=== PATIENT | female | born 1970 | race Caucasian/White ===

== ENCOUNTER → 2019-07-04 13:45 | Outpatient (CLI) | payer OTHER, SELFPAY ==
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
== END ==
PROVIDERS: Family Provider Preventive Medicine Occupational Medicine; PCP Preventive Medicine Occupational Medicine; Referring Provider Podiatrist Foot & Ankle Surgery; Visit Provider Podiatrist Foot & Ankle Surgery
DX: M19.172 Post-traumatic osteoarthritis, left ankle and foot (principal)
CPT/HCPCS: 73700; 76377

== ENCOUNTER → 2022-05-04 | Outpatient (CLI) | payer OTHER, SELFPAY ==
--- NOTE | 2022-05-04 13:45 | CT_ITS ---
EXAM: CT ABDOMEN AND PELVIS WITH INTRAVENOUS CONTRAST CLINICAL INDICATION: abd pain, rectal bleed, diarrhea -- oral and iv TECHNIQUE: Helically acquired images were obtained of the abdomen and pelvis with intravenous contrast. This CT exam was performed using one or more of the following dose reduction techniques: automated exposure control, adjustment of the mA and/or kV according to patient size, and/or use of iterative reconstruction technique. This report was created using [employer] report generation technology. CONTRAST: Oral and amp; IV Gastrografin and amp; 100mL Isovue-300 COMPARISON: None. FINDINGS: LOWER THORAX: Unremarkable. Lung bases are clear. No cardiomegaly. No significant pericardial effusion. ABDOMEN: LIVER: Unremarkable. Homogeneous. No focal mass. GALLBLADDER AND BILE DUCTS: Unremarkable. No calcified gallstones. No gallbladder distention or wall edema. No intra- or extrahepatic biliary ductal dilation. PANCREAS: Unremarkable. No focal cystic or solid mass. SPLEEN: Unremarkable. Normal size without focal cystic or solid mass. ADRENALS: Unremarkable. No nodules. KIDNEYS AND URETERS: Unremarkable. Normal renal size and position. No hydronephrosis. STOMACH AND BOWEL: There is mild thickening of the wall of the sigmoid colon which may be due to incomplete distention or perhaps colitis. There is no obvious inflammation. There is moderate stool in the colon which may represent constipation. PELVIS: APPENDIX: No evidence of acute appendicitis. BLADDER: Unremarkable. REPRODUCTIVE: Unremarkable as visualized. No mass. ABDOMEN and PELVIS: INTRAPERITONEAL SPACE: Unremarkable. No ascites or other fluid collection. No free air. BONES/JOINTS: Unremarkable. No suspicious lytic or blastic abnormality. SOFT TISSUES: Unremarkable. No discrete abdominal or pelvic wall hernia. VASCULATURE: Unremarkable. Abdominal aorta is non-dilated. LYMPH NODES: Unremarkable. No enlarged lymph nodes. CT/Abdomen/Pelvis WITH Contrast IMPRESSION: Mild thickening of the wall the sigmoid colon which may be due to incomplete distention or possibly colitis. There is no obvious inflammation or fluid. There is moderate stool in the more proximal colon which may represent early constipation. Electronically Signed: Haroldo Nichols MD at 16:22 EDT ,
[2022-05-04 16:20] LABS: CREATININE FINGERSTICK < 0.9 mg/dL (0.55-1.02); EGFR FINGERSTICK > 60.0000 mL/min (>60)
== END | disposition home or self-care (01) ==
LOC: CT 13:43
PROVIDERS: PCP Preventive Medicine Occupational Medicine; Referring Provider Nurse Practitioner Adult Health; Visit Provider Nurse Practitioner Adult Health
DX: R10.9 Unspecified abdominal pain (principal); R19.7 Diarrhea, unspecified; K62.5 Hemorrhage of anus and rectum
CPT/HCPCS: 74177; Q9967

== ENCOUNTER → 2022-05-31 | Outpatient (CLI) | payer OTHER, SELFPAY ==
[2022-06-04 10:30] LABS: Calprotectin, Stool 984 ug/g (0-120)
== END | disposition home or self-care (01) ==
PROVIDERS: PCP Preventive Medicine Occupational Medicine; Visit Provider Nurse Practitioner Adult Health
DX: R10.9 Unspecified abdominal pain (principal); R19.7 Diarrhea, unspecified; K62.5 Hemorrhage of anus and rectum; K58.9 Irritable bowel syndrome, unspecified
CPT/HCPCS: 83630; 83993; 87177; 87209; 87493; 87506

== ENCOUNTER 2022-06-11 11:12 | Inpatient (IN) | payer OTHER, SELFPAY ==
[2022-06-11] VITALS (10 sets, daily range): BP systolic 98–125; BP diastolic 58–95; PULSE 67–108; RESP 16–18; TEMP 36.3–36.9; O2SAT 95–100; BMI 39.1; BMI 41.5
--- NOTE | 2022-06-11 11:30 | CT_ITS ---
STUDY: CT ABDOMEN AND PELVIS WITH CONTRAST REASON FOR EXAM: Female, 51 years old. Left lower quadrant pain and bleeding RADIATION DOSAGE (If Supplied By Facility): CTDIvol = ( 15.35 ) mGy, DLP = ( 1226.00 ) mGycm TECHNIQUE: Transaxial images were obtained from the dome of the diaphragm to the symphysis pubis without oral contrast. IV 100mL Isovue-370 was administered. Sagittal and coronal images were reconstructed. Individualized dose optimization techniques were used for this CT. COMPARISON: 05/04/2022 FINDINGS: The visualized lung bases are unremarkable. The visualized portions of the heart are within normal limits. Normal liver. Normal gallbladder and extrahepatic biliary system. Normal spleen. Normal pancreas. Normal bilateral adrenal glands. Normal right kidney. Normal left kidney. Normal visualized stomach. Normal small intestine. Retained stool noted in the majority of the colon, scattered colonic diverticula noted. There is submucosal thickening in the distal descending, throughout the sigmoid colon and rectum consistent with a colitis. There is also pericolonic inflammatory stranding around the distal descending and proximal sigmoid colon consistent with acute diverticulitis. No perforation or abscess is noted. There is non-visualization of the appendix. There is diffuse atherosclerotic calcification of the abdominal aorta, without a demonstrated aneurysm. Normal inferior vena cava. Normal retroperitoneum. Normal urinary bladder. Normal abdominal wall. Mild degenerative bony changes noted. CT/Abdomen/Pelvis W IV Cont ONLY IMPRESSION: Scattered colonic diverticula with some mucosal thickening in the distal descending and sigmoid colon with pericolonic inflammatory stranding consistent with acute diverticulitis. No perforation or abscess. There is also some mucosal thickening throughout the remainder of the sigmoid colon as well as the rectum consistent with a diffuse colitis as well. Again there is no perforation or abscess noted. No suspicious solid organ abnormality No free intraperitoneal fluid, air, or suspicious adenopathy Electronically Signed: Scott Bray MD at 12:20 EST ,
--- NOTE | 2022-06-11 11:32 | EX.ED.DYSGE1 ---
HPI <CLARK Wong - Last Filed: 06/11/22 12:57> History of Present Illness Chief Complaint: GI Bleed Narrative Narrative: 51-year-old female with PMH of HTN, HLD, DM2 presents with bloody BMs since February 2022. She has 10-20 BMs per day that are loose and she often has blood clots. Sometimes she states just bubbles come out. She burps frequently but has no nausea or vomiting. She always has crampy abdominal pain associated with the BMs. She was evaluated at Dr. Walls's office a month ago and had a CT scan showing underdistention vs sigmoid colitis and stool cultures and ova/parasite testing which were all negative. She was never on antibiotics. She is scheduled for endoscopy/colonoscopy on July 13 but states her abdominal pain worsened over the last 4 days and she is not eating or drinking anything because it worsens the pain and she feels dehydrated. She feels hot while lying in bed but has no documented fever and denies chills. PFSH <CLARK Wong - Last Filed: 06/11/22 12:57> [facility] Medical History (Updated 06/11/22 @ 14:59 by Asiya Esqueda) Abdominal pain ADHD Anxiety Arthritis Asthma Blood in stool Chronic pain in left foot Colon polyp Depression Exercise-induced asthma Former smoker Hypertension Irregular heart beat Kidney stones Lower leg edema Neuropathy of left foot Radiculitis, brachial Right shoulder pain Type 2 diabetes mellitus Vitamin D deficiency Home Medications albuterol sulfate 90 mcg/actuation aerosol inhaler (ProAir HFA) 2 puff inhalation Q6H PRN Wheezing 04/07/22 [History Last Taken Unknown] cetirizine 10 mg tablet 10 mg PO DAILY PRN allergies 04/07/22 [History Last Taken Unknown] cholecalciferol (vitamin D3) 100 mcg (4,000 unit) tablet 100 mcg PO DAILY vitamin 04/07/22 [History Last Taken Unknown] fluticasone propionate 50 mcg/actuation nasal spray,suspension 2 spray intranasal DAILY allergies 04/07/22 [History Last Taken Unknown] glipizide 2.5 mg tablet, extended release 24 hr 5 mg PO DAILY diabetes 04/07/22 [History Last Taken Unknown] losartan 25 mg tablet 50 mg PO DAILY blood pressure 04/07/22 [History Last Taken Unknown] meloxicam 15 mg tablet 15 mg PO DAILY arthritis 04/07/22 [History Last Taken Unknown] metformin 500 mg tablet 1,000 mg PO BID diabetes 04/07/22 [History Last Taken Unknown] Allergy/AdvReac Type Severity Reaction Status Date / Time morphine Allergy Intermediate Nausea/Vom/ Verified 06/11/22 14:49 Diarrhea tramadol Allergy Intermediate Nausea Verified 06/11/22 14:49 Family History (Updated 05/04/22 @ 13:00 by Tami Daley) Father Arthritis Diabetes Epilepsy Hypertension Heart disease Liver cancer Mother Hypertension Brother Diabetes Colon cancer Grandmother Colon cancer Stomach cancer Surgical History H/O: hysterectomy History of bunionectomy Previous section Social History Smoking Status: Current every day smoker tobacco type: e-cigarettes alcohol intake: current ROS <CLARK Wong - Last Filed: 06/11/22 12:57> ROS ED ROS Narrative Constitutional: Positive for malaise. Negative for fever, chills. Eyes: Negative for visual change. ENT: Negative for sore throat, ear pain, rhinorrhea. CVS: Negative for palpitations, chest pain, syncope. Respiratory: Negative for shortness of breath, cough, orthopnea. GI: Positive for abdominal pain, diarrhea. Negative for nausea, vomiting, constipation, melena. : Negative for dysuria, hematuria or frequency. Neuro: Negative for headache, motor/sensory dysfunction. Skin: Negative for rash, abscess, or wound. Musc: Negative for joint pain, swelling, trauma. Heme: Negative for easy bruising, bleeding, lymphadenopathy. EXAM <CLARK Wong - Last Filed: 06/11/22 12:57> Physical Exam Narrative Exam Narrative: CONST: Patient lying in bed in no acute distress. EYES: Normal inspection. ENT: Normal inspection, slightly dry mucous membranes. NECK: Normal inspection. RESP: No respiratory distress, CTAB. CVS: Regular rate and rhythm, no murmur, no gallop. ABD: Soft with diffuse tenderness maximal in LLQ, no guarding or rebound, nondistended. Normal bowel sounds x4. SKIN: Color normal, no rash, warm, dry, intact. EXTREMITIES: Normal appearance, no pedal edema. NEURO: Oriented x4. PSYCH: Normal affect. Const Vital Signs: 06/11/22 11:13 Temperature 97.3 F L Temperature Source Temporal Pulse Rate 108 H Respiratory Rate 18 Blood Pressure 113/95 H Blood Pressure Mean 101 Pulse Ox 100 Oxygen Delivery Method Room Air <Dr. Ayad Brice DO - Last Filed: 06/11/22 22:25> Physical Exam Const Vital Signs: 06/11/22 11:13 Temperature 97.3 F L Temperature Source Temporal Pulse Rate 108 H Respiratory Rate 18 Blood Pressure 113/95 H Blood Pressure Mean 101 Pulse Ox 100 Oxygen Delivery Method Room Air MDM <CLARK Wong - Last Filed: 06/11/22 12:57> MDM MDM Narrative Medical decision making narrative: Patient has had 4 months of abdominal pain and lower 10-20 bloody BMs per day. Pain worsened over the last 4 days and she will not eat or drink anything because it increases the pain. She appears ill but nontoxic. She is tachycardic in the low 100s with otherwise normal vital signs. She is significantly tender in LLQ with no peritoneal signs. Labs show normal white count, hemoglobin, electrolytes and renal function. Glucose is 201 with no DKA?likely because she is not taking her oral medications. CT scan shows acute sigmoid diverticulitis with no perforation or abscess. After IV fluids, Dilaudid, Zofran, patient still has significant pain and does not feel she can go home. Discussed case with Dr. Walls as she has seen DIRECTOR [employer] in his practice and he agreed admission would be appropriate. Patient was treated with Rocephin and Flagyl and case discussed with the hospitalist for admission. Lab Data Attestation: I reviewed the patient's lab results. Labs: Laboratory Results - last 24 hr 06/11/22 06/11/22 06/11/22 11:41 11:41 11:41 WBC 10.0 RBC 4.75 Hgb 12.9 Hct 41.0 MCV 86.3 MCH 27.2 MCHC 31.5 L RDW Std Deviation 41.0 RDW Coeff of Terra 13.2 Plt Count 401 MPV 10.2 Immature Gran % (Auto) 0.600 Neut % (Auto) 60.4 Lymph % (Auto) 23.8 Pitkin % (Auto) 7.6 Eos % (Auto) 7.1 H Baso % (Auto) 0.5 Absolute Neuts (auto) 6.1 Absolute Lymphs (auto) 2.39 Nucleated RBC % 0 ESR 87 H Sodium 139 Potassium 4.3 Chloride 103 Carbon Dioxide 31.0 Anion Gap 5 BUN 12 Creatinine 0.84 Estim Creat Clear Calc 61.96 Est GFR (MDRD) Af Amer 92 Est GFR (MDRD) Non-Af 76 BUN/Creatinine Ratio 14.4 Glucose 201 H Calcium 9.4 Total Bilirubin 0.30 AST 7 L ALT 16 Alkaline Phosphatase 92 C-React Prot Ext Range Total Protein 7.5 Albumin 2.5 L Globulin 5.0 H Albumin/Globulin Ratio 0.5 L 06/11/22 11:41 WBC RBC Hgb Hct MCV MCH MCHC RDW Std Deviation RDW Coeff of Terra Plt Count MPV Immature Gran % (Auto) Neut % (Auto) Lymph % (Auto) Pitkin % (Auto) Eos % (Auto) Baso % (Auto) Absolute Neuts (auto) Absolute Lymphs (auto) Nucleated RBC % ESR Sodium Potassium Chloride Carbon Dioxide Anion Gap BUN Creatinine Estim Creat Clear Calc Est GFR (MDRD) Af Amer Est GFR (MDRD) Non-Af BUN/Creatinine Ratio Glucose Calcium Total Bilirubin AST ALT Alkaline Phosphatase C-React Prot Ext Range 94.30 H Total Protein Albumin Globulin Albumin/Globulin Ratio Radiography Diagnostic Testing: Clinical Impression(s) from Imaging Studies Abdomen/Pelvis CT 06/11/22 11:30 IMPRESSION: Scattered colonic diverticula with some mucosal thickening in the distal descending and sigmoid colon with pericolonic inflammatory stranding consistent with acute diverticulitis. No perforation or abscess. There is also some mucosal thickening throughout the remainder of the sigmoid colon as well as the rectum consistent with a diffuse colitis as well. Again there is no perforation or abscess noted. No suspicious solid organ abnormality No free intraperitoneal fluid, air, or suspicious adenopathy Electronically Signed: Scott Bray MD at 12:20 EST , <Dr. Ayad Brice, DO - Last Filed: 06/11/22 22:25> MDM MDM Narrative Medical decision making narrative: Patient has had 4 months of abdominal pain and lower 10-20 bloody BMs per day. Pain worsened over the last 4 days and she will not eat or drink anything because it increases the pain. She appears ill but nontoxic. She is tachycardic in the low 100s with otherwise normal vital signs. She is significantly tender in LLQ with no peritoneal signs. Labs show normal white count, hemoglobin, electrolytes and renal function. Glucose is 201 with no DKA?likely because she is not taking her oral medications. CT scan shows acute sigmoid diverticulitis with no perforation or abscess. After IV fluids, Dilaudid, Zofran, patient still has significant pain and does not feel she can go home. Discussed case with Dr. Walls as she has seen [employer] in his practice and he agreed admission would be appropriate. Patient was treated with Rocephin and Flagyl and case discussed with the hospitalist for admission. Attending note: Patient seen and evaluated with animal husbandry worker. I perform my own [id number] evaluation. I agree with the plan of work-up. Increasing left lower quadrant pain over the past week. Since March 01 to loose stools as bloody. She seen Dr. Walls a month ago had stool studies all negative. She had a CT scan decompressed colon with thickening with questionable diverticulitis. She states she was not on any antibiotics. She denies fevers. Denies any blood thinners. She had a planned endoscopy and colonoscopy next month. Exam tender palpation left lower quadrant. Vital stable. Uncomfortable. Labs obtained hemoglobin stable 12.9. White count of 10. CT scan positive for diverticulitis with no abscess or perforations. She treated for pain symptoms. She started antibiotics. Discussed with Dr. Walls, with her pain and bloody stools will admit to medicine service. Lab Data Labs: Laboratory Results - last 24 hr 06/11/22 06/11/22 06/11/22 11:41 11:41 11:41 WBC 10.0 RBC 4.75 Hgb 12.9 Hct 41.0 MCV 86.3 MCH 27.2 MCHC 31.5 L RDW Std Deviation 41.0 RDW Coeff of Terra 13.2 Plt Count 401 MPV 10.2 Immature Gran % (Auto) 0.600 Neut % (Auto) 60.4 Lymph % (Auto) 23.8 Pitkin % (Auto) 7.6 Eos % (Auto) 7.1 H Baso % (Auto) 0.5 Absolute Neuts (auto) 6.1 Absolute Lymphs (auto) 2.39 Nucleated RBC % 0 ESR 87 H Sodium 139 Potassium 4.3 Chloride 103 Carbon Dioxide 31.0 Anion Gap 5 BUN 12 Creatinine 0.84 Estim Creat Clear Calc 61.96 Est GFR (MDRD) Af Amer 92 Est GFR (MDRD) Non-Af 76 BUN/Creatinine Ratio 14.4 Glucose 201 H Calcium 9.4 Total Bilirubin 0.30 AST 7 L ALT 16 Alkaline Phosphatase 92 C-React Prot Ext Range Total Protein 7.5 Albumin 2.5 L Globulin 5.0 H Albumin/Globulin Ratio 0.5 L 06/11/22 11:41 WBC RBC Hgb Hct MCV MCH MCHC RDW Std Deviation RDW Coeff of Terra Plt Count MPV Immature Gran % (Auto) Neut % (Auto) Lymph % (Auto) Pitkin % (Auto) Eos % (Auto) Baso % (Auto) Absolute Neuts (auto) Absolute Lymphs (auto) Nucleated RBC % ESR Sodium Potassium Chloride Carbon Dioxide Anion Gap BUN Creatinine Estim Creat Clear Calc Est GFR (MDRD) Af Amer Est GFR (MDRD) Non-Af BUN/Creatinine Ratio Glucose Calcium Total Bilirubin AST ALT Alkaline Phosphatase C-React Prot Ext Range 94.30 H Total Protein Albumin Globulin Albumin/Globulin Ratio Radiography Diagnostic Testing: Clinical Impression(s) from Imaging Studies Abdomen/Pelvis CT 06/11/22 11:30 IMPRESSION: Scattered colonic diverticula with some mucosal thickening in the distal descending and sigmoid colon with pericolonic inflammatory stranding consistent with acute diverticulitis. No perforation or abscess. There is also some mucosal thickening throughout the remainder of the sigmoid colon as well as the rectum consistent with a diffuse colitis as well. Again there is no perforation or abscess noted. No suspicious solid organ abnormality No free intraperitoneal fluid, air, or suspicious adenopathy Electronically Signed: Scott Bray MD at 12:20 EST , Discharge Plan Dx/Rx/DC Orders Clinical Impression: Abdominal pain, Diverticulitis of sigmoid colon, Bloody diarrhea, Dehydration Disposition Disposition: Acute Care Hospital [facility] Discharge Date/Time: 06/11/22 14:01
[2022-06-11 11:48] LABS: Absolute Lymphocyte Count 2.39 X10^3/uL (0.83-4.51); Absolute Neutrophil Count 6.1 X10^3/uL (2.0-7.7); Basophil# 0.05 X10^3/uL; Basophil% 0.5 % (0-1); Eosinophil# 0.71 X10^3/uL; Eosinophils% 7.1 % (0-5); Hemoglobin 12.9 g/dL (12.0-15.0); Lymphocyte # 2.39 X10^3/ul (0.83-4.51); Lymphocyte % 23.8 % (19-41); Mean Corp Hgb Conc 31.5 g/dL (32-36); Mean Corpuscular Hgb 27.2 pg (27.0-32.0); Mean Corpuscular Volume 86.3 fL (81-99); Mean Platelet Vol. 10.2 fl (6.2-12.0); Monocyte# 0.76 X10^3/uL; Monocyte% 7.6 % (0-10); NRBC Flagged by Analyzer 0 % (0-5); Neutrophil # 6.07 X10^3/uL (2.7-7.7); Neutrophil % 60.4 % (47-70); Platelet Count 401 K/mm3 (150-450); RBC Distribution Width CV 13.2 % (11.6-14.6); Red Blood Count 4.75 M/mm3 (4.2-5.4)
[2022-06-11 12:04] LABS: ALB/GLOB Ratio 0.5 RATIO (0.9-2.4); AST(SGOT) 7 U/L (15-37); Alanine Aminotransfer ALT/SGPT 16 U/L (13-56); Albumin, Serum 2.5 g/dL (3.2-5.0); Alkaline Phosphatase 92 U/L (45-117); Anion Gap 5 (5-15); BUN 12 mg/dL (7-18); BUN/Creat Ratio 14.4 RATIO (10-20); Calcium,Total 9.4 mg/dL (8.5-10.1); Chloride 103 mmol/L (98-107); Creatinine, Serum 0.84 mg/dL (0.55-1.02); EST Glomerular Filtration Rate 76 mL/min (>60); Est Glom Filt Rate - Afr Amer 92 mL/min (>60); Estimated Creatinine Clearance 61.96 ml/min; Glucose 201 mg/dL (74-106); Potassium 4.3 mmol/L (3.5-5.1); Protein, Total 7.5 g/dL (6.4-8.2); Sodium Level 139 mmol/L (136-145)
[2022-06-11] MEDS: HYDROmorphone 1 MG/ML Syringe 0.5 MG IV (12:11)
[2022-06-11] MEDS: Ondansetron 4 MG/2 ML Vial IV (12:11)
[2022-06-11] MEDS: 0.9% Normal Saline 1,000 ML 1000 ML IV (12:15)
[2022-06-11] MEDS: Ceftriaxone 1 GM/50 ML BAG IV (13:16)
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
[2022-06-11] MEDS: metroNIDAZOLE 500 MG/100 ML BAG 100 MG IV ×2 (13:59→22:32)
[2022-06-11] MEDS: HYDROmorphone 0.5 MG/0.5 ML SYRINGE IV ×2 (15:46→21:10)
[2022-06-11] MEDS: 0.9% Normal Saline 1,000 ML 100 ML IV (15:46)
[2022-06-11] MEDS: 0.9% Saline Lock 10 ML Syringe IV ×2 (15:49→22:31)
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
[2022-06-11 18:25] LABS: Bedside Glucose 141 mg/dL (74-106)
[2022-06-11 18:29] LABS: Erythrocyte Sedimentation Rate 87 mm/hr (0-30)
[2022-06-11 18:49] LABS: Lactic Acid 1.6 mmol/L (0.4-1.9)
[2022-06-11] MEDS: MESALAMINE 400 MG CAPSULE.DR PO (20:01)
[2022-06-11] MEDS: Ciprofloxacin 400 MG/200 ML BAG 200 MG IV (21:10)
[2022-06-11] MEDS: DiphenhydrAMINE 50 MG/ML Syringe 25 MG IV (22:28)
[2022-06-12] VITALS (10 sets, daily range): BP systolic 128–151; BP diastolic 67–93; PULSE 67–93; RESP 16–18; TEMP 36.4–37; O2SAT 91–94
[2022-06-12 00:20] LABS: Bedside Glucose 158 mg/dL (74-106)
[2022-06-12] MEDS: 0.9% Normal Saline 1,000 ML 100 ML IV ×2 (02:59→15:57)
[2022-06-12] MEDS: HYDROmorphone 0.5 MG/0.5 ML SYRINGE IV ×4 (03:04→18:35)
[2022-06-12] MEDS: MESALAMINE 400 MG CAPSULE.DR PO ×3 (05:55→22:38)
[2022-06-12] MEDS: metroNIDAZOLE 500 MG/100 ML BAG 100 MG IV ×3 (05:55→22:32)
[2022-06-12] MEDS: Insulin Lispro 100 UNIT/ML INSULN.PEN SC ×4 (06:02→22:35)
[2022-06-12 06:31] LABS: Bedside Glucose 253 mg/dL (74-106)
[2022-06-12 07:13] LABS: Absolute Lymphocyte Count 0.95 X10^3/uL (0.83-4.51); Absolute Neutrophil Count 7.5 X10^3/uL (2.0-7.7); Basophil# 0.03 X10^3/uL; Basophil% 0.3 % (0-1); Eosinophil# 0.02 X10^3/uL; Eosinophils% 0.2 % (0-5); Hematocrit 39.9 % (37-47); Hemoglobin 12.5 g/dL (12.0-15.0); Lymphocyte # 0.95 X10^3/ul (0.83-4.51); Mean Corp Hgb Conc 31.3 g/dL (32-36); Mean Corpuscular Hgb 27.1 pg (27.0-32.0); Mean Corpuscular Volume 86.6 fL (81-99); Mean Platelet Vol. 10.7 fl (6.2-12.0); Monocyte# 0.06 X10^3/uL; Monocyte% 0.7 % (0-10); NRBC Flagged by Analyzer 0 % (0-5); Neutrophil % 86.9 % (47-70); Platelet Count 402 K/mm3 (150-450); RBC Distribution Width CV 13.2 % (11.6-14.6); RBC Distribution Width SD 41.1 fl (35.1-43.9); Red Blood Count 4.61 M/mm3 (4.2-5.4); White Blood Count 8.6 K/mm3 (4.4-11.0)
[2022-06-12] MEDS: Acetaminophen 325 MG Tablet 650 MG PO ×2 (07:30→20:45)
[2022-06-12 07:57] LABS: ALB/GLOB Ratio 0.5 RATIO (0.9-2.4); AST(SGOT) 8 U/L (15-37); Alanine Aminotransfer ALT/SGPT 17 U/L (13-56); Albumin, Serum 2.3 g/dL (3.2-5.0); Alkaline Phosphatase 85 U/L (45-117); Anion Gap 8 (5-15); BUN 11 mg/dL (7-18); BUN/Creat Ratio 13.9 RATIO (10-20); Calcium,Total 8.9 mg/dL (8.5-10.1); Chloride 100 mmol/L (98-107); Creatinine, Serum 0.79 mg/dL (0.55-1.02); EST Glomerular Filtration Rate 81 mL/min (>60); Est Glom Filt Rate - Afr Amer 98 mL/min (>60); Estimated Creatinine Clearance 59.83 ml/min; Globulin 4.7 g/dL (2.2-4.2); Glucose 251 mg/dL (74-106); Magnesium 2.1 mg/dL (1.6-2.6); Phosphorus 4.1 mg/dL (2.5-4.9); Potassium 4.4 mmol/L (3.5-5.1); Sodium Level 136 mmol/L (136-145); Thyroid Stim Hormone (TSH) 0.57 uIU/mL (0.358-3.74)
[2022-06-12] MEDS: Ceftriaxone 1 GM/50 ML BAG IV (09:38)
[2022-06-12] MEDS: 0.9% Saline Lock 10 ML Syringe IV ×4 (09:46→22:29)
[2022-06-12 10:34] LABS: Erythrocyte Sedimentation Rate 66 mm/hr (0-30)
--- NOTE | 2022-06-12 10:42 | PCM.PN.HOSP ---
Subjective Subjective Follow-up on abdominal pain/acute diverticulitis/acute GI bleed: Patient was seen and examined. She complains of severe crampy abdominal pain as well as GI bleed with blood clots with bowel movements. Denies any fever or chills. Objective Data Objective Data Vital Signs: Vital Signs Temp Pulse Resp BP Pulse Ox O2 Del Method 97.6 F L 71 16 134/93 H 94 Room Air 06/12/22 07:34 06/12/22 07:34 06/12/22 07:34 06/12/22 07:34 06/12/22 07:34 06/12/22 07:34 Oxygen Delivery Method Room Air Weight: 97.159 kg Body Mass Index (BMI) 41.5 Intake & Output: Intake and Output for Last 24 Hours 06/10/22 06/11/22 06/12/22 23:59 23:59 23:59 Intake Total 1573.34 / 1573.34 410 / 410 Balance 1573.34 / 1573.34 410 / 410 Lab / Micro Data Result Diagrams: 06/12/22 06:30 06/12/22 06:10 Labs: Laboratory Results - last 24 hr 06/11/22 11:41: WBC 10.0, RBC 4.75, Hgb 12.9, Hct 41.0, MCV 86.3, MCH 27.2, MCHC 31.5 L, RDW Std Deviation 41.0, RDW Coeff of Terra 13.2, Plt Count 401, MPV 10.2, Immature Gran % (Auto) 0.600, Neut % (Auto) 60.4, Lymph % (Auto) 23.8, [place] % (Auto) 7.6, Eos % (Auto) 7.1 H, Baso % (Auto) 0.5, Absolute Neuts (auto) 6.1, Absolute Lymphs (auto) 2.39, Nucleated RBC % 0 06/11/22 11:41: Sodium 139, Potassium 4.3, Chloride 103, Carbon Dioxide 31.0, Anion Gap 5, BUN 12, Creatinine 0.84, Estim Creat Clear Calc 61.96, Est GFR (MDRD) Af Amer 92, Est GFR (MDRD) Non-Af 76, BUN/Creatinine Ratio 14.4, Glucose 201 H, Calcium 9.4, Total Bilirubin 0.30, AST 7 L, ALT 16, Alkaline Phosphatase 92, Total Protein 7.5, Albumin 2.5 L, Globulin 5.0 H, Albumin/Globulin Ratio 0.5 L 06/11/22 11:41: ESR 87 H 06/11/22 11:41: C-React Prot Ext Range 94.30 H 06/11/22 18:03: POC Glucose 141 H 06/11/22 18:19: Lactic Acid 1.6 06/12/22 00:02: POC Glucose 158 H 06/12/22 05:57: POC Glucose 253 H 06/12/22 06:10: Sodium 136, Potassium 4.4, Chloride 100, Carbon Dioxide 28.0, Anion Gap 8, BUN 11, Creatinine 0.79, Estim Creat Clear Calc 59.83, Est GFR (MDRD) Af Amer 98, Est GFR (MDRD) Non-Af 81, BUN/Creatinine Ratio 13.9, Glucose 251 H, Calcium 8.9, Phosphorus 4.1, Magnesium 2.1, Total Bilirubin 0.10 L, AST 8 L, ALT 17, Alkaline Phosphatase 85, Total Protein 7.0, Albumin 2.3 L, Globulin 4.7 H, Albumin/Globulin Ratio 0.5 L, TSH 0.57 06/12/22 06:10: ESR 66 H 06/12/22 06:10: C-React Prot Ext Range 78.90 H 06/12/22 06:30: WBC 8.6, RBC 4.61, Hgb 12.5, Hct 39.9, MCV 86.6, MCH 27.1, MCHC 31.3 L, RDW Std Deviation 41.1, RDW Coeff of Terra 13.2, Plt Count 402, MPV 10.7, Immature Gran % (Auto) 0.900, Neut % (Auto) 86.9 H, Lymph % (Auto) 11.0 L, [place] % (Auto) 0.7, Eos % (Auto) 0.2, Baso % (Auto) 0.3, Absolute Neuts (auto) 7.5, Absolute Lymphs (auto) 0.95, Nucleated RBC % 0 Micro: Microbiology 06/11/22 17:00 Stool Enteric Bacteriology - Final 06/11/22 17:00 Stool Stool Occult Blood (LEYDI) - Final Occult Blood Positive Radiography Diagnostic Testing: Radiology Impression Abdomen/Pelvis CT 06/11/22 11:30 IMPRESSION: Scattered colonic diverticula with some mucosal thickening in the distal descending and sigmoid colon with pericolonic inflammatory stranding consistent with acute diverticulitis. No perforation or abscess. There is also some mucosal thickening throughout the remainder of the sigmoid colon as well as the rectum consistent with a diffuse colitis as well. Again there is no perforation or abscess noted. No suspicious solid organ abnormality No free intraperitoneal fluid, air, or suspicious adenopathy Electronically Signed: Scott Bray MD at 12:20 EST , Physical Exam Narrative Physical exam: General: Alert, Oriented x3, Cooperative, No apparent distress HEENT: Atraumatic Oral: Moist Mucosa Neck: Supple Lungs: Clear to auscultation Cardiovascular: HS I+II, regular, no murmurs Abdomen: Bowel Sounds Present, Soft, slight tenderness in the left side of the abdomen Extremities: No edema Skin: No rashes, No breakdown Neurological: Grossly intact Psych/Mental Status: Appropriate Assessment & Plan Assessment/Plan (1) Diverticulitis of sigmoid colon: PLAN: Plan 1. Acute lower GI bleed, likely related to ulcerative colitis versus diverticulosis Continue IV PPI, continue to monitor GI following 2. Acute diverticulitis/diffuse colitis versus ulcerative colitis of the descending colon, Patient with persistent abdominal cramps with GI bleed Continue mesalamine, IV Solu-Medrol, IV ceftriaxone, Flagyl and 3. Type II DM, blood sugars fairly uncontrolled Continue on medium dose insulin sliding scale with blood glucose checks 4. DVT PPx- SCDs Charges/Coding Visit Charges Inpatient E&M: 91091 Subs Hosp L3
--- NOTE | 2022-06-12 11:20 | CASEMGMT ---
RN CM Face to Face with patient for initial transition planning/care coordination assessment. RN CM introduced self and role at [facility]. Patient lying in bed, alert and oriented. Patient willing to participate in assessment and is able to answer all questions appropriately. Care providers, pharmacy, and demographics verified. Patient wishes to discharge home, denies need for home health at this time. Patient states she has no further needs or concerns at this time. CM to follow for discharge planning needs that may arise. PCP: Radha Specialists: Friend, GI Preferred Pharmacy: [facility]; [facility] retail at discharge. Insurance: [employer] Prescription Benefit: yes Living Will/HPOA: none LNOK: Living Arrangements: Patient lives with in a 2 story home with bed and bath on first floor. 3 steps and railing to enter the home. Patient states she is independent at home. Transportation: self, DME/HHC: Patient states she has built in shower chair, cane, walker, and grab bars. Patient denies previous HHC or SNF. Disposition Plan: Patient to discharge home with family support and follow-up plans in place. Stephanie BAH, RN, CM
[2022-06-12 12:05] LABS: Bedside Glucose 294 mg/dL (74-106)
[2022-06-12] MEDS: oxyCODONE 5 MG Tablet PO (12:49)
--- NOTE | 2022-06-12 16:51 | PCM.PROGNOTE ---
Subjective Subjective She still complains of left lower quadrant pain radiating around to her back and to the midportion of her abdomen. She does want something to eat. She says that she still having lower GI bleeding and some urgency. She was started on medical therapy yesterday for ulcerative colitis and acute diverticulitis. Objective Data Objective Data Vital Signs: Vital Signs Temp Pulse Resp BP Pulse Ox O2 Del Method 98.2 F 93 16 144/67 H 94 Room Air 06/12/22 13:21 06/12/22 14:00 06/12/22 13:21 06/12/22 13:21 06/12/22 13:21 06/12/22 13:21 Oxygen Delivery Method Room Air Weight: 214 lb 3.2 oz Body Mass Index (BMI) 41.5 Intake & Output: Intake and Output for Last 24 Hours 06/10/22 06/11/22 06/12/22 23:59 23:59 23:59 Intake Total 1573.34 / 1573.34 1360 / 1360 Balance 1573.34 / 1573.34 1360 / 1360 Medical Nutrition Assessment Dietitian: Malnutrition Criteria Met Start: 06/12/22 11:32 Freq: Status: Active Protocol: Document 06/12/22 11:32 LAURA (Rec: 06/12/22 11:32 LAURA [id number]) Nutrition Malnutrition Evidence of Malnutrition Exists Yes Malnutrition (severe): Chronic Evidenced By Suboptimal Energy Intake ( Severe),Weight Loss (Severe) Clinical Problem Altered Nutrient-Related Laboratory Values Etiology related to diabetes and steroid administration Signs/Symptoms as evidenced by gluc 251 Status Active Problem Chronic Disease or Condition Related Malnutrition Etiology severe malnutrition related to altered GI function ( diverticulitis and n/v/bloody stool) x 3 months Signs/Symptoms as evidenced by 5.7% wt loss x 1 mo and 10.8% wt loss x 3 months; 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 Lab / Micro Data Result Diagrams: 06/12/22 06:30 06/12/22 06:10 Labs: Laboratory Results - last 24 hr 06/11/22 11:41: ESR 87 H 06/11/22 11:41: C-React Prot Ext Range 94.30 H 06/11/22 18:03: POC Glucose 141 H 06/11/22 18:19: Lactic Acid 1.6 06/12/22 00:02: POC Glucose 158 H 06/12/22 05:57: POC Glucose 253 H 06/12/22 06:10: Sodium 136, Potassium 4.4, Chloride 100, Carbon Dioxide 28.0, Anion Gap 8, BUN 11, Creatinine 0.79, Estim Creat Clear Calc 59.83, Est GFR (MDRD) Af Amer 98, Est GFR (MDRD) Non-Af 81, BUN/Creatinine Ratio 13.9, Glucose 251 H, Calcium 8.9, Phosphorus 4.1, Magnesium 2.1, Total Bilirubin 0.10 L, AST 8 L, ALT 17, Alkaline Phosphatase 85, Total Protein 7.0, Albumin 2.3 L, Globulin 4.7 H, Albumin/Globulin Ratio 0.5 L, TSH 0.57 06/12/22 06:10: ESR 66 H 06/12/22 06:10: C-React Prot Ext Range 78.90 H 06/12/22 06:30: WBC 8.6, RBC 4.61, Hgb 12.5, Hct 39.9, MCV 86.6, MCH 27.1, MCHC 31.3 L, RDW Std Deviation 41.1, RDW Coeff of Terra 13.2, Plt Count 402, MPV 10.7, Immature Gran % (Auto) 0.900, Neut % (Auto) 86.9 H, Lymph % (Auto) 11.0 L, [place] % (Auto) 0.7, Eos % (Auto) 0.2, Baso % (Auto) 0.3, Absolute Neuts (auto) 7.5, Absolute Lymphs (auto) 0.95, Nucleated RBC % 0 06/12/22 11:30: POC Glucose 294 H Micro: Microbiology 06/11/22 17:00 Stool Enteric Bacteriology - Final 06/11/22 17:00 Stool Stool Occult Blood (LEYDI) - Final Occult Blood Positive Physical Exam Narrative Physical exam: General: Alert, Oriented x3, Cooperative, No apparent distress HEENT: Atraumatic Oral: Moist Mucosa Neck: Supple Lungs: Clear to auscultation Cardiovascular: HS I+II, regular, no murmurs Abdomen: Bowel Sounds Present, Soft, slight tenderness in the left side of the abdomen Extremities: No edema Skin: No rashes, No breakdown Neurological: Grossly intact Psych/Mental Status: Appropriate Assessment & Plan Assessment/Plan (1) Diarrhea: PLAN: . Diarrhea possibly secondary to stricture and colitis in the colon. Continue 5-ASA medications and steroids for now. (2) Rectal bleed: PLAN: I am suspecting that she is bleeding secondary to also colitis or sigmoid colitis associated with diverticulosis. She said it is slowing down slightly. Continue to monitor hemoglobin (3) Diverticulitis of sigmoid colon: PLAN: Her white blood cell count is normal and her ESR and CRP are improving with antibiotic therapy and steroid therapy. She is also on IV fluids. I am okay with advancing her diet to a soft diet with caution. I would really watch for constipation as she is getting narcotics and constipation can cause worsening diverticulitis. Charges/Coding Visit Charges Inpatient E&M: 46379 Subs Hosp L3
[2022-06-12] MEDS: Glucerna Shake 120 ML LIQUID PO ×2 (17:06→22:37)
[2022-06-12 17:30] LABS: Bedside Glucose 320 mg/dL (74-106)
[2022-06-12] MEDS: DiphenhydrAMINE 25 MG Capsule PO (20:45)
[2022-06-12] MEDS: MELATONIN 3 MG TABLET PO (22:38)
[2022-06-12 23:01] LABS: Bedside Glucose 288 mg/dL (74-106)
[2022-06-13] VITALS (8 sets, daily range): BP systolic 125–162; BP diastolic 72–97; PULSE 79–91; RESP 16–18; TEMP 36.3–37.2; O2SAT 82–98
[2022-06-13] MEDS: 0.9% Normal Saline 1,000 ML 100 ML IV ×2 (02:21→14:40)
[2022-06-13] MEDS: HYDROmorphone 0.5 MG/0.5 ML SYRINGE IV ×3 (05:25→14:51)
[2022-06-13 06:36] LABS: Absolute Lymphocyte Count 1.36 X10^3/uL (0.83-4.51); Absolute Neutrophil Count 12.3 X10^3/uL (2.0-7.7); Basophil# 0.05 X10^3/uL; Basophil% 0.3 % (0-1); Hematocrit 35.1 % (37-47); Hemoglobin 11.3 g/dL (12.0-15.0); Lymphocyte # 1.36 X10^3/ul (0.83-4.51); Lymphocyte % 9.4 % (19-41); Mean Corp Hgb Conc 32.2 g/dL (32-36); Mean Corpuscular Hgb 27.4 pg (27.0-32.0); Mean Platelet Vol. 10.5 fl (6.2-12.0); Monocyte# 0.37 X10^3/uL; Monocyte% 2.6 % (0-10); NRBC Flagged by Analyzer 0 % (0-5); Neutrophil % 85.5 % (47-70); Platelet Count 381 K/mm3 (150-450); RBC Distribution Width SD 40.1 fl (35.1-43.9); Red Blood Count 4.13 M/mm3 (4.2-5.4); White Blood Count 14.4 K/mm3 (4.4-11.0)
[2022-06-13] MEDS: metroNIDAZOLE 500 MG/100 ML BAG 100 MG IV ×3 (06:37→23:16)
[2022-06-13] MEDS: 0.9% Saline Lock 10 ML Syringe IV ×4 (06:39→23:19)
[2022-06-13] MEDS: Insulin Lispro 100 UNIT/ML INSULN.PEN SC ×4 (06:43→23:27)
[2022-06-13] MEDS: MESALAMINE 400 MG CAPSULE.DR PO ×3 (06:45→23:15)
[2022-06-13 06:48] LABS: Erythrocyte Sedimentation Rate 68 mm/hr (0-30)
[2022-06-13 07:06] LABS: ALB/GLOB Ratio 0.5 RATIO (0.9-2.4); AST(SGOT) 7 U/L (15-37); Alanine Aminotransfer ALT/SGPT 16 U/L (13-56); Albumin, Serum 2.3 g/dL (3.2-5.0); Alkaline Phosphatase 84 U/L (45-117); Anion Gap 5 (5-15); BUN 18 mg/dL (7-18); Chloride 106 mmol/L (98-107); Creatinine, Serum 0.69 mg/dL (0.55-1.02); EST Glomerular Filtration Rate 94 mL/min (>60); Est Glom Filt Rate - Afr Amer 114 mL/min (>60); Estimated Creatinine Clearance 68.51 ml/min; Globulin 4.3 g/dL (2.2-4.2); Glucose 271 mg/dL (74-106); Potassium 4.1 mmol/L (3.5-5.1); Protein, Total 6.6 g/dL (6.4-8.2); Sodium Level 137 mmol/L (136-145)
[2022-06-13 07:10] LABS: Bedside Glucose 252 mg/dL (74-106)
[2022-06-13] MEDS: Glucerna Shake 120 ML LIQUID PO ×4 (10:06→23:16)
[2022-06-13] MEDS: Ceftriaxone 1 GM/50 ML BAG IV (10:07)
[2022-06-13 11:30] LABS: Bedside Glucose 432 mg/dL (74-106)
[2022-06-13] MEDS: Insulin Glargine-YFGN 100 UNIT/ML Pen SC ×2 (13:20→23:26)
--- NOTE | 2022-06-13 15:00 | PN.HOSP_ITS ---
Subjective Subjective Follow-up on abdominal pain/acute diverticulitis/acute GI bleed: Patient was seen and examined. She still has some crampy abdominal pain. Denies any fever or chills Objective Data Objective Data Vital Signs: Vital Signs Temp Pulse Resp BP Pulse Ox O2 Del Method O2 Flow Rate 99.0 F 82 16 150/81 H 94 Room Air 2 06/13/22 14:31 06/13/22 14:31 06/13/22 14:31 06/13/22 14:31 06/13/22 14:31 06/13/22 14:31 06/13/22 02:17 Oxygen Flow Rate (L/min) 2 Oxygen Delivery Method Room Air Weight: 97.159 kg Body Mass Index (BMI) 41.5 Intake & Output: Intake and Output for Last 24 Hours 06/11/22 06/12/22 06/13/22 23:59 23:59 23:59 Intake Total 1573.34 / 1573.34 2598.33 / 2598.33 1270.00 / 1270.00 Balance 1573.34 / 1573.34 2598.33 / 2598.33 1270.00 / 1270.00 Medical Nutrition Assessment Dietitian: Malnutrition Criteria Met Start: 06/12/22 11:32 Freq: Status: Active Protocol: Document 06/12/22 11:32 LAURA (Rec: 06/12/22 11:32 LAURA [id number]) Nutrition Malnutrition Evidence of Malnutrition Exists Yes Malnutrition (severe): Chronic Evidenced By Suboptimal Energy Intake ( Severe),Weight Loss (Severe) Clinical Problem Altered Nutrient-Related Laboratory Values Etiology related to diabetes and steroid administration Signs/Symptoms as evidenced by gluc 251 Status Active Problem Chronic Disease or Condition Related Malnutrition Etiology severe malnutrition related to altered GI function ( diverticulitis and n/v/bloody stool) x 3 months Signs/Symptoms as evidenced by 5.7% wt loss x 1 mo and 10.8% wt loss x 3 months; 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 Lab / Micro Data Result Diagrams: 06/13/22 06:15 06/13/22 06:15 Labs: Laboratory Results - last 24 hr 06/12/22 17:01: POC Glucose 320 H 06/12/22 22:23: POC Glucose 288 H 06/13/22 06:15: WBC 14.4 H, RBC 4.13 L, Hgb 11.3 L, Hct 35.1 L, MCV 85.0, MCH 27.4, MCHC 32.2, RDW Std Deviation 40.1, RDW Coeff of Terra 13.0, Plt Count 381, MPV 10.5, Immature Gran % (Auto) 2.200 H, Neut % (Auto) 85.5 H, Lymph % (Auto) 9.4 L, [place] % (Auto) 2.6, Eos % (Auto) 0.0, Baso % (Auto) 0.3, Absolute Neuts (auto) 12.3 H, Absolute Lymphs (auto) 1.36, Nucleated RBC % 0, ESR 68 H 06/13/22 06:15: Sodium 137, Potassium 4.1, Chloride 106, Carbon Dioxide 26.0, Anion Gap 5, BUN 18, Creatinine 0.69, Estim Creat Clear Calc 68.51, Est GFR (MDRD) Af Amer 114, Est GFR (MDRD) Non-Af 94, BUN/Creatinine Ratio 26.0 H, Glucose 271 H, Calcium 9.0, Total Bilirubin 0.20, AST 7 L, ALT 16, Alkaline Phosphatase 84, C-React Prot Ext Range 37.80 H, Total Protein 6.6, Albumin 2.3 L , Globulin 4.3 H, Albumin/Globulin Ratio 0.5 L 06/13/22 06:43: POC Glucose 252 H 06/13/22 11:09: POC Glucose 432 H Micro: Microbiology 06/11/22 17:00 Stool Enteric Bacteriology - Final 06/11/22 17:00 Stool Stool Occult Blood (LEYDI) - Final Occult Blood Positive Physical Exam Narrative Physical exam: General: Alert, Oriented x3, Cooperative, No apparent distress HEENT: Atraumatic Oral: Moist Mucosa Neck: Supple Lungs: Clear to auscultation Cardiovascular: HS I+II, regular, no murmurs Abdomen: Bowel Sounds Present, Soft, slight tenderness in the left side of the a bdomen Extremities: No edema Skin: No rashes, No breakdown Neurological: Grossly intact Psych/Mental Status: Appropriate Assessment & Plan Assessment/Plan (1) Diverticulitis of sigmoid colon: PLAN: Plan 1. Acute lower GI bleed, likely related to ulcerative colitis versus diverticulosis, fairly persistent No significant drop in hemoglobin Continue IV PPI, GI following, continue to monitor 2. Acute diverticulitis/diffuse colitis versus ulcerative colitis of the descending colon, Patient with persistent abdominal cramps with GI bleed Continue mesalamine, IV Solu-Medrol, IV ceftriaxone, and Flagyl 3. Type II DM, blood sugars remain uncontrolled Started on Lantus 5 units twice daily, continue on high-dose insulin sliding scale blood glucose checks 4. Severe protein calorie malnutrition, energy attorney consulted, follow-up recommendations 5. DVT PPx- SCDs Charges/Coding Visit Charges Inpatient E&M: 16650 Subs Hosp L3
--- NOTE | 2022-06-13 16:45 | PN_ITS ---
Subjective Subjective She still complains of left lower quadrant pain radiating around to her back and to the midportion of her abdomen. She rates it a 5 out of 10. She is eating. She says that she still having lower GI bleeding and some urgency.? She was started on medical therapy yesterday for ulcerative colitis and acute diverticu litis. Objective Data Objective Data Vital Signs: Vital Signs Temp Pulse Resp BP Pulse Ox O2 Del Method O2 Flow Rate 99.0 F 82 16 150/81 H 94 Room Air 2 06/13/22 14:31 06/13/22 14:31 06/13/22 14:31 06/13/22 14:31 06/13/22 14:31 06/13/22 14:31 06/13/22 02:17 Oxygen Flow Rate (L/min) 2 Oxygen Delivery Method Room Air Weight: 214 lb 3.2 oz Body Mass Index (BMI) 41.5 Intake & Output: Intake and Output for Last 24 Hours 06/11/22 06/12/22 06/13/22 23:59 23:59 23:59 Intake Total 1573.34 / 1573.34 2598.33 / 2598.33 1370.00 / 1370.00 Balance 1573.34 / 1573.34 2598.33 / 2598.33 1370.00 / 1370.00 Medical Nutrition Assessment Dietitian: Malnutrition Criteria Met Start: 06/12/22 11:32 Freq: Status: Active Protocol: Document 06/12/22 11:32 LAURA (Rec: 06/12/22 11:32 LAURA [id number]) Nutrition Malnutrition Evidence of Malnutrition Exists Yes Malnutrition (severe): Chronic Evidenced By Suboptimal Energy Intake ( Severe),Weight Loss (Severe) Clinical Problem Altered Nutrient-Related Laboratory Values Etiology related to diabetes and steroid administration Signs/Symptoms as evidenced by gluc 251 Status Active Problem Chronic Disease or Condition Related Malnutrition Etiology severe malnutrition related to altered GI function ( diverticulitis and n/v/bloody stool) x 3 months Signs/Symptoms as evidenced by 5.7% wt loss x 1 mo and 10.8% wt loss x 3 months; 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 Lab / Micro Data Result Diagrams: 06/13/22 06:15 06/13/22 06:15 Labs: Laboratory Results - last 24 hr 06/12/22 17:01: POC Glucose 320 H 06/12/22 22:23: POC Glucose 288 H 06/13/22 06:15: WBC 14.4 H, RBC 4.13 L, Hgb 11.3 L, Hct 35.1 L, MCV 85.0, MCH 27.4, MCHC 32.2, RDW Std Deviation 40.1, RDW Coeff of Terra 13.0, Plt Count 381, MPV 10.5, Immature Gran % (Auto) 2.200 H, Neut % (Auto) 85.5 H, Lymph % (Auto) 9.4 L, [place] % (Auto) 2.6, Eos % (Auto) 0.0, Baso % (Auto) 0.3, Absolute Neuts (auto) 12.3 H, Absolute Lymphs (auto) 1.36, Nucleated RBC % 0, ESR 68 H 06/13/22 06:15: Sodium 137, Potassium 4.1, Chloride 106, Carbon Dioxide 26.0, Anion Gap 5, BUN 18, Creatinine 0.69, Estim Creat Clear Calc 68.51, Est GFR (MDRD) Af Amer 114, Est GFR (MDRD) Non-Af 94, BUN/Creatinine Ratio 26.0 H, Glucose 271 H, Calcium 9.0, Total Bilirubin 0.20, AST 7 L, ALT 16, Alkaline Phosphatase 84, C-React Prot Ext Range 37.80 H, Total Protein 6.6, Albumin 2.3 L , Globulin 4.3 H, Albumin/Globulin Ratio 0.5 L 06/13/22 06:43: POC Glucose 252 H 06/13/22 11:09: POC Glucose 432 H Micro: Microbiology 06/11/22 17:00 Stool Enteric Bacteriology - Final 06/11/22 17:00 Stool Stool Occult Blood (LEYDI) - Final Occult Blood Positive Assessment & Plan Assessment/Plan (1) Diarrhea: PLAN: Diarrhea possibly secondary to stricture and colitis in the colon.? Continue 5-ASA medications and steroids for now. (2) Rectal bleed: PLAN: Continue 5-ASA medications and steroids for now. I am suspecting that she is bleeding secondary to also colitis or sigmoid colitis associated with diverticulosis.?.? Continue to monitor hemoglobin (3) Diverticulitis of sigmoid colon: PLAN: Her white blood cell count is up. This is possibly secondary to her steroids. ESR and CRP are improving with antibiotic therapy and steroid therapy.? Gagan rrow will be day 3 with steroids. If she still continues to improve we can transition her to oral steroids. Continue dicyclomine scheduled to prevent cramping with a bowel regimen of Colace 100 mg once a day. Charges/Coding Visit Charges Inpatient E&M: 26652 Subs Hosp L3
[2022-06-13] MEDS: Losartan Potassium 50 MG Tablet PO (16:54)
[2022-06-13 17:05] LABS: Bedside Glucose 267 mg/dL (74-106)
[2022-06-13] MEDS: Acetaminophen 325 MG Tablet 650 MG PO (20:01)
[2022-06-13] MEDS: oxyCODONE 5 MG Tablet PO (20:01)
[2022-06-13] MEDS: MELATONIN 3 MG TABLET PO (23:20)
[2022-06-14] VITALS (7 sets, daily range): BP systolic 133–154; BP diastolic 84–95; PULSE 68–78; RESP 16–18; TEMP 36.3–37; O2SAT 94–99
[2022-06-14 00:40] LABS: Bedside Glucose 326 mg/dL (74-106)
[2022-06-14] MEDS: Acetaminophen 325 MG Tablet 650 MG PO ×3 (02:55→18:51)
[2022-06-14] MEDS: oxyCODONE 5 MG Tablet PO ×2 (02:56→09:10)
[2022-06-14] MEDS: metroNIDAZOLE 500 MG/100 ML BAG 100 MG IV (06:48)
[2022-06-14] MEDS: MESALAMINE 400 MG CAPSULE.DR PO ×3 (06:48→22:04)
[2022-06-14 06:49] LABS: Hematocrit 35.8 % (37-47); Hemoglobin 11.4 g/dL (12.0-15.0); Mean Corp Hgb Conc 31.8 g/dL (32-36); Mean Corpuscular Hgb 27.4 pg (27.0-32.0); Mean Corpuscular Volume 86.1 fL (81-99); Mean Platelet Vol. 10.6 fl (6.2-12.0); POSITIVE COUNT YES; POSITIVE DIFFERENTIAL YES; POSITIVE MORPHOLOGY YES; Platelet Count 322 K/mm3 (150-450); RBC Distribution Width CV 13.1 % (11.6-14.6); RBC Distribution Width SD 40.9 fl (35.1-43.9); Red Blood Count 4.16 M/mm3 (4.2-5.4); White Blood Count 26.5 K/mm3 (4.4-11.0)
[2022-06-14 06:52] LABS: Differential Indicated MANUAL DIFF
[2022-06-14] MEDS: Insulin Lispro 100 UNIT/ML INSULN.PEN SC ×4 (06:53→22:06)
[2022-06-14 07:16] LABS: Blast 1 % (0-0); Lymphocyte 10 % (19-41); Metamyelocyte 2 % (0-1); Monocyte 6 % (0-10); Myelocyte 2 % (0-0); Neutrophil-Band 1 % (0-5); Neutrophil-Segmented 77 % (47-70); Promyelocyte 1 % (0-0); Total Cells Counted 100 (MANUAL DIFF)
[2022-06-14 07:17] LABS: ALB/GLOB Ratio 0.5 RATIO (0.9-2.4); AST(SGOT) 10 U/L (15-37); Absolute Neutrophil Count 20.7 X10^3/uL (2.0-7.7); Alanine Aminotransfer ALT/SGPT 21 U/L (13-56); Albumin, Serum 2.3 g/dL (3.2-5.0); Alkaline Phosphatase 91 U/L (45-117); Anion Gap 7 (5-15); BUN 19 mg/dL (7-18); Calcium,Total 8.6 mg/dL (8.5-10.1); Chloride 101 mmol/L (98-107); Creatinine, Serum 0.73 mg/dL (0.55-1.02); EST Glomerular Filtration Rate 89 mL/min (>60); Erythrocyte Sedimentation Rate 69 mm/hr (0-30); Est Glom Filt Rate - Afr Amer 107 mL/min (>60); Estimated Creatinine Clearance 64.75 ml/min; Globulin 4.3 g/dL (2.2-4.2); Glucose 276 mg/dL (74-106); Neutrophil # 20.68 X10^3/uL (2.7-7.7); Platelet Estimate ADEQUATE (ADEQ); Protein, Total 6.6 g/dL (6.4-8.2); Red Cell Morphology NORM C+C NORMAL (NORM C&C); Sodium Level 136 mmol/L (136-145)
[2022-06-14 07:18] LABS: Absolute Lymphocyte Count 2.65 X10^3/uL (0.83-4.51); Lymphocyte # 2.65 X10^3/ul (0.83-4.51)
[2022-06-14 07:25] LABS: Bedside Glucose 257 mg/dL (74-106)
--- NOTE | 2022-06-14 07:35 | PN.HOSP_ITS ---
Subjective Subjective Follow-up on abdominal pain/acute diverticulitis/acute GI bleed: Patient was seen and examined. She complains of severe crampy abdominal pain in her bilateral lower quadrants as well as the left flank. She still has hematochezia but the amount of blood is decreasing. Denies any fever or chills Objective Data Objective Data Vital Signs: Vital Signs Temp Pulse Resp BP Pulse Ox O2 Del Method O2 Flow Rate 97.3 F L 76 16 151/95 H 95 Room Air 2 06/14/22 04:00 06/14/22 04:00 06/14/22 04:00 06/14/22 04:00 06/14/22 04:00 06/14/22 04:00 06/13/22 22:00 Oxygen Flow Rate (L/min) 2 Oxygen Delivery Method Room Air Weight: 103.7 kg Body Mass Index (BMI) 41.5 Intake & Output: Intake and Output for Last 24 Hours 06/12/22 06/13/22 06/14/22 23:59 23:59 23:59 Intake Total 2598.33 / 2598.33 1601.67 / 1601.67 210 / 210 Balance 2598.33 / 2598.33 1601.67 / 1601.67 210 / 210 Medical Nutrition Assessment Dietitian: Malnutrition Criteria Met Start: 06/12/22 11:32 Freq: Status: Active Protocol: Document 06/12/22 11:32 LAURA (Rec: 06/12/22 11:32 LAURA [id number]) Nutrition Malnutrition Evidence of Malnutrition Exists Yes Malnutrition (severe): Chronic Evidenced By Suboptimal Energy Intake ( Severe),Weight Loss (Severe) Clinical Problem Altered Nutrient-Related Laboratory Values Etiology related to diabetes and steroid administration Signs/Symptoms as evidenced by gluc 251 Status Active Problem Chronic Disease or Condition Related Malnutrition Etiology severe malnutrition related to altered GI function ( diverticulitis and n/v/bloody stool) x 3 months Signs/Symptoms as evidenced by 5.7% wt loss x 1 mo and 10.8% wt loss x 3 months; 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 Lab / Micro Data Result Diagrams: 06/14/22 06:30 06/14/22 06:30 Labs: Laboratory Results - last 24 hr 06/13/22 11:09: POC Glucose 432 H 06/13/22 16:40: POC Glucose 267 H 06/13/22 23:23: POC Glucose 326 H 06/14/22 06:30: WBC 26.5 H, RBC 4.16 L, Hgb 11.4 L, Hct 35.8 L, MCV 86.1, MCH 27.4, MCHC 31.8 L, RDW Std Deviation 40.9, RDW Coeff of Terra 13.1, Plt Count 322, MPV 10.6, Neut % (Auto) Not Reportable, Absolute Neuts (auto) 20.7 H, Absolute Lymphs (auto) 2.65, Total Counted 100, Neutrophils % (Manual) 77 H, Band Neutrophils % 1, Lymphocytes % (Manual) 10 L, Monocytes % (Manual) 6, Metamyelocytes % 2 H, Myelocytes % 2 H, Promyelocytes % 1 H, Blast Cells % 1 H*, Diff Path Review May , Platelet Estimate ADEQUATE, RBC Morphology NORM C+C, ESR 69 H 06/14/22 06:30: Sodium 136, Potassium 4.0, Chloride 101, Carbon Dioxide 28.0, Anion Gap 7, BUN 19 H, Creatinine 0.73, Estim Creat Clear Calc 64.75, Est GFR (MDRD) Af Amer 107, Est GFR (MDRD) Non-Af 89, BUN/Creatinine Ratio 26.0 H, Glucose 276 H, Calcium 8.6, Total Bilirubin 0.20, AST 10 L, ALT 21, Alkaline Phosphatase 91, C-React Prot Ext Range 21.80 H, Total Protein 6.6, Albumin 2.3 L , Globulin 4.3 H, Albumin/Globulin Ratio 0.5 L 06/14/22 06:51: POC Glucose 257 H Micro: Microbiology 06/11/22 17:00 Stool Enteric Bacteriology - Final 06/11/22 17:00 Stool Stool Occult Blood (LEYDI) - Final Occult Blood Positive Physical Exam Narrative Physical exam: General: Alert, Oriented x3, Cooperative, No apparent distress HEENT: Atraumatic Oral: Moist Mucosa Neck: Supple Lungs: Clear to auscultation Cardiovascular: HS I+II, regular, no murmurs Abdomen: Bowel Sounds Present, Soft, slight tenderness in the left side of the abdomen Extremities: No edema Skin: No rashes, No breakdown Neurological: Grossly intact Psych/Mental Status: Appropriate Assessment & Plan Assessment/Plan (1) Diverticulitis of sigmoid colon: PLAN: Plan 1. Acute lower GI bleed, likely related to ulcerative colitis versus diverticulosis, fairly persistent No significant drop in hemoglobin Continue IV PPI, GI following, continue to monitor 2. Acute diverticulitis/diffuse colitis versus ulcerative colitis of the descending colon, Patient with persistent abdominal cramps with GI bleed Continue mesalamine, IV Solu-Medrol, po flagyl and cefdinir 3. Type II DM, blood sugars remain uncontrolled Increase Lantus to 10 units twice daily, continue on high-dose insulin sliding scale blood glucose checks 4. 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 DVT PPx- SCDs Charges/Coding Visit Charges Inpatient E&M: 06373 [facility] Hosp L3
[2022-06-14] MEDS: Insulin Glargine-YFGN 100 UNIT/ML Pen SC (09:09)
[2022-06-14] MEDS: glipiZIDE XL 5 MG Tablet PO (09:10)
[2022-06-14] MEDS: Docusate Sodium 100 MG Capsule PO (09:10)
[2022-06-14] MEDS: Cefdinir 300 MG Capsule PO ×2 (09:10→22:04)
[2022-06-14] MEDS: Losartan Potassium 50 MG Tablet PO (09:11)
[2022-06-14] MEDS: LORazepam 2 MG/ML Syringe 1 MG IV (11:45)
[2022-06-14] MEDS: 0.9% Saline Lock 10 ML Syringe IV ×2 (11:45→14:47)
[2022-06-14 11:55] LABS: Bedside Glucose 329 mg/dL (74-106)
[2022-06-14 13:17] LABS: Pathologist Review Reviewed
[2022-06-14] MEDS: oxyCODONE 5 MG Tablet 10 MG PO ×3 (14:47→22:54)
[2022-06-14] MEDS: metroNIDAZOLE 500 MG Tablet PO ×2 (14:48→22:20)
[2022-06-14] MEDS: Glucerna Shake 120 ML LIQUID PO ×3 (14:56→21:59)
[2022-06-14 17:51] LABS: Bedside Glucose 264 mg/dL (74-106)
--- NOTE | 2022-06-14 18:33 | PCM.PROGNOTE ---
Subjective Subjective She is still having a lot of cramping. She is on mesalamine, steroids and antibiotic therapy. She is tolerating a normal diet. Objective Data Objective Data Vital Signs: Vital Signs Temp Pulse Resp BP Pulse Ox O2 Del Method O2 Flow Rate 97.9 F 78 16 144/84 H 95 Room Air 2 06/14/22 14:30 06/14/22 14:30 06/14/22 14:30 06/14/22 14:30 06/14/22 14:30 06/14/22 14:30 06/13/22 22:00 Oxygen Flow Rate (L/min) 2 Oxygen Delivery Method Room Air Weight: 228 lb 9.91 oz Body Mass Index (BMI) 41.5 Intake & Output: Intake and Output for Last 24 Hours 06/12/22 06/13/22 06/14/22 23:59 23:59 23:59 Intake Total 2598.33 / 2598.33 1601.67 / 1601.67 420 / 420 Balance 2598.33 / 2598.33 1601.67 / 1601.67 420 / 420 Medical Nutrition Assessment Dietitian: Malnutrition Criteria Met Start: 06/12/22 11:32 Freq: Status: Active Protocol: Document 06/12/22 11:32 LAURA (Rec: 06/12/22 11:32 LAURA [id number]) Nutrition Malnutrition Evidence of Malnutrition Exists Yes Malnutrition (severe): Chronic Evidenced By Suboptimal Energy Intake ( Severe),Weight Loss (Severe) Clinical Problem Altered Nutrient-Related Laboratory Values Etiology related to diabetes and steroid administration Signs/Symptoms as evidenced by gluc 251 Status Active Problem Chronic Disease or Condition Related Malnutrition Etiology severe malnutrition related to altered GI function ( diverticulitis and n/v/bloody stool) x 3 months Signs/Symptoms as evidenced by 5.7% wt loss x 1 mo and 10.8% wt loss x 3 months; 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 Lab / Micro Data Result Diagrams: 06/14/22 06:30 06/14/22 06:30 Labs: Laboratory Results - last 24 hr 06/13/22 23:23: POC Glucose 326 H 11/23/22 06:30: WBC 26.5 H, RBC 4.16 L, Hgb 11.4 L, Hct 35.8 L, MCV 86.1, MCH 27.4, MCHC 31.8 L, RDW Std Deviation 40.9, RDW Coeff of Terra 13.1, Plt Count 322, MPV 10.6, Neut % (Auto) Not Reportable, Absolute Neuts (auto) 20.7 H, Absolute Lymphs (auto) 2.65, Total Counted 100, Neutrophils % (Manual) 77 H, Band Neutrophils % 1, Lymphocytes % (Manual) 10 L, Monocytes % (Manual) 6, Metamyelocytes % 2 H, Myelocytes % 2 H, Promyelocytes % 1 H, Blast Cells % 1 H*, Diff Path Review Reviewed, Platelet Estimate ADEQUATE, RBC Morphology NORM C+C, ESR 69 H 06/14/22 06:30: Sodium 136, Potassium 4.0, Chloride 101, Carbon Dioxide 28.0, Anion Gap 7, BUN 19 H, Creatinine 0.73, Estim Creat Clear Calc 64.75, Est GFR (MDRD) Af Amer 107, Est GFR (MDRD) Non-Af 89, BUN/Creatinine Ratio 26.0 H, Glucose 276 H, Calcium 8.6, Total Bilirubin 0.20, AST 10 L, ALT 21, Alkaline Phosphatase 91, C-React Prot Ext Range 21.80 H, Total Protein 6.6, Albumin 2.3 L, Globulin 4.3 H, Albumin/Globulin Ratio 0.5 L 06/14/22 06:51: POC Glucose 257 H 06/14/22 11:23: POC Glucose 329 H 06/14/22 17:18: POC Glucose 264 H Micro: Microbiology 06/11/22 17:00 Stool Enteric Bacteriology - Final 06/11/22 17:00 Stool Stool Occult Blood (LEYDI) - Final Occult Blood Positive Physical Exam Narrative Physical exam: General: Alert, Oriented x3, Cooperative, No apparent distress HEENT: Atraumatic Oral: Moist Mucosa Neck: Supple Lungs: Clear to auscultation Cardiovascular: HS I+II, regular, no murmurs Abdomen: Bowel Sounds Present, Soft, slight tenderness in the left side of the abdomen Extremities: No edema Skin: No rashes, No breakdown Neurological: Grossly intact Psych/Mental Status: Appropriate Assessment & Plan Assessment/Plan (1) Diarrhea: PLAN: Her stools are starting to thicken up and she is having a lot less diarrhea with steroids and mesalamine therapy. Continue current oral mesalamine and as she transitions to home that can be transition to prednisone 40 mg a day to be titrated down as an outpatient. (2) Rectal bleed: PLAN: Bleeding thought to be secondary to either ulcerative proctitis or ulcerative colitis versus sigmoid colitis associated with diverticulosis or diverticular bleeding. Hemoglobin seems to be stable, continue to follow H&H. (3) Diverticulitis of sigmoid colon: PLAN: White blood cell count is improving on antibiotic therapy. Continue antibiotic therapy to complete a 14-day course. Charges/Coding Visit Charges Inpatient E&M: 23696 Subs Hosp L3
[2022-06-14] MEDS: Insulin Glargine-YFGN 100 UNIT/ML Pen 10 UNIT SC (22:06)
[2022-06-14 22:36] LABS: Bedside Glucose 263 mg/dL (74-106)
[2022-06-14] MEDS: MELATONIN 3 MG TABLET PO (22:54)
[2022-06-15] VITALS (7 sets, daily range): BP systolic 143–151; BP diastolic 77–94; PULSE 64–80; RESP 14–18; TEMP 36.5–37.1; O2SAT 94–98
[2022-06-15] MEDS: Insulin Lispro 100 UNIT/ML INSULN.PEN SC ×4 (06:25→21:24)
[2022-06-15] MEDS: MESALAMINE 400 MG CAPSULE.DR PO ×3 (06:31→21:16)
[2022-06-15] MEDS: metroNIDAZOLE 500 MG Tablet PO ×3 (06:31→21:16)
[2022-06-15] MEDS: Acetaminophen 325 MG Tablet 650 MG PO ×3 (06:32→21:16)
[2022-06-15] MEDS: 0.9% Saline Lock 10 ML Syringe IV ×3 (06:33→21:17)
[2022-06-15] MEDS: oxyCODONE 5 MG Tablet 10 MG PO ×4 (06:33→21:16)
[2022-06-15 07:15] LABS: Bedside Glucose 264 mg/dL (74-106)
[2022-06-15 07:30] LABS: Erythrocyte Sedimentation Rate 62 mm/hr (0-30)
[2022-06-15 07:31] LABS: Hematocrit 37.1 % (37-47); Hemoglobin 11.9 g/dL (12.0-15.0); Mean Corp Hgb Conc 32.1 g/dL (32-36); Mean Corpuscular Hgb 27.5 pg (27.0-32.0); Mean Corpuscular Volume 85.7 fL (81-99); Mean Platelet Vol. 10.7 fl (6.2-12.0); POSITIVE COUNT YES; POSITIVE MORPHOLOGY YES; Platelet Count 346 K/mm3 (150-450); RBC Distribution Width CV 13.3 % (11.6-14.6); RBC Distribution Width SD 41.5 fl (35.1-43.9); Red Blood Count 4.33 M/mm3 (4.2-5.4); White Blood Count 24.5 K/mm3 (4.4-11.0)
[2022-06-15 07:32] LABS: Differential Indicated MANUAL DIFF
[2022-06-15 07:35] LABS: ALB/GLOB Ratio 0.6 RATIO (0.9-2.4); AST(SGOT) 10 U/L (15-37); Alanine Aminotransfer ALT/SGPT 23 U/L (13-56); Albumin, Serum 2.5 g/dL (3.2-5.0); Alkaline Phosphatase 84 U/L (45-117); Anion Gap 6 (5-15); BUN 23 mg/dL (7-18); BUN/Creat Ratio 31.9 RATIO (10-20); Calcium,Total 8.6 mg/dL (8.5-10.1); Chloride 99 mmol/L (98-107); Creatinine, Serum 0.72 mg/dL (0.55-1.02); EST Glomerular Filtration Rate 90 mL/min (>60); Est Glom Filt Rate - Afr Amer 109 mL/min (>60); Estimated Creatinine Clearance 65.65 ml/min; Globulin 3.9 g/dL (2.2-4.2); Glucose 250 mg/dL (74-106); Potassium 4.1 mmol/L (3.5-5.1); Protein, Total 6.4 g/dL (6.4-8.2); Sodium Level 135 mmol/L (136-145)
[2022-06-15 07:57] LABS: Lymphocyte 12 % (19-41); Metamyelocyte 5 % (0-1); Monocyte 3 % (0-10); Myelocyte 6 % (0-0); Neutrophil-Band 4 % (0-5); Neutrophil-Segmented 70 % (47-70); Total Cells Counted 100 (MANUAL DIFF)
[2022-06-15 07:58] LABS: Platelet Estimate ADEQUATE (ADEQ); Red Cell Morphology NORM C+C NORMAL (NORM C&C)
[2022-06-15 07:59] LABS: Absolute Lymphocyte Count 2.93 X10^3/uL (0.83-4.51); Absolute Neutrophil Count 18.1 X10^3/uL (2.0-7.7); Lymphocyte # 2.93 X10^3/ul (0.83-4.51); Neutrophil # 18.12 X10^3/uL (2.7-7.7)
[2022-06-15] MEDS: glipiZIDE XL 5 MG Tablet PO (08:10)
[2022-06-15] MEDS: Losartan Potassium 50 MG Tablet PO (09:40)
[2022-06-15] MEDS: Docusate Sodium 100 MG Capsule PO (09:40)
[2022-06-15] MEDS: Glucerna Shake 120 ML LIQUID PO ×2 (09:40→21:17)
[2022-06-15] MEDS: Cefdinir 300 MG Capsule PO ×2 (09:40→21:16)
[2022-06-15] MEDS: Insulin Glargine-YFGN 100 UNIT/ML Pen 10 UNIT SC (09:42)
[2022-06-15 12:01] LABS: Bedside Glucose 340 mg/dL (74-106)
--- NOTE | 2022-06-15 12:12 | PN.HOSP_ITS ---
Subjective Subjective Follow-up on abdominal pain/acute diverticulitis/acute GI bleed: Patient was seen and examined. She feels fairly improved. Still has abdominal discomfort. Stools are formed with occasional bleeding. Objective Data Objective Data Vital Signs: Vital Signs Temp Pulse Resp BP Pulse Ox O2 Del Method O2 Flow Rate 97.7 F L 64 16 151/94 H 94 Room Air 2 06/15/22 09:11 06/15/22 09:11 06/15/22 09:11 06/15/22 09:11 06/15/22 09:11 06/15/22 09:11 06/13/22 02:17 Oxygen Flow Rate (L/min) 2 Oxygen Delivery Method Room Air Weight: 103.7 kg Body Mass Index (BMI) 41.5 Intake & Output: Intake and Output for Last 24 Hours 06/13/22 06/14/22 06/15/22 23:59 23:59 23:59 Intake Total 1601.67 / 1601.67 530 / 530 878.33 / 878.33 Balance 1601.67 / 1601.67 530 / 530 878.33 / 878.33 Medical Nutrition Assessment Dietitian: Malnutrition Criteria Met Start: 06/12/22 11:32 Freq: Status: Active Protocol: Document 06/12/22 11:32 LAURA (Rec: 06/12/22 11:32 LAURA [id number]) Nutrition Malnutrition Evidence of Malnutrition Exists Yes Malnutrition (severe): Chronic Evidenced By Suboptimal Energy Intake ( Severe),Weight Loss (Severe) Clinical Problem Altered Nutrient-Related Laboratory Values Etiology related to diabetes and steroid administration Signs/Symptoms as evidenced by gluc 251 Status Active Problem Chronic Disease or Condition Related Malnutrition Etiology severe malnutrition related to altered GI function ( diverticulitis and n/v/bloody stool) x 3 months Signs/Symptoms as evidenced by 5.7% wt loss x 1 mo and 10.8% wt loss x 3 months; 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 Lab / Micro Data Result Diagrams: 06/15/22 06:57 06/15/22 06:57 Labs: Laboratory Results - last 24 hr 06/14/22 06:30: Diff Path Review Reviewed 06/14/22 17:18: POC Glucose 264 H 06/14/22 21:58: POC Glucose 263 H 06/15/22 06:23: POC Glucose 264 H 06/15/22 06:57: WBC 24.5 H, RBC 4.33, Hgb 11.9 L, Hct 37.1, MCV 85.7, MCH 27.5, MCHC 32.1, RDW Std Deviation 41.5, RDW Coeff of Terra 13.3, Plt Count 346, MPV 10.7, Neut % (Auto) Not Reportable, Absolute Neuts (auto) 18.1 H, Absolute Lymphs (auto) 2.93, Total Counted 100, Neutrophils % (Manual) 70, Band Neutrophils % 4, Lymphocytes % (Manual) 12 L, Monocytes % (Manual) 3, Metamyelocytes % 5 H, Myelocytes % 6 H, Diff Path Review May foll, Platelet Estimate ADEQUATE, RBC Morphology NORM C+C, ESR 62 H 06/15/22 06:57: Sodium 135 L, Potassium 4.1, Chloride 99, Carbon Dioxide 30.0, Anion Gap 6, BUN 23 H, Creatinine 0.72, Estim Creat Clear Calc 65.65, Est GFR (MDRD) Af Amer 109, Est GFR (MDRD) Non-Af 90, BUN/Creatinine Ratio 31.9 H, Glucose 250 H, Calcium 8.6, Total Bilirubin 0.20, AST 10 L, ALT 23, Alkaline Phosphatase 84, C-React Prot Ext Range 13.20 H, Total Protein 6.4, Albumin 2.5 L , Globulin 3.9, Albumin/Globulin Ratio 0.6 L 06/15/22 11:34: POC Glucose 340 H Micro: Microbiology 06/11/22 17:00 Stool Enteric Bacteriology - Final 06/11/22 17:00 Stool Stool Occult Blood (LEYDI) - Final Occult Blood Positive Physical Exam Narrative Physical exam: General: Alert, Oriented x3, Cooperative, No apparent distress HEENT: Atraumatic Oral: Moist Mucosa Neck: Supple Lungs: Clear to auscultation Cardiovascular: HS I+II, regular, no murmurs Abdomen: Bowel Sounds Present, Soft, slight tenderness in the left side of the abdomen Extremities: No edema Skin: No rashes, No breakdown Neurological: Grossly intact Psych/Mental Status: Appropriate Assessment & Plan Assessment/Plan (1) Diverticulitis of sigmoid colon: PLAN: Plan 1. Acute lower GI bleed, likely related to ulcerative colitis versus diverticulosis, slowly improving No significant drop in hemoglobin Continue IV PPI, GI following, continue to monitor 2. Acute diverticulitis/diffuse colitis versus ulcerative colitis of the descending colon, Patient with persistent abdominal cramps with GI bleed Continue mesalamine, IV Solu-Medrol, po flagyl and cefdinir 3. Type II DM, blood sugars remain uncontrolled Increase Lantus to 15 units twice daily, continue on high-dose insulin sliding scale blood glucose checks 4. 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 DVT PPx- SCDs Charges/Coding Visit Charges Inpatient E&M: 32204 Subs Hosp L2
[2022-06-15] MEDS: Mag Hydrox/Al Hydrox/Simeth 30 ML UDC PO (13:53)
[2022-06-15 17:15] LABS: Bedside Glucose 328 mg/dL (74-106)
[2022-06-15] MEDS: MELATONIN 3 MG TABLET PO (21:16)
[2022-06-15] MEDS: Insulin Glargine-YFGN 100 UNIT/ML Pen 15 UNIT SC (21:25)
[2022-06-16 00:06] LABS: Bedside Glucose 407 mg/dL (74-106)
[2022-06-16 02:00] VITALS: BP 184/98; PULSE 80; RESP 20; TEMP 36.7; O2SAT 97
[2022-06-16] MEDS: oxyCODONE 5 MG Tablet 10 MG PO ×4 (02:13→14:24)
--- NOTE | 2022-06-16 03:04 | NURSING ---
BP elevated @ this time - Pt had just been up to [facility] & is C/O pain
[2022-06-16 04:00] VITALS: BP 184/98; PULSE 80; RESP 20; TEMP 36.7; O2SAT 97
[2022-06-16 06:21] LABS: Erythrocyte Sedimentation Rate 35 mm/hr (0-30); Hematocrit 35.3 % (37-47); Hemoglobin 11.6 g/dL (12.0-15.0); Mean Corp Hgb Conc 32.9 g/dL (32-36); Mean Corpuscular Hgb 28.2 pg (27.0-32.0); Mean Corpuscular Volume 85.7 fL (81-99); Mean Platelet Vol. 10.2 fl (6.2-12.0); POSITIVE COUNT YES; POSITIVE MORPHOLOGY YES; Platelet Count 310 K/mm3 (150-450); RBC Distribution Width CV 13.3 % (11.6-14.6); RBC Distribution Width SD 41.5 fl (35.1-43.9); Red Blood Count 4.12 M/mm3 (4.2-5.4); White Blood Count 18.5 K/mm3 (4.4-11.0)
[2022-06-16 06:34] LABS: Differential Indicated MANUAL DIFF
[2022-06-16 06:47] LABS: ALB/GLOB Ratio 0.7 RATIO (0.9-2.4); AST(SGOT) 10 U/L (15-37); Alanine Aminotransfer ALT/SGPT 24 U/L (13-56); Albumin, Serum 2.4 g/dL (3.2-5.0); Alkaline Phosphatase 80 U/L (45-117); Anion Gap 4 (5-15); BUN 24 mg/dL (7-18); BUN/Creat Ratio 34.3 RATIO (10-20); CRP 6.86 mg/L (0.0-3.0); Calcium,Total 8.1 mg/dL (8.5-10.1); Chloride 101 mmol/L (98-107); EST Glomerular Filtration Rate 93 mL/min (>60); Est Glom Filt Rate - Afr Amer 113 mL/min (>60); Estimated Creatinine Clearance 67.53 ml/min; Globulin 3.6 g/dL (2.2-4.2); Glucose 261 mg/dL (74-106); Potassium 4.4 mmol/L (3.5-5.1); Sodium Level 135 mmol/L (136-145)
[2022-06-16] MEDS: MESALAMINE 400 MG CAPSULE.DR PO (06:50)
[2022-06-16] MEDS: metroNIDAZOLE 500 MG Tablet PO (06:50)
[2022-06-16] MEDS: Acetaminophen 325 MG Tablet 650 MG PO (06:54)
[2022-06-16] MEDS: Insulin Lispro 100 UNIT/ML INSULN.PEN SC ×2 (07:00→13:05)
[2022-06-16 07:03] LABS: Lymphocyte 15 % (19-41); Metamyelocyte 4 % (0-1); Monocyte 6 % (0-10); Myelocyte 1 % (0-0); Neutrophil-Band 2 % (0-5); Neutrophil-Segmented 72 % (47-70); Total Cells Counted 100 (MANUAL DIFF)
[2022-06-16 07:07] LABS: Absolute Lymphocyte Count 2.78 X10^3/uL (0.83-4.51); Absolute Neutrophil Count 14.6 X10^3/uL (2.0-7.7); Lymphocyte # 2.78 X10^3/ul (0.83-4.51); Neutrophil # 14.63 X10^3/uL (2.7-7.7); Platelet Estimate ADEQUATE (ADEQ); Red Cell Morphology NORM C+C NORMAL (NORM C&C)
[2022-06-16 07:30] LABS: Bedside Glucose 215 mg/dL (74-106)
[2022-06-16 08:00] VITALS: BP 157/93; PULSE 77; RESP 18; TEMP 36.7; O2SAT 97
[2022-06-16] MEDS: glipiZIDE XL 5 MG Tablet PO (08:09)
[2022-06-16] MEDS: Docusate Sodium 100 MG Capsule PO (08:11)
[2022-06-16] MEDS: Losartan Potassium 50 MG Tablet PO ×2 (08:11→10:41)
[2022-06-16] MEDS: 0.9% Saline Lock 10 ML Syringe IV (08:12)
--- NOTE | 2022-06-16 09:28 | PCM.PN.HOSP ---
Objective Data Objective Data Vital Signs: Vital Signs Temp Pulse Resp BP Pulse Ox O2 Del Method O2 Flow Rate 98.0 F 80 20 H 184/98 H 97 Room Air 2 06/16/22 04:00 06/16/22 04:00 06/16/22 04:00 06/16/22 04:00 06/16/22 04:00 06/16/22 04:00 06/16/22 04:00 Oxygen Flow Rate (L/min) 2 Oxygen Delivery Method Room Air Weight: 100.698 kg Body Mass Index (BMI) 41.5 Intake & Output: Intake and Output for Last 24 Hours 06/14/22 06/15/22 06/16/22 23:59 23:59 23:59 Intake Total 530 / 530 988.33 / 1588.33 1000 / 1000 Balance 530 / 530 988.33 / 1588.33 1000 / 1000 Medical Nutrition Assessment Dietitian: Malnutrition Criteria Met Start: 06/12/22 11:32 Freq: Status: Active Protocol: Document 06/12/22 11:32 LAURA (Rec: 06/12/22 11:32 LAURA [id number]) Nutrition Malnutrition Evidence of Malnutrition Exists Yes Malnutrition (severe): Chronic Evidenced By Suboptimal Energy Intake ( Severe),Weight Loss (Severe) Clinical Problem Altered Nutrient-Related Laboratory Values Etiology related to diabetes and steroid administration Signs/Symptoms as evidenced by gluc 251 Status Active Problem Chronic Disease or Condition Related Malnutrition Etiology severe malnutrition related to altered GI function ( diverticulitis and n/v/bloody stool) x 3 months Signs/Symptoms as evidenced by 5.7% wt loss x 1 mo and 10.8% wt loss x 3 months; 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 Lab / Micro Data Result Diagrams: 06/16/22 06:09 06/16/22 06:09 Labs: Laboratory Results - last 24 hr 06/15/22 11:34: POC Glucose 340 H 06/15/22 16:49: POC Glucose 328 H 06/15/22 21:20: POC Glucose 407 H 06/16/22 06:09: WBC 18.5 H, RBC 4.12 L, Hgb 11.6 L, Hct 35.3 L, MCV 85.7, MCH 28.2, MCHC 32.9, RDW Std Deviation 41.5, RDW Coeff of Terra 13.3, Plt Count 310, MPV 10.2, Neut % (Auto) Not Reportable, Absolute Neuts (auto) 14.6 H, Absolute Lymphs (auto) 2.78, Total Counted 100, Neutrophils % (Manual) 72 H, Band Neutrophils % 2, Lymphocytes % (Manual) 15 L, Monocytes % (Manual) 6, Metamyelocytes % 4 H, Myelocytes % 1 H, Diff Path Review November, Platelet Estimate ADEQUATE, RBC Morphology NORM C+C, ESR 35 H 06/16/22 06:09: Sodium 135 L, Potassium 4.4, Chloride 101, Carbon Dioxide 30.0, Anion Gap 4 L, BUN 24 H, Creatinine 0.70, Estim Creat Clear Calc 67.53, Est GFR (MDRD) Af Amer 113, Est GFR (MDRD) Non-Af 93, BUN/Creatinine Ratio 34.3 H, Glucose 261 H, Calcium 8.1 L, Total Bilirubin 0.20, AST 10 L, ALT 24, Alkaline Phosphatase 80, C-React Prot Ext Range 6.86 H, Total Protein 6.0 L, Albumin 2.4 L, Globulin 3.6, Albumin/Globulin Ratio 0.7 L 06/16/22 06:59: POC Glucose 215 H Micro: Microbiology 06/11/22 17:00 Stool Enteric Bacteriology - Final 06/11/22 17:00 Stool Stool Occult Blood (LEYDI) - Final Occult Blood Positive
[2022-06-16] MEDS: predniSONE 20 MG Tablet 40 MG PO (09:42)
[2022-06-16] MEDS: Polyethylene Glycol 3350 17 GM PACKET PO (10:41)
[2022-06-16] MEDS: Insulin Glargine-YFGN 100 UNIT/ML Pen 20 UNIT SC (10:42)
[2022-06-16] MEDS: Cefdinir 300 MG Capsule PO (12:00)
--- NOTE | 2022-06-16 12:00 | PCM.PROGNOTE ---
Subjective Subjective Her diarrhea is a lot better and she is having formed stools. Her bleeding per rectum is only minimal at the most at this time. She is tolerating a normal diet. Objective Data Objective Data Vital Signs: Vital Signs Temp Pulse Resp BP Pulse Ox O2 Del Method O2 Flow Rate 97.9 F 76 18 171/105 H 94 Room Air 2 06/16/22 12:16 06/16/22 12:16 06/16/22 12:16 06/16/22 12:16 06/16/22 12:16 06/16/22 12:16 06/16/22 04:00 Oxygen Flow Rate (L/min) 2 Oxygen Delivery Method Room Air Weight: 222 lb Body Mass Index (BMI) 41.5 Intake & Output: Intake and Output for Last 24 Hours 06/14/22 06/15/22 06/16/22 23:59 23:59 23:59 Intake Total 530 / 530 988.33 / 1588.33 1000 / 1000 Balance 530 / 530 988.33 / 1588.33 1000 / 1000 Lab / Micro Data Result Diagrams: 06/16/22 06:09 06/16/22 06:09 Labs: Laboratory Results - last 24 hr 06/15/22 06:57: Diff Path Review Reviewed 06/15/22 16:49: POC Glucose 328 H 06/15/22 21:20: POC Glucose 407 H 06/16/22 06:09: WBC 18.5 H, RBC 4.12 L, Hgb 11.6 L, Hct 35.3 L, MCV 85.7, MCH 28.2, MCHC 32.9, RDW Std Deviation 41.5, RDW Coeff of Terra 13.3, Plt Count 310, MPV 10.2, Neut % (Auto) Not Reportable, Absolute Neuts (auto) 14.6 H, Absolute Lymphs (auto) 2.78, Total Counted 100, Neutrophils % (Manual) 72 H, Band Neutrophils % 2, Lymphocytes % (Manual) 15 L, Monocytes % (Manual) 6, Metamyelocytes % 4 H, Myelocytes % 1 H, Diff Path Review Reviewed, Platelet Estimate ADEQUATE, RBC Morphology NORM C+C, ESR 35 H 06/16/22 06:09: Sodium 135 L, Potassium 4.4, Chloride 101, Carbon Dioxide 30.0, Anion Gap 4 L, BUN 24 H, Creatinine 0.70, Estim Creat Clear Calc 67.53, Est GFR (MDRD) Af Amer 113, Est GFR (MDRD) Non-Af 93, BUN/Creatinine Ratio 34.3 H, Glucose 261 H, Calcium 8.1 L, Total Bilirubin 0.20, AST 10 L, ALT 24, Alkaline Phosphatase 80, C-React Prot Ext Range 6.86 H, Total Protein 6.0 L, Albumin 2.4 L, Globulin 3.6, Albumin/Globulin Ratio 0.7 L 06/16/22 06:59: POC Glucose 215 H 06/16/22 12:03: POC Glucose 310 H Micro: Microbiology 06/11/22 17:00 Stool Enteric Bacteriology - Final 06/11/22 17:00 Stool Stool Occult Blood (LEYDI) - Final Occult Blood Positive Physical Exam Narrative Physical exam: General: Alert, Oriented x3, Cooperative, No apparent distress HEENT: Atraumatic Oral: Moist Mucosa Neck: Supple Lungs: Clear to auscultation Cardiovascular: HS I+II, regular, no murmurs Abdomen: Bowel Sounds Present, Soft, improved tenderness in the left side of the abdomen Extremities: No edema Skin: No rashes, No breakdown Neurological: Grossly intact Psych/Mental Status: Appropriate Assessment & Plan Assessment/Plan (1) Colitis: PLAN: Colitis that was seen prior to her having a diagnosis of diverticulitis possibly secondary to sigmoid colitis associated with diverticulosis. She will be on prednisone therapy as her CRP has come down from [address] down to 6. I think she is having a good response with mesalamine and steroids. She cannot afford mesalamine as an outpatient so she will be discharged on prednisone 20 mg a day. (2) Diarrhea: PLAN: Her diarrhea has resolved with medical therapy. She will undergo colonoscopy in approximately 4 weeks for further evaluation of her lower GI tract. (3) Bloody diarrhea: PLAN: Bloody diarrhea possibly secondary to diverticular disease versus ulcerative proctitis or ulcerative colitis as a leading diagnosis at this time. (4) Rectal bleed: PLAN: Rectal bleeding has completely resolved. Charges/Coding Visit Charges Inpatient E&M: 98300 Subs Hosp L3
[2022-06-16 12:16] VITALS: BP 171/105; PULSE 76; RESP 18; TEMP 36.6; O2SAT 94
[2022-06-16 12:30] LABS: Bedside Glucose 310 mg/dL (74-106)
--- NOTE | 2022-06-16 12:58 | PCM.DC.SUM ---
Providers Date of Admission: 06/11/22 Date of Discharge: 06/16/22 Primary Care Physician: Dr. Raheem Garcia DO Reason For Visit: ACUTE DIVERTICULITIS, INTRACTABLE PAIN Diagnosis Discharge Diagnosis (1) Diverticulitis of sigmoid colon: Status: Acute Code(s): K57.32 - Diverticulitis of large intestine without perforation or abscess without bleeding Medications at Discharge Home Medications albuterol sulfate 90 mcg/actuation aerosol inhaler (ProAir HFA) 2 puff inhalation Q6H PRN Wheezing 04/07/22 cetirizine 10 mg tablet 10 mg PO DAILY PRN allergies 04/07/22 cholecalciferol (vitamin D3) 100 mcg (4,000 unit) tablet 100 mcg PO DAILY vitamin 04/07/22 fluticasone propionate 50 mcg/actuation nasal spray,suspension 2 spray intranasal DAILY allergies 04/07/22 glipizide 2.5 mg tablet, extended release 24 hr 5 mg PO DAILY diabetes 04/07/22 olopatadine 0.2 % eye drops 1 drp EACH EYE PRN PRN Allergy Symptoms 06/13/22 cefdinir 300 mg capsule 300 mg PO Q12 5 days #10 caps 06/16/22 insulin glargine-yfgn 100 unit/mL (3 mL) subcutaneous pen 25 unit (0.25 mL) subcut BID 30 days #15 mL 06/16/22 losartan 100 mg tablet 100 mg PO DAILY 30 days #30 tabs 06/16/22 metronidazole 500 mg tablet 500 mg PO TID 5 days #15 tabs 06/16/22 oxycodone 5 mg tablet 10 mg PO Q4H PRN PRN Pain Score 6-10 3 days #12 tabs 06/16/22 pantoprazole 40 mg tablet,delayed release 40 mg PO BID 30 days #60 tabs 06/16/22 prednisone 20 mg tablet 20 mg PO DAILY 14 days #14 tabs 06/16/22 sennosides 8.6 mg-docusate sodium 50 mg tablet (Stool Softener-Stimulant Laxative) 2 tab PO BID 30 days #120 tabs 06/16/22 Hospital Course Operations None Procedures None Summary of Care Provided Minutes Spent on Discharge: 40 Hospital Course: 51-year-old female with past medical history of type II DM, nicotine dependence, who presented with severe abdominal pain as well as bloody diarrhea. This had been going on for 10 days prior to admission. Patient is admitted to not eating or drinking well. CT scan of the abdomen pelvis done in the emergency room showed severe acute diverticulitis of mid sigmoid colon as well as diffuse thickening suggestive of possible diffuse colitis. Patient was admitted [facility] floor, continued on IV fluids, empiric antibiotics. Gastroenterology was consulted. Stool for enteric panel and C. difficile were negative. There was increased fecal calprotectin. Patient was started on mesalamine. She continues to have intermittent periods of crampy abdominal pain with bloody diarrhea. She did not drop her hemoglobin. She had uncontrolled blood sugars now count of steroids. She was started on Lantus, as well as insulin sliding scale.. She had evidence of malnutrition, eyeletter was consulted and started on supplements. On the day of discharge, her blood pressure was elevated, losartan was increased from 50 mg to 100 mg daily. Patient could not afford mesalamine in the outpatient as she had a high monthly co-pay. She was strongly recommended to follow-up with her primary care doctor within 1 week and with GI within 2 weeks. She was given Rocephin and and Flagyl to complete total of 10 days treatment. He was also discharged on prednisone 20 mg daily until she follows up with GI. Physical Exam Narrative Physical exam: General: Alert, Oriented x3, Cooperative, No apparent distress HEENT: Atraumatic Oral: Moist Mucosa Neck: Supple Lungs: Clear to auscultation Cardiovascular: HS I+II, regular, no murmurs Abdomen: Bowel Sounds Present, Soft, improved tenderness in the left side of the abdomen Extremities: No edema Skin: No rashes, No breakdown Neurological: Grossly intact Psych/Mental Status: Appropriate Medical Records Data Medical Nutrition Assessment Dietitian: Malnutrition Criteria Met Start: 06/12/22 11:32 Freq: Status: Active Protocol: Document 06/12/22 11:32 LAURA (Rec: 06/12/22 11:32 LAURA [id number]) Nutrition Malnutrition Evidence of Malnutrition Exists Yes Malnutrition (severe): Chronic Evidenced By Suboptimal Energy Intake ( Severe),Weight Loss (Severe) Clinical Problem Altered Nutrient-Related Laboratory Values Etiology related to diabetes and steroid administration Signs/Symptoms as evidenced by gluc 251 Status Active Problem Chronic Disease or Condition Related Malnutrition Etiology severe malnutrition related to altered GI function ( diverticulitis and n/v/bloody stool) x 3 months Signs/Symptoms as evidenced by 5.7% wt loss x 1 mo and 10.8% wt loss x 3 months; 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 Weight / BMI Weight Weight: 100.698 kg Body Mass Index (BMI) 41.5 ABG / Lab / Microbiology Data Result Diagrams: 06/16/22 06:09 06/16/22 06:09 Laboratory: Laboratory Results - last 24 hr 06/15/22 16:49: POC Glucose 328 H 06/15/22 21:20: POC Glucose 407 H 06/16/22 06:09: WBC 18.5 H, RBC 4.12 L, Hgb 11.6 L, Hct 35.3 L, MCV 85.7, MCH 28.2, MCHC 32.9, RDW Std Deviation 41.5, RDW Coeff of Terra 13.3, Plt Count 310, MPV 10.2, Neut % (Auto) Not Reportable, Absolute Neuts (auto) 14.6 H, Absolute Lymphs (auto) 2.78, Total Counted 100, Neutrophils % (Manual) 72 H, Band Neutrophils % 2, Lymphocytes % (Manual) 15 L, Monocytes % (Manual) 6, Metamyelocytes % 4 H, Myelocytes % 1 H, Diff Path Review May foll, Platelet Estimate ADEQUATE, RBC Morphology NORM C+C, ESR 35 H 06/16/22 06:09: Sodium 135 L, Potassium 4.4, Chloride 101, Carbon Dioxide 30.0, Anion Gap 4 L, BUN 24 H, Creatinine 0.70, Estim Creat Clear Calc 67.53, Est GFR (MDRD) Af Amer 113, Est GFR (MDRD) Non-Af 93, BUN/Creatinine Ratio 34.3 H, Glucose 261 H, Calcium 8.1 L, Total Bilirubin 0.20, AST 10 L, ALT 24, Alkaline Phosphatase 80, C-React Prot Ext Range 6.86 H, Total Protein 6.0 L, Albumin 2.4 L, Globulin 3.6, Albumin/Globulin Ratio 0.7 L 06/16/22 06:59: POC Glucose 215 H 06/16/22 12:03: POC Glucose 310 H Microbiology: Microbiology 06/11/22 17:00 Stool Enteric Bacteriology - Final 06/11/22 17:00 Stool Stool Occult Blood (LEYDI) - Final Occult Blood Positive D/C Instructions Discharge Diet: 1800 Calorie Control Diet and 2000 mg Sodium Diet Weight Bearing Status: Weight bearing as tolerated Meaningful Use Info Meaningful Use Diagnoses (Choose all that apply): None applicable Discharge Plan Admission Admit Date/Time: 06/11/22 13:17 Primary Reason for Your Visit: Acute colitis Attending Provider: Laure Monson Primary Care Provider: Raheem Garcia Consulting Providers: Barb Hanson Instructions Additional Instructions / Restrictions: Complete your antibiotics Continue to monitor your blood sugars closely Continue on your prednisone Check your blood pressure daily and show a log of it to your primary care doctor Follow-up with your primary care doctor within a week Follow-up with Dr. Walls within 1 to 2 weeks Discharge Orders/Prescriptions Prescriptions: New cefdinir 300 mg Capsule 300 mg PO Q12 5 Days Qty: 10 0RF losartan 100 mg Tablet 100 mg PO DAILY 30 Days Qty: 30 0RF insulin glargine-yfgn 100 unit/mL (3 mL) Insulin Pen 25 unit subcut BID 30 Days Qty: 15 0RF sennosides-docusate sodium [Stool Softener-Stimulant Laxat] 8.6-50 mg Tablet 2 tab PO BID 30 Days Qty: 120 0RF metronidazole 500 mg Tablet 500 mg PO TID 5 Days Qty: 15 0RF pantoprazole 40 mg Tablet,Delayed Release (Dr/Ec) 40 mg PO BID 30 Days Qty: 60 0RF prednisone 20 mg tablet 20 mg PO DAILY 14 Days Qty: 14 0RF oxycodone 5 mg Tablet 10 mg PO Q4H PRN PRN (Reason: Pain Score 6-10) 3 Days Qty: 12 0RF Continued albuterol sulfate [ProAir HFA] 90 mcg/actuation HFA aerosol inhaler 2 puff inhalation Q6H PRN (Reason: Wheezing) cetirizine 10 mg tablet 10 mg PO DAILY PRN (Reason: allergies) cholecalciferol (vitamin D3) 100 mcg (4,000 unit) tablet 100 mcg PO DAILY fluticasone propionate 50 mcg/actuation spray,suspension 2 spray intranasal DAILY Rx Instructions: administer into each nostril glipizide 2.5 mg tablet extended release 24hr 5 mg PO DAILY olopatadine 0.2 % Drops 1 drp EACH EYE PRN PRN (Reason: Allergy Symptoms) Discontinued losartan 25 mg tablet 50 mg PO DAILY meloxicam 15 mg tablet 15 mg PO DAILY metformin 500 mg tablet 1,000 mg PO BID Referrals / Follow Up: Francesco Walls DO [Med Staff - Active Staff] - Within 2 Weeks (1-2 weeks) Raheem Garcia DO [Primary Care Provider] - In 1 Week Disposition Disposition (needs filled in before D/C Order can be placed): Home, Self Care Charges/Coding Visit Charges Inpatient E&M: 75183 Disch Hosp
[2022-06-16 13:27] LABS: Pathologist Review Reviewed
[2022-06-16 13:31] LABS: Pathologist Review Reviewed
== END 2022-06-16 14:30 | disposition home or self-care (01) | DRG 377 ==
LOC: ED 12:10 → MS3 13:31
PROVIDERS: Internal Medicine Gastroenterology; Physician Assistant; Admitting Provider Internal Medicine; Emergency Provider Emergency Medicine; PCP Preventive Medicine Occupational Medicine; Visit Provider Internal Medicine
DX: K57.33 Diverticulitis of large intestine without perforation or abscess with bleeding (principal); E43 Unspecified severe protein-calorie malnutrition; Z68.41 Body mass index [BMI] 40.0-44.9, adult; K51.911 Ulcerative colitis, unspecified with rectal bleeding; E11.40 Type 2 diabetes mellitus with diabetic neuropathy, unspecified; I10 Essential (primary) hypertension; F17.290 Nicotine dependence, other tobacco product, uncomplicated; E86.0 Dehydration; E78.5 Hyperlipidemia, unspecified; Z79.84 Long term (current) use of oral hypoglycemic drugs; Z79.1 Long term (current) use of non-steroidal anti-inflammatories (NSAID); Z79.899 Other long term (current) drug therapy; Z80.0 Family history of malignant neoplasm of digestive organs
CPT/HCPCS: 36415; 74177; 80053; 82274; 82962; 83605; 83735; 84100; 84443; 85025; 85652; 86140; 87506; 94762; 97802; 97803; 99251; 99283; 99406; J7030; J7050; Q9967; A4216; G0463; J0744; J2405

== ENCOUNTER 2022-07-13 05:30 | Day surgery (SDC) | payer OTHER, SELFPAY ==
[2022-07-13] MEDS: Lactated Ringers 1,000 ML 15 ML IV (05:45)
[2022-07-13 06:10] VITALS: BP 136/95; PULSE 77; RESP 16; TEMP 36.6; O2SAT 93; BMI 39.7
--- NOTE | 2022-07-13 06:30 | EGD_PTH ---
PATIENT: MOUNIKA DUBON LOC: EN U#:[id number] AGE/SX: 51/F ROOM: RE07/13/[address]: Dr. Francesco Walls DO : 1970 BED: DIS: 07/13/2022 SPEC #: [id number] RECD: 07/13/22 09:19 STATUS: YOAN JAYCE #: [id number] CHOCO: 07/13/22 06:[address]: Francesco Walls DEPT: SURGICAL PATHOLOGY RECD BY: Jasmyne West ENTERED: 07/13/22 12:42 SP TYPE: EGD BIOPSY OT DR: Dr. Raheem Garcia DO Tissues: A - Duodenum, NOS B - Pylorus C - Esophagus, NOS D - Esophagus, NOS E - COLON BIOPSY F - COLON BIOPSY G - Rectum, NOS H - Rectum, NOS Procedures: Special Stain Group II Surgery Specimen Level IV Alcian Blue/PAS (control) HEADER OPERATION: Colonoscopy, EGD ([facility]), biopsy PRE-OP DIAGNOSIS: Abdominal pain, diarrhea, rectal bleed, abdominal mass TISSUE SUBMITTED: A ? Duodenal wall thickening biopsy, B ? Pylorus biopsy, C ? Gastroesophageal junction submucosal mass biopsy, D ? Distal esophagus biopsy, E ? Random colonic biopsy, F ? Splenic flexure polyp biopsy x3, G ? Rectal polyp biopsy, H ? Rectal biopsy MICROSCOPIC DIAGNOSIS A. Duodenal wall thickening, biopsy: Fragments of duodenal mucosa, no pathologic diagnosis. B. Pylorus, biopsy: Mild gastritis. See microscopic description and comment. C. Gastroesophageal junction, submucosal mass, biopsy: Fragments of gastroesophageal mucosa with chronic inflammation. Intestinal metaplasia (goblet cell metaplasia) not identified. Negative for malignancy. See comment. D. Distal esophagus, biopsy: Fragments of gastric mucosa with chronic inflammation. Intestinal metaplasia (goblet cell metaplasia) not identified. See comment. E. Colon, random biopsy: Diffuse acute colitis. See microscopic description and comment. F. Splenic flexure polyp, biopsy: Fragments of tubular adenoma. See comment. G. Rectal polyp, biopsy: Fragments of hyperplastic polyp. H. Rectal biopsy: Diffuse acute colitis. See microscopic description. SJ:slade 07/14/2022 COMMENT B. The results of immunohistochemistry for Helicobacter pylori will be reported separately ([id number]). Alcian blue/PAS stain with matched control is used in the evaluation of the specimen. C. Alcian blue/PAS stain with matched control is used in the evaluation of the specimen. D. Alcian blue/PAS stain with matched control is used in the evaluation of the specimen. E. Correlation with clinical, endoscopic findings and appropriate follow up are necessary. F. The specimen also shows diffuse acute colitis with similar morphologic features as specimen E & H. MICROSCOPIC DESCRIPTION Slides are reviewed. B. The specimen shows fragments of gastric mucosa with chronic inflammatory cell infiltrates in the lamina propria consisting of lymphocytes and plasma cells, consistent with mild chronic gastritis. Focal intestinal metaplasia (goblet cell metaplasia) is also noted. E & H. The specimen shows fragments of colonic mucosa with cryptitis and crypt abscesses and acute and chronic inflammatory cell infiltrate in the lamina propria. Significant glandular distortion or granulomas are not seen. No evidence of dysplasia. GROSS DESCRIPTION A - Received in fixative is one container labeled with the patient's name and designated duodenal wall thickening biopsy. The specimen consists of multiple irregular fragments of light carrillo soft tissue that in aggregate measure 0.8 x 0.4 x 0.1 cm. The specimen is totally submitted in one cassette. B - Received in fixative is one container labeled with the patient's name and designated pylorus biopsy. The specimen consists of multiple irregular fragments of light carrillo soft tissue that in aggregate measure 1 x 0.3 x 0.1 cm. The specimen is totally submitted in one cassette. C - Received in fixative is one container labeled with the patient's name and designated GE junction submucosal mass biopsy. The specimen consists of multiple irregular fragments of light carrillo soft tissue that in aggregate measure 1 x 0.3 x 0.1 cm. The specimen is totally submitted in one cassette. D - Received in fixative is one container labeled with the patient's name and designated distal esophagus biopsy. The specimen consists of multiple irregular fragments of light carrillo soft tissue that in aggregate measure 1 x 0.3 x 0.1 cm. The specimen is totally submitted in one cassette. E - Received in fixative is one container labeled with the patient's name and designated random colonic biopsy. The specimen consists of multiple irregular fragments of light carrillo soft tissue that in aggregate measure 1.5 x 1.2 x 0.1 cm. The specimen is totally submitted in one cassette. F - Received in fixative is one container labeled with the patient's name and designated splenic flexure polyp biopsy. The specimen consists of multiple irregular fragments of light carrillo soft tissue that in aggregate measure 1.8 x 0.5 x 0.1 cm. The specimen is totally submitted in one cassette. G - Received in fixative is one container labeled with the patient's name and designated rectal polyp biopsy. The specimen consists of two irregular fragments of light carrillo soft tissue that in aggregate measure 0.8 x 0.3 x 0.1 cm. The specimen is totally submitted in one cassette. H - Received in fixative is one container labeled with the patient's name and designated rectal biopsy. The specimen consists of two irregular fragments of light carrillo soft tissue that in aggregate measure 0.6 x 0.3 x 0.1 cm. The specimen is totally submitted in one cassette. / SJ:rg 07/13/2022 TC:2 CPT: 84192 x8, 66646 x3
--- NOTE | 2022-07-13 06:30 | IMM_PTH ---
PATIENT: MOUNIKA DUBON LOC: EN U#:[id number] AGE/SX: 51/F ROOM: RE07/13/[address]: Dr. Francesco Walls DO : 1970 BED: DIS: 07/13/2022 SPEC #: [id number] RECD: 07/13/22 14:00 STATUS: YOAN REBarbara #: [id number] CHOCO: 07/13/22 06:[address]: Francesco Walls DEPT: IMMUNOHISTOCHEMISTRY RECD BY: Zunilda Iverson ENTERED: 07/13/22 14:05 SP TYPE: IMMUNO OTHR DR: Dr. Raheem Garcia DO Tissues: B - Pyloric antrum Procedures: H Pylori (initial) PHYSICIAN & INSTITUTION [place] [id number] SPECIMEN INFORMATION: Tissue Source: B ? Pylorus biopsy Clinical Info: Abdominal pain, diarrhea, rectal bleed, abdominal mass Specimen Number: [id number] CPT code: 64736 METHODOLOGY: Deparaffinized sections of prefer/formalin-fixed tissue or PAP/DQ stained slides are incubated with monoclonal/polyclonal antibodies/oligonucleotide probes. Localization is made via biotin free immunoperoxidase method. Appropriate controls are performed and reacted as expected. Results on target cell population are indicated in the following table: RESULTS: ANTIBODY / CLONE RESULT Block B H Pylori (polyclonal) negative These tests were developed and their performance characteristics determined by [facility]. They may not have been cleared or approved by the U.S. Food and Drug Administration. The FDA has determined that such clearance or approval is not necessary. The above immunohistochemical/dualISH markers are ordered and reviewed by the Pathologist. INTERPRETATION: B. Pylorus, biopsy: Negative for Helicobacter pylori organisms. SJ:slade 07/14/2022
--- NOTE | 2022-07-13 06:33 | HP.PCM_ITS ---
History and Physical Date of Admission: 07/13/22 MOUNIKA DUBON, is a 51 F who presents to the office today for bleeding with BMs since February. Has 10-20 BMs per day, explosive diarrhea, bloating and gas, abd pain. Nausea, sweating and cramping after eating. Liquid stools for 2 days, fever, then the rectal bleeding started. Treated with augmentin when symptoms began w/o relief. Bright red blood or muddy blood, with BMs and with passing gas. Stool can occas be soft and almost-formed, but typically loose or watery, has mucus which is always bloody. Abd cramps before, during and after BMs. Increasing pain throughout abdomen. Urgent diarrhea first thing in the morning. No nocturnal diarrhea. Poor appetite, cramps and bloating when she eats, reports that's how her father felt when he was diagnosed with liver cancer at age 70. Nausea is constant. No vomiting. No dysphagia. Some heartburn in last week. No treatment for the diarrhea since augmentin. No weight loss. Has pressure in the rectum. Used to have an umbilical hernia, no longer visible. 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 Const Constitutional: Positive for fatigue ENT ENT: No difficulty swallowing Gastro GI: Positive for abdominal pain, bloating, change in bowel habits, diarrhea, heartburn, excessive flatus, Blood in stool and nausea/dyspepsia; No belching, change in stool character, coffee ground emesis, constipation, cramping, difficulty swallowing, feeling full early, incontinent of stools, Vomiting blood/hematemesis, loose stools, Black,tarry stools, pain with swallowing, vomiting or other Musc Musculoskeletal: Positive for joint pain, back pain, stiffness, Arthritis and leg pain at night Skin Skin: No yellowing of the eye or itchy eyes Psych Psychiatric: No anxiety and No depression Endo Endocrine: Positive for fatigue Aller/Imm Allergy/Immunologic: No itchy eyes [place]/Lymp Hematologic/Lymphatic: No easy bleeding or easy bruising Exam Const General: cooperative Nutritional Appearance: obese Orientation: alert, awake and oriented x3 HENMT Head: normal to inspection Eyes General: appearance normal, both eyes and all related structures Resp Effort & Inspection: normal respiratory effort GI Inspection: obesity Palpation: mass (hardness across lower abd) and tender (generalized pain with palpation, especially mid lower) Skin General: no jaundice Quality Reporting Tobacco Screening ([facility] 138) Smoking Status: Current every day smoker Assessment and Plan Assessment and Plan (1) Abdominal pain: ?Status:?Acute ?Plan: 51 yr old female with 2 months of blood diarrhea with abdominal pain and abnormal abdominal exam in office today. Abdomen is very tender to palpation, hardness throughout lower abdomen. Will get stat CT abd pel now. Labs were already ordered but we'll see what CT shows first. Then decide re labs and endoscopies. (2) Diarrhea: ?Status:?Acute ?Plan: see above (3) Rectal bleed: ?Status:?Acute ?Plan: see above (4) Abdominal mass: ?Status:?Acute ?Plan: see above ? ? ? Orders: Orders Comprehensive Metabolic Profil Today K62.5 - Hemorrhage of anus and rectum, R 10.9 - Unspecified abdominal pain, R19.7 - Diarrhea, unspecified ? CRP Today K62.5 - Hemorrhage of anus and rectum, R10.9 - Unspecified abdominal pain, R19.7 - Diarrhea, unspecified ? LDH Today K62.5 - Hemorrhage of anus and rectum, R10.9 - Unspecified abdominal pain, R19.7 - Diarrhea, unspecified ? CBC W/Diff, Automated Today K62.5 - Hemorrhage of anus and rectum, R10.9 - Unspecified abdominal pain, R19.7 - Diarrhea, unspecified ? Erythrocyte Sed Rate Today K62.5 - Hemorrhage of anus and rectum, R10.9 - Unspecified abdominal pain, R19.7 - Diarrhea, unspecified ? ROBERTA Comprehensive Panel Today K62.5 - Hemorrhage of anus and rectum, R10.9 - Uns pecified abdominal pain, R19.7 - Diarrhea, unspecified ? Calprotectin, Stool Today K62.5 - Hemorrhage of anus and rectum, R10.9 - Unspecified abdominal pain, R19.7 - Diarrhea, unspecified ? Ova and Parasites 8623 Today K58.9 - Irritable bowel syndrome without diarrhea, K62.5 - Hemorrhage of anus and rectum, R10.9 - Unspecified abdominal pain, R19.7 - Diarrhea, unspecified ? CDIFF (PCR) Today K62.5 - Hemorrhage of anus and rectum, R10.9 - Unspecified abdominal pain, R19.7 - Diarrhea, unspecified ? ENTERIC PATHOGEN PANEL STOOL Today K58.9 - Irritable bowel syndrome without diarrhea, K62.5 - Hemorrhage of anus and rectum, R10.9 - Unspecified abdominal pain, R19.7 - Diarrhea, unspecified ? Stool Lactoferrin/WBC Today K58.9 - Irritable bowel syndrome without diarrhea, K62.5 - Hemorrhage of anus and rectum, R10.9 - Unspecified abdominal pain, R19.7 - Diarrhea, unspecified ? AFP, Tumor Marker Today K62.5 - Hemorrhage of anus and rectum, R10.9 - Unspecified abdominal pain, R19.7 - Diarrhea, unspecified ? ANCA Today K62.5 - Hemorrhage of anus and rectum, R10.9 - Unspecified abdominal pain, R19.7 - Diarrhea, unspecified ? Celiac Disease Profile Today K62.5 - Hemorrhage of anus and rectum, R10.9 - Unspecified abdominal pain, R19.7 - Diarrhea, unspecified ? Immunoglobulins G/A/M/E Today K62.5 - Hemorrhage of anus and rectum, R10.9 - Unspecified abdominal pain, R19.7 - Diarrhea, unspecified ? VJ + Protein Elect, Serum Today K62.5 - Hemorrhage of anus and rectum, R10.9 - Unspecified abdominal pain, R19.7 - Diarrhea, unspecified ? Abdomen/Pelvis WITH Contrast Today K62.5 - Hemorrhage of anus and rectum, R10.9 - Unspecified abdominal pain, R19.7 - Diarrhea, unspecified ? Miscellaneous Lab Procedure Today K62.5 - Hemorrhage of anus and rectum, R10.9 - Unspecified abdominal pain, R19.7 - Diarrhea, unspecified ? C Prothrombin Time w/INR Today K62.5 - Hemorrhage of anus and rectum, R10.9 - Unspecified abdominal pain, R19.7 - Diarrhea, unspecified ? Anti-Mitochondrial AB Today K62.5 - Hemorrhage of anus and rectum, R10.9 - Unspecified abdominal pain, R19.7 - Diarrhea, unspecified ? Hepatitis Panel Acute Today K62.5 - Hemorrhage of anus and rectum, R10.9 - Unspecified abdominal pain, R19.7 - Diarrhea, unspecified ? Anti-Smooth Muscle ABS Today K62.5 - Hemorrhage of anus and rectum, R10.9 - Unspecified abdominal pain, R19.7 - Diarrhea, unspecified ? Carcinoembryonic Antigen Today R19.00 - Intra-abdominal and pelvic swelling, mass and lump, unspecified site ? CA 19-9 Serial Monitor Today R19.00 - Intra-abdominal and pelvic swelling, mass and lump, unspecified site ? I have examined the patient and the H&P has been reviewed. There are no clinical changes since date of exam.
[2022-07-13 07:10] LABS: Bedside Glucose 101 mg/dL (74-106)
[2022-07-13 07:17] VITALS: BP 105/69; BP 136/95; PULSE 85; RESP 18; TEMP 36.4; O2SAT 98
[2022-07-13 07:20] VITALS: BP 114/77; BP 136/95; PULSE 83; RESP 18; O2SAT 100
--- NOTE | 2022-07-13 07:24 | OP.EGD_ITS ---
Patient Name: Caroline Wolfe Procedure Date: 07/13/2022 6:17 AM Date of : 1970 Age: 51 Procedure: Upper GI endoscopy Indications: Epigastric abdominal pain, Functional Dyspepsia, Dysphagia, Heartburn Providers: Francesco Walls DO Referring MD: Raheem Garcia Medicines: Monitored Anesthesia Care Patient Profile: This is a 51 year old female. Refer to note in patient chart for documentation of history and physical. Patient has symptoms of chronic epigastric abdominal pain. Complications: No immediate complications. Procedure: Pre-Anesthesia Assessment: - Prior to the procedure, a History and Physical was performed, and patient medications and allergies were reviewed. The risks and benefits of the procedure and the sedation options and risks were discussed with the patient. All questions were answered and informed consent was obtained. Patient identification and proposed procedure were verified by the physician in the pre-procedure area. Mental Status Examination: normal. Airway Examination: normal oropharyngeal airway and neck mobility. Respiratory Examination: clear to auscultation. CV Examination: normal. Prophylactic Antibiotics: The patient does not require prophylactic antibiotics. Prior Anticoagulants: The patient has taken no previous anticoagulant or antiplatelet agents. After reviewing the risks and benefits, the patient was deemed in satisfactory condition to undergo the procedure. The anesthesia plan was to use monitored anesthesia care (MAC). Immediately prior to administration of medications, the patient was re-assessed for adequacy to receive sedatives. The heart rate, respiratory rate, oxygen saturations, blood pressure, adequacy of pulmonary ventilation, and response to care were monitored throughout the procedure. The physical status of the patient was re-assessed after the procedure. After obtaining informed consent, the endoscope was passed under direct vision. Throughout the procedure, the patient's blood pressure, pulse, and oxygen saturations were monitored continuously. The colonoscope was introduced through the mouth, and advanced to the second part of duodenum. The upper GI endoscopy was accomplished without difficulty. The patient tolerated the procedure well. Scope In: 6:42:12 AM Scope Out: 6:52:48 AM Total Procedure Duration Time 0 hours 10 minutes 36 seconds Findings: LA Grade B (one or more mucosal breaks greater than 5 mm, not extending between the tops of two mucosal folds) esophagitis with no bleeding was found 35 to 37 cm from the incisors. Biopsies were taken with a cold forceps for histology. Verification of patient identification for the specimen was done. Estimated blood loss was minimal. There was a 8 mm submucosal lesion seen below the GE junction that was biopsied Localized granular mucosa was found at the pylorus. Biopsies were taken with a cold forceps for histology. Verification of patient identification for the specimen was done. Estimated blood loss was minimal. Localized mild inflammation characterized by congestion (edema) was found on the lesser curvature of the stomach. Biopsies were taken with a cold forceps for histology. Verification of patient identification for the specimen was done. Estimated blood loss was minimal. A medium-sized hiatal hernia was present. Localized moderate inflammation characterized by congestion (edema) was found in the duodenal bulb and in the first portion of the duodenum. Biopsies were taken with a cold forceps for histology. Verification of patient identification for the specimen was done. Estimated blood loss was minimal. Impression: - LA Grade B erosive esophagitis. Biopsied. - Granular gastric mucosa. Biopsied. - Gastritis. Biopsied. - Medium-sized hiatal hernia. - Duodenitis. Biopsied. Recommendation: - Discharge patient to home. - Resume previous diet. - Use Protonix (pantoprazole) 40 mg PO BID. - Continue present medications. Procedure Code(s): --- Professional --- 46925, Esophagogastroduodenoscopy, flexible, transoral; with biopsy, single or multiple CPT copyright 2017 [employer]. All rights reserved. The codes documented in this report are preliminary and upon swimming pool installer and servicer review may be revised to meet current compliance requirements. Francesco Walls DO 07/13/2022 7:23:56 AM This report has been signed electronically. Number of Addenda: 0 Note Initiated On: 07/13/2022 6:17 AM
[2022-07-13 07:25] VITALS: BP 113/64; BP 136/95; PULSE 78; RESP 18; O2SAT 98
--- NOTE | 2022-07-13 07:25 | OP.CCLET_ITS ---
07/13/2022 Raheem Garcia [address] [place] [address] Re : Upper GI endoscopy procedure for Caroline Yaneth Dear Dr. Garcia This procedure was performed on June. My impressions and recommendations are as follows: Impressions : - LA Grade B erosive esophagitis. Biopsied. - Granular gastric mucosa. Biopsied. - Gastritis. Biopsied. - Medium-sized hiatal hernia. - Duodenitis. Biopsied. Recommendations : - Discharge patient to home. - Resume previous diet. - Use Protonix (pantoprazole) 40 mg PO BID. - Continue present medications. My findings are described in the full procedure note, which is enclosed. If I can be of further assistance, please feel free to contact me at . Sincerely, Francesco Walls, 07/13/2022 7:23:56 AM This report has been signed electronically.
[2022-07-13 07:30] VITALS: BP 121/84; BP 136/95; PULSE 85; RESP 18; TEMP 36.4; O2SAT 100
--- NOTE | 2022-07-13 07:35 | OP.COLON_ITS ---
Patient Name: Caroline Wolfe Procedure Date: 07/13/2022 6:53 AM Date of : 1970 Age: 51 Procedure: Colonoscopy Indications: Hematochezia Providers: DO Elicia Chappell MD: Raheem Garcia Medicines: Monitored Anesthesia Care Patient Profile: This is a 51 year old female. Refer to note in patient chart for documentation of history and physical. Patient has symptoms of chronic epigastric abdominal pain. Last Colonoscopy: none. The patient's first colonoscopy is today. Complications: No immediate complications. Procedure: Pre-Anesthesia Assessment: - Prior to the procedure, a History and Physical was performed, and patient medications and allergies were reviewed. The risks and benefits of the procedure and the sedation options and risks were discussed with the patient. All questions were answered and informed consent was obtained. Patient identification and proposed procedure were verified by the physician in the pre-procedure area. Mental Status Examination: normal. Airway Examination: normal oropharyngeal airway and neck mobility. Respiratory Examination: clear to auscultation. CV Examination: normal. Prophylactic Antibiotics: The patient does not require prophylactic antibiotics. Prior Anticoagulants: The patient has taken no previous anticoagulant or antiplatelet agents. After reviewing the risks and benefits, the patient was deemed in satisfactory condition to undergo the procedure. The anesthesia plan was to use monitored anesthesia care (MAC). Immediately prior to administration of medications, the patient was re-assessed for adequacy to receive sedatives. The heart rate, respiratory rate, oxygen saturations, blood pressure, adequacy of pulmonary ventilation, and response to care were monitored throughout the procedure. The physical status of the patient was re-assessed after the procedure. After I obtained informed consent, the scope was passed under direct vision. Throughout the procedure, the patient's blood pressure, pulse, and oxygen saturations were monitored continuously. The colonoscope was introduced through the anus and advanced to the terminal ileum. The colonoscopy was performed without difficulty. The patient tolerated the procedure well. The quality of the bowel preparation was good. Scope In: 6:55:15 AM Scope Withdrawal Time 0 hours 11 minutes 48 seconds Scope Out: 7:11:39 AM Total Procedure Duration Time 0 hours 16 minutes 24 seconds Findings: The perianal and digital rectal examinations were normal. Three sessile polyps were found in the splenic flexure. The polyps were 1 to 2 mm in size. These polyps were removed with a hot snare. Resection and retrieval were complete. Verification of patient identification for the specimen was done. Estimated blood loss was minimal. Inflammation characterized by erosions, erythema, friability and granularity was found in a continuous and circumferential pattern from the rectum to the hepatic flexure. The ascending colon and the cecum were spared. This was moderate in severity. Biopsies were taken with a cold forceps for histology. Verification of patient identification for the specimen was done. Estimated blood loss was minimal. Impression: - Three 1 to 2 mm polyps at the splenic flexure, removed with a hot snare. Resected and retrieved. - Colitis. Inflammation was found from the rectum to the hepatic flexure. This was moderate in severity. Biopsied. Recommendation: - Discharge patient to home. - Resume previous diet. - Continue present medications. - Await pathology results. - Repeat colonoscopy in 1 year for surveillance. Procedure Code(s): --- Professional --- 64939, Colonoscopy, flexible; with removal of tumor(s), polyp(s), or other lesion(s) by snare technique 86126, 59, Colonoscopy, flexible; with biopsy, single or multiple CPT copyright 2017 [employer]. All rights reserved. The codes documented in this report are preliminary and upon oil sprayer review may be revised to meet current compliance requirements. Francesco Walls DO 07/13/2022 7:34:51 AM This report has been signed electronically. Number of Addenda: 0 Note Initiated On: 07/13/2022 6:53 AM
--- NOTE | 2022-07-13 07:36 | OP.CCLET_ITS ---
07/13/2022 Raheem Garcia [address] [place] [address] Re : Colonoscopy procedure for Caroline Jimenezer Dear Dr. Garcia This procedure was performed on June. My impressions and recommendations are as follows: Impressions : - Three 1 to 2 mm polyps at the splenic flexure, removed with a hot snare. Resected and retrieved. - Colitis. Inflammation was found from the rectum to the hepatic flexure. This was moderate in severity. Biopsied. Recommendations : - Discharge patient to home. - Resume previous diet. - Continue present medications. - Await pathology results. - Repeat colonoscopy in 1 year for surveillance. My findings are described in the full procedure note, which is enclosed. If I can be of further assistance, please feel free to contact me at . Sincerely, Francesco Walls, 07/13/2022 7:34:51 AM This report has been signed electronically.
[2022-07-13 08:07] VITALS: BP 136/95
== END 2022-07-13 08:12 | disposition home or self-care (01) ==
LOC: EN 05:30 → AC 05:32
PROVIDERS: PCP Preventive Medicine Occupational Medicine; Referring Provider Preventive Medicine Occupational Medicine; Visit Provider Internal Medicine Gastroenterology
PROC: 0DJD8ZZ Inspection of Lower Intestinal Tract, Via Natural or Artificial Opening Endoscopic (ICD-10-PCS; CPT 45378; principal; 2022-07-13 06:25)
DX: K22.10 Ulcer of esophagus without bleeding (principal); E11.9 Type 2 diabetes mellitus without complications; Z79.4 Long term (current) use of insulin; K44.9 Diaphragmatic hernia without obstruction or gangrene; K29.70 Gastritis, unspecified, without bleeding; K29.80 Duodenitis without bleeding; D12.3 Benign neoplasm of transverse colon; K62.1 Rectal polyp; K52.9 Noninfective gastroenteritis and colitis, unspecified; K31.89 Other diseases of stomach and duodenum; K30 Functional dyspepsia; K92.1 Melena; E66.9 Obesity, unspecified; R13.10 Dysphagia, unspecified; E78.00 Pure hypercholesterolemia, unspecified; F17.200 Nicotine dependence, unspecified, uncomplicated; Z68.39 Body mass index [BMI] 39.0-39.9, adult; Z79.84 Long term (current) use of oral hypoglycemic drugs; Z79.899 Other long term (current) drug therapy; Z80.0 Family history of malignant neoplasm of digestive organs
CPT/HCPCS: 45385; 45380; 43239; 82962; 87493; 87506; 88305; 88313; 88342; J7120; J2405

== ENCOUNTER → 2022-07-20 | Outpatient (CLI) | payer OTHER, SELFPAY ==
[2022-07-20 14:45] LABS: Absolute Lymphocyte Count 3.27 X10^3/uL (0.83-4.51); Absolute Neutrophil Count 10.8 X10^3/uL (2.0-7.7); Basophil# 0.05 X10^3/uL; Basophil% 0.3 % (0-1); Eosinophil# 0.03 X10^3/uL; Eosinophils% 0.2 % (0-5); Hematocrit 41.6 % (37-47); Hemoglobin 13.1 g/dL (12.0-15.0); Lymphocyte # 3.27 X10^3/ul (0.83-4.51); Lymphocyte % 22.1 % (19-41); Mean Corp Hgb Conc 31.5 g/dL (32-36); Mean Corpuscular Hgb 27.6 pg (27.0-32.0); Mean Corpuscular Volume 87.6 fL (81-99); Mean Platelet Vol. 10.2 fl (6.2-12.0); Monocyte# 0.49 X10^3/uL; Monocyte% 3.3 % (0-10); NRBC Flagged by Analyzer 0 % (0-5); Neutrophil # 10.83 X10^3/uL (2.7-7.7); Neutrophil % 73.4 % (47-70); Platelet Count 377 K/mm3 (150-450); RBC Distribution Width CV 15.2 % (11.6-14.6); RBC Distribution Width SD 48.4 fl (35.1-43.9); Red Blood Count 4.75 M/mm3 (4.2-5.4); White Blood Count 14.8 K/mm3 (4.4-11.0)
[2022-07-20 15:15] LABS: ALB/GLOB Ratio 0.7 RATIO (0.9-2.4); AST(SGOT) 12 U/L (15-37); Alanine Aminotransfer ALT/SGPT 28 U/L (13-56); Albumin, Serum 3.1 g/dL (3.2-5.0); Alkaline Phosphatase 85 U/L (45-117); Anion Gap 0 (5-15); BUN 13 mg/dL (7-18); BUN/Creat Ratio 18.1 RATIO (10-20); CRP 5.18 mg/L (0.0-3.0); Calcium,Total 9.3 mg/dL (8.5-10.1); Chloride 104 mmol/L (98-107); Creatinine, Serum 0.72 mg/dL (0.55-1.02); EST Glomerular Filtration Rate 91 mL/min (>60); Est Glom Filt Rate - Afr Amer 110 mL/min (>60); Globulin 4.2 g/dL (2.2-4.2); Glucose 99 mg/dL (74-106); Protein, Total 7.3 g/dL (6.4-8.2); Sodium Level 138 mmol/L (136-145)
[2022-07-20 15:20] LABS: Erythrocyte Sedimentation Rate 55 mm/hr (0-30)
[2022-07-25 11:07] LABS: Endomysial Antibody IgA Negative (Negative)
[2022-07-25 14:08] LABS: Anti-Centromere B Ab <0.2 AI (0.0-0.9); Anti-Chromatin <0.2 AI (0.0-0.9); Anti-Jo <0.2 AI (0.0-0.9); Anti-Scleroderma-70 AB <0.2 AI (0.0-0.9); RNP Ab 0.2 AI (0.0-0.9); SJOGREN'S Anti-SS-A test < 0.2 AI (0.0-0.9); SJOGREN'S Anti-SS-B test < 0.2 AI (0.0-0.9); Smith Ab <0.2 AI (0.0-0.9)
[2022-07-25 16:30] LABS: Anti-dsDNA Ab <1 IU/mL (0-9)
[2022-07-25 16:33] LABS: Immunoglobulin A 275 mg/dL (87-352); t-Transglutaminase IgA <2 U/mL (0-3)
[2022-07-27 04:07] LABS: Albumin 3.1 g/dL (2.9-4.4); Alpha-1-Globulins 0.4 g/dL (0.0-0.4); Alpha-2-Globulins 1.1 g/dL (0.4-1.0); Cytoplasmic Ab (C-ANCA) <1:20 titer (Neg:<1:20); Gamma Globulin 0.8 g/dL (0.4-1.8); HEPATITIS B SURFACE AG Negative (Negative); Hep C Antibodies <0.1 s/co ratio (0.0-0.9); Hepatitis A IgM Antibody Negative (Negative); Hepatitis B Core AB IgM Negative (Negative); Immunoglobulin A 277 mg/dL (87-352); Immunoglobulin G 835 mg/dL (586-1602); Immunoglobulin M 105 mg/dL (26-217); PROEL- TOTAL PROTEIN 6.7 g/dL (6.0-8.5); QNTFERON TB Mitogen Value > 10.00 IU/mL (.); QNTFERON TB Nil Value 0 IU/mL (.); QNTFERON TB1+ Ag Value 0.01 IU/mL (.); QNTFERON TB2+ Ag Value 0 IU/mL (.)
[2022-07-28 17:31] LABS: Immunoglobulin E 67 IU/mL (6-495); QNTIFERON TB Positive Criteria Negative (Negative)
== END | disposition home or self-care (01) ==
LOC: LAB 14:15
PROVIDERS: PCP Preventive Medicine Occupational Medicine; Visit Provider Internal Medicine Gastroenterology
DX: A49.8 Other bacterial infections of unspecified site (principal); R19.5 Other fecal abnormalities
CPT/HCPCS: 36415; 80053; 80074; 82784; 82785; 83516; 84165; 85025; 85652; 86140; 86225; 86235; 86255; 86256; 86334; 86480

== ENCOUNTER 2022-11-12 12:54 | Emergency (ER) | payer MEDICAID, SELFPAY ==
[2022-11-12 12:55] VITALS: BP 150/95; PULSE 100; RESP 16; TEMP 35.5; O2SAT 94; BMI 40.8
[2022-11-12 13:08] VITALS: BP 134/82; PULSE 87; RESP 20; TEMP 35.5; O2SAT 97
--- NOTE | 2022-11-12 13:21 | CT_ITS ---
INDICATION: Rectal bleeding for 5 days with abdominal cramping, history of colitis EXAMINATION: CT ABDOMEN AND PELVIS WITH CONTRAST - CT Abdomen And Pelvis W/ Contrast Injection TECHNIQUE: Helically acquired images were obtained of the abdomen and pelvis following IV contrast. A radiation dose optimization technique was used for this scan. IV Contrast dosage and agent: 100 cc [id number] Oral contrast: Yes COMPARISON: 06/11/2022 FINDINGS: LOWER CHEST: Lung bases are clear. No cardiomegaly or pericardial effusion. LIVER: Homogeneous. No focal mass. GALLBLADDER AND BILIARY TREE: No calcified gallstones. No gallbladder distension or wall edema. No intra- or extrahepatic biliary ductal dilation. PANCREAS: No focal cystic or solid mass. SPLEEN: Normal size without focal cystic or solid mass. ADRENAL GLANDS: No nodules. KIDNEYS AND URETERS: Normal renal size and position. No hydronephrosis. PERITONEUM: No ascites or free air. BOWEL: Normal appendix. No stomach or bowel distension. Mild circumferential colonic wall thickening with adjacent fatty stranding from the mid descending colon through the sigmoid colon and rectum. LYMPH NODES: No enlarged mesenteric or retroperitoneal lymph nodes. VESSELS: Aorta is non-dilated. URINARY BLADDER: Nondistended. REPRODUCTIVE ORGANS: Uterus absent. ABDOMINAL WALL: No discrete abdominal or pelvic wall hernia. BONES: No acute or aggressive abnormality. CT/Abdomen/Pelvis WITH Contrast IMPRESSION: Colitis of the distal descending through the sigmoid colon and rectum. Electronically Signed: Nathanael Arias MD at 16:27 EDT ,
--- NOTE | 2022-11-12 13:23 | ED.VIS.GI ---
HPI HPI - GI History of Present Illness Chief Complaint: GI Bleed Informant: patient Abdominal Pain/Flank Pain Onset: Days (5-days) Context: Gradual Onset Narrative Narrative: Patient presents with abdominal cramping along with diarrhea and blood in her stool for the past 5 days. She has a history of frequent GI bleeding and colitis. She follows with Dr. Walls. She had an EGD and colonoscopy performed in June which revealed erosive esophagitis, gastritis, medium sized hiatal hernia, and duodenitis. Lower scope revealed diffuse acute colitis with inflammation from the rectum to the hepatic flexure. Patient was on p.o. vancomycin at that time. She states that she actually has been doing well and not having any blood in her stool since June until the episode that started 5 days ago. She has had subjective fever and increased sleep at home. She does report some slight congestion and cough. [facility] Medical History Abdominal pain ADHD Ambulates with cane Anxiety Arthritis Asthma Bladder disease Blood in stool Chronic pain in left foot Colon polyp Depression Diabetes Dietary restriction Exercise-induced asthma Former smoker High cholesterol History of diverticulitis History of edema History of GI bleed History of steroid therapy Hypertension Injury of head and neck Insulin dependent diabetes mellitus Irregular heart beat Kidney stones Lower leg edema Neuropathy of left foot Radiculitis, brachial Right shoulder pain Smoker Type 2 diabetes mellitus Vitamin D deficiency Home Medications albuterol sulfate 90 mcg/actuation aerosol inhaler (ProAir HFA) 2 puff inhalation Q6H PRN Wheezing 04/07/22 [History Last Taken Unknown] cetirizine 10 mg tablet 10 mg PO DAILY PRN allergies 04/07/22 [History Last Taken Unknown] cholecalciferol (vitamin D3) 100 mcg (4,000 unit) tablet 100 mcg PO DAILY vitamin 04/07/22 [History Last Taken Unknown] fluticasone propionate 50 mcg/actuation nasal spray,suspension 2 spray intranasal DAILY allergies 04/07/22 [History Last Taken Unknown] glipizide 2.5 mg tablet, extended release 24 hr 5 mg PO DAILY diabetes 04/07/22 [History Last Taken Unknown] olopatadine 0.2 % eye drops 1 drp EACH EYE PRN PRN Allergy Symptoms 06/13/22 [History Last Taken Unknown] insulin glargine-yfgn 100 unit/mL (3 mL) subcutaneous pen 25 unit (0.25 mL) subcut BID 30 days #15 mL 06/16/22 [Rx Last Taken Unknown] losartan 100 mg tablet 100 mg PO DAILY 30 days #30 tabs 06/16/22 [Rx Last Taken Unknown] atorvastatin 20 mg tablet 20 mg PO DAILY 07/10/22 [History Last Taken Unknown] multivitamin with minerals-folic acid 120 mcg chewable tablet (Centrum Adult 50 Plus Fresh-Fruity) 1 tab PO BID 07/10/22 [History Last Taken Unknown] omega-3 fatty acids-vitamin E 1,000 mg capsule 1 cap PO DAILY 07/10/22 [History Last Taken Unknown] trazodone 50 mg tablet 50 mg PO QHS 07/10/22 [History Last Taken Unknown] budesonide 3 mg capsule,delayed,extended release 9 mg PO DAILY #90 ea 07/13/22 [Rx Last Taken Unknown] vancomycin 125 mg capsule (Vancocin) 125 mg PO DIRECTED #56 caps 07/13/22 [Rx Last Taken Unknown] folic acid 1 mg tablet 1 mg PO DAILY #30 tabs 07/14/22 [Rx Last Taken Unknown] sulfasalazine 500 mg tablet 0.5 g PO BID #60 tabs 07/14/22 [Rx Last Taken Unknown] dicyclomine 20 mg tablet 20 mg PO TID #30 tabs 11/12/22 [Rx Last Taken Unknown] glucometer #1 ea 11/12/22 [Rx Last Taken Unknown] prednisone 10 mg tablet 10 mg PO DAILY #48 TABLETS 11/12/22 [Rx Last Taken Unknown] Allergy/AdvReac Type Severity Reaction Status Date / Time ciprofloxacin Allergy Severe Laryngospasms, Verified 11/12/22 12:57 itching morphine AdvReac Intermediate Nausea/Vom/ Verified 11/12/22 12:57 Diarrhea tramadol AdvReac Intermediate Nausea Verified 11/12/22 12:57 Family History Father Arthritis Diabetes Epilepsy Hypertension Heart disease Liver cancer Mother Hypertension Brother Diabetes Colon cancer Grandmother Colon cancer Stomach cancer Surgical History H/O: hysterectomy History of bunionectomy Previous section Social History Smoking Status: Light Smoker (<10/day) alcohol intake: current ROS ROS ED Constitutional Constitutional ED: Reports fever(s) and subjective; Denies chills Eyes Eyes: Denies change in vision or discharge from eye(s) ENT ENT ED: Reports other Details: Mild congestion ; Denies discharge from eye(s), rhinorrhea or sore throat Cardiovascular Cardiovascular: Denies chest pain or palpitations Respiratory/Chest Respiratory/Chest: Reports cough; Denies dyspnea Gastrointestinal Gastrointestinal: Reports abdominal pain, diarrhea and nausea; Denies vomiting Genitourinary Genitourinary ED: Denies dysuria Musculoskeletal Musculoskeletal: Denies back pain or extremity pain Integumentary Denies Abrasions or rash Neurologic Neurologic: Reports weakness; Denies headache(s) Psychiatric Psychiatric: Reports anxiety Endocrine Endocrinology: Denies polydipsia or polyuria Allergic/Immunologic Allergic/Immunologic ED: Denies lip swelling or urticaria EXAM Physical Exam Const Vital Signs: 11/12/22 12:55 11/12/22 13:08 11/12/22 15:00 Temperature 96 F L 96 F L Temperature Source Temporal Temporal Pulse Rate 100 87 89 Respiratory Rate 16 20 H 16 Blood Pressure 150/95 H 134/82 H 128/63 H Blood Pressure Mean 113 99 84 Pulse Ox 94 97 93 Oxygen Delivery Method Room Air Room Air Room Air 11/12/22 16:27 Temperature Temperature Source Pulse Rate 81 Respiratory Rate 16 Blood Pressure 130/79 H Blood Pressure Mean 96 Pulse Ox 96 Oxygen Delivery Method Room Air Positive well nourished and well developed General Appearance ED: well developed HEENT Reports normocephalic and head/scalp atraumatic Eyes PERRL and EOMs intact bilaterally Neck supple Chest Wall inspection of chest normal and palpation of chest normal Resp normal respiratory effort and clear to auscultation bilaterally Cardio regular rate and regular rhythm GI GI Narrative: Mild diffuse abdominal tenderness to palpation. No guarding or rebound. Hypoactive but present bowel sounds are noted. Palpation: soft Extremity normal to inspection Neuro oriented x3 and no sensory deficits noted Sensorium / Orientation: alert Motor Exam: strength 5/5 throughout Psych Mood & Affect: anxious and tearful Skin no rashes or lesions noted MDM MDM MDM Narrative Medical decision making narrative: Patient given Dilaudid, Zofran, IV fluids. Labwork obtained to evaluate for leukocytosis, anemia, and electrolyte derangement. CT scan of the abdomen pelvis with contrast obtained. Lab Data Attestation: I reviewed the patient's lab results. Labs: Laboratory Results - last 24 hr 11/12/22 11/12/22 11/12/22 13:33 13:33 13:33 WBC 9.2 RBC 4.63 Hgb 12.9 Hct 40.0 MCV 86.4 MCH 27.9 MCHC 32.3 RDW Std Deviation 40.9 RDW Coeff of Terra 13.0 Plt Count 219 MPV 11.4 Immature Gran % (Auto) 0.300 Neut % (Auto) 67.9 Lymph % (Auto) 23.9 [place] % (Auto) 4.8 Eos % (Auto) 2.7 Baso % (Auto) 0.4 Absolute Neuts (auto) 6.3 Absolute Lymphs (auto) 2.20 Nucleated RBC % 0 PT 12.7 INR 1.0 APTT 31.3 Sodium 138 Potassium 3.5 Chloride 104 Carbon Dioxide 29.0 Anion Gap 5 BUN 12 Creatinine 0.71 Estim Creat Clear Calc 72.47 Est GFR (MDRD) Af Amer 111 Est GFR (MDRD) Non-Af 92 BUN/Creatinine Ratio 16.9 Glucose 201 H Calcium 8.8 Total Bilirubin 0.10 L Direct Bilirubin 0.08 AST 16 ALT 25 Alkaline Phosphatase 91 Total Protein 6.3 L Albumin 2.8 L Globulin 3.5 Radiography Diagnostic Testing: Clinical Impression(s) from Imaging Studies Abdomen/Pelvis CT 11/12/22 13:21 IMPRESSION: Colitis of the distal descending through the sigmoid colon and rectum. Electronically Signed: Nathanael Arias MD at 16:27 EDT , Treatment and Re-Evaluation :: CBC was normal white count with normal hemoglobin at 12.9. No left shift noted. Coags are normal. Chemistry studies normal other than elevated glucose at 201. LFTs unremarkable. CT scan of the abdomen pelvis reveals evidence of colitis of the distal descending through sigmoid colon and rectum. I spoke with patient's GI physician, Dr. Walls. He feels that the symptoms are more consistent with an ischemic type picture as opposed to infectious. We will avoid antibiotics at this time as she did recently have C. difficile. Symptoms are not typical for C. difficile presentation at this time either. Dr. Jc would like patient started on scheduled Bentyl along with steroids. These prescriptions have been written. Patient also is asking for a new One Touch glucometer which she has been told her insurance will cover. That prescription was also sent to the pharmacy for her. She is to follow-up with Dr. Walls. Return instructions given. Discharge Plan Triage Chief Complaint: GI Bleed ED Provider: Neisha Naidu Dx/Rx/DC Orders Clinical Impression: Colitis Instructions: ED Understanding Colitis Prescriptions: New dicyclomine 20 mg tablet 20 mg PO TID Qty: 30 0RF prednisone 10 mg tablet 10 mg PO DAILY Qty: 48 0RF Rx Instructions: 6 po qd x 3 days, 4 po qd x 3 days, 2 po qd x 3 days, 1 po qd x 3 days (DME) glucometer See Rx Instructions .Route .MEDSUPPLY Qty: 1 0RF Rx Instructions: One Touch Glucometer and test strips No Action albuterol sulfate [ProAir HFA] 90 mcg/actuation HFA aerosol inhaler 2 puff inhalation Q6H PRN (Reason: Wheezing) cetirizine 10 mg tablet 10 mg PO DAILY PRN (Reason: allergies) cholecalciferol (vitamin D3) 100 mcg (4,000 unit) tablet 100 mcg PO DAILY fluticasone propionate 50 mcg/actuation spray,suspension 2 spray intranasal DAILY Rx Instructions: administer into each nostril glipizide 2.5 mg tablet extended release 24hr 5 mg PO DAILY Fish Oil 1,000 mg Capsule 1 cap PO DAILY Centrum Adult 50 Fresh-Fruity 120 mcg Tablet,Chewable 1 tab PO BID atorvastatin 20 mg Tablet 20 mg PO DAILY trazodone 50 mg Tablet 50 mg PO QHS olopatadine 0.2 % Drops 1 drp EACH EYE PRN PRN (Reason: Allergy Symptoms) losartan 100 mg Tablet 100 mg PO DAILY 30 Days Qty: 30 0RF insulin glargine-yfgn 100 unit/mL (3 mL) Insulin Pen 25 unit subcut BID 30 Days Qty: 15 0RF budesonide 3 mg capsule,delayed,extend.release 9 mg PO DAILY Qty: 90 1RF vancomycin [Vancocin] 125 mg capsule 125 mg PO DIRECTED Qty: 56 0RF Rx Instructions: take 125 mg 4 times per day for 14 days; sulfasalazine 500 mg tablet 0.5 g PO BID Qty: 60 11RF Rx Instructions: give with food (meal/snack) folic acid 1 mg tablet 1 mg PO DAILY Qty: 30 11RF Primary Care Provider: Raheem Garcia Referrals: Francesco Walls DO [Med Staff - Active Staff] - 1-2 Weeks Raheem Garcia DO [Primary Care Provider] - Disposition Disposition: Home, Self Care
[2022-11-12] MEDS: 0.9% Normal Saline 1,000 ML 1000 ML IV (13:29)
[2022-11-12] MEDS: HYDROmorphone 1 MG/ML Syringe 0.5 MG IV (13:30)
[2022-11-12] MEDS: Ondansetron 4 MG/2 ML Vial IV (13:32)
[2022-11-12 13:42] LABS: Absolute Neutrophil Count 6.3 X10^3/uL (2.0-7.7); Basophil# 0.04 X10^3/uL; Basophil% 0.4 % (0-1); Eosinophil# 0.25 X10^3/uL; Eosinophils% 2.7 % (0-5); Hemoglobin 12.9 g/dL (12.0-15.0); Lymphocyte % 23.9 % (19-41); Mean Corp Hgb Conc 32.3 g/dL (32-36); Mean Corpuscular Hgb 27.9 pg (27.0-32.0); Mean Corpuscular Volume 86.4 fL (81-99); Mean Platelet Vol. 11.4 fl (6.2-12.0); Monocyte# 0.44 X10^3/uL; Monocyte% 4.8 % (0-10); NRBC Flagged by Analyzer 0 % (0-5); Neutrophil # 6.26 X10^3/uL (2.7-7.7); Neutrophil % 67.9 % (47-70); Platelet Count 219 K/mm3 (150-450); RBC Distribution Width SD 40.9 fl (35.1-43.9); Red Blood Count 4.63 M/mm3 (4.2-5.4); White Blood Count 9.2 K/mm3 (4.4-11.0)
[2022-11-12 13:53] LABS: Prothrombin Time (Protime)PT. 12.7 SECONDS (11.7-14.9)
[2022-11-12 13:54] LABS: Partial Thromboplast Time 31.3 Seconds (24.1-36.2)
[2022-11-12 13:58] LABS: AST(SGOT) 16 U/L (15-37); Alanine Aminotransfer ALT/SGPT 25 U/L (13-56); Albumin, Serum 2.8 g/dL (3.2-5.0); Alkaline Phosphatase 91 U/L (45-117); Anion Gap 5 (5-15); BUN 12 mg/dL (7-18); BUN/Creat Ratio 16.9 RATIO (10-20); Bilirubin, Direct 0.08 mg/dL (0.00-0.30); Calcium,Total 8.8 mg/dL (8.5-10.1); Chloride 104 mmol/L (98-107); Creatinine, Serum 0.71 mg/dL (0.55-1.02); EST Glomerular Filtration Rate 92 mL/min (>60); Est Glom Filt Rate - Afr Amer 111 mL/min (>60); Estimated Creatinine Clearance 72.47 ml/min; Globulin 3.5 g/dL (2.2-4.2); Glucose 201 mg/dL (74-106); Potassium 3.5 mmol/L (3.5-5.1); Protein, Total 6.3 g/dL (6.4-8.2); Sodium Level 138 mmol/L (136-145)
[2022-11-12 15:00] VITALS: BP 128/63; PULSE 89; RESP 16; O2SAT 93
[2022-11-12 16:27] VITALS: BP 130/79; PULSE 81; RESP 16; O2SAT 96
[2022-11-12] MEDS: predniSONE 20 MG Tablet 40 MG PO (17:00)
[2022-11-12] MEDS: Dicyclomine 10 MG Capsule 20 MG PO (17:00)
== END 2022-11-12 17:03 | disposition home or self-care (01) ==
PROVIDERS: Emergency Provider Emergency Medicine; PCP Preventive Medicine Occupational Medicine; Visit Provider Emergency Medicine
DX: K52.9 Noninfective gastroenteritis and colitis, unspecified (principal); F17.200 Nicotine dependence, unspecified, uncomplicated; Z86.010 Personal history of colon polyps
CPT/HCPCS: 74177; 80048; 80076; 85025; 85610; 85730; 96361; 96374; 96375; 99285; J7030; Q9967; J2405

== ENCOUNTER → 2023-01-23 | Outpatient (CLI) | payer MEDICAID, SELFPAY ==
[2023-01-26 19:06] LABS: Calprotectin, Stool 1120 ug/g (0-120); Fats, Neutral Normal (.); Fats, Total Normal (.)
[2023-01-29 04:06] LABS: Pancreatic Elastase, Fecal 130 (>200)
== END | disposition home or self-care (01) ==
LOC: LABSPEC 13:14
PROVIDERS: PCP Preventive Medicine Occupational Medicine; Visit Provider Internal Medicine Gastroenterology
DX: A04.72 Enterocolitis due to Clostridium difficile, not specified as recurrent (principal); K58.9 Irritable bowel syndrome, unspecified
CPT/HCPCS: 82653; 82705; 83630; 83993; 87177; 87209; 87329; 87493; 87506

== ENCOUNTER 2023-01-24 08:47 | Emergency (ER) | payer MEDICAID, SELFPAY ==
[2023-01-24 08:48] VITALS: BP 119/80; PULSE 89; RESP 16; TEMP 36.3; O2SAT 97; BMI 39.3
--- NOTE | 2023-01-24 09:03 | ED.VIS.GI ---
HPI HPI - GI History of Present Illness Chief Complaint: Abd Pain Informant: patient Abdominal Pain/Flank Pain Onset: Yesterday Context: Sudden Onset Timing: Intermittent Quality: Stabbing Location: RUQ and RLQ Worsened by: Movement Relieved by: Nothing Nausea/Vomiting/Emesis GI Symptom: Positive for Nausea; Negative for Vomiting Diarrhea/Melena/Hematochezia GI Symptom: Positive for Diarrhea and Hematochezia Stool Quality: Positive for Loose and BRB per rectum Associated Symptoms Associated Symptoms: Negative for Dysuria, Frequency or Hematuria Narrative Narrative: Patient presents with abdominal pain that became worse last night. Patient states it came on rather suddenly. Patient states it comes and goes but is present more than then it is not present. Patient describes her pain as stabbing. Patient states her pain is mainly over the right side of her abdomen. Patient states it is worse with movement. Patient states nothing seems to help with it. Patient admits to nausea but denies any vomiting. Patient admits to diarrhea that she has had for the past month. Patient states she is having some blood in her stools. Patient denies any urinary complaints. Patient does admit to decreased appetite. Patient midst to subjective fevers and chills. Patient states she is scheduled to get outpatient lab work drawn but has not done so yet. Patient was able to submit a stool specimen yesterday. [facility] Medical History Abdominal pain ADHD Ambulates with cane Anxiety Arthritis Asthma Bladder disease Blood in stool Chronic pain in left foot Colon polyp Depression Diabetes Dietary restriction Exercise-induced asthma Former smoker High cholesterol History of diverticulitis History of edema History of GI bleed History of steroid therapy Hypertension Injury of head and neck Insulin dependent diabetes mellitus Irregular heart beat Kidney stones Lower leg edema Neuropathy of left foot Radiculitis, brachial Right shoulder pain Smoker Type 2 diabetes mellitus Vitamin D deficiency Home Medications albuterol sulfate 90 mcg/actuation aerosol inhaler (ProAir HFA) 2 puff inhalation Q6H PRN Wheezing 04/07/22 [History Last Taken Unknown] cetirizine 10 mg tablet 10 mg PO DAILY PRN allergies 04/07/22 [History Last Taken Unknown] cholecalciferol (vitamin D3) 100 mcg (4,000 unit) tablet 100 mcg PO DAILY vitamin 04/07/22 [History Last Taken Unknown] fluticasone propionate 50 mcg/actuation nasal spray,suspension 2 spray intranasal DAILY allergies 04/07/22 [History Last Taken Unknown] glipizide 2.5 mg tablet, extended release 24 hr 5 mg PO DAILY diabetes 04/07/22 [History Last Taken Unknown] olopatadine 0.2 % eye drops 1 drp EACH EYE PRN PRN Allergy Symptoms 06/13/22 [History Last Taken Unknown] losartan 100 mg tablet 100 mg PO DAILY 30 days #30 tabs 06/16/22 [Rx Last Taken Unknown] atorvastatin 20 mg tablet 20 mg PO DAILY 07/10/22 [History Last Taken Unknown] multivitamin with minerals-folic acid 120 mcg chewable tablet (Centrum Adult 50 Plus Fresh-Fruity) 1 tab PO BID 07/10/22 [History Last Taken Unknown] omega-3 fatty acids-vitamin E 1,000 mg capsule 1 cap PO DAILY 07/10/22 [History Last Taken Unknown] trazodone 50 mg tablet 50 mg PO QHS 07/10/22 [History Last Taken Unknown] vancomycin 125 mg capsule (Vancocin) 125 mg PO DIRECTED #56 caps 07/13/22 [Rx Last Taken Unknown] folic acid 1 mg tablet 1 mg PO DAILY #30 tabs 07/14/22 [Rx Last Taken Unknown] dicyclomine 20 mg tablet 20 mg PO TID #30 tabs 11/12/22 [Rx Last Taken Unknown] glucometer #1 ea 11/12/22 [Rx Last Taken Unknown] vancomycin 125 mg capsule 125 mg PO Q6H #56 caps 01/22/23 [Rx Last Taken Unknown] insulin glargine-yfgn 100 unit/mL (3 mL) subcutaneous pen 12 unit subcut DAILY 01/24/23 [History Last Taken 01/24/23] prednisone 20 mg tablet 40 mg (2 x 20 mg) PO DAILY #14 TABLETS 01/24/23 [Rx Last Taken Unknown] Allergy/AdvReac Type Severity Reaction Status Date / Time ciprofloxacin Allergy Severe Laryngospasms, Verified 11/12/22 12:57 itching morphine AdvReac Intermediate Nausea/Vom/ Verified 11/12/22 12:57 Diarrhea tramadol AdvReac Intermediate Nausea Verified 11/12/22 12:57 Family History Father Arthritis Diabetes Epilepsy Hypertension Heart disease Liver cancer Mother Hypertension Brother Diabetes Colon cancer Grandmother Colon cancer Stomach cancer Surgical History H/O: hysterectomy History of bunionectomy Previous section Social History Smoking Status: Light Smoker (<10/day) alcohol intake: current ROS ROS ED Constitutional Constitutional ED: Reports chills, fever(s) and subjective Eyes Eyes: Denies blurry vision or change in vision ENT ENT ED: Denies rhinorrhea or sore throat Cardiovascular Cardiovascular: Denies chest pain or palpitations Respiratory/Chest Respiratory/Chest: Reports cough; Denies dyspnea Gastrointestinal Gastrointestinal: Reports abdominal pain, diarrhea and nausea; Denies vomiting Genitourinary Genitourinary ED: Denies dysuria or hematuria Musculoskeletal Musculoskeletal: Reports back pain; Denies neck pain Integumentary Denies abscess or rash Neurologic Neurologic: Reports headache(s) and weakness Allergic/Immunologic Allergic/Immunologic ED: Denies mouth swelling or urticaria EXAM Physical Exam Const Vital Signs: 01/24/23 08:48 01/24/23 10:48 01/24/23 12:00 Temperature 97.3 F L Temperature Source Temporal Pulse Rate 89 86 Respiratory Rate 16 16 Blood Pressure 119/80 156/86 H 139/66 H Blood Pressure Mean 93 109 90 Pulse Ox 97 98 Oxygen Delivery Method Room Air Room Air Positive well nourished, well developed and obese General Appearance ED: well developed and NAD Nutritional Appearance: obese HEENT Reports moist mucous membranes Neck supple and no JVD Resp normal respiratory effort and clear to auscultation bilaterally Cardio regular rate and regular rhythm GI normal to inspection, nondistended, normoactive bowel sounds Palpation: soft and tender RLQ and RUQ; Negative for guarding or rebound tenderness present Extremity normal to inspection General Extremety ED: Negative for edema or tenderness General Extremity: Negative for edema Neuro oriented x3, CN's II-XII intact bilaterally, moves all extremities and no sensory deficits noted Sensorium / Orientation: alert Motor Exam: strength 5/5 throughout Psych mental status grossly normal Skin no rashes or lesions noted MDM MDM MDM Narrative Medical decision making narrative: Differential diagnosis includes colitis, C. difficile, gastroenteritis, bowel obstruction, perforation, cholecystitis, cholelithiasis, appendicitis, urinary tract infection, pyelonephritis, and ureteral calculus. CBC will be obtained to assess for leukocytosis and anemia. Comprehensive metabolic profile will be obtained to assess for electrolyte abnormality, renal function, and hepatic function. Lipase will be obtained to assess for pancreatitis. Urinalysis will be obtained to assess for urinary tract infection and hematuria. CT scan of the abdomen pelvis will be obtained to assess for bowel obstruction, perforation, and ureteral calculus. Lab Data Attestation: I reviewed the patient's lab results. Lab results narrative: CBC was reviewed and was within normal limits. Comprehensive metabolic profile was reviewed and was essentially within normal limits. Lipase was reviewed and was normal. Lactate was reviewed and was normal. Urinalysis was reviewed and was within normal limits. Labs: Laboratory Results - last 24 hr 01/24/23 01/24/23 01/24/23 09:20 09:30 09:55 WBC 9.3 RBC 4.95 Hgb 13.8 Hct 43.1 MCV 87.1 MCH 27.9 MCHC 32.0 RDW Std Deviation 42.7 RDW Coeff of Terra 13.4 Plt Count 310 MPV 10.6 Immature Gran % (Auto) 0.400 Neut % (Auto) 60.8 Lymph % (Auto) 24.2 [place] % (Auto) 8.7 Eos % (Auto) 5.3 H Baso % (Auto) 0.6 Absolute Neuts (auto) 5.6 Absolute Lymphs (auto) 2.24 Nucleated RBC % 0 ESR 54 H Sodium 138 Potassium 3.8 Chloride 108 H Carbon Dioxide 25.0 Anion Gap 5 BUN 11 Creatinine 0.83 Estim Creat Clear Calc 62.00 Est GFR (MDRD) Af Amer 93 Est GFR (MDRD) Non-Af 77 BUN/Creatinine Ratio 13.3 Glucose 179 H Lactic Acid 1.2 Calcium 8.8 Total Bilirubin 0.20 AST 9 L ALT 18 Alkaline Phosphatase 89 Lactate Dehydrogenase 151 C-React Prot Ext Range 38.30 H Total Protein 6.9 Albumin 2.6 L Globulin 4.3 H Albumin/Globulin Ratio 0.6 L Lipase 61 Urine Color Yellow Urine Clarity Sl. Cloudy Urine pH 5.0 Ur Specific [place] 1.025 Urine Protein 30 H Urine Glucose (UA) Normal Urine Ketones Negative Urine Occult Blood 25 H Urine Nitrite Negative Urine Bilirubin 1 H Urine Urobilinogen 1 H Ur Leukocyte Esterase 25 H Urine RBC 0-5 SEEN Urine WBC 0-5 SEEN Ur Squamous Epith Cells 0-5 SEEN Calcium Oxalate Crystal 2+ Urine Bacteria 1+ Urine Mucus 1+ Radiography Diagnostic Testing: CT scan of the abdomen and pelvis was obtained. There is evidence of colitis. There is no bowel obstruction or perforation. This was interpreted by the radiologist and was also independently reviewed by myself. Treatment and Re-Evaluation :: Case was discussed with Dr. Walls. He added on LDH, sed rate, and CRP. LDH was reviewed and was normal. Sed rate and CRP were reviewed and were elevated. Dr. Walls was advised of his findings. He recommended giving the patient Solu-Medrol here in the emergency department. He recommended giving the patient a prescription for prednisone. He recommend having the patient continue Bentyl. He will continue the vancomycin as prescribed. He will follow-up with the patient in the office. Patient understood and was agreeable with the plan. All questions were answered. Discharge Plan Triage Chief Complaint: Abd Pain ED Provider: Mart Solomon Dx/Rx/DC Orders Prescriptions: New prednisone 20 mg tablet 40 mg PO DAILY Qty: 14 0RF No Action albuterol sulfate [ProAir HFA] 90 mcg/actuation HFA aerosol inhaler 2 puff inhalation Q6H PRN (Reason: Wheezing) cetirizine 10 mg tablet 10 mg PO DAILY PRN (Reason: allergies) cholecalciferol (vitamin D3) 100 mcg (4,000 unit) tablet 100 mcg PO DAILY fluticasone propionate 50 mcg/actuation spray,suspension 2 spray intranasal DAILY Rx Instructions: administer into each nostril glipizide 2.5 mg tablet extended release 24hr 5 mg PO DAILY Fish Oil 1,000 mg Capsule 1 cap PO DAILY multivit with min-folic acid [Centrum Adult 50 Fresh-Fruity] 120 mcg Tablet,Chewable 1 tab PO BID atorvastatin 20 mg Tablet 20 mg PO DAILY trazodone 50 mg Tablet 50 mg PO QHS olopatadine 0.2 % Drops 1 drp EACH EYE PRN PRN (Reason: Allergy Symptoms) losartan 100 mg Tablet 100 mg PO DAILY 30 Days Qty: 30 0RF dicyclomine 20 mg tablet 20 mg PO TID Qty: 30 0RF (DME) glucometer See Rx Instructions .Route .MEDSUPPLY Qty: 1 0RF Rx Instructions: One Touch Glucometer and test strips insulin glargine-yfgn 100 unit/mL (3 mL) Insulin Pen 12 unit subcut DAILY vancomycin [Vancocin] 125 mg capsule 125 mg PO DIRECTED Qty: 56 0RF Rx Instructions: take 125 mg 4 times per day for 14 days; folic acid 1 mg tablet 1 mg PO DAILY Qty: 30 11RF vancomycin 125 mg capsule 125 mg PO Q6H Qty: 56 0RF Primary Care Provider: Raheem Garcia Referrals: Francesco Walls DO [Med Staff - Active Staff] - 5-7 Days Raheem Garcia DO [Primary Care Provider] - 5-7 Days Disposition Disposition: Home, Self Care
[2023-01-24] MEDS: 0.9% Normal Saline 1,000 ML 1000 ML IV (09:28)
[2023-01-24] MEDS: Ondansetron 4 MG/2 ML Vial IV (09:28)
[2023-01-24 09:29] LABS: Absolute Lymphocyte Count 2.24 X10^3/uL (0.83-4.51); Absolute Neutrophil Count 5.6 X10^3/uL (2.0-7.7); Basophil# 0.06 X10^3/uL; Basophil% 0.6 % (0-1); Eosinophil# 0.49 X10^3/uL; Eosinophils% 5.3 % (0-5); Hematocrit 43.1 % (37-47); Hemoglobin 13.8 g/dL (12.0-15.0); Lymphocyte # 2.24 X10^3/ul (0.83-4.51); Lymphocyte % 24.2 % (19-41); Mean Corpuscular Hgb 27.9 pg (27.0-32.0); Mean Corpuscular Volume 87.1 fL (81-99); Mean Platelet Vol. 10.6 fl (6.2-12.0); Monocyte# 0.81 X10^3/uL; Monocyte% 8.7 % (0-10); NRBC Flagged by Analyzer 0 % (0-5); Neutrophil # 5.63 X10^3/uL (2.7-7.7); Neutrophil % 60.8 % (47-70); Platelet Count 310 K/mm3 (150-450); RBC Distribution Width CV 13.4 % (11.6-14.6); RBC Distribution Width SD 42.7 fl (35.1-43.9); Red Blood Count 4.95 M/mm3 (4.2-5.4); White Blood Count 9.3 K/mm3 (4.4-11.0)
[2023-01-24 09:37] LABS: Erythrocyte Sedimentation Rate 54 mm/hr (0-30)
[2023-01-24 09:49] LABS: ALB/GLOB Ratio 0.6 RATIO (0.9-2.4); AST(SGOT) 9 U/L (15-37); Alanine Aminotransfer ALT/SGPT 18 U/L (13-56); Albumin, Serum 2.6 g/dL (3.2-5.0); Alkaline Phosphatase 89 U/L (45-117); Anion Gap 5 (5-15); BUN 11 mg/dL (7-18); BUN/Creat Ratio 13.3 RATIO (10-20); Calcium,Total 8.8 mg/dL (8.5-10.1); Chloride 108 mmol/L (98-107); Creatinine, Serum 0.83 mg/dL (0.55-1.02); EST Glomerular Filtration Rate 77 mL/min (>60); Est Glom Filt Rate - Afr Amer 93 mL/min (>60); Globulin 4.3 g/dL (2.2-4.2); Glucose 179 mg/dL (74-106); Lipase 61 U/L (13-75); Potassium 3.8 mmol/L (3.5-5.1); Protein, Total 6.9 g/dL (6.4-8.2); Sodium Level 138 mmol/L (136-145)
[2023-01-24 10:00] LABS: LDH 151 U/L (84-246)
[2023-01-24] MEDS: fentaNYL 100 MCG/2 ML Ampul 50 MCG IV (10:00)
[2023-01-24 10:26] LABS: Lactic Acid 1.2 mmol/L (0.4-1.9)
[2023-01-24 10:26] LABS: Color, Urine Yellow (Yellow); Glucose, Dipstick Normal (Normal); Ketone-Dipstick Negative (Negative); Leukocyte Esterase-Dipstick 25 /ul (Negative); Nitrite-Dipstick Negative (Negative); Occult Blood-Urine 25 /ul (Negative); Protein-Dipstick 30 mg/dl (Negative); Specific Gravity, Urine 1.025 (1.002-1.030); Urine Bilirubin Dipstick 1 mg/dL (Negative); Urine Clarity Sl. Cloudy (Clear); Urine Urobilinogen 1 mg/dl (Normal)
[2023-01-24 10:34] LABS: Bacteria 1+ /hpf (None Seen); Calcium Oxalate Crystals Ur 2+ /hpf (<or=2+); Mucous, Urine 1+ /hpf (<or=2+); Red Blood Cells-Urine 0-5 SEEN /hpf (0-5); Squamous Epithelial Cells - UA 0-5 SEEN /hpf (5-10); White Blood Cells 0-5 SEEN /hpf (0-5)
[2023-01-24 10:48] VITALS: BP 156/86
--- NOTE | 2023-01-24 11:12 | CT_ITS ---
STUDY: CT ABDOMEN AND PELVIS WITH CONTRAST REASON FOR EXAM: Female, 52 years old. Abdominal pain -- IV PO Contrast RADIATION DOSAGE (If Supplied By Facility): CTDIvol = ( 16.80 ) mGy, DLP = ( 1322.00 ) mGycm TECHNIQUE: Transaxial images were obtained from the dome of the diaphragm to the symphysis pubis with oral contrast. Oral and amp; IV Gastrografin and amp; 100mL Isovue-300 was administered. Sagittal and coronal images were reconstructed. Individualized dose optimization techniques were used for this CT. COMPARISON: Comparison is made with prior study dated November 12, 2022. FINDINGS: The visualized lung bases are unremarkable. Calcified coronary arteries. There is decreased attenuation of the liver consistent with steatosis. Normal gallbladder and extrahepatic biliary system. Normal spleen. Normal pancreas. Normal bilateral adrenal glands. Normal right kidney. Normal left kidney. Normal visualized stomach. Normal small intestine. Fluid and fecal material are seen in the colon. There is circumferential wall thickening of the descending colon as well as the sigmoid colon and rectum. Colitis should be ruled out. The appendix is visualized and appears normal. There is scattered atherosclerotic calcification of the abdominal aorta, without a demonstrated aneurysm. Normal inferior vena cava. Normal retroperitoneum. Normal urinary bladder. Small lymph nodes are seen in the pelvic fat. Normal abdominal wall. Normal osseous structures. CT/Abdomen/Pelvis WITH Contrast IMPRESSION: Findings suggestive of colitis involving the left hemicolon. Fatty infiltration of the liver. Electronically Signed: Srinath Aponte MD at 11:35 EDT ,
[2023-01-24 12:00] VITALS: BP 139/66; PULSE 86; RESP 16; O2SAT 98
[2023-01-24 13:59] VITALS: BP 114/73; PULSE 84; RESP 16; TEMP 36.9
== END 2023-01-24 14:16 | disposition home or self-care (01) ==
PROVIDERS: Internal Medicine Gastroenterology; Emergency Provider Emergency Medicine; PCP Preventive Medicine Occupational Medicine; Visit Provider Emergency Medicine
DX: K52.9 Noninfective gastroenteritis and colitis, unspecified (principal); E11.40 Type 2 diabetes mellitus with diabetic neuropathy, unspecified; Z79.4 Long term (current) use of insulin; E78.00 Pure hypercholesterolemia, unspecified; I10 Essential (primary) hypertension; F17.200 Nicotine dependence, unspecified, uncomplicated; E66.9 Obesity, unspecified; E55.9 Vitamin D deficiency, unspecified; Z79.899 Other long term (current) drug therapy; Z79.84 Long term (current) use of oral hypoglycemic drugs
CPT/HCPCS: 74177; 80053; 81001; 83605; 83615; 83690; 85025; 85652; 86140; 96361; 96374; 96375; 99283; Q9967; A4216; J2405

== ENCOUNTER → 2023-02-20 | Outpatient (CLI) | payer MEDICAID, SELFPAY ==
[2023-02-20 15:08] LABS: Absolute Lymphocyte Count 2.55 X10^3/uL (0.83-4.51); Absolute Neutrophil Count 5.1 X10^3/uL (2.0-7.7); Basophil# 0.04 X10^3/uL; Basophil% 0.5 % (0-1); Eosinophil# 0.36 X10^3/uL; Eosinophils% 4.3 % (0-5); Hematocrit 38.7 % (37-47); Hemoglobin 12.4 g/dL (12.0-15.0); Lymphocyte # 2.55 X10^3/ul (0.83-4.51); Lymphocyte % 30.4 % (19-41); Mean Corpuscular Hgb 28.1 pg (27.0-32.0); Mean Corpuscular Volume 87.8 fL (81-99); Mean Platelet Vol. 11.2 fl (6.2-12.0); Monocyte# 0.35 X10^3/uL; Monocyte% 4.2 % (0-10); NRBC Flagged by Analyzer 0 % (0-5); Neutrophil # 5.07 X10^3/uL (2.7-7.7); Neutrophil % 60.2 % (47-70); Platelet Count 245 K/mm3 (150-450); RBC Distribution Width CV 13.9 % (11.6-14.6); RBC Distribution Width SD 44.6 fl (35.1-43.9); Red Blood Count 4.41 M/mm3 (4.2-5.4); White Blood Count 8.4 K/mm3 (4.4-11.0)
[2023-02-20 15:17] LABS: Erythrocyte Sedimentation Rate 34 mm/hr (0-30)
[2023-02-20 15:52] LABS: ALB/GLOB Ratio 0.8 RATIO (0.9-2.4); AST(SGOT) 15 U/L (15-37); Alanine Aminotransfer ALT/SGPT 29 U/L (13-56); Alkaline Phosphatase 100 U/L (45-117); Amylase 27 U/L (25-115); Anion Gap 5 (5-15); BUN 13 mg/dL (7-18); BUN/Creat Ratio 14.3 RATIO (10-20); Calcium,Total 8.8 mg/dL (8.5-10.1); Chloride 107 mmol/L (98-107); Creatinine, Serum 0.91 mg/dL (0.55-1.02); EST Glomerular Filtration Rate 69 mL/min (>60); Est Glom Filt Rate - Afr Amer 83 mL/min (>60); Globulin 3.6 g/dL (2.2-4.2); Glucose 268 mg/dL (74-106); Lipase 37 U/L (13-75); Potassium 3.7 mmol/L (3.5-5.1); Protein, Total 6.6 g/dL (6.4-8.2); Sodium Level 139 mmol/L (136-145)
[2023-02-23 08:13] LABS: Cytoplasmic Ab (C-ANCA) <1:20 titer (Neg:<1:20); Perinuclear Ab (P-ANCA) <1:20 titer (Neg:<1:20)
== END | disposition home or self-care (01) ==
PROVIDERS: PCP Preventive Medicine Occupational Medicine; Referring Provider Internal Medicine Gastroenterology; Visit Provider Internal Medicine Gastroenterology
DX: K52.9 Noninfective gastroenteritis and colitis, unspecified (principal); A49.8 Other bacterial infections of unspecified site; R19.5 Other fecal abnormalities
CPT/HCPCS: 36415; 80053; 82150; 83690; 85025; 85652; 86140; 86256; 87493

== ENCOUNTER 2023-06-26 12:46 | Day surgery (SDC) | payer MEDICAID, SELFPAY ==
--- NOTE | 2023-06-26 | IMM_PTH ---
PATIENT: MOUNIKA DUBON LOC: EN U#:[id number] AGE/SX: 52/F ROOM: RE06/26/[address]: Dr. Francesco Walls DO : 1970 BED: DIS: 06/26/2023 SPEC #: [id number] RECD: 06/28/23 13:55 STATUS: YOAN REBarbara #: [id number] CHOCO: 06/26/23 00:[address]: Francesco Walls DEPT: IMMUNOHISTOCHEMISTRY RECD BY: Jessica Lee ENTERED: 06/28/23 13:57 SP TYPE: IMMUNO OTHR DR: Dr. Raheem Garcia DO Tissues: A - Duodenum, NOS B - Esophageal mucous membrane C - COLON BIOPSY Procedures: H Pylori (initial) PHYSICIAN & INSTITUTION [place] [id number] SPECIMEN INFORMATION: Tissue Source: A - Duodenum biopsy Clinical Info: Elevated fecal calprotectin Specimen Number: [id number] CPT code: 51795 METHODOLOGY: Deparaffinized sections of prefer/formalin-fixed tissue or PAP/DQ stained slides are incubated with monoclonal/polyclonal antibodies/oligonucleotide probes. Localization is made via biotin free immunoperoxidase method. Appropriate controls are performed and reacted as expected. Results on target cell population are indicated in the following table: RESULTS: ANTIBODY / CLONE RESULT Block A H Pylori (polyclonal) negative These tests were developed and their performance characteristics determined by [facility]. They may not have been cleared or approved by the U.[place]. Food and Drug Administration. The FDA has determined that such clearance or approval is not necessary. The above immunohistochemical/dualISH markers are ordered and reviewed by the Pathologist. INTERPRETATION: A. Duodenum, biopsy: Negative for Helicobacter pylori organisms. See note. SJ:slade 06/29/2023 Note: Specimen also consists of fragments of gastric mucosa.
[2023-06-26 13:20] VITALS: BP 117/86; PULSE 75; RESP 17; TEMP 36.4; O2SAT 95; BMI 39.5
[2023-06-26] MEDS: Lactated Ringers 1,000 ML 15 ML IV (13:20)
--- NOTE | 2023-06-26 14:00 | EGD_PTH ---
PATIENT: MOUNIKA DUBON LOC: EN U#:[id number] AGE/SX: 52/F ROOM: RE06/26/[address]: Dr. Francesco Walls DO : 1970 BED: DIS: 06/26/2023 SPEC #: [id number] RECD: 06/27/23 07:56 STATUS: YOAN JAYCE #: [id number] CHOCO: 06/26/23 14:[address]: Francesco Walls DEPT: SURGICAL PATHOLOGY RECD BY: Jessica Lee ENTERED: 06/27/23 07:57 SP TYPE: EGD BIOPSY OT DR: Dr. Raheem Garcia DO Tissues: A - Duodenum, NOS B - Esophageal mucous membrane C - COLON BIOPSY Procedures: Special Stain Group II Surgery Specimen Level IV Alcian Blue/PAS (control) HEADER OPERATION: Colonoscopy, EGD, biopsy PRE-OP DIAGNOSIS: Elevated fecal calprotectin, abdominal pain TISSUE SUBMITTED: A - Duodenum biopsy, B - Distal esophagus biopsy, C - Random colon biopsy MICROSCOPIC DIAGNOSIS A. Duodenum, biopsy: Fragments of duodenal mucosa, no pathologic diagnosis. Fragments of gastric mucosa with mild gastritis. See microscopic description and comment. B. Distal esophagus, biopsy: Fragments of gastroesophageal mucosa with chronic inflammation. Negative for (intestinal metaplasia) goblet cell metaplasia. See comment. C. Colon, random biopsy: Chronic active colitis. See comment. SJ:slade 06/28/2023 COMMENT A. The results of immunohistochemistry for Helicobacter pylori will be reported separately ([id number]). As per EMR, Dr. Walls's notes show that patient had both gastric and duodenum biopsies. B. Alcian blue/PAS stain with matched control is used in the evaluation of the specimen. C. Cryptitis, crypt abscesses and mild glandular distortion are noted. Negative for dysplasia. Correlation with clinical, endoscopic findings and appropriate follow up are necessary. Case has been reviewed in consultation with Dr. Nagel who concurs with the above diagnosis. IDC:AM MICROSCOPIC DESCRIPTION Slides are reviewed. A. The specimen shows fragments of duodenal mucosa with no significant pathologic changes. The specimen also shows fragments of gastric mucosa with chronic inflammatory cell infiltrates in the lamina propria consisting of lymphocytes and plasma cells, consistent with mild chronic gastritis. GROSS DESCRIPTION A - Received in fixative is one container labeled with the patient's name and designated duodenum biopsy. The specimen consists of multiple irregular fragments of light carrillo soft tissue that in aggregate measure 1.0 x 0.3 x 0.1 cm. The specimen is totally submitted in one cassette. B - Received in fixative is one container labeled with the patient's name and designated distal esophagus. The specimen consists of two irregular fragments of light carrillo soft tissue that in aggregate measure 0.6 x 0.6 x 0.1 cm. The specimen is totally submitted in one cassette. C - Received in fixative is one container labeled with the patient's name and designated random colon biopsy. The specimen consists of multiple irregular fragments of light carrillo soft tissue that in aggregate measure 0.6 x 0.3 x 0.1 cm. The specimen is totally submitted in one cassette. / AM:slade 06/27/2023 TC:2 [facility]: [id number] [id number], [id number]
[2023-06-26 14:36] LABS: Bedside Glucose 101 mg/dL (74-106)
--- NOTE | 2023-06-26 14:54 | HP.PCM_ITS ---
Assessment & Plan Assessment/Plan (1) Elevated fecal calprotectin: (2) Abdominal pain: PLAN: Plan 51 F who presents to the office today for Follow up. Caroline established with this clinic 05.04.22 with referral from PCP. Since she has been having 10-20 loose BM/day with blood, bloating, flatulence, abdominal pain and postprandial nausea, sweating and abdominal cramping. PCP attempted augment without effect. Biochemical workup ordered at clinic presentation was not drawn to include CBC, CMP, ESR, CRP, LDH, ROBERTA comp, AFP, ANCA, celiac, GAME, VJ, IBD profile, coagulation, AMA, ASM, hepatitis, CEA, CA19-9. Stool studies O/P, C.Difficile, EP WNL. Lactoferrin +, Calprotectin H984 CT abd/pel 05.04.22 sigmoid wall thickening possible incomplete distention versus colitis; moderate stool burden. No obvious inflammation. [facility] ED presentation 06.11.22 with same symptoms as noted at clinic presentation and she was admitted for management of diverticulitis of the sigmoid colon. Treated with IVF and antibiotics. Discharged 06.16.22. Biochemical workup CBC, CMP, TSH without pertinent abnormality. ESR H87 trending to H35; CRP H94.30 trending to H6.86 Stool studies 06.11.22 EP WNL Occult + CT abd/pel 06.11.22 noting retained stool in majority of the colon; diverticulosis; distal descending colon through sigmoid and rectum with submucosal thickening consistent with colitis; pericolonic inflammatory stranding distal descending colon and proximal sigmoid colon consistent with diverticulitis. Biochemical workup 06.16.22 CMP. CBC notes neutrophilic leukocytosis with L shift. ESR H35, CRP H6.86, albumin L2.4. ? Blood workup from 05.04.22 not performed. Contact 07.03.22 with report of red and coffee ground stool. Biochemical workup offered and declined. Also declined ED presentation. Proceed with colonoscopy as currently scheduled. EGD and colonoscopy 07.13.22. EGD found LA Grade B erosive esophagitis; granular gastric mucosa; gastritis; medium hiatal hernia; duodenitis. H.Pylori negative. Colonoscopy found three 1-2mm TA and hyperplastic polyps at splenic flexure; diffuse, acute colitis with inflammation from rectum to hepatic flexure, moderate. Protonix 40mg BID taper Stool studies 07.13.22 EP WNL. C.Difficile + A/B antigen and toxin Vancomycin 07.13.22 Reports that her symptoms are much improved. Vancomycin continues without adverse effect. She was recently in the emergency room approximately 5 months ago for abdominal pain. Patient states it came on rather suddenly. Patient states it comes and goes but is present more than then it is not present. Patient describes her pain as stabbing. Patient states her pain is mainly over the right side of her abdomen. Patient states it is worse with movement. Patient states nothing seems to help with it. Patient admited to nausea but denies any vomiting. Patient admits to diarrhea that she has had for the past month. Patient states she is having some blood in her stools. Patient denies any urinary complaints. Patient does admit to decreased appetite. Patient midst to subjective fevers and chills. Patient states she is scheduled to get outpatient lab work drawn but has not done so yet. CBC was reviewed and was within normal limits. Comprehensive metabolic profile was reviewed and was essentially within normal limits. Lipase was reviewed and was normal. Lactate was reviewed and was normal. Urinalysis was reviewed and was within normal limits. ROS Const Constitutional: No fatigue, malaise, night sweats, weight change, sleep problems, abnormal sleep pattern or change in appetite ENT ENT: No difficulty swallowing, hoarseness or sore throat Cardio Cardiology: No chest pain at rest Gastro GI: No abdominal pain, belching, bloating, change in bowel habits, change in stool character, coffee ground emesis, constipation, cramping, diarrhea, heartburn, difficulty swallowing, feeling full early, excessive flatus, incontinent of stools, Vomiting blood/hematemesis, Blood in stool, loose stools, Black,tarry stools, nausea/dyspepsia, pain with swallowing, vomiting or other Musc Musculoskeletal: No joint pain Skin Skin: No yellowing of the eye or itchy eyes Neuro Neurology: No behavioral changes Psych Psychiatric: No abnormal sleep pattern, No anxiety, No behavioral changes, No change in appetite and No depression Endo Endocrine: No fatigue or weight change Aller/Imm Allergy/Immunologic: No itchy eyes [place]/Lymp Hematologic/Lymphatic: No easy bleeding or easy bruising Quality Reporting Tobacco Screening ([facility] 138) Smoking Status: Light Smoker (<10/day) Assessment and Plan Assessment and Plan (1) Clostridioides difficile infection: Status: Chronic Plan: C. difficile infection. She is on vancomycin 125 mg every 6 hours. She is not having any diarrhea at this time. She is scheduled to finish vancomycin approximately 5 days. We will not be rechecking her stool for C. difficile as she is not having any diarrhea at this time. (2) Elevated fecal calprotectin: Status: Chronic Plan: Fecal calprotectin could be secondary to her C. difficile infection. However when she was previously tested for enteric pathogens and C. difficile her fecal calprotectin was still elevated. She is going to get blood work for inflammatory bowel disease including ESR, CRP, IBD SGI, LDH, ANCA antibodies. Orders: Orders Comprehensive Metabolic Profil Today A49.8 - Other bacterial infections of unspecified site, R19.5 - Other fecal abnormalities CRP Today A49.8 - Other bacterial infections of unspecified site, R19.5 - Other fecal abnormalities CBC W/Diff, Automated Today A49.8 - Other bacterial infections of unspecified site, R19.5 - Other fecal abnormalities Erythrocyte Sed Rate Today A49.8 - Other bacterial infections of unspecified site, R19.5 - Other fecal abnormalities Hepatitis Panel Acute Today A49.8 - Other bacterial infections of unspecified site, R19.5 - Other fecal abnormalities ANCA Today A49.8 - Other bacterial infections of unspecified site, R19.5 - Other fecal abnormalities Celiac Disease Profile Today A49.8 - Other bacterial infections of unspecified site, R19.5 - Other fecal abnormalities Immunoglobulin E Today A49.8 - Other bacterial infections of unspecified site, R19.5 - Other fecal abnormalities ROBERTA Comprehensive Panel Today A49.8 - Other bacterial infections of unspecified site, R19.5 - Other fecal abnormalities VJ + Protein Elect, Serum Today A49.8 - Other bacterial infections of unspecified site, R19.5 - Other fecal abnormalities Quantiferon TB-Gold+ Today A49.8 - Other bacterial infections of unspecified site, R19.5 - Other fecal abnormalities I have examined the patient and the H&P has been reviewed. There are no clinical changes since date of exam.
[2023-06-26 15:20] VITALS: BP 117/86; BP 122/73; PULSE 83; RESP 16; TEMP 36.2; O2SAT 99
--- NOTE | 2023-06-26 15:24 | OP.CCLET_ITS ---
06/26/2023 Raheem Garcia [address] [place] [address] Re : Upper GI endoscopy procedure for Caroline Wolfe Dear Dr. Garcia This procedure was performed on Monday, June 26, 2023. My impressions and recommendations are as follows: Impressions : - LA Grade B reflux esophagitis with no bleeding. Biopsied. - Erythematous mucosa in the gastric body. Biopsied. - Erythematous duodenopathy. Biopsied. Recommendations : - Discharge patient to home. - Resume previous diet. - Continue present medications. - Await pathology results. - Repeat upper endoscopy for surveillance. - Use Protonix (pantoprazole) 40 mg PO BID. My findings are described in the full procedure note, which is enclosed. If I can be of further assistance, please feel free to contact me at . Sincerely, Francesco Walls, 06/26/2023 3:24:07 PM This report has been signed electronically.
--- NOTE | 2023-06-26 15:24 | OP.EGD_ITS ---
Patient Name: Caroline Wolfe Procedure Date: 06/26/2023 2:57 PM Date of : 1970 Age: 52 Procedure: Upper GI endoscopy Indications: Epigastric abdominal pain, Heartburn Providers: Francesco Walls DO Referring MD: Francesco Walls DO Medicines: Monitored Anesthesia Care Patient Profile: This is a 52 year old female. Refer to note in patient chart for documentation of history and physical. Patient has symptoms of chronic abdominal cramping, chronic global abdominal pain, chronic dyspepsia and chronic nausea. Complications: No immediate complications. Procedure: Pre-Anesthesia Assessment: - Prior to the procedure, a History and Physical was performed, and patient medications and allergies were reviewed. The risks and benefits of the procedure and the sedation options and risks were discussed with the patient. All questions were answered and informed consent was obtained. Patient identification and proposed procedure were verified by the physician. Mental Status Examination: normal. Prophylactic Antibiotics: The patient does not require prophylactic antibiotics. Prior Anticoagulants: The patient has taken no anticoagulant or antiplatelet agents. ASA Grade Assessment: III - A patient with severe systemic disease. After reviewing the risks and benefits, the patient was deemed in satisfactory condition to undergo the procedure. The anesthesia plan was to use monitored anesthesia care (MAC). Immediately prior to administration of medications, the patient was re-assessed for adequacy to receive sedatives. The heart rate, respiratory rate, oxygen saturations, blood pressure, adequacy of pulmonary ventilation, and response to care were monitored throughout the procedure. The physical status of the patient was re-assessed after the procedure. After obtaining informed consent, the endoscope was passed under direct vision. Throughout the procedure, the patient's blood pressure, pulse, and oxygen saturations were monitored continuously. The Colonoscope was introduced through the mouth, and advanced to the second part of duodenum. The upper GI endoscopy was accomplished without difficulty. The patient tolerated the procedure well. Scope In: 3:00:21 PM Scope Out: 3:05:35 PM Total Procedure Duration Time 0 hours 5 minutes 14 seconds Findings: LA Grade B (one or more mucosal breaks greater than 5 mm, not extending between the tops of two mucosal folds) esophagitis with no bleeding was found 34 to 37 cm from the incisors. Biopsies were taken with a cold forceps for histology. Verification of patient identification for the specimen was done. Estimated blood loss was minimal. Patchy mildly erythematous mucosa without bleeding was found in the gastric body. Biopsies were taken with a cold forceps for histology. Biopsies were taken with a cold forceps for Helicobacter pylori testing. Verification of patient identification for the specimen was done. Estimated blood loss was minimal. Patchy mildly erythematous mucosa without active bleeding and with no stigmata of bleeding was found in the first portion of the duodenum. Biopsies were taken with a cold forceps for histology. Verification of patient identification for the specimen was done. Estimated blood loss was minimal. Impression: - LA Grade B reflux esophagitis with no bleeding. Biopsied. - Erythematous mucosa in the gastric body. Biopsied. - Erythematous duodenopathy. Biopsied. Recommendation: - Discharge patient to home. - Resume previous diet. - Continue present medications. - Await pathology results. - Repeat upper endoscopy for surveillance. - Use Protonix (pantoprazole) 40 mg PO BID. Procedure Code(s): --- Professional --- 82830, Esophagogastroduodenoscopy, flexible, transoral; with biopsy, single or multiple CPT copyright 2021 [employer]. All rights reserved. The codes documented in this report are preliminary and upon director instructional material review may be revised to meet current compliance requirements. Francesco Walls DO 06/26/2023 3:24:07 PM This report has been signed electronically. Number of Addenda: 0 Note Initiated On: 06/26/2023 2:57 PM
[2023-06-26 15:25] VITALS: BP 116/83; BP 117/86; PULSE 82; RESP 16; O2SAT 99
--- NOTE | 2023-06-26 15:28 | OP.CCLET_ITS ---
06/26/2023 Raheem Garcia [address] [place] [address] Re : Colonoscopy procedure for Caroline Yaneth Dear Dr. Garcia This procedure was performed on Monday, June 26, 2023. My impressions and recommendations are as follows: Impressions : - Preparation of the colon was fair. - Stool in the entire examined colon. - Diffuse moderate mucosal changes were found in the entire examined colon secondary to colitis. Biopsied. Recommendations : - Discharge patient to home. - Resume previous diet. - Continue present medications. - Await pathology results. -Vancomyocin 125mg PO Q6 x 14 days - Repeat colonoscopy in 1 year for surveillance. My findings are described in the full procedure note, which is enclosed. If I can be of further assistance, please feel free to contact me at . Sincerely, Francesco Walls, 06/26/2023 3:27:51 PM This report has been signed electronically.
--- NOTE | 2023-06-26 15:28 | OP.COLON_ITS ---
Patient Name: Caroline Wolfe Procedure Date: 06/26/2023 3:06 PM Date of : 1970 Age: 52 Procedure: Colonoscopy Indications: Clinically significant diarrhea of unexplained origin Providers: Francesco Walls DO Referring MD: Francesco Walls DO Medicines: Monitored Anesthesia Care Patient Profile: This is a 52 year old female. Refer to note in patient chart for documentation of history and physical. Patient has symptoms of chronic abdominal cramping, chronic global abdominal pain, chronic dyspepsia and chronic nausea. Last Colonoscopy: within the past 3 years. Complications: No immediate complications. Procedure: Pre-Anesthesia Assessment: - Prior to the procedure, a History and Physical was performed, and patient medications and allergies were reviewed. The risks and benefits of the procedure and the sedation options and risks were discussed with the patient. All questions were answered and informed consent was obtained. Patient identification and proposed procedure were verified by the physician. Mental Status Examination: normal. Prophylactic Antibiotics: The patient does not require prophylactic antibiotics. Prior Anticoagulants: The patient has taken no anticoagulant or antiplatelet agents. ASA Grade Assessment: III - A patient with severe systemic disease. After reviewing the risks and benefits, the patient was deemed in satisfactory condition to undergo the procedure. The anesthesia plan was to use monitored anesthesia care (MAC). Immediately prior to administration of medications, the patient was re-assessed for adequacy to receive sedatives. The heart rate, respiratory rate, oxygen saturations, blood pressure, adequacy of pulmonary ventilation, and response to care were monitored throughout the procedure. The physical status of the patient was re-assessed after the procedure. After I obtained informed consent, the scope was passed under direct vision. Throughout the procedure, the patient's blood pressure, pulse, and oxygen saturations were monitored continuously. The Colonoscope was introduced through the anus and advanced to the terminal ileum. The colonoscopy was performed without difficulty. The patient tolerated the procedure well. The quality of the bowel preparation was fair. The ileocecal valve, appendiceal orifice, and rectum were photographed. Scope In: 3:07:43 PM Scope Withdrawal Time 0 hours 4 minutes 35 seconds Scope Out: 3:14:50 PM Total Procedure Duration Time 0 hours 7 minutes 7 seconds Findings: The perianal and digital rectal examinations were normal. Copious quantities of liquid semi-liquid stool was found in the entire colon. Diffuse moderate mucosal changes characterized by congestion (edema), friability and mucus were found in the entire colon. Biopsies were taken with a cold forceps for histology. Verification of patient identification for the specimen was done. Estimated blood loss was minimal. Impression: - Preparation of the colon was fair. - Stool in the entire examined colon. - Diffuse moderate mucosal changes were found in the entire examined colon secondary to colitis. Biopsied. Recommendation: - Discharge patient to home. - Resume previous diet. - Continue present medications. - Await pathology results. -Vancomyocin 125mg PO Q6 x 14 days - Repeat colonoscopy in 1 year for surveillance. Procedure Code(s): --- Professional --- 91731, Colonoscopy, flexible; with biopsy, single or multiple CPT copyright 2021 [employer]. All rights reserved. The codes documented in this report are preliminary and upon pre coder review may be revised to meet current compliance requirements. Francesco Walls DO 06/26/2023 3:27:51 PM This report has been signed electronically. Number of Addenda: 0 Note Initiated On: 06/26/2023 3:06 PM
[2023-06-26 15:30] VITALS: BP 115/71; BP 117/86; PULSE 90; RESP 16; TEMP 37.4; O2SAT 100
[2023-06-26 15:40] VITALS: BP 117/86
== END 2023-06-26 16:04 | disposition home or self-care (01) ==
LOC: EN 12:46 → AC 12:48
PROVIDERS: PCP Preventive Medicine Occupational Medicine; Referring Provider Internal Medicine Gastroenterology; Visit Provider Internal Medicine Gastroenterology
PROC: 0DJD8ZZ Inspection of Lower Intestinal Tract, Via Natural or Artificial Opening Endoscopic (ICD-10-PCS; CPT 45378; principal; 2023-06-26 13:55)
DX: K52.9 Noninfective gastroenteritis and colitis, unspecified (principal); Z79.4 Long term (current) use of insulin; E11.9 Type 2 diabetes mellitus without complications; K21.00 Gastro-esophageal reflux disease with esophagitis, without bleeding; K31.89 Other diseases of stomach and duodenum; K29.70 Gastritis, unspecified, without bleeding; F17.200 Nicotine dependence, unspecified, uncomplicated; E78.00 Pure hypercholesterolemia, unspecified; I10 Essential (primary) hypertension; Z79.899 Other long term (current) drug therapy; Z79.84 Long term (current) use of oral hypoglycemic drugs; Z86.718 Personal history of other venous thrombosis and embolism
CPT/HCPCS: 43239; 45380; 82962; 87493; 87506; 88305; 88313; 88342; J7120

== ENCOUNTER → 2023-11-12 | Outpatient (CLI) | payer MEDICAID, SELFPAY ==
--- NOTE | 2023-11-12 13:15 | MRI_ITS ---
STUDY: MRI LEFT ANKLE WITHOUT CONTRAST REASON FOR EXAM: Female, 53 years old. 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 COMPARISON: None. FINDINGS: Normal posterior tibialis tendon. Normal flexor digitorum longus tendon. Normal flexor hallucis longus tendon. There is a longitudinal split tear of the peroneus brevis tendon at the level of the distal fibular tip (axial T1 series 4 images 16-18). Normal peroneus longus tendon. Normal tibialis anterior tendon. Normal extensor hallucis longus tendon. Normal extensor digitorum longus tendons. Normal Achilles tendon and teno-osseous insertion. Normal plantar fascia. There are small plantar and posterior calcaneal spurs. Normal intrinsic muscles of the rearfoot. Normal distal tibiofibular syndesmotic ligamentous complex. Normal lateral ligamentous complex. Normal subtalar ligaments and sinus tarsi. Normal deltoid ligamentous complex. Normal plantar calcaneonavicular (spring) ligament. There is severe tibiotalar arthrosis with joint space narrowing, marginal osteophyte formation, and high-grade chondromalacia/subchondral marrow edema at the posterior aspect of the joint. Normal subtalar articulations. Normal calcaneocuboid articulation. There is talonavicular arthrosis with dorsal osteophyte formation. There is degenerative arthrosis at the navicular-cuneiform articulations. There is degenerative arthrosis at the second tarsometatarsal joint with dorsal osteophyte formation. There is moderate subcutaneous soft tissue edema around the ankle. MRI/Lower Ext Joint Only (Routine) IMPRESSION: Longitudinal split tear of the peroneus brevis tendon at the level of the distal fibular tip. Severe tibiotalar arthrosis. Degenerative arthrosis at the talonavicular, navicular-cuneiform, and second tarsometatarsal joints. Small plantar and posterior calcaneal spurs. Moderate subcutaneous soft tissue edema around the ankle. Electronically Signed: Thom Thomas MD at 9:25 EDT ,
== END | disposition home or self-care (01) ==
LOC: MRI 12:40
PROVIDERS: PCP Preventive Medicine Occupational Medicine; Referring Provider Podiatrist Foot & Ankle Surgery; Visit Provider Podiatrist Foot & Ankle Surgery
DX: S86.112A Strain of other muscle(s) and tendon(s) of posterior muscle group at lower leg level, left leg, initial encounter (principal); X58.XXXA Exposure to other specified factors, initial encounter
CPT/HCPCS: 73721

== ENCOUNTER → 2024-01-16 | Outpatient (CLI) | payer MEDICAID, SELFPAY ==
[2024-01-16 17:22] LABS: Absolute Lymphocyte Count 3.06 X10^3/uL (0.83-4.51); Absolute Neutrophil Count 8.1 X10^3/uL (2.0-7.7); Basophil# 0.05 X10^3/uL; Basophil% 0.4 % (0-1); Eosinophil# 2.06 X10^3/uL; Eosinophils% 14.6 % (0-5); Hematocrit 31.4 % (37-47); Lymphocyte # 3.06 X10^3/ul (0.83-4.51); Lymphocyte % 21.7 % (19-41); Mean Corp Hgb Conc 31.8 g/dL (32-36); Mean Corpuscular Hgb 26.9 pg (27.0-32.0); Mean Corpuscular Volume 84.4 fL (81-99); Mean Platelet Vol. 9.6 fl (6.2-12.0); Monocyte# 0.76 X10^3/uL; Monocyte% 5.4 % (0-10); NRBC Flagged by Analyzer 0 % (0-5); Neutrophil # 8.12 X10^3/uL (2.7-7.7); Neutrophil % 57.5 % (47-70); POSITIVE DIFFERENTIAL YES; Platelet Count 445 K/mm3 (150-450); RBC Distribution Width CV 16.2 % (11.6-14.6); RBC Distribution Width SD 50.4 fl (35.1-43.9); Red Blood Count 3.72 M/mm3 (4.2-5.4); White Blood Count 14.1 K/mm3 (4.4-11.0)
[2024-01-16 18:17] LABS: ALB/GLOB Ratio 0.6 RATIO (0.9-2.4); AST(SGOT) 13 U/L (15-37); Alanine Aminotransfer ALT/SGPT 15 U/L (13-56); Albumin, Serum 2.7 g/dL (3.2-5.0); Alkaline Phosphatase 100 U/L (45-117); Anion Gap 6 (5-15); BUN 13 mg/dL (7-18); BUN/Creat Ratio 11.9 RATIO (10-20); Chloride 106 mmol/L (98-107); Creatinine, Serum 1.09 mg/dL (0.55-1.02); EST Glomerular Filtration Rate 56 mL/min (>60); Est Glom Filt Rate - Afr Amer 67 mL/min (>60); Globulin 4.6 g/dL (2.2-4.2); Glucose 126 mg/dL (74-106); Potassium 3.4 mmol/L (3.5-5.1); Protein, Total 7.3 g/dL (6.4-8.2); Sodium Level 135 mmol/L (136-145)
[2024-01-16 18:30] LABS: Differential Indicated SCAN CRITERIA MET
[2024-01-16 18:31] LABS: Differential Comment SCANNED; Erythrocyte Sedimentation Rate 70 mm/hr (0-30)
[2024-01-23 11:09] LABS: Calprotectin, Stool 1260 ug/g (0-120)
[2024-01-23 15:09] LABS: ACCA 0 units (0-90); ALCA 1 units (0-60); AMCA 36 units (0-100); Pancreatic Elastase, Fecal 223 (>200); gASCA 1 units (0-50)
== END | disposition home or self-care (01) ==
LOC: LABSPEC 16:57 → LAB 16:59
PROVIDERS: PCP Preventive Medicine Occupational Medicine; Referring Provider Internal Medicine Gastroenterology; Visit Provider Internal Medicine Gastroenterology
DX: R19.7 Diarrhea, unspecified (principal); K58.9 Irritable bowel syndrome, unspecified
CPT/HCPCS: 36415; 80053; 82653; 83516; 83630; 83993; 85025; 85652; 86036; 86140; 86671; 87493; 87506

== ENCOUNTER 2024-01-19 07:48 | Emergency (ER) | payer MEDICAID, SELFPAY ==
[2024-01-19 07:48] VITALS: BP 156/100; PULSE 110; RESP 18; TEMP 36.5; O2SAT 96
[2024-01-19 07:51] VITALS: BMI 38.4
--- NOTE | 2024-01-19 08:07 | CT_ITS ---
EXAM: CT ABDOMEN AND PELVIS WITH INTRAVENOUS CONTRAST CLINICAL INDICATION: abdominal pain -- IV PO Contrast TECHNIQUE: Helically acquired images were obtained of the abdomen and pelvis with intravenous contrast. This CT exam was performed using one or more of the following dose reduction techniques: automated exposure control, adjustment of the mA and/or kV according to patient size, and/or use of iterative reconstruction technique. CONTRAST: Oral and amp; IV Gastrografin and amp; 100mL Isovue-370 COMPARISON: The, CT Abdomen Pelvis dated 01/24/2023 FINDINGS: LOWER THORAX: Normal. Lung bases are clear. No cardiomegaly. No pericardial effusion. ABDOMEN: LIVER: Normal. Homogeneous. No focal mass. GALLBLADDER AND BILE DUCTS: Normal. No calcified gallstones. No gallbladder distention or wall edema. No intra- or extrahepatic biliary ductal dilation. PANCREAS: Normal. No focal cystic or solid mass. SPLEEN: Normal. Normal size without focal cystic or solid mass. ADRENALS: Normal. No nodules. KIDNEYS AND URETERS: Normal. Normal renal size and position. No hydronephrosis. STOMACH AND BOWEL: Diffuse wall thickening of the rectum and large bowel consistent with the history of ulcerative colitis. Liquid stool noted throughout the large bowel and rectum indicative of diarrheal state. Small bowel is normal. Diverticulosis of the colon noted without evidence of acute diverticulitis. PELVIS: APPENDIX: Appendix is visualized and normal in appearance. BLADDER: Normal. REPRODUCTIVE: Hysterectomy noted. No mass. ABDOMEN and PELVIS: INTRAPERITONEAL SPACE: Normal. No ascites or other fluid collection. No free air. BONES/JOINTS: No suspicious lytic or blastic abnormality. SOFT TISSUES: Normal. No discrete abdominal or pelvic wall hernia. VASCULATURE: Normal. Abdominal aorta is non-dilated. LYMPH NODES: Small reactive mesenteric lymph nodes are seen adjacent to the cecum and sigmoid colon. CT/Abdomen/Pelvis WITH Contrast IMPRESSION: Proctocolitis consistent with the history of ulcerative colitis. Electronically Signed: Mundo Eldridge MD at 10:32 EDT ,
--- NOTE | 2024-01-19 08:08 | ED.VIS.GI ---
HPI HPI - GI History of Present Illness Chief Complaint: Diarrhea Informant: patient Narrative Narrative: 53-year-old female with a history of ulcerative colitis presenting with a multitude of complaints/worries. Patient states that she sees Dr. Walls from gastroenterology. She states that she has had diarrhea for about 2 weeks. She states that on she got heat exhaustion from helping to paint her sisters porch. She states that she is emaciated. When I asked her what she means by emaciated she states that she frequently has bowel movements. She states is terrified that she has liver cancer or pancreatitis. She states that she has a pain on the right side of her lower ribs upper abdomen. She states that she has not been able to eat or drink anything. She notes a headache and nausea. She states she currently does not take anything for her ulcerative colitis. She states that in November she was hospitalized at [facility] with rotavirus. Nothing particular is different this morning that made her come to emergency other than she is worried that something is being missed. Patient states she has an appointment on Sunday with gastroenterology. She states that in preparation for that visit she had blood work drawn and gave a stool specimen. She has a history of C. difficile but the C. difficile PCR came back negative. There was fecal leukocytes noted. Enteric pathogens negative. Hemoglobin noted to be 10 with a white count of 14. ESR at 7 and a CRP at 42.4. LFTs noted to be normal [facility] Medical History DVT (deep venous thrombosis) Restless legs Back pain Ulcerative colitis History of pain when walking History of echocardiogram Insulin dependent diabetes mellitus Ambulates with cane Bladder disease High cholesterol Injury of head and neck Dietary restriction History of GI bleed History of diverticulitis Smoker History of edema Anxiety Asthma Irregular heart beat Vitamin D deficiency Type 2 diabetes mellitus Right shoulder pain Radiculitis, brachial Neuropathy of left foot Hypertension Lower leg edema Depression Colon polyp Chronic pain in left foot Arthritis ADHD Blood in stool Abdominal pain Home Medications ?Medication ?Instructions ?Recorded ?Last Taken ?Type albuterol sulfate 90 mcg/actuation 2 puff inhalation Q6H PRN Wheezing 04/07/22 Unknown History aerosol inhaler (ProAir HFA) cetirizine 10 mg tablet 10 mg PO DAILY PRN allergies 04/07/22 06/25/23 History cholecalciferol (vitamin D3) 100 100 mcg PO DAILY vitamin 04/07/22 06/25/23 History mcg (4,000 unit) tablet fluticasone propionate 50 2 spray intranasal BID allergies 04/07/22 06/25/23 History mcg/actuation nasal spray,suspension glipizide 2.5 mg tablet, extended 5 mg PO DAILY diabetes 04/07/22 06/25/23 History release 24 hr olopatadine 0.2 % eye drops 1 drp EACH EYE PRN PRN Allergy 06/13/22 06/25/23 History Symptoms losartan 100 mg tablet 100 mg PO DAILY 30 days #30 tabs 06/16/22 06/26/23 Rx atorvastatin 20 mg tablet 20 mg PO DAILY 07/10/22 06/25/23 History multivitamin with minerals-folic 1 tab PO DAILY 07/10/22 06/25/23 History acid 120 mcg chewable tablet (Centrum Adult 50 Plus Fresh-Fruity) omega-3 fatty acids-vitamin E 1 cap PO DAILY 07/10/22 06/25/23 History 1,000 mg capsule trazodone 50 mg tablet 50 mg PO QHS 07/10/22 06/25/23 History glucometer #1 ea 11/12/22 Unknown Rx dicyclomine 20 mg tablet 20 mg PO TID PRN abdominal pain 06/22/23 06/25/23 History insulin glargine 100 unit/mL (3 28 unit subcut QHS 06/22/23 Unknown History mL) subcutaneous pen (Lantus Solostar U-100 Insulin) vancomycin 125 mg capsule 125 mg PO Q6H #56 caps 06/26/23 Unknown Rx pantoprazole 20 mg tablet,delayed 20 mg PO BID #60 TABLETS 11/08/23 Unknown Rx release amantadine HCl (bulk) ea miscellaneous 01/19/24 Unknown History insulin lispro 100 unit/mL subcut TID 01/19/24 Unknown History subcutaneous half-unit pen (Humalog Erik KwikPen (U-100)) prednisone 20 mg tablet 60 mg (3 x 20 mg) PO DAILY #15 01/19/24 Unknown Rx TABLETS Allergy/AdvReac Type Severity Reaction Status Date / Time ciprofloxacin Allergy Severe Laryngospasms, Verified 01/19/24 10:30 itching morphine AdvReac Intermediate Nausea/Vom/ Verified 01/19/24 10:30 Diarrhea tramadol AdvReac Intermediate Nausea Verified 01/19/24 10:30 metformin (From Glucophage) AdvReac Abd Verified 01/19/24 10:30 cramps/diarrhea Family History Father Arthritis Diabetes Epilepsy Hypertension Heart disease Liver cancer Mother Hypertension Brother Diabetes Colon cancer Grandmother Colon cancer Stomach cancer Surgical History Hx of colonoscopy Previous section H/O: hysterectomy History of bunionectomy Social History Smoking Status: Light Smoker (<10/day) alcohol intake: current ROS ROS ED ROS Narrative Generalized weakness Constitutional Constitutional ED: Reports chills; Denies fever(s) or weight loss Eyes Eyes: Denies change in vision or diplopia ENT ENT ED: Denies ear pain, rhinorrhea or sore throat Cardiovascular Cardiovascular: Reports racing heartbeat; Denies chest pain, orthopnea or palpitations Respiratory/Chest Respiratory/Chest: Denies cough, dyspnea or orthopnea Gastrointestinal Gastrointestinal: Reports abdominal pain, diarrhea and nausea; Denies vomiting Genitourinary Genitourinary ED: Denies dysuria, hematuria or urinary frequency Musculoskeletal Musculoskeletal: Denies arthralgias, myalgias or neck pain Integumentary Denies abscess or rash Neurologic Neurologic: Reports headache(s); Denies weakness Psychiatric Psychiatric: Denies anxiety, depression, suicidal ideation or suicidal thoughts Endocrine Endocrinology: Denies polydipsia, polyphagia or polyuria Allergic/Immunologic Allergic/Immunologic ED: Denies mouth swelling, tongue swelling or urticaria EXAM Physical Exam Const Vital Signs: 01/19/24 07:48 01/19/24 09:48 01/19/24 11:00 Temperature 97.7 F L 97.6 F L Temperature Source Temporal Temporal Pulse Rate 110 H 93 78 Respiratory Rate 18 16 16 Blood Pressure 156/100 H 189/105 H 134/78 H Blood Pressure Mean 118 133 96 Pulse Ox 96 97 98 Oxygen Delivery Method Room Air Room Air Room Air Positive well nourished, well developed and obese General Appearance ED: well developed and NAD Nutritional Appearance: obese HEENT Reports normocephalic, head/scalp atraumatic and moist mucous membranes Eyes PERRL and EOMs intact bilaterally Neck no lymphadenopathy, supple and no JVD Resp normal respiratory effort and clear to auscultation bilaterally Cardio regular rate, regular rhythm and no murmurs GI Inspection: Negative for abdominal distention Auscultation: normoactive bowel sounds Palpation: soft and tender RUQ Back/Spine no CVA tenderness and normal ROM Extremity normal to inspection General Extremety ED: Negative for edema General Extremity: Negative for edema Neuro oriented x3 and CN's II-XII intact bilaterally Sensorium / Orientation: alert Motor Exam: strength 5/5 throughout Psych mental status grossly normal Psych Narrative: Patient is intermittently crying moaning whimpering. She expresses fear of cancer and pancreatitis. Mood & Affect: depressed and tearful Skin no rashes or lesions noted and no wounds MDM MDM MDM Narrative Medical decision making narrative: Differential diagnosis includes ulcerative colitis colitis perforated viscus gastroenteritis pancreatitis hepatobiliary dysfunction Basic blood work showed a white count of 8 hemoglobin of 10.8 and platelet count of 363. BMP with a sodium of 134 creatinine of 1 anion gap is 7 CO2 is 24. Glucose 162. LFTs are within normal limits and lipase is normal at 42. Urinalysis shows no overt infection. CT of the abdomen pelvis shows some inflammatory change of the rectosigmoid area which is not uncommon for the patient. I reviewed her prior labs and stool studies. I spoke with Dr. Walls and we will start her on a short course of prednisone. She has an appointment on Sunday. Patient did receive IV fluids as well as a Lidoderm patch and Toradol. She also received a dose of Zofran. At this point patient will be discharged home History & Record Review Discussion w/independent historian: Patient Additional record(s) reviewed:: Prior ED visit and Prior labs Lab Data Attestation: I reviewed the patient's lab results. Labs: Laboratory Results - last 24 hr 01/19/24 01/19/24 08:14 08:40 WBC 8.0 RBC 4.05 L Hgb 10.8 L Hct 33.7 L MCV 83.2 MCH 26.7 L MCHC 32.0 RDW Std Deviation 49.1 H RDW Coeff of Terra 16.1 H Plt Count 363 MPV 9.4 Immature Gran % (Auto) 0.500 Neut % (Auto) 78.9 H Lymph % (Auto) 11.6 L [place] % (Auto) 7.0 Eos % (Auto) 1.4 Baso % (Auto) 0.6 Absolute Neuts (auto) 6.3 Absolute Lymphs (auto) 0.92 Nucleated RBC % 0 Sodium 134 L Potassium 3.6 Chloride 103 Carbon Dioxide 24.0 Anion Gap 7 BUN 9 Creatinine 1.00 Estim Creat Clear Calc 69.22 Est GFR (MDRD) Af Amer 74 Est GFR (MDRD) Non-Af 61 BUN/Creatinine Ratio 9.0 L Glucose 162 H Calcium 8.9 Total Bilirubin 0.30 Direct Bilirubin 0.07 AST 15 ALT 19 Alkaline Phosphatase 84 Total Protein 7.1 Albumin 2.4 L Globulin 4.7 H Lipase 42 Urine Color Yellow Urine Clarity Clear Urine pH 5.0 Ur Specific [place] 1.020 Urine Protein 15 H Urine Glucose (UA) Normal Urine Ketones 5 H Urine Occult Blood 25 H Urine Nitrite Negative Urine Bilirubin Negative Urine Urobilinogen Normal Ur Leukocyte Esterase Negative Urine RBC 0 SEEN Urine WBC 0 SEEN Ur Squamous Epith Cells 5-10 SEEN Urine Bacteria 0 SEEN Urine Mucus 0 SEEN Radiography Diagnostic Testing: Clinical Impression(s) from Imaging Studies Abdomen/Pelvis CT 01/19/24 08:07 IMPRESSION: Proctocolitis consistent with the history of ulcerative colitis. Electronically Signed: Mundo Eldridge MD at 10:32 EDT , Management Discussion w/another healthcare provider: [employer] (Dr. Walls) Discharge Plan Triage Chief Complaint: Diarrhea ED Provider: Isai Cain Dx/Rx/DC Orders Clinical Impression: Abdominal pain, Ulcerative colitis, Diarrhea Instructions: ED Ulcerative Colitis Prescriptions: New prednisone 20 mg tablet 60 mg PO DAILY Qty: 15 0RF No Action albuterol sulfate [ProAir HFA] 90 mcg/actuation HFA aerosol inhaler 2 puff inhalation Q6H PRN (Reason: Wheezing) cetirizine 10 mg tablet 10 mg PO DAILY PRN (Reason: allergies) cholecalciferol (vitamin D3) 100 mcg (4,000 unit) tablet 100 mcg PO DAILY fluticasone propionate 50 mcg/actuation spray,suspension 2 spray intranasal BID Rx Instructions: administer into each nostril glipizide 2.5 mg tablet extended release 24hr 5 mg PO DAILY Fish Oil 1,000 mg Capsule 1 cap PO DAILY multivit with min-folic acid [Centrum Adult 50 Fresh-Fruity] 120 mcg Tablet,Chewable 1 tab PO DAILY atorvastatin 20 mg Tablet 20 mg PO DAILY trazodone 50 mg Tablet 50 mg PO QHS olopatadine 0.2 % Drops 1 drp EACH EYE PRN PRN (Reason: Allergy Symptoms) losartan 100 mg Tablet 100 mg PO DAILY 30 Days Qty: 30 0RF (DME) glucometer See Rx Instructions .Route .MEDSUPPLY Qty: 1 0RF Rx Instructions: One Touch Glucometer and test strips insulin glargine [Lantus Solostar U-100 Insulin] 100 unit/mL (3 mL) insulin pen 28 unit SUBCUT QHS Patient Comments: inject 12 units subcutaneously twice a day TITRATE UP 2 TO 3 UNIT... (REFER TO PRESCRIPTION NOTES). dicyclomine 20 mg tablet 20 mg PO TID PRN (Reason: abdominal pain) vancomycin 125 mg capsule 125 mg PO Q6H Qty: 56 1RF amantadine HCl (bulk) Powder MISCELLANEOUS Patient Comments: [NO ORIGINAL SIG] insulin lispro [Humalog Erik KwikPen U-100] 100 unit/mL insulin pen, half-unit subcut TID pantoprazole 20 mg tablet,delayed release (DR/EC) 20 mg PO BID Qty: 60 0RF Primary Care Provider: Raheem Garcia Referrals: Friend,DO Francesco [Med Staff - Active Staff] - Keep [facility] appointment Raheem Garcia DO [Primary Care Provider] - Print Language: Tamazight Disposition Disposition: Home, Self Care
[2024-01-19] MEDS: Ondansetron 4 MG/2 ML Vial IV (08:18)
[2024-01-19 08:19] LABS: Absolute Lymphocyte Count 0.92 X10^3/uL (0.83-4.51); Absolute Neutrophil Count 6.3 X10^3/uL (2.0-7.7); Basophil# 0.05 X10^3/uL; Basophil% 0.6 % (0-1); Eosinophil# 0.11 X10^3/uL; Eosinophils% 1.4 % (0-5); Hematocrit 33.7 % (37-47); Hemoglobin 10.8 g/dL (12.0-15.0); Lymphocyte # 0.92 X10^3/ul (0.83-4.51); Lymphocyte % 11.6 % (19-41); Mean Corpuscular Hgb 26.7 pg (27.0-32.0); Mean Corpuscular Volume 83.2 fL (81-99); Mean Platelet Vol. 9.4 fl (6.2-12.0); Monocyte# 0.56 X10^3/uL; NRBC Flagged by Analyzer 0 % (0-5); Neutrophil # 6.27 X10^3/uL (2.7-7.7); Neutrophil % 78.9 % (47-70); Platelet Count 363 K/mm3 (150-450); RBC Distribution Width CV 16.1 % (11.6-14.6); RBC Distribution Width SD 49.1 fl (35.1-43.9); Red Blood Count 4.05 M/mm3 (4.2-5.4)
[2024-01-19] MEDS: 0.9% Normal Saline (1000mL) 1,000 ML 999 ML IV (08:19)
[2024-01-19 08:35] LABS: AST(SGOT) 15 U/L (15-37); Alanine Aminotransfer ALT/SGPT 19 U/L (13-56); Albumin, Serum 2.4 g/dL (3.2-5.0); Alkaline Phosphatase 84 U/L (45-117); Anion Gap 7 (5-15); BUN 9 mg/dL (7-18); Bilirubin, Direct 0.07 mg/dL (0.00-0.30); Calcium,Total 8.9 mg/dL (8.5-10.1); Chloride 103 mmol/L (98-107); EST Glomerular Filtration Rate 61 mL/min (>60); Est Glom Filt Rate - Afr Amer 74 mL/min (>60); Estimated Creatinine Clearance 69.22 ml/min; Globulin 4.7 g/dL (2.2-4.2); Glucose 162 mg/dL (74-106); Lipase 42 U/L (13-75); Potassium 3.6 mmol/L (3.5-5.1); Protein, Total 7.1 g/dL (6.4-8.2); Sodium Level 134 mmol/L (136-145)
[2024-01-19 08:45] LABS: Bacteria 0 SEEN /hpf (None Seen); Mucous, Urine 0 SEEN /hpf (<or=2+); Red Blood Cells-Urine 0 SEEN /hpf (0-5); White Blood Cells 0 SEEN /hpf (0-5)
[2024-01-19 08:52] LABS: Color, Urine Yellow (Yellow); Glucose, Dipstick Normal (Normal); Ketone-Dipstick 5 mg/dl (Negative); Leukocyte Esterase-Dipstick Negative /ul (Negative); Nitrite-Dipstick Negative (Negative); Occult Blood-Urine 25 /ul (Negative); Protein-Dipstick 15 mg/dl (Negative); Urine Bilirubin Dipstick Negative (Negative); Urine Clarity Clear (Clear); Urine Urobilinogen Normal (Normal)
[2024-01-19 09:01] LABS: Squamous Epithelial Cells - UA 5-10 SEEN /hpf (5-10)
[2024-01-19 09:48] VITALS: BP 189/105; PULSE 93; RESP 16; TEMP 36.4; O2SAT 97
[2024-01-19] MEDS: 0.9% Normal Saline (1000mL) 1,000 ML 250 ML IV (10:27)
[2024-01-19] MEDS: Lidocaine 5% Patch 1 PATCH TOPICAL (10:43)
[2024-01-19 11:00] VITALS: BP 134/78; PULSE 78; RESP 16; O2SAT 98
[2024-01-19 11:51] VITALS: BP 145/91; PULSE 85; RESP 16; TEMP 36.4; O2SAT 95
== END 2024-01-19 11:52 | disposition home or self-care (01) ==
PROVIDERS: Emergency Provider Emergency Medicine; PCP Preventive Medicine Occupational Medicine; Visit Provider Emergency Medicine
DX: K51.90 Ulcerative colitis, unspecified, without complications (principal); Z79.4 Long term (current) use of insulin; E11.9 Type 2 diabetes mellitus without complications; E78.00 Pure hypercholesterolemia, unspecified; R11.0 Nausea; R19.7 Diarrhea, unspecified; F17.200 Nicotine dependence, unspecified, uncomplicated; R10.9 Unspecified abdominal pain; Z79.84 Long term (current) use of oral hypoglycemic drugs; Z79.899 Other long term (current) drug therapy; Z90.710 Acquired absence of both cervix and uterus
CPT/HCPCS: 74177; 80048; 80076; 81001; 83690; 85025; 96361; 96374; 96375; 99283; J7030; Q9967; A4216; J2405

== ENCOUNTER → 2024-02-14 | Outpatient (CLI) | payer MEDICAID, SELFPAY | END | disposition home or self-care (01) | LOC: LAB 11:26 | PROVIDERS: PCP Preventive Medicine Occupational Medicine; Visit Provider Internal Medicine Gastroenterology | DX: K52.9 Noninfective gastroenteritis and colitis, unspecified (principal) | CPT/HCPCS: 36415; 86480 ==

== ENCOUNTER → 2024-03-05 | Outpatient (CLI) | payer MEDICAID, SELFPAY ==
--- NOTE | 2024-03-05 13:48 | CT_ITS ---
CT LEFT LOWER EXTREMITY WITH 3-D IMAGING CLINICAL INDICATION: L FOOT PAIN TECHNIQUE: Axial CT images of the LEFT lower extremity was performed without IV contrast material. Coronal and sagittal reformats were provided. The protocol utilizes one or more of the following dose reduction techniques: automated exposure control, adjustment of mA and/or kV according to patient size,and/or use of iterative reconstruction technique. RADIATION DOSAGE (If Supplied By Facility): CTDIvol = ( 15.35 ) mGy, DLP = ( 376.79 ) mGycm COMPARISON: Prior study dated: July 04, 2019. FINDINGS: Bones: Once again, there is evidence of a joint space narrowing and spur formation of the tibiotalar articulation as well as the talonavicular articulation. There is deformity of the distal portion of the fibula most likely secondary to prior healed fracture. Degenerative spurring is seen along the medial malleolus. Findings suggestive of old avulsion fractures of the medial and lateral malleoli. There is evidence of a talar beak. Once again, a surgical metallic screw is seen in the distal first metatarsal bone. Soft Tissues: The deep soft tissue structures are unremarkable. The superficial soft tissues are unremarkable without evidence of edema, hematoma, or foreign body. CT/Extremity Lower without Contra IMPRESSION: Degenerative changes of the tibial talar articulation as well as the talonavicular articulation. Healed fracture distal fibula as well as findings suggestive of old avulsion fracture of the medial and lateral malleoli. Electronically Signed: Srinath Aponte MD at 10:34 EDT ,
== END | disposition home or self-care (01) ==
LOC: CT 13:47
PROVIDERS: PCP Preventive Medicine Occupational Medicine; Referring Provider Podiatrist Foot & Ankle Surgery; Visit Provider Podiatrist Foot & Ankle Surgery
DX: M19.072 Primary osteoarthritis, left ankle and foot (principal)
CPT/HCPCS: 73700

== ENCOUNTER → 2024-05-01 | Outpatient (CLI) | payer MEDICAID, SELFPAY ==
[2024-05-01 13:00] LABS: AST(SGOT) 21 U/L (15-37); Alanine Aminotransfer ALT/SGPT 30 U/L (13-56); Alkaline Phosphatase 82 U/L (45-117); Bilirubin, Direct 0.07 mg/dL (0.00-0.30); Globulin 3.8 g/dL (2.2-4.2); Protein, Total 6.8 g/dL (6.4-8.2)
== END | disposition home or self-care (01) ==
LOC: LAB 11:26
PROVIDERS: PCP Preventive Medicine Occupational Medicine; Referring Provider Internal Medicine Gastroenterology; Visit Provider Internal Medicine Gastroenterology
DX: K51.90 Ulcerative colitis, unspecified, without complications (principal)
CPT/HCPCS: 36415; 80076

== ENCOUNTER 2024-05-23 08:07 | Day surgery (SDC) | payer MEDICAID, SELFPAY ==
[2024-05-23] VITALS (10 sets, daily range): BP systolic 89–126; BP diastolic 66–90; PULSE 74–90; RESP 16; TEMP 35.9–36.7; O2SAT 91–97; BMI 41.5
--- NOTE | 2024-05-23 08:47 | PCM.PRE.AN2 ---
ASA Classification* ASA Classification ASA Classification: 3 (SEE WRITTEN PRE ANESTHESIA RECORD FOR FULL ASSESSMENT) Assessment & Plan Anesthesia* Anesthesia Assessment Anesthesia Assessment: Discussed sedation and/or anesthesia options, risks, benefits, and alternatives with patient/parents/legal guardian/POA. Questions invited. The patient/parents/legal guardian/POA seems to understand and agrees to proceed with anesthesia plan. Reviewed the physical assessment, medical history, allergy history and patient home medications list prior to surgery/procedure/anesthetic and documented any changes. Performed airway and anesthesia risk assessments. Anesthesia Type Anesthesia Type: General (SEE WRITTEN PRE ANESTHESIA RECORD FOR FULL ASSESSMENT) and Block (SEE WRITTEN PRE ANESTHESIA RECORD FOR FULL ASSESSMENT) Anesthesia Focused Assessment* Airway Assessment Mouth opens: >3 cm Mallampati Score: II Focused Labs Anesthesia Preop lab: CBC WBC 8.0 K/mm3 (4.4-11.0) 01/19/24 08:14 RBC 4.05 M/mm3 (4.2-5.4) L 01/19/24 08:14 Hgb 10.8 g/dL (12.0-15.0) L 01/19/24 08:14 Hct 33.7 % (37-47) L 01/19/24 08:14 Plt Count 363 K/mm3 (150-450) 01/19/24 08:14 CHEMISTRY Potassium 3.6 mmol/L (3.5-5.1) 01/19/24 08:14 Sodium 134 mmol/L (136-145) L 01/19/24 08:14 Magnesium 2.1 mg/dL (1.6-2.6) 06/12/22 06:10 Phosphorus 4.1 mg/dL (2.5-4.9) 06/12/22 06:10 BUN 9 mg/dL (7-18) 01/19/24 08:14 Creatinine 1.00 mg/dL (0.55-1.02) 01/19/24 08:14 Glucose 162 mg/dL (74-106) H 01/19/24 08:14 POC Glucose 101 mg/dL (74-106) 06/26/23 13:14 TSH 0.57 uIU/mL (0.358-3.74) 06/12/22 06:10 COAG PT 12.7 SECONDS (11.7-14.9) 11/12/22 13:33 Pre-Assessment Diagnosis/Proposed Procedure Planned Operative Procedure(s): (L) Arthrotomy with synovectomy of the left ankle with Partial excision of the talus, Dorsifelxory of the third metatarsal, Endoscopic gastrocnemius recession with application of posterior splint. Peroneal Brevis Debridement and Repair. Matrixectomy to the Right. 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 When Was Last Pacemaker Check QUESTION #4 FULL TEXT: You/Your Family Experience fever (hyperthermia) with Anesthesia Last Oral Intake Last Oral intake: Last Oral Intake NPO since Meds taken in AM with sips of water? 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 Female Yes 05/19/24 14:09 HX of Motion Sickness No 05/19/24 14:09 HX of N/V After Surgery No 05/19/24 14:09 Non-Smoker No 05/19/24 14:09 Duration of Surgery greater Yes 05/19/24 14:09 than 60 minutes Number of Risk Factors 2 05/19/24 14:09 PONV Score Moderate Risk 05/19/24 14:09 Height & Weight Height & Weight: Anesthesia: Height & Weight Height 5 ft 2 in 01/19/24 07:48 Respiratory Assessment Respiratory Assessment - classifying machine operator: Respiratory Tract Infection Hx - classifying machine operator Hx Respiratory Tract Infection No 05/19/24 14:09 STOP Sleep Apnea STOP Sleep Apnea - classifying machine operator: STOP Sleep Apnea - classifying machine operator Hx Hypertension Yes: CONTROLLED WITH MED 05/19/24 14:09 Hx Sleep Apnea No 05/19/24 14:09 CPAP BIPAP Do you snore loudly (louder Yes 05/19/24 14:09 than talking or can be heard Do you often feel tired/ No 05/19/24 14:09 fatigued/ sleepy during daytime? Has anyone observed you stop No 05/19/24 14:09 breathing during sleep? STOP Results Positive 05/19/24 14:09 QUESTION #5 FULL TEXT : Do you snore loudly (louder than talking or can be heard through closed doors)? 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 Specify any problems Hx of Preganancy in last 3 N/A 05/19/24 14:09 Months Nurse Filling Out Transfusion NBUCHER 05/19/24 14:09 & Questions: Date: 05/19/24 05/19/24 14:09 Time: 14:12 05/19/24 14:09 Patient unable to answer at this time (ie. confused, unrespo /Reproduction History /Reproductive History - classifying machine operator: /Reproductive Hx- classifying machine operator Hx Now No 05/19/24 14:09 Gestational Age (in weeks): EDC: Hx Hx Para Hx Section SAB No 05/19/24 14:09 Active Medications Active Medications: Current Medications Generic Name Dose Route Start Last Admin Trade Name Freq PRN Reason Stop Dose Admin Cefazolin Sodium 2 gm/ N/A 20 mls @ 400 mls/hr 05/23/24 10:00 IV 05/23/24 10:02 PREOP ONE Lactated Ringer's 1,000 mls @ 15 mls/hr 05/23/24 08:15 IV 05/28/24 21:34 .[facility]H [facility] Protocol PFSH Medical History DVT (deep venous thrombosis) Restless legs Back pain Ulcerative colitis History of pain when walking History of echocardiogram Insulin dependent diabetes mellitus Ambulates with cane Bladder disease High cholesterol Injury of head and neck Dietary restriction History of GI bleed History of diverticulitis Smoker History of edema Anxiety Asthma Irregular heart beat Vitamin D deficiency Type 2 diabetes mellitus Right shoulder pain Radiculitis, brachial Neuropathy of left foot Hypertension Lower leg edema Depression Colon polyp Chronic pain in left foot Arthritis ADHD Blood in stool Abdominal pain Home Medications ?Medication ?Instructions ?Recorded ?Last Taken ?Type albuterol sulfate 90 mcg/actuation 2 puff inhalation Q6H PRN Wheezing 04/07/22 Unknown History aerosol inhaler (ProAir HFA) cetirizine 10 mg tablet 10 mg PO DAILY allergies 04/07/22 06/25/23 History cholecalciferol (vitamin D3) 100 8,000 unit PO DAILY vitamin 04/07/22 06/25/23 History mcg (4,000 unit) tablet fluticasone propionate 50 2 spray intranasal BID allergies 04/07/22 06/25/23 History mcg/actuation nasal spray,suspension glipizide 2.5 mg tablet, extended 5 mg PO DAILY diabetes 04/07/22 06/25/23 History release 24 hr olopatadine 0.2 % eye drops 1 drp EACH EYE PRN PRN Allergy 06/13/22 06/25/23 History Symptoms losartan 100 mg tablet 100 mg PO DAILY 30 days #30 tabs 06/16/22 06/26/23 Rx atorvastatin 20 mg tablet 20 mg PO DAILY 07/10/22 06/25/23 History glucometer #1 ea 11/12/22 Unknown Rx insulin glargine 100 unit/mL (3 44 unit subcut QHS 06/22/23 Unknown History mL) subcutaneous pen (Lantus Solostar U-100 Insulin) amantadine HCl (bulk) ea miscellaneous 01/19/24 Unknown History insulin lispro 100 unit/mL 1 sliding scale dose subcut TID 01/19/24 Unknown History subcutaneous half-unit pen (Humalog Erik KwikPen (U-100)) dicyclomine 20 mg tablet 20 mg PO TID PRN abdominal pain 01/21/24 Unknown Rx #90 tabs multivitamin with minerals-folic 1 tab PO BID 01/21/24 Unknown History acid 120 mcg chewable tablet (Centrum Adult 50 Plus Fresh-Fruity) omega-3 fatty acids-fish oil 300 1 cap PO DAILY 01/21/24 Unknown History mg-1,000 mg capsule infliximab 100 mg intravenous See Rx Instructions .Route 01/29/24 Unknown Rx solution .COMPLEX #1 vial Allergy/AdvReac Type Severity Reaction Status Date / Time ciprofloxacin Allergy Severe Laryngospasms, Verified 05/23/24 08:25 itching morphine AdvReac Intermediate Nausea/Vom/ Verified 05/23/24 08:25 Diarrhea tramadol AdvReac Intermediate Nausea Verified 05/23/24 08:25 metformin (From Glucophage) AdvReac Abd Verified 05/23/24 08:25 cramps/diarrhea Family History Father Arthritis Diabetes Epilepsy Hypertension Heart disease Liver cancer Mother Hypertension Brother Diabetes Colon cancer Grandmother Colon cancer Stomach cancer Surgical History Hx of colonoscopy Previous section H/O: hysterectomy History of bunionectomy Social History Smoking Status: Light Smoker (<10/day) alcohol intake: current Review of Systems (Anesthesia) ROS Narrative System reviewed and no additional complaints, except as documented.
[2024-05-23] MEDS: Lactated Ringers 1,000 ML 15 ML IV (08:54)
[2024-05-23 08:57] LABS: Bedside Glucose 282 mg/dL (74-106)
--- NOTE | 2024-05-23 09:53 | OP.PCM_ITS ---
Problems Associated Problem List Diagnoses (1) Primary osteoarthritis, left ankle and foot: (2) Pain in left foot: (3) Short Achilles tendon (acquired), left ankle: (4) Onychogryphosis: (5) Peroneal tendon tear: (6) Hammer toe of left foot: Operative Report (Standard) Operative Information Surgery/Procedure Performed: 1. Matrixectomy, fourth digit, right foot 2. Endoscopic gastroc recession, left lower extremity 3. Lit osteotomy, third metatarsal, left lower extremity 4. Peroneal brevis debridement and repair, left lower extremity 5. Open ankle arthrotomy with synovectomy, left lower extremity 6. Partial excision of tarsal bone, left lower extremity Surgeon: Hector Gtz Date of Procedure: 05/23/24 Procedure Start Time: 11:19 Procedure Stop Time: 13:35 Pre-Operative Diagnosis: 1. Primary osteoarthritis, left foot and ankle 2. Pain, left foot 3. Short Achilles tendon, left lower extremity 4. Onychogryphosis, fourth digit, right foot 5. Peroneal tendon tear, left lower extremity 6. Hammertoe, left foot Post-Operative Diagnosis: Same as postoperative diagnosis Select all DRAINS/GRAFTS/IMPLANTS that apply: Prosthetic device Prosthetic device details: Bienville and Graft Graft details: Via flow 2 cc Type of Anesthesia: General/Regional and Local Special Medications: Per anesthesia Estimated Blood Loss: 75 mL Fluids Replaced: Per anesthesia Specimen collected: Yes Description of specimen(s) removed: Peroneal brevis tenosynovitis, left lower extremity Description of surgery: Indications For Operation: Mrs. Wolfe is a 53-year-old diabetic female who was admitted to [facility] for surgical intervention to the bilateral lower extremity. Patient has been dealing with chronic osteoarthritis and osseous equinus to left lower extremity with peroneal brevis tear for some time. The patient had underwent advanced imaging for diagnosis and surgical planning. The patient is also been dealing with a thickened toenail to the right foot that she would also like to be removed during the procedure. Patient had formal consultation for surgical intervention in private office. Chart review consent signed. All risk and benefits were discussed with the patient great detail. Patient's last A1c was 8.3% which is okay by my standards to move forward with elective surgery. T he patient will need to be strictly controlled during the postoperative phase. Did educate the patient about smoking cessation where she states she only smokes approximately 4 cigarettes/day and will continue to do that or less in the postoperative phase of treatment. Due to chronic pain to the bilateral lower extremity and has deemed necessary at this time to take the patient to the operating room to perform the above procedures to help reduce her constant pain. The nature of the problem, anticipated procedures, postop recovery/convalences and risk/complications include but not limited to infection, wound healing complications, digital amputation, hypertrophic scarring, numbness, tingling, chronic pain, CRPS, over and under correction, recurrence of deformity, DVT and or PE and the need for further surgery have been discussed in great detail with the patient. All questions have been answered to the patient's satisfaction. There are no guarantees given as to the outcome of the procedure. Description of Procedure: Under mild sedation, the patient was brought into the operating room and placed on the operating table in supine position. Once the patient was under general anesthesia with laryngeal mask airway, the right foot at the level of the fourth digit was blocked with 10 cc 0.5% Marcaine plain. Left lower extremity was blocked using approximately 10 cc 0.5% Marcaine plain to the saphenous nerve, the patient did receive a popliteal block prior to the procedure in PACU by anesthesia please see anesthesia notes for further detail. Next, a well-padded thigh tourniquet was applied to the left lower extremity lower extremity. A turnicot was applied to the right fourth digit next, the bilateral lower extremity was prepped and draped in normal aseptic manner. Next, a timeout was then undertaken verifying the correct patient, extremity, visibility of preoperative markings, availability of the equipment. Next, attention was directed to the left lower extremity. Using a foreign Esmarch, left lower extremity was exsanguinated and elevated to 60 degrees for 1 minute. Procedure #1: Matrixectomy, fourth digit, right foot (CPT code: 89684-Z7) Next, attention was directed to the fourth digit at the level of the thickened and ingrown toenail. After anesthesia was confirmed. A turnicot was applied to the right foot fourth digit. Using a [place] the proximal nail border was freed followed by the nail plate from the nailbed. Using straight stats the nail was removed and passed the back table to be discarded. 3 applications of phenol were used to cauterize the nail matrix. The nailbed was flushed with cold amounts of saline followed by normal saline. The nailbed was dressed with bacitracin followed by sterile Band-Aid. The turnicot was removed and reperfusion was noted to the right fourth digit. Additional 2x2 gauze and a Coban compression wrap was applied to the fourth digit. Procedure #2: Endoscopic gastroc recession, left lower extremity (CPT code: 17507) Next, attention was directed to the left lower extermity. A silfverskiold test was performed on the operating table. There was evidence of a positive Silfverskiold test for gastrocnemius equinus. Next, attention was directed to the aponeurosis of the gastrocnemius muscle. A small stab incision was placed a pproximately 2 to 3 cm from the gastroc insertion. Using the Bienville duplicator punch operator the aponeurosis was bow strong and then advanced to the lateral aspect of the left lower extremity. Once tenting of the skin was identified a small stab incision was made with a 15 blade laterally. Using the Narinder obturator and cannula, it was advanced through both incisions. Using the Narinder 30 degrees 4.0 millimeter screw there showed evidence of the aponeurosis of the gastrocnemius muscle. Using the rasp the muscle fibers/Sub Q were removed from the aponeurosis tissue. Using the Bienville 30 degrees 4.0 mm scope and hook blade, careful incision across the aponeurosis was made half laterally then half medially until released. After release of the aponeurosis the ankle was put through range of motion with the knee extended as well as flexed and showed to be increased past 90 in both positions. Both incisions were flushed with copious alda of warm saline. The skin was reapproximated and closed with 3-0 nylon in simple interrupted suture technique. Procedure #3: Lit osteotomy, third metatarsal, left lower extremity (CPT code: 88160) Next, attention was directed to the level of the third metatarsal phalangeal joint of the left foot. Using large C-arm fluoroscopy the third metatarsal phalangeal joint was marked out. A full-thickness incision using a #15 blade was made approximately 1.5 cm over the joint. Continued blunt dissection was carried down to the level of the joint capsule. The long extensor tendon was retracted, the joint capsule was identified and then incised to exposed the head of the third metatarsal. Using McGlamery elevator, the soft tissue was freed inferior to the metatarsal head. This allows for reduction of the plantar plate which allowed the third digit to sit down. Using a sagittal saw and #114 blade, central metatarsal osteotomy was made parallel to the weightbearing surface of the third metatarsal. The bone was released and retracted about 3 mm. Using Narinder times X1 2.0 mm x 11 mm snap off screw, x1 2.0 mm x 12 mm snap off screw, the head of the third metatarsal was fixated in place. Hardware placement was confirmed with large C-arm fluoroscopy. The overhanging metatarsal shelf was removed with a bone cutter. A hand rasp was used to round off any sharp edges. The incision was flushed with copious amounts normal saline. Procedure #4: Peroneal brevis debridement and repair, left lower extremity (CPT code: 71677) Next, attention was directed to the lateral left lower extremity at the level of the previous incision overlying the peroneal tendons. Next, using a #15 blade a full-thickness incision down to subcutaneous tissue was performed along the existing incision scar. Continued blunt dissection was carried down with Metzenbaum scissors with care to avoid the sural nerve. The peroneal tendon sheath was opened up with care using Metzenbaum scissors. There showed evidence of approximate 4 cm longitudinal tear throughout the peroneal brevis tendon. Using a malleable retractor the tear was sharply dissected off the tendon to be passed the back table to be sent off for pathology. Incision was flushed with copious normal saline. The tendon was debrided using a number 5 mm dermal curette. Next, the tendon was 3 tubularized using 3-0 PDS in running crisscross fashion. The tendon showed to have good integrity after repaired. Again, the incision was flushed with copious normal saline. Procedure #5: Open ankle arthrotomy with synovectomy, left lower extremity (CPT code: 06540) Next, attention was directed to the medial portion of the left ankle. The incision was marked out from the distal proximal tibia down to the base of the first metatarsal. Next, using a #15 blade a full-thickness vision down to subcutaneous tissue was performed. Blunt dissection was used with moist Ray- Fitz. Identification of the saphenous nerve was identified and the nerve was retracted with continued blunt dissection carried down to the level of bone and medial ankle capsule. The ankle capsule arthrotomy and synovectomy was performed at the level of the anterior ankle. All synovitis was removed and discarded. Procedure #6: Partial excision of tarsal bone, left lower extremity (CPT code: 76281) Next, continued dissection was carried sharply down and throughout the tarsal bone as well as the anterior ankle exposing the talar neck, distal tibia and navicular. Next, a rongeur was used to remove all osteophytic bone from the distal tibia, talus and navicular. Further contouring of bone was performed with a power rasp. Removal of bone was confirmed with large C-arm fluoroscopy as well as clinically. The incision was flushed with copious normal saline. The ankle was put through range of motion and showed the ability to get past 90 degrees with no evidence of osseous involvement for reducing range of motion to the left ankle. At this time the tourniquet was deflated and reperfusion was noted to the left lower extremity. All bleeders were ligated and cauterized as necessary. Next, all incisions were flushed with copious normal saline. The third metatarsal incision was closed using 3-0 Monocryl and running locking suture technique for the deep layer, the subcutaneous layer was reapproximated closed using 3-0 Monocryl and running suture technique and the skin was reapproximated closed using 4-0 nylon in simple erupted suture technique. The lateral incision overlying the peroneal tendons was reapproximated closed using 3-0 Monocryl and running locking suture technique, the subcutaneous layer was reapproximated and closed using 3-0 Monocryl and running suture technique, and the skin was reapproximated closed using 3-0 nylon in simple erupted suture technique. The dorsal medial incision was closed using 3-0 Monocryl for the capsule and running locking suture technique, the subcutaneous layer was reapp roximated closed using 3-0 Monocryl and running suture technique, and the skin was reapproximated closed using 3-0 nylon in horizontal mattress suture technique. 2 cc of via flow was administered to all incisions to aid in healing and decrease in inflammation. Procedure #7: Application of posterior splint, left lower extremity (CPT code: 14443) The left lower extremities were cleaned and patted dry. All incisions were dressed with Betadine soaked Adaptic, dry sterile dressing and a double layer Souza AO splint was applied at 90 degrees to the left lower extremity. The patient tolerated the procedure and anesthesia well and apparent satisfactory condition and was transported to the PACU for further monitoring prior to discharge home. Vital signs stable and vascular status intact to all digits bilateral. Post Operative Plan: Weightbearing: Nonweightbearing to left lower extremity. Full weightbearing right lower extremity. Antibiotics: 2 g Ancef through the IV DVT Prophylaxis: 81 mg aspirin Raines: None Dressing: Betadine soaked Adaptic, dry sterile dressing double layer Souza AO splint 90 degrees. X-Rays: Post-operative films taken on the operating room. Pain Medication: Percocet 5/325, Flexeril 10 mg Follow-up: Patient will follow-up [address] Gtz in private office. Please call to confirm appointment and time. Surgical Findings: 1. Improved range of motion after removal of osseous equinus involvement. 2. 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
--- NOTE | 2024-05-23 10:00 | TESH_PTH ---
PATIENT: MOUNIKA DUBON LOC: [facility] [place] U#:[id number] AGE/SX: 53/F ROOM: RE05/23/[address]: Dr. Hector Gtz DPM : 1970 BED: DIS: 05/23/2024 SPEC #: [id number] RECD: 05/23/24 14:44 STATUS: YOAN REBarbara #: [id number] CHOCO: 05/23/24 10:[address]: Hector Gtz DEPT: SURGICAL PATHOLOGY RECD BY: Pina Crain ENTERED: 05/26/24 07:15 SP TYPE: TENDON OTHR DR: Dr. Raheem Garcia, DO Tissues: Tendon and tendon sheath, NOS Procedures: Surgery Specimen Level III HEADER OPERATION: Arthrotomy with synovectomy of the left ankle PRE-OP DIAGNOSIS: Hammertoe of left foot, peroneal tendon tear, short Achilles tendon left ankle, primary osteoarthritis left ankle and foot TISSUE SUBMITTED: Tenosynovitis peroneal brevis left lower extremity MICROSCOPIC DIAGNOSIS Tenosynovitis peroneal brevis, left lower extremity, synovectomy: A piece of dense fibroconnective tissue with reactive changes. 05/27/2024 MICROSCOPIC DESCRIPTION Slides are reviewed. GROSS DESCRIPTION Received in fixative is one container labeled with the patient's name and designated Tenosynovitis peroneal brevis left lower extremity. The specimen consists of a piece of carrillo indurated tissue measuring 4.0 x 0.5 x 0.2cm. The entire specimen is submitted in one cassette. 05/26/2024 TC:5 CPT:[id number]
[2024-05-23] MEDS: Cefazolin 2 GM in Syringe IV (10:47)
[2024-05-23] MEDS: Bupivacaine Mpf 0.5% 30 ML VIAL (10:57)
--- NOTE | 2024-05-23 11:00 | RAD_ITS ---
INDICATION: PAIN COMPARISON: None. FINDINGS: Multiple intraoperative fluoroscopic images of ankle and foot. Cumulative air kerma: 1.09 mGy RAD/Ankle 2 Views IMPRESSION: Fluoroscopic images submitted. See operative report for details. Electronically Signed: Robe Friend MD at 21:27 EDT ,
[2024-05-23] MEDS: Neomycin/Bacitracin/Polymyxin Ointment 1 APPLIC (11:10)
--- NOTE | 2024-05-23 13:49 | PCM.POST.ANE ---
Anesthesia: Postop Eval I Current Vital Signs Temperature: 97 F Pulse Rate: 80 Blood Pressure: 120/80 Respiratory Rate: 16 Pulse Ox: 99 Assessment Airway patent: Yes Spontaneous unlabored respirations: Yes nausea: No Vomiting: No Anesthesia Complication: No Fluid Hydration Crystalloid volume administer (ml): 1,000 Total IV fluid infused: 1,000 Progress Note Anesthesia document: Postop Eval 1 completed: Yes
[2024-05-23 14:08] LABS: Bedside Glucose 141 mg/dL (74-106)
--- NOTE | 2024-05-23 14:20 | PCM.POST.ANE ---
Anesthesia: Postop Eval I Current Vital Signs Temperature: 98.1 F Pulse Rate: 90 Blood Pressure: 122/90 Respiratory Rate: 16 Pulse Ox: 96 Oxygen Delivery Method: Room Air Assessment Airway patent: Yes Spontaneous unlabored respirations: Yes Mental status: Awake and Calm nausea: No Vomiting: No Anesthesia Complication: No Fluid Hydration Crystalloid volume administer (ml): 1,750 Total IV fluid infused: 1,750 Progress Note Anesthesia document: Postop Eval 1 completed: Yes
[2024-05-23] MEDS: Ketorolac 30 MG/ML Syringe IV (14:36)
--- NOTE | 2024-05-23 14:51 | POSTOPAN2_ITS ---
Anesthesia Postop Eval I Sum Postop Eval Completion status Anesthesia document: Postop Eval 1 completed: Yes Anesthesia Postop Eval I Summary Anesthesia Postop Eval I Summary: Anesthesia Postop Eval I: Assessment Summary Airway patent Yes 05/23/24 14:20 SECURITY FLEX UTILITY OFFICER.CSIR Spontaneous unlabored Yes 05/23/24 14:20 SECURITY FLEX UTILITY OFFICER.CSIR respirations Mental status Awake,Calm 05/23/24 14:20 SECURITY FLEX UTILITY OFFICER.CSIR nausea No 05/23/24 14:20 SECURITY FLEX UTILITY OFFICER.CSIR Vomiting No 05/23/24 14:20 SECURITY FLEX UTILITY OFFICER.CSIR Anesthesia Postop Eval I: Fluid Summary Crystalloid volume administer 1,750 05/23/24 14:20 SECURITY FLEX UTILITY OFFICER.CSIR (ml) Colloids volume administered ( ml) Blood Product volume administered (ml) Total IV fluid infused 1,750 05/23/24 14:20 SECURITY FLEX UTILITY OFFICER.CSIR Anesthesia Postop Eval I: Summary Notes Anesthesia Complication No 05/23/24 14:20 SECURITY FLEX UTILITY OFFICER.CSIR Anesthesia Complication Comment: Post-operative progress note Anesthesia: Postop Eval II Evaluation Mental status: Awake Pain Level: 0 nausea: No Vomiting: No
--- NOTE | 2024-05-23 14:51 | PCM.POSTANE2 ---
Anesthesia Postop Eval I Sum Postop Eval Completion status Anesthesia document: Postop Eval 1 completed: Yes Anesthesia Postop Eval I Summary Anesthesia Postop Eval I Summary: Anesthesia Postop Eval I: Assessment Summary Airway patent Yes 05/23/24 14:20 ACCOUNTS OFFICER.CSIR Spontaneous unlabored Yes 05/23/24 14:20 ACCOUNTS OFFICER.CSIR respirations Mental status Awake,Calm 05/23/24 14:20 ACCOUNTS OFFICER.CSIR nausea No 05/23/24 14:20 ACCOUNTS OFFICER.CSIR Vomiting No 05/23/24 14:20 ACCOUNTS OFFICER.CSIR Anesthesia Postop Eval I: Fluid Summary Crystalloid volume administer 1,750 05/23/24 14:20 ACCOUNTS OFFICER.CSIR (ml) Colloids volume administered ( ml) Blood Product volume administered (ml) Total IV fluid infused 1,750 05/23/24 14:20 ACCOUNTS OFFICER.CSIR Anesthesia Postop Eval I: Summary Notes Anesthesia Complication No 05/23/24 14:20 ACCOUNTS OFFICER.CSIR Anesthesia Complication Comment: Post-operative progress note Anesthesia: Postop Eval II Evaluation Mental status: Awake Pain Level: 0 nausea: No Vomiting: No
[2024-07-01 08:41] VITALS: BP 120/80; PULSE 80; RESP 16; TEMP 36.1; O2SAT 99
== END 2024-05-23 15:53 | disposition home or self-care (01) ==
LOC: SDC 08:07 → AC 08:08
PROVIDERS: PCP Preventive Medicine Occupational Medicine; Referring Provider Podiatrist Foot & Ankle Surgery; Visit Provider Podiatrist Foot & Ankle Surgery
PROC: (CPT 28120; principal; 2024-05-23 09:45)
DX: M19.072 Primary osteoarthritis, left ankle and foot (principal); E11.9 Type 2 diabetes mellitus without complications; Z79.4 Long term (current) use of insulin; M67.02 Short Achilles tendon (acquired), left ankle; M20.42 Other hammer toe(s) (acquired), left foot; L60.2 Onychogryphosis; S86.312A Strain of muscle(s) and tendon(s) of peroneal muscle group at lower leg level, left leg, initial encounter; X58.XXXA Exposure to other specified factors, initial encounter; I10 Essential (primary) hypertension; F17.210 Nicotine dependence, cigarettes, uncomplicated; Z79.899 Other long term (current) drug therapy
CPT/HCPCS: 28120; 28308; 11750; 27687; 27659; 27625; 01480; 64450; J7120; 73600; 73620; 76000; 82962; 88304; C1713; A4216; J2405

== ENCOUNTER 2024-07-07 14:59 | Observation (INO) | payer MEDICAID, SELFPAY ==
[2024-07-07 15:02] VITALS: BP 180/92; PULSE 100; RESP 15; TEMP 35.7; O2SAT 99
[2024-07-07 15:05] VITALS: BMI 41.1
--- NOTE | 2024-07-07 15:21 | EX.ED.DYSGE1 ---
HPI History of Present Illness Chief Complaint: General Illness Narrative Narrative: Chief complaint and HPI: Left foot infection. 53-year-old female with history of DM, ulcerative colitis, and recent left foot surgery with Dr. Gtz presents for evaluation of left foot infection and IV antibiotics. History taken by patient as well as procedure note on 05/23. Patient had extensive left foot surgery with Dr. Gtz due to hammertoe, osteoarthritis, and other diagnoses. Patient states since then her surgical incision has become infected. She was seen by Dr. Gtz and placed on Keflex 500 mg 3 times daily x 2 weeks on 07/03. Patient states she took 2 days of this antibiotic but then developed profuse diarrhea due to her ulcerative colitis so she stopped taking the medication. She called Dr. Gtz who told her to present to the ED for IV antibiotics and admission. Patient also notes that she has been having right shoulder pain since a fall 2 weeks ago. She denies injury elsewhere. Denies any fever, chills, chest pain, shortness of breath abdominal pain, nausea, vomiting. Review of systems: See HPI Medications: As listed on the chart Allergies: As listed on the chart PFSH: Per chart Vital signs: As listed on the chart. Reviewed. Physical exam: Gen: A&O x3, NAD Head: Normocephalic, atraumatic Eyes: No sclera icterus, conjunctiva clear ENT: Moist mucous membranes Neck: Trachea midline, No JVD, full range of motion CV: RRR, no murmurs Resp: Lungs CTA BL, no w/r/c GI: Abd soft, non-distended, non-tender, no r/r/g Musc: Limited active range of motion of the right shoulder secondary to pain-full passive range of motion, no deformity, left foot in a boot. Patient has erythema, swelling, and tenderness to the dorsum of the left foot. There are surgical incisions healing. Chronic wounds. Skin: Warm, dry Neuro: Alert, oriented, grossly intact, sensation intact Psych: Cooperative, appropriate mood and affect [facility] Medical History (Updated 07/07/24 @ 19:19 by Didi Bolanos) Diabetes Kidney stones Kidney disease GI bleed DVT (deep venous thrombosis) Restless legs Back pain Ulcerative colitis History of pain when walking History of echocardiogram Insulin dependent diabetes mellitus Ambulates with cane Bladder disease High cholesterol Injury of head and neck Dietary restriction History of GI bleed History of diverticulitis Smoker History of edema Anxiety Asthma Irregular heart beat Vitamin D deficiency Type 2 diabetes mellitus Right shoulder pain Radiculitis, brachial Neuropathy of left foot Hypertension Lower leg edema Depression Colon polyp Chronic pain in left foot Arthritis ADHD Blood in stool Abdominal pain Home Medications ?Medication ?Instructions ?Recorded ?Last Taken ?Type albuterol sulfate 90 mcg/actuation 2 puff inhalation Q6H PRN Wheezing 04/07/22 Unknown History aerosol inhaler (ProAir HFA) cetirizine 10 mg tablet 10 mg PO DAILY allergies 04/07/22 06/25/23 History cholecalciferol (vitamin D3) 100 4,000 unit PO DAILY vitamin 04/07/22 06/25/23 History mcg (4,000 unit) tablet fluticasone propionate 50 2 spray intranasal BID allergies 04/07/22 06/25/23 History mcg/actuation nasal spray,suspension glipizide 2.5 mg tablet, extended 5 mg PO DAILY diabetes 04/07/22 06/25/23 History release 24 hr olopatadine 0.2 % eye drops 1 drp EACH EYE PRN PRN Allergy 06/13/22 06/25/23 History Symptoms losartan 100 mg tablet 100 mg PO DAILY 30 days #30 tabs 06/16/22 06/27/24 Rx atorvastatin 20 mg tablet 20 mg PO DAILY 07/10/22 06/25/23 History glucometer #1 ea 11/12/22 Unknown Rx insulin glargine 100 unit/mL (3 44 unit subcut QHS 06/22/23 05/22/24 History mL) subcutaneous pen (Lantus Solostar U-100 Insulin) insulin lispro 100 unit/mL 1 sliding scale dose subcut TID 01/19/24 Unknown History subcutaneous half-unit pen (Humalog Erik KwikPen (U-100)) dicyclomine 20 mg tablet 20 mg PO TID PRN abdominal pain 01/21/24 Unknown Rx #90 tabs multivitamin with minerals-folic 1 tab PO BID 01/21/24 Unknown History acid 120 mcg chewable tablet (Centrum Adult 50 Plus Fresh-Fruity) omega-3 fatty acids-fish oil 300 1 cap PO DAILY 01/21/24 Unknown History mg-1,000 mg capsule infliximab 100 mg intravenous See Rx Instructions .Route 01/29/24 Unknown Rx solution .COMPLEX #1 vial ascorbic acid (vitamin C) 1,000 mg 1 g PO DAILY 90 days #90 tabs 05/23/24 Unknown Rx tablet (Vitamin C) cyclobenzaprine 10 mg tablet 10 mg PO TID muscle spasm 7 days 05/23/24 Unknown Rx #21 tabs oxycodone-acetaminophen 5 mg-325 1 tab PO Q6H pain 5 days #20 tabs 05/23/24 06/27/24 03:30 Rx mg tablet (Percocet) oxycodone-acetaminophen 5 mg-325 1 tab PO Q6H PRN pain 7 days #28 05/27/24 Unknown Rx mg tablet (Percocet) tabs furosemide 20 mg tablet 20 mg PO DAILY 07/07/24 Unknown History hydroxyzine HCl 25 mg tablet 25 mg PO Q8 07/07/24 Unknown History lidocaine 5 % topical patch 3 patch topical Q12.TCU 07/07/24 Unknown History nystatin 100,000 unit/gram topical topical BID PRN PRN ABD FOLDS 07/07/24 Unknown History cream Allergy/AdvReac Type Severity Reaction Status Date / Time ciprofloxacin Allergy Severe Laryngospasms, Verified 07/07/24 15:01 itching morphine AdvReac Intermediate Nausea/Vom/ Verified 07/07/24 15:01 Diarrhea tramadol AdvReac Intermediate Nausea Verified 07/07/24 15:01 metformin (From Glucophage) AdvReac Abd Verified 07/07/24 15:01 cramps/diarrhea Family History Father Arthritis Diabetes Epilepsy Hypertension Heart disease Liver cancer Mother Hypertension Brother Diabetes Colon cancer Grandmother Colon cancer Stomach cancer Surgical History History of ankle surgery Hx of colonoscopy Previous section H/O: hysterectomy History of bunionectomy Social History Smoking Status: Current every day smoker tobacco type: cigarettes alcohol intake: current EXAM Physical Exam Const Vital Signs: 07/07/24 15:02 07/07/24 16:05 07/07/24 16:57 Temperature 96.2 F L 98.2 F 98.3 F Temperature Source Temporal Oral Oral Pulse Rate 100 82 92 Respiratory Rate 15 18 19 H Blood Pressure 180/92 H 149/78 H 153/87 H Blood Pressure Mean 121 101 109 Pulse Ox 99 97 98 Oxygen Delivery Method Room Air Room Air Room Air 07/07/24 18:06 Temperature 98.3 F Temperature Source Pulse Rate 87 Respiratory Rate 18 Blood Pressure 121/66 H Blood Pressure Mean 84 Pulse Ox 98 Oxygen Delivery Method MDM MDM MDM Narrative Medical decision making narrative: 53-year-old female with history of DM, ulcerative colitis, and recent left foot surgery with Dr. Gtz presents for evaluation of left foot infection and IV antibiotics. Also endorses right shoulder pain after a fall 2 weeks ago. See physical exam findings. Differential diagnosis includes but is not limited to cellulitis, bacteremia, shoulder contusion, fracture. Basic labs obtained including blood cultures, Zosyn and vancomycin ordered for diabetic foot infection. Will obtain x-ray of the right shoulder. I do not think any x-rays of the left foot are needed at this time. CBC unremarkable without leukocytosis. BMP relatively unremarkable. X-ray of the right shoulder was interpreted and reviewed by me, ED physician. No fracture or dislocation. Patient will warrant admission for her IV antibiotics per podiatry request. Podiatry was contacted and patient was discussed with Dr. Cabrera who is on-call for Dr. Gtz. Recommends medical admission. They will see in consult. Hospitalist was contacted and patient was discussed with Dr. Hanson. She excepted admission. Impression: 1. Left foot cellulitis 2. Right shoulder pain 3. Mechanical fall Lab Data Labs: Laboratory Results - last 24 hr 07/07/24 07/07/24 07/07/24 13:50 15:20 17:30 WBC 8.8 RBC 4.76 Hgb 13.2 Hct 41.1 MCV 86.3 MCH 27.7 MCHC 32.1 RDW Std Deviation 41.1 RDW Coeff of Terra 13.1 Plt Count 277 MPV 11.5 Immature Gran % (Auto) 0.300 Neut % (Auto) 59.3 Lymph % (Auto) 31.7 [place] % (Auto) 6.7 Eos % (Auto) 1.5 Baso % (Auto) 0.5 Absolute Neuts (auto) 5.2 Absolute Lymphs (auto) 2.79 Nucleated RBC % 0 Sodium 137 Potassium 4.0 Chloride 108 H Carbon Dioxide 26.0 Anion Gap 4 L BUN 11 Creatinine 0.80 Estim Creat Clear Calc 89.98 Est GFR (MDRD) Af Amer 97 Est GFR (MDRD) Non-Af 80 BUN/Creatinine Ratio 13.8 Glucose 194 H Calcium 8.9 POC Glucose 113 H Radiography Diagnostic Testing: Clinical Impression(s) from Imaging Studies Shoulder X-Ray 07/07/24 15:45 IMPRESSION: No acute osseous abnormalities. There are degenerative changes with narrowing of the acromioclavicular joint. Electronically Signed: Haroldo Nichols MD at 17:30 EST , Discharge Plan Disposition Disposition: Acute Care Hospital [facility] Discharge Date/Time: 07/07/24 19:02
[2024-07-07] MEDS: Piperacil/Tazobactam 4.5 GM in 0.9% Normal Saline (100mL MB+) 100 ML IV (15:41)
--- NOTE | 2024-07-07 15:45 | RAD_ITS ---
EXAM: XR RIGHT SHOULDER COMPLETE, 2 OR MORE VIEWS CLINICAL INDICATION: Pain TECHNIQUE: Two or more views of the right shoulder. COMPARISON: No relevant prior studies available. FINDINGS: BONES/JOINTS: There is narrowing of the acromioclavicular joint. No acute fracture. No subluxation. Normal alignment. No sclerotic or destructive changes observed. SOFT TISSUES: Unremarkable. No soft tissue swelling or gas. No radiopaque foreign body. RAD/Shoulder min 2 Views IMPRESSION: No acute osseous abnormalities. There are degenerative changes with narrowing of the acromioclavicular joint. Electronically Signed: Haroldo Nichols MD at 17:30 EST ,
[2024-07-07 15:52] LABS: Anion Gap 4 (5-15); BUN 11 mg/dL (7-18); BUN/Creat Ratio 13.8 RATIO (10-20); Calcium,Total 8.9 mg/dL (8.5-10.1); Chloride 108 mmol/L (98-107); EST Glomerular Filtration Rate 80 mL/min (>60); Est Glom Filt Rate - Afr Amer 97 mL/min (>60); Estimated Creatinine Clearance 89.98 ml/min; Glucose 194 mg/dL (74-106); Sodium Level 137 mmol/L (136-145)
[2024-07-07] MEDS: Vancomycin HCl 2,000 MG in 0.9% Normal Saline (500mL Bag) 500 ML 250 MG IV (16:04)
[2024-07-07 16:05] VITALS: BP 149/78; PULSE 82; RESP 18; TEMP 36.8; O2SAT 97
[2024-07-07 16:10] LABS: Absolute Lymphocyte Count 2.79 X10^3/uL (0.83-4.51); Absolute Neutrophil Count 5.2 X10^3/uL (2.0-7.7); Basophil# 0.04 X10^3/uL; Basophil% 0.5 % (0-1); Eosinophil# 0.13 X10^3/uL; Eosinophils% 1.5 % (0-5); Hematocrit 41.1 % (37-47); Hemoglobin 13.2 g/dL (12.0-15.0); Lymphocyte # 2.79 X10^3/ul (0.83-4.51); Lymphocyte % 31.7 % (19-41); Mean Corp Hgb Conc 32.1 g/dL (32-36); Mean Corpuscular Hgb 27.7 pg (27.0-32.0); Mean Corpuscular Volume 86.3 fL (81-99); Mean Platelet Vol. 11.5 fl (6.2-12.0); Monocyte# 0.59 X10^3/uL; Monocyte% 6.7 % (0-10); NRBC Flagged by Analyzer 0 % (0-5); Neutrophil # 5.21 X10^3/uL (2.7-7.7); Neutrophil % 59.3 % (47-70); Platelet Count 277 K/mm3 (150-450); RBC Distribution Width CV 13.1 % (11.6-14.6); RBC Distribution Width SD 41.1 fl (35.1-43.9); Red Blood Count 4.76 M/mm3 (4.2-5.4); White Blood Count 8.8 K/mm3 (4.4-11.0)
[2024-07-07 16:57] VITALS: BP 153/87; PULSE 92; RESP 19; TEMP 36.8; O2SAT 98
[2024-07-07 17:47] LABS: Bedside Glucose 113 mg/dL (74-106)
[2024-07-07 18:06] VITALS: BP 121/66; PULSE 87; RESP 18; TEMP 36.8; O2SAT 98
--- NOTE | 2024-07-07 18:33 | HP.PCM.HOS_ITS ---
HPI - General General Date of Admission: 07/07/24 Date of Service: 07/07/24 Chief Complaint: foot infection HPI Narrative MOUNIKA DUBON, is a 53-year-old female history of diabetes, ulcerative colitis, and recent left foot surgery presented to [facility] ED 07/07/2024 due to concerns for left foot infection. Patient had extensive left foot surgery 05/[address] Gtz and is since had a surgical incision became infected. She was seen by Dr. Gtz 07/03 and started on Keflex but after only taking 2 days of the medication she developed diarrhea due to her selective colitis so she stopped taking it. She called Dr. Gtz?s office and advised to come to the ED for IV antibiotics and admission. In the ED lab workup within normal limits and patient vitally stable however given her inability to tolerate oral antibiotics with infection hospitalist contacted for admission. Patient evaluated at bedside and reports that since last week her incision on her left foot has become erythematous and infected, she took antibiotics for 2 days but due to some abdominal cramping and diarrhea she stopped these and has not been on antibiotics since. She endorses that the diarrhea and abdominal cramping are improving now that she is not on the antibiotics but has not yet completely resolved. No nausea or vomiting. Does have right shoulder pain after a fall 2 weeks ago. Patient also has some malaise and fatigue and chills [facility] Medical History DVT (deep venous thrombosis) Restless legs Back pain Ulcerative colitis History of pain when walking History of echocardiogram Insulin dependent diabetes mellitus Ambulates with cane Bladder disease High cholesterol Injury of head and neck Dietary restriction History of GI bleed History of diverticulitis Smoker History of edema Anxiety Asthma Irregular heart beat Vitamin D deficiency Type 2 diabetes mellitus Right shoulder pain Radiculitis, brachial Neuropathy of left foot Hypertension Lower leg edema Depression Colon polyp Chronic pain in left foot Arthritis ADHD Blood in stool Abdominal pain Home Medications ?Medication ?Instructions ?Recorded ?Last Taken ?Type albuterol sulfate 90 mcg/actuation 2 puff inhalation Q6H PRN Wheezing 04/07/22 Unknown History aerosol inhaler (ProAir HFA) cetirizine 10 mg tablet 10 mg PO DAILY allergies 04/07/22 06/25/23 History cholecalciferol (vitamin D3) 100 4,000 unit PO DAILY vitamin 04/07/22 06/25/23 History mcg (4,000 unit) tablet fluticasone propionate 50 2 spray intranasal BID allergies 04/07/22 06/25/23 History mcg/actuation nasal spray,suspension glipizide 2.5 mg tablet, extended 5 mg PO DAILY diabetes 04/07/22 06/25/23 History release 24 hr olopatadine 0.2 % eye drops 1 drp EACH EYE PRN PRN Allergy 06/13/22 06/25/23 History Symptoms losartan 100 mg tablet 100 mg PO DAILY 30 days #30 tabs 06/16/22 06/27/24 Rx atorvastatin 20 mg tablet 20 mg PO DAILY 07/10/22 06/25/23 History glucometer #1 ea 11/12/22 Unknown Rx insulin glargine 100 unit/mL (3 44 unit subcut QHS 06/22/23 05/22/24 History mL) subcutaneous pen (Lantus Solostar U-100 Insulin) insulin lispro 100 unit/mL 1 sliding scale dose subcut TID 01/19/24 Unknown History subcutaneous half-unit pen (Humalog Erik KwikPen (U-100)) dicyclomine 20 mg tablet 20 mg PO TID PRN abdominal pain 01/21/24 Unknown Rx #90 tabs multivitamin with minerals-folic 1 tab PO BID 01/21/24 Unknown History acid 120 mcg chewable tablet (Centrum Adult 50 Plus Fresh-Fruity) omega-3 fatty acids-fish oil 300 1 cap PO DAILY 01/21/24 Unknown History mg-1,000 mg capsule infliximab 100 mg intravenous See Rx Instructions .Route 01/29/24 Unknown Rx solution .COMPLEX #1 vial ascorbic acid (vitamin C) 1,000 mg 1 g PO DAILY 90 days #90 tabs 05/23/24 Unknown Rx tablet (Vitamin C) cyclobenzaprine 10 mg tablet 10 mg PO TID muscle spasm 7 days 05/23/24 Unknown Rx #21 tabs oxycodone-acetaminophen 5 mg-325 1 tab PO Q6H pain 5 days #20 tabs 05/23/24 06/27/24 03:30 Rx mg tablet (Percocet) oxycodone-acetaminophen 5 mg-325 1 tab PO Q6H PRN pain 7 days #28 05/27/24 Unknown Rx mg tablet (Percocet) tabs furosemide 20 mg tablet 20 mg PO DAILY 07/07/24 Unknown History hydroxyzine HCl 25 mg tablet 25 mg PO Q8 07/07/24 Unknown History lidocaine 5 % topical patch 3 patch topical Q12.TCU 07/07/24 Unknown History nystatin 100,000 unit/gram topical topical BID PRN PRN ABD FOLDS 07/07/24 Unknown History cream Allergy/AdvReac Type Severity Reaction Status Date / Time ciprofloxacin Allergy Severe Laryngospasms, Verified 07/07/24 15:01 itching morphine AdvReac Intermediate Nausea/Vom/ Verified 07/07/24 15:01 Diarrhea tramadol AdvReac Intermediate Nausea Verified 07/07/24 15:01 metformin (From Glucophage) AdvReac Abd Verified 07/07/24 15:01 cramps/diarrhea Family History Father Arthritis Diabetes Epilepsy Hypertension Heart disease Liver cancer Mother Hypertension Brother Diabetes Colon cancer Grandmother Colon cancer Stomach cancer Surgical History History of ankle surgery Hx of colonoscopy Previous section H/O: hysterectomy History of bunionectomy Social History Smoking Status: Current every day smoker tobacco type: cigarettes alcohol intake: current ROS ROS Narrative General: Has had some chills at home HENT: Denies headache, denies stuffy nose, denies sore throat EYES: Denies changes in vision Resp: denies shortness of breath Cardiac: Denies chest pain GI: No nausea or vomiting but had some generalized abdominal cramping and some diarrhea : Denies changes in urination Extremity: Some swelling and erythema in left foot MSK: Feels generally weak, has some right shoulder pain Neuro: Did not voice any acute or focal complaints Skin: Patient with cellulitic changes on left foot Psychiatric: Patient feeling very frustrated Vital Signs Vital Signs Vital Signs: 07/07/24 15:02 07/07/24 16:05 07/07/24 16:57 Temperature 96.2 F L 98.2 F 98.3 F Temperature Source Temporal Oral Oral Pulse Rate 100 82 92 Respiratory Rate 15 18 19 H Blood Pressure 180/92 H 149/78 H 153/87 H Blood Pressure Mean 121 101 109 Pulse Ox 99 97 98 Oxygen Delivery Method Room Air Room Air Room Air 07/07/24 18:06 Temperature 98.3 F Temperature Source Pulse Rate 87 Respiratory Rate 18 Blood Pressure 121/66 H Blood Pressure Mean 84 Pulse Ox 98 Oxygen Delivery Method Weight Weight: 102.1 kg Body Mass Index (BMI) 41.1 Physical Exam Narrative General: Alert, oriented HEENT: Atraumatic, normocephalic Eyes: Anicteric, normal conjunctiva, extraocular movements grossly intact Neck: Supple Respiratory: Clear to auscultation bilaterally, normal respiratory effort Cardiovascular: Regular rate and rhythm GI: Soft, nontender, nondistended Extremities: No edema Musculoskeletal: Moving all extremities Neuro: No overt focal neurological deficits Skin: Left foot presently wrapped in clean dry dressing with boot Psych: Tearful and frustrated at times Results Lab / Micro Data 07/07/24 13:50 07/07/24 15:20 Labs: Laboratory Results - last 24 hr 07/07/24 13:50: WBC 8.8, RBC 4.76, Hgb 13.2, Hct 41.1, MCV 86.3, MCH 27.7, MCHC 32.1, RDW Std Deviation 41.1, RDW Coeff of Terra 13.1, Plt Count 277, MPV 11.5, Immature Gran % (Auto) 0.300, Neut % (Auto) 59.3, Lymph % (Auto) 31.7, [place]th[place]omew % (Auto) 6.7, Eos % (Auto) 1.5, Baso % (Auto) 0.5, Absolute Neuts (auto) 5.2, Absolute Lymphs (auto) 2.79, Nucleated RBC % 0 07/07/24 15:20: Sodium 137, Potassium 4.0, Chloride 108 H, Carbon Dioxide 26.0, Anion Gap 4 L, BUN 11, Creatinine 0.80, Estim Creat Clear Calc 89.98, Est GFR (MDRD) Af Amer 97, Est GFR (MDRD) Non-Af 80, BUN/Creatinine Ratio 13.8, Glucose 194 H, Calcium 8.9 07/07/24 17:30: POC Glucose 113 H Imaging Radiology Impression Shoulder X-Ray 07/07/24 15:45 IMPRESSION: No acute osseous abnormalities. There are degenerative changes with narrowing of the acromioclavicular joint. Electronically Signed: Haroldo D. Breckwoldt, MD at 17:30 EST , Assessment & Plan Assessment/Plan (1) Left foot infection: PLAN: Plan # Left foot surgical site infection in a diabetic -Blood cultures sent though low suspicion that these will be positive given patient's normal vital signs and benign laboratory workup -Broad-spectrum IV antibiotics started in the ED so these will be continued at this time -Wound cx if able -Podiatry consult, ID consult given this is a postop wound infection in a diabetic patient -Obtain foot x-ray though suspect it may be low yield # Diarrhea -Patient with some diarrhea after taking Keflex and abdominal cramping -The symptoms have been improving since she stopped however she has still had some diarrhea so we will check C. difficile -Do not think further imaging is warranted given benign abdominal exam but continue to evaluate # Right shoulder pain -History of fall, patient reports it is especially difficult because she is ambulating with crutches -X-ray with no acute process -She requested an MRI however given this is unrelated to her foot infection/reason for admission this can likely be done in outpatient basis -Supportive care #Type 2 diabetes mellitus -Glucose checks and sliding scale insulin -Continue long-acting insulin will start at lower dose to avoid hypoglycemia, can uptitrate as tolerated/needed #Hypertension -Continue home medications # History of ulcerative colitis -Outpatient follow-up #Morbid obesity -BMI documented as 41.2 kg/m? at time of admission -Complicates treatment, prognosis, outcomes -Recommend weight loss and lifestyle changes #DVT ppx: Lovenox SQ twice daily Barb Hanson MD Charges/Coding Visit Charges Inpatient E&M: 46015 Init Hosp L2
[2024-07-07 19:12] VITALS: RESP 15; BMI 41.3
--- NOTE | 2024-07-07 19:39 | RAD_ITS ---
EXAM: XR LEFT FOOT COMPLETE, 3 OR MORE VIEWS CLINICAL INDICATION: Left foot infection TECHNIQUE: Frontal, lateral and oblique views of the left foot. COMPARISON: No relevant prior studies available. FINDINGS: BONES/JOINTS: Orthopedic screws seen within the first and third metatarsals. There is degenerative change of the tibiotalar joint with mild joint space narrowing and irregularity. No acute fracture. No subluxation. Normal alignment. No sclerotic or destructive changes observed. SOFT TISSUES: Unremarkable. No soft tissue swelling or gas. No radiopaque foreign body. RAD/Foot min 3 Views IMPRESSION: Degenerative changes with joint space narrowing at the tibiotalar joint. There are orthopedic screws in the first and third metatarsals. There are no acute osseous abnormalities. Electronically Signed: Haroldo Nichols MD at 21:16 EST ,
--- NOTE | 2024-07-07 19:41 | PHA.PHARE_ITS ---
Consult Antibiotic Management Pharmacy has been consulted to manage selected antibiotic: Vancomycin Type of Intervention Type of Consult: New start Suspected Infection Suspected Infection: Skin/Soft tissue Prior Doses of Antibiotics Prior Doses of Antibiotics Received/Current Regimen: Vancomycin 2000 mg IV x 1 given 06/1624 @ 1604, patient is also on piperacillin/ tazobactam 3.375 grams Q8H Labs Labs: Sodium 137 mmol/L (136-145) 07/07/24 15:20 Potassium 4.0 mmol/L (3.5-5.1) 07/07/24 15:20 Chloride 108 mmol/L (98-107) H 07/07/24 15:20 Carbon Dioxide 26.0 mmol/L (21.0-32.0) 07/07/24 15:20 Anion Gap 4 (5-15) L 07/07/24 15:20 BUN 11 mg/dL (7-18) 07/07/24 15:20 Creatinine 0.80 mg/dL (0.55-1.02) 07/07/24 15:20 Est GFR (MDRD) Af Amer 97 mL/min (>60) 07/07/24 15:20 Est GFR (MDRD) Non-Af 80 mL/min (>60) 07/07/24 15:20 BUN/Creatinine Ratio 13.8 RATIO (10-20) 07/07/24 15:20 Glucose 194 mg/dL (74-106) H 07/07/24 15:20 Dosing Weight Weight used for dosin kg Estimated Creatinine Clearance Estimated Creatinine Clearance: 90 Goal Trough Goal Trough: 15-20 mcg/mL Pharmacy Plan for Drug Dosing Pharmacy Plan for Drug Dosing: Vancomycin 2000 mg IV x 1 followed by 2000 mg Q12H. Pharmacy Service will continue to monitor and adjust dosing as required. Follow-Up Labs Follow-Up Labs: Trough: Vancomycin Date/Time Labs Ordered Labs to be done on [date and time ordered]: 07/09/24 @ 7685
[2024-07-07 19:58] VITALS: BP 141/62; PULSE 87; RESP 15; TEMP 36.7; O2SAT 96
[2024-07-07] MEDS: oxyCODONE 5 MG Tablet PO (20:17)
[2024-07-07] MEDS: Enoxaparin 40 MG/0.4 ML Syringe SC (22:15)
[2024-07-07] MEDS: cycloBENZAPRine HCl 10 MG Tablet PO (22:15)
[2024-07-07] MEDS: Acetaminophen 500 MG Tablet 1000 MG PO (22:15)
[2024-07-07] MEDS: Fluticasone 0.05% 1 SPRAY NASAL.SRY 2 SPRAY NASAL (22:15)
[2024-07-07] MEDS: Arthritis Pain Compound 60 CLICK TUBE TOPICAL (22:16)
[2024-07-07] MEDS: Piperacil/Tazobactam 3.375 GM in 0.9% Normal Saline (50mL MB+) 50 ML IV (22:26)
[2024-07-07] MEDS: 0.9% Normal Saline (100mL Bag) 100 ML 15 ML IV (22:27)
[2024-07-07] MEDS: 0.9% Saline Lock 10 ML Syringe IV (22:27)
[2024-07-07] MEDS: Insulin Glargine-YFGN 100 UNIT/ML Pen 20 UNIT SC (22:30)
[2024-07-07] MEDS: Insulin Lispro 100 UNIT/ML INSULN.PEN SC (22:37)
[2024-07-07 23:03] LABS: Bedside Glucose 172 mg/dL (74-106)
--- NOTE | 2024-07-08 02:31 | PCM.PN.BLA ---
Progress Note C. difficile testing came back positive for antigen but negative for toxin she is having soft stools but not loose diarrhea stools therefore we will hold off treatment with p.o. vancomycin at this time
[2024-07-08] MEDS: Vancomycin HCl 2,000 MG in 0.9% Normal Saline (500mL Bag) 500 ML 250 MG IV ×2 (04:05→16:47)
[2024-07-08 04:07] VITALS: BP 140/67; PULSE 75; RESP 15; TEMP 36.7; O2SAT 95
[2024-07-08 05:00] VITALS: RESP 15
[2024-07-08] MEDS: Acetaminophen 500 MG Tablet 1000 MG PO ×3 (06:17→23:27)
[2024-07-08] MEDS: cycloBENZAPRine HCl 10 MG Tablet PO ×3 (06:17→23:27)
[2024-07-08] MEDS: Piperacil/Tazobactam 3.375 GM in 0.9% Normal Saline (50mL MB+) 50 ML IV ×3 (06:18→23:25)
[2024-07-08] MEDS: oxyCODONE 5 MG Tablet PO ×3 (06:26→20:33)
[2024-07-08 06:51] LABS: Bedside Glucose 96 mg/dL (74-106)
[2024-07-08 06:58] LABS: Absolute Neutrophil Count 2.7 X10^3/uL (2.0-7.7); Basophil# 0.05 X10^3/uL; Basophil% 0.7 % (0-1); Eosinophil# 0.21 X10^3/uL; Hematocrit 37.9 % (37-47); Hemoglobin 12.3 g/dL (12.0-15.0); Lymphocyte % 47.4 % (19-41); Mean Corp Hgb Conc 32.5 g/dL (32-36); Mean Corpuscular Hgb 28.1 pg (27.0-32.0); Mean Corpuscular Volume 86.7 fL (81-99); Mean Platelet Vol. 10.5 fl (6.2-12.0); Monocyte# 0.65 X10^3/uL; Monocyte% 9.3 % (0-10); NRBC Flagged by Analyzer 0 % (0-5); Neutrophil # 2.73 X10^3/uL (2.7-7.7); Neutrophil % 39.3 % (47-70); Platelet Count 226 K/mm3 (150-450); RBC Distribution Width SD 41.1 fl (35.1-43.9); Red Blood Count 4.37 M/mm3 (4.2-5.4)
--- NOTE | 2024-07-08 07:50 | CON.PCM_ITS ---
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 All findings were discussed with the patient. All questions were answered to the patient satisfaction. Left foot radiographs 3 view: Shows evidence of degenerative changes with narrowing of the joint space across the tibiotalar joint. Evidence of orthopedic hardware. No evidence of osteomyelitis or underlying soft tissue abscess. Excisional debridement down to and including subcutaneous tissue, fascia and muscle with a #15 blade and pickup for left posterior medial ankle without incident. Predebridement measurement was eschar. Postdebridement measurement is 4.5 x 1.5 x 1.0 cm. Left lower extremities were cleaned and patted dry. Deep cultures were taken and sent to microbiology for culture and sensitivity. The full-thickness wound was dressed with Betadine soaked gauze dry sterile dressing and a single layer Souza compression bandage was donned to left lower extremity. Weightbearing status: Weightbearing as tolerated in surgical shoe to left lower extremity. Full weightbearing to right lower extremity. Patient should use assistive device as a walker when ambulating with physical therapy. Since the patient is unable to tolerate oral antibiotics I am recommending infectious disease consult for PICC line and antibiotic recommendation. Stool sample: Positive for C. difficile A/B antigen, negative C. difficile toxin Medicine: On board, medical management, IV antibiotics vancomycin and Zosyn Infectious disease: Consult pending No plan for surgical intervention from a podiatry standpoint during this hospital admission. Podiatry will continue to follow while the patient is in house. Please reach out to Dr. Gtz for any question or concerns. (2) Cellulitis of left ankle: (3) Acute painful diabetic polyneuropathy: (4) Other specified peripheral vascular diseases: HPI Consult Data Date of Consult: 07/08/24 HPI Narrative Reason for Consultation: Left ankle cellulitis HPI Narrative: MOUNIKA DUBON, is a 53 F who presented to emergency room department [facility] for chief complaint worsening infection to left ankle and history of diarrhea and vomiting for the past 2 days. Patient does have a past medical history of ulcerative colitis which is treated by gastrointestinal doctor. After taking the oral antibiotic for 2 days the patient has had uncontrolled diarrhea and pain to the abdomen as well as to the left ankle. Patient is well-known to my office and was instructed to present to the emergency room for evaluation and admission for IV antibiotics. Patient has been compliant postoperatively but unfortunately suffered a skin breakdown secondary to rubbing in a surgical boot. Patient does admit to some falls during the postoperative procedure but was always wearing her boot at that time. Patient admits to controlled blood sugar. She denies constitutional symptoms. No other pedal complaints at this time. Podiatry was consulted for wound management of the left ankle. [facility] Medical History Diabetes Kidney stones Kidney disease GI bleed DVT (deep venous thrombosis) Restless legs Back pain Ulcerative colitis History of pain when walking History of echocardiogram Insulin dependent diabetes mellitus Ambulates with cane Bladder disease High cholesterol Injury of head and neck Dietary restriction History of GI bleed History of diverticulitis Smoker History of edema Anxiety Asthma Irregular heart beat Vitamin D deficiency Type 2 diabetes mellitus Right shoulder pain Radiculitis, brachial Neuropathy of left foot Hypertension Lower leg edema Depression Colon polyp Chronic pain in left foot Arthritis ADHD Blood in stool Abdominal pain Home Medications ?Medication ?Instructions ?Recorded ?Last Taken ?Type albuterol sulfate 90 mcg/actuation 2 puff inhalation Q6H PRN Wheezing 04/07/22 Unknown History aerosol inhaler (ProAir HFA) cetirizine 10 mg tablet 10 mg PO DAILY allergies 04/07/22 06/25/23 History cholecalciferol (vitamin D3) 100 4,000 unit PO DAILY vitamin 04/07/22 06/25/23 History mcg (4,000 unit) tablet fluticasone propionate 50 2 spray intranasal BID allergies 04/07/22 06/25/23 History mcg/actuation nasal spray,suspension glipizide 2.5 mg tablet, extended 5 mg PO DAILY diabetes 04/07/22 06/25/23 History release 24 hr olopatadine 0.2 % eye drops 1 drp EACH EYE PRN PRN Allergy 06/13/22 06/25/23 History Symptoms losartan 100 mg tablet 100 mg PO DAILY 30 days #30 tabs 06/16/22 06/27/24 Rx atorvastatin 20 mg tablet 20 mg PO DAILY 07/10/22 06/25/23 History glucometer #1 ea 11/12/22 Unknown Rx insulin glargine 100 unit/mL (3 44 unit subcut QHS 06/22/23 05/22/24 History mL) subcutaneous pen (Lantus Solostar U-100 Insulin) insulin lispro 100 unit/mL 1 sliding scale dose subcut TID 01/19/24 Unknown History subcutaneous half-unit pen (Humalog Erik PavanikPen (U-100)) dicyclomine 20 mg tablet 20 mg PO TID PRN abdominal pain 01/21/24 Unknown Rx #90 tabs multivitamin with minerals-folic 1 tab PO BID 01/21/24 Unknown History acid 120 mcg chewable tablet (Centrum Adult 50 Plus Fresh-Fruity) omega-3 fatty acids-fish oil 300 1 cap PO DAILY 01/21/24 Unknown History mg-1,000 mg capsule infliximab 100 mg intravenous See Rx Instructions .Route 01/29/24 Unknown Rx solution .COMPLEX #1 vial ascorbic acid (vitamin C) 1,000 mg 1 g PO DAILY 90 days #90 tabs 05/23/24 Unknown Rx tablet (Vitamin C) cyclobenzaprine 10 mg tablet 10 mg PO TID muscle spasm 7 days 05/23/24 Unknown Rx #21 tabs oxycodone-acetaminophen 5 mg-325 1 tab PO Q6H pain 5 days #20 tabs 05/23/24 06/27/24 03:30 Rx mg tablet (Percocet) oxycodone-acetaminophen 5 mg-325 1 tab PO Q6H PRN pain 7 days #28 05/27/24 Unknown Rx mg tablet (Percocet) tabs furosemide 20 mg tablet 20 mg PO DAILY 07/07/24 Unknown History hydroxyzine HCl 25 mg tablet 25 mg PO Q8 07/07/24 Unknown History lidocaine 5 % topical patch 3 patch topical Q12.TCU 07/07/24 Unknown History nystatin 100,000 unit/gram topical topical BID PRN PRN ABD FOLDS 07/07/24 Unknown History cream Allergy/AdvReac Type Severity Reaction Status Date / Time ciprofloxacin Allergy Severe Laryngospasms, Verified 07/07/24 15:01 itching morphine AdvReac Intermediate Nausea/Vom/ Verified 07/07/24 15:01 Diarrhea tramadol AdvReac Intermediate Nausea Verified 07/07/24 15:01 metformin (From Glucophage) AdvReac Abd Verified 07/07/24 15:01 cramps/diarrhea Family History Father Arthritis Diabetes Epilepsy Hypertension Heart disease Liver cancer Mother Hypertension Brother Diabetes Colon cancer Grandmother Colon cancer Stomach cancer Surgical History History of ankle surgery Hx of colonoscopy Previous section H/O: hysterectomy History of bunionectomy Social History Smoking Status: Current every day smoker tobacco type: cigarettes alcohol intake: current Physical Exam Narrative Vascular: DP and PT pulses are palpable to left lower extremity. CFT is brisk. Skin temp great is warm to warm from proximal ankles to distal digits to left lower extremity. Skin temperature and turgor is within normal limits. Nonpitting edema appreciated to the left lower extremity. Neurological: Light touch intact. Patient does respond to painful stimuli. Neurological: Full-thickness ulceration to the left anterior medial ankle measuring 1.5 x 1.0 x 1.0 cm. Wound does not probe to bone. Wound probes to muscle. No malodor associated. No active drainage. Periwound erythema is noticeable but blanchable. No proximal streaking. Excisional debridement down to and including subcutaneous tissue, fascia and muscle with a #15 blade and pickup for left posterior medial ankle without incident. Predebridement measurement was eschar. Measurement was 4.5 x 1.5 x 1.0 cm. Musculoskeletal: Mild to moderate palpatory tenderness appreciated to the full- thickness wound to the left lower extremity. No pain with calf pressure. Const alert, oriented x3 and no apparent distress Lab / Micro Data 07/08/24 06:45 07/07/24 15:20 Labs: Laboratory Results - last 24 hr 07/07/24 13:50: WBC 8.8, RBC 4.76, Hgb 13.2, Hct 41.1, MCV 86.3, MCH 27.7, MCHC 32.1, RDW Std Deviation 41.1, RDW Coeff of Terra 13.1, Plt Count 277, MPV 11.5, Immature Gran % (Auto) 0.300, Neut % (Auto) 59.3, Lymph % (Auto) 31.7, [place] % (Auto) 6.7, Eos % (Auto) 1.5, Baso % (Auto) 0.5, Absolute Neuts (auto) 5.2, Absolute Lymphs (auto) 2.79, Nucleated RBC % 0 07/07/24 15:20: Sodium 137, Potassium 4.0, Chloride 108 H, Carbon Dioxide 26.0, Anion Gap 4 L, BUN 11, Creatinine 0.80, Estim Creat Clear Calc 89.98, Est GFR (MDRD) Af Amer 97, Est GFR (MDRD) Non-Af 80, BUN/Creatinine Ratio 13.8, Glucose 194 H, Calcium 8.9 07/07/24 17:30: POC Glucose 113 H 07/07/24 22:29: POC Glucose 172 H 07/08/24 06:29: POC Glucose 96 07/08/24 06:45: WBC 7.0, RBC 4.37, Hgb 12.3, Hct 37.9, MCV 86.7, MCH 28.1, MCHC 32.5, RDW Std Deviation 41.1, RDW Coeff of Terra 13.0, Plt Count 226, MPV 10.5, Immature Gran % (Auto) 0.300, Neut % (Auto) 39.3 L, Lymph % (Auto) 47.4 H, [place] % (Auto) 9.3, Eos % (Auto) 3.0, Baso % (Auto) 0.7, Absolute Neuts (auto) 2.7, Absolute Lymphs (auto) 3.30, Nucleated RBC % 0 Micro: Microbiology 07/07/24 15:20 Blood Culture (Wb) - Anticubital Right Blood Culture - Preliminary No growth in 48 hours. 07/07/24 15:20 Blood Culture (Wb) - Anticubital Left Blood Culture - Preliminary No growth in 48 hours. 07/07/24 22:42 Stool Enteric Bacteriology - Final 07/07/24 22:42 Stool C. difficile GDH Antigen & Toxins - Final 07/07/24 22:42 Stool Clostridioides difficile (PCR) - Final Imaging Radiology Impression Shoulder X-Ray 07/07/24 15:45 IMPRESSION: No acute osseous abnormalities. There are degenerative changes with narrowing of the acromioclavicular joint. Electronically Signed: Haroldo Nichols MD at 17:30 EST , Foot X-Ray 07/07/24 19:39 IMPRESSION: Degenerative changes with joint space narrowing at the tibiotalar joint. There are orthopedic screws in the first and third metatarsals. There are no acute osseous abnormalities. Electronically Signed: Haroldo Nichols MD at 21:16 EST ,
[2024-07-08 08:00] LABS: Anion Gap 4 (5-15); BUN 12 mg/dL (7-18); BUN/Creat Ratio 14.4 RATIO (10-20); Calcium,Total 8.8 mg/dL (8.5-10.1); Chloride 109 mmol/L (98-107); Creatinine, Serum 0.83 mg/dL (0.55-1.02); EST Glomerular Filtration Rate 76 mL/min (>60); Est Glom Filt Rate - Afr Amer 91 mL/min (>60); Estimated Creatinine Clearance 87.02 ml/min; Glucose 98 mg/dL (74-106); Sodium Level 140 mmol/L (136-145)
--- NOTE | 2024-07-08 08:25 | WOUNDNOTE ---
Dr Gtz in this am to assess wound. cultures sent per Dr Gtz and dressing was applied.
--- NOTE | 2024-07-08 09:55 | CON.PCM.ID_ITS ---
Assessment & Plan Assessment/Plan (1) Left foot infection: PLAN: infected wound of L foot after extensive surgery 05/23/[address] Gtz with hardware placement. Bedside I&D this AM by Dr. Gtz, cx pending, cont vanc/zosyn. Will order picc. Will follow, thank you (2) Ulcerative colitis: (3) Diabetes: HPI Consult Data Date of Consult: 07/08/24 HPI Narrative HPI Narrative: MOUNIKA DUBON, is a 53 F with h/o ulcerative colitis, on remicade [id number], DM neuropathy, h/o cdiff about 2 years ago, presented with several days dehiscence of L foot after extensive surgery 05/23/[address] Gtz with hardware placement. Developed progressive pain, redness, minimal drainage. Started on po keflex but could not tolerate due to her IBD. Admitted here on 07/07, started vanc/zosyn. Abd doing better. No mucus in stool like prior cdiff. Full ROS performed and neg except as noted above. [facility] Medical History (Updated 07/08/24 @ 10:[address] Raheem Potter MD) Diabetes Kidney stones Kidney disease GI bleed DVT (deep venous thrombosis) Restless legs Back pain Ulcerative colitis History of pain when walking History of echocardiogram Insulin dependent diabetes mellitus Ambulates with cane Bladder disease High cholesterol Injury of head and neck Dietary restriction History of GI bleed History of diverticulitis Smoker History of edema Anxiety Asthma Irregular heart beat Vitamin D deficiency Type 2 diabetes mellitus Right shoulder pain Radiculitis, brachial Neuropathy of left foot Hypertension Lower leg edema Depression Colon polyp Chronic pain in left foot Arthritis ADHD Blood in stool Abdominal pain Home Medications ?Medication ?Instructions ?Recorded ?Last Taken ?Type albuterol sulfate 90 mcg/actuation 2 puff inhalation Q6H PRN Wheezing 04/07/22 Unknown History aerosol inhaler (ProAir HFA) cetirizine 10 mg tablet 10 mg PO DAILY allergies 04/07/22 06/25/23 History cholecalciferol (vitamin D3) 100 4,000 unit PO DAILY vitamin 04/07/22 06/25/23 History mcg (4,000 unit) tablet fluticasone propionate 50 2 spray intranasal BID allergies 04/07/22 06/25/23 History mcg/actuation nasal spray,suspension glipizide 2.5 mg tablet, extended 5 mg PO DAILY diabetes 04/07/22 06/25/23 History release 24 hr olopatadine 0.2 % eye drops 1 drp EACH EYE PRN PRN Allergy 06/13/22 06/25/23 History Symptoms losartan 100 mg tablet 100 mg PO DAILY 30 days #30 tabs 06/16/22 06/27/24 Rx atorvastatin 20 mg tablet 20 mg PO DAILY 07/10/22 06/25/23 History glucometer #1 ea 11/12/22 Unknown Rx insulin glargine 100 unit/mL (3 44 unit subcut QHS 06/22/23 05/22/24 History mL) subcutaneous pen (Lantus Solostar U-100 Insulin) insulin lispro 100 unit/mL 1 sliding scale dose subcut TID 01/19/24 Unknown History subcutaneous half-unit pen (Humalog Erik KwikPen (U-100)) dicyclomine 20 mg tablet 20 mg PO TID PRN abdominal pain 01/21/24 Unknown Rx #90 tabs multivitamin with minerals-folic 1 tab PO BID 01/21/24 Unknown History acid 120 mcg chewable tablet (Centrum Adult 50 Plus Fresh-Fruity) omega-3 fatty acids-fish oil 300 1 cap PO DAILY 01/21/24 Unknown History mg-1,000 mg capsule infliximab 100 mg intravenous See Rx Instructions .Route 01/29/24 Unknown Rx solution .COMPLEX #1 vial ascorbic acid (vitamin C) 1,000 mg 1 g PO DAILY 90 days #90 tabs 05/23/24 Unknown Rx tablet (Vitamin C) cyclobenzaprine 10 mg tablet 10 mg PO TID muscle spasm 7 days 05/23/24 Unknown Rx #21 tabs oxycodone-acetaminophen 5 mg-325 1 tab PO Q6H pain 5 days #20 tabs 05/23/24 06/27/24 03:30 Rx mg tablet (Percocet) oxycodone-acetaminophen 5 mg-325 1 tab PO Q6H PRN pain 7 days #28 05/27/24 Unknown Rx mg tablet (Percocet) tabs furosemide 20 mg tablet 20 mg PO DAILY 07/07/24 Unknown History hydroxyzine HCl 25 mg tablet 25 mg PO Q8 07/07/24 Unknown History lidocaine 5 % topical patch 3 patch topical Q12.TCU 07/07/24 Unknown History nystatin 100,000 unit/gram topical topical BID PRN PRN ABD FOLDS 07/07/24 Unknown History cream Allergy/AdvReac Type Severity Reaction Status Date / Time ciprofloxacin Allergy Severe Laryngospasms, Verified 07/07/24 15:01 itching morphine AdvReac Intermediate Nausea/Vom/ Verified 07/07/24 15:01 Diarrhea tramadol AdvReac Intermediate Nausea Verified 07/07/24 15:01 metformin (From Glucophage) AdvReac Abd Verified 07/07/24 15:01 cramps/diarrhea Family History Father Arthritis Diabetes Epilepsy Hypertension Heart disease Liver cancer Mother Hypertension Brother Diabetes Colon cancer Grandmother Colon cancer Stomach cancer Surgical History History of ankle surgery Hx of colonoscopy Previous section H/O: hysterectomy History of bunionectomy Social History Smoking Status: Current every day smoker tobacco type: cigarettes alcohol intake: current Physical Exam Const alert, oriented x3 and no apparent distress General Appearance: cooperative Eyes PERRL and EOMs intact bilaterally Neck supple and No nodes Resp normal air movement and clear to auscultation bilaterally Cardio regular rate and regular rhythm GI soft to palpation, non-tender and non-distended Extremity General Extremity: Negative for edema Skin Skin Narrative: L foot wrapped Neuro CN's II-XII intact bilaterally Lab / Micro Data Attestation: I reviewed the patient's lab results. 07/08/24 06:45 07/08/24 06:45 Labs: Laboratory Results - last 24 hr 07/07/24 13:50: WBC 8.8, RBC 4.76, Hgb 13.2, Hct 41.1, MCV 86.3, MCH 27.7, MCHC 32.1, RDW Std Deviation 41.1, RDW Coeff of Terra 13.1, Plt Count 277, MPV 11.5, Immature Gran % (Auto) 0.300, Neut % (Auto) 59.3, Lymph % (Auto) 31.7, Canadian % (Auto) 6.7, Eos % (Auto) 1.5, Baso % (Auto) 0.5, Absolute Neuts (auto) 5.2, Absolute Lymphs (auto) 2.79, Nucleated RBC % 0 07/07/24 15:20: Sodium 137, Potassium 4.0, Chloride 108 H, Carbon Dioxide 26.0, Anion Gap 4 L, BUN 11, Creatinine 0.80, Estim Creat Clear Calc 89.98, Est GFR (MDRD) Af Amer 97, Est GFR (MDRD) Non-Af 80, BUN/Creatinine Ratio 13.8, Glucose 194 H, Calcium 8.9 07/07/24 17:30: POC Glucose 113 H 07/07/24 22:29: POC Glucose 172 H 07/08/24 06:29: POC Glucose 96 07/08/24 06:45: WBC 7.0, RBC 4.37, Hgb 12.3, Hct 37.9, MCV 86.7, MCH 28.1, MCHC 32.5, RDW Std Deviation 41.1, RDW Coeff of Terra 13.0, Plt Count 226, MPV 10.5, Immature Gran % (Auto) 0.300, Neut % (Auto) 39.3 L, Lymph % (Auto) 47.4 H, Canadian % (Auto) 9.3, Eos % (Auto) 3.0, Baso % (Auto) 0.7, Absolute Neuts (auto) 2.7, Absolute Lymphs (auto) 3.30, Nucleated RBC % 0, Sodium 140, Potassium 4.0, C hloride 109 H, Carbon Dioxide 27.0, Anion Gap 4 L, BUN 12, Creatinine 0.83, Estim Creat Clear Calc 87.02, Est GFR (MDRD) Af Amer 91, Est GFR (MDRD) Non-Af 76, BUN/Creatinine Ratio 14.4, Glucose 98, Calcium 8.8 Micro: Microbiology 07/07/24 15:20 Blood Culture (Wb) - Anticubital Right Blood Culture - Preliminary No growth in 48 hours. 07/07/24 15:20 Blood Culture (Wb) - Anticubital Left Blood Culture - Preliminary No growth in 48 hours. 07/07/24 22:42 Stool Enteric Bacteriology - Final 07/07/24 22:42 Stool C. difficile GDH Antigen & Toxins - Final 07/07/24 22:42 Stool Clostridioides difficile (PCR) - Final Imaging Radiology Impression Shoulder X-Ray 07/07/24 15:45 IMPRESSION: No acute osseous abnormalities. There are degenerative changes with narrowing of the acromioclavicular joint. Electronically Signed: Haroldo Nichols MD at 17:30 EST , Foot X-Ray 07/07/24 19:39 IMPRESSION: Degenerative changes with joint space narrowing at the tibiotalar joint. There are orthopedic screws in the first and third metatarsals. There are no acute osseous abnormalities. Electronically Signed: Haroldo Nichols MD at 21:16 EST ,
[2024-07-08 10:35] VITALS: BP 164/71; PULSE 89; RESP 15; TEMP 36.9; O2SAT 96
--- NOTE | 2024-07-08 10:37 | CASEMGMT ---
Addendum entered by Myriam Geronimo 07/08/24 15:08: Received notification that [facility] is not active with pt. TC to Dr. Walls's office, received phone number for [facility] infusion. TC to [facility] who states they are not affiliated with [facility] and do not provide IV atb. Requested [facility] to proceed with referral at this time. Addendum entered by Myriam Geronimo 07/08/24 14:27: TC to [facility], spoke with [facility] faulkner who states cardiac rehab would be the dept to ask if they do picc dressing changes and labs as an outpt and they are gone for the day. MARY MCFARLAND to check back tomorrow. Addendum entered by Myriam Geronimo 07/08/24 14:08: Referral sent to [facility] via [facility]. Original Note: RN BRUNA Assessment: Face to Face with pt for initial transition planning/care coordination assessment. RN BRUNA introduced self and role at [facility], pt voices understanding and consents to assessment. Pt is A&O x4 and answers all questions at this time. Pt is very upset about a picc line and with questions RN BRUNA asking her. Pt nurse present in room for duration of assessment. Care providers, pharmacy, and demographics verified/updated. Admitting Dx: cellulitis of foot Strata Score: 2 PCP:Radha Specialists:callum Gtz; ESTRELLA Walls; joe Mercado Preferred Pharmacy: [facility] Insurance: [employer] [facility] Prescription Benefit: yes LNOK: Saeed Wolfe, - pt is currently but pt wishes to leave him as a contact. Living Arrangements: Pt lives with dtr and dtr's boyfriend in a split level home with 3-4 steps to enter. Pt states she is I in ADL/IADLs and orders groceries online. Pt denies concerns at home. Pt states she is staying with multiple people through this separation and does not have a permanent address. Updated SW. Transportation: Pt drives self and denies concerns with transportation. DME:cane, crutches, BGM with sufficient supply of strips and lancets, insulin with sufficient supply and needles HHC/SNF: Denies hx of Pt states no concerns with going home at time of dc. Pt states that she receives remicade infusions from a nurse every 2 mos for her UC from [facility]. Pt to receive picc line, discussed options should pt be dc'd on IV atb. 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 She is aware that if this is the case, she will need to go weekly for picc dressing changes and lab draws. Pt states she does not want to come to [facility] if she does not have to as this is approx 30 miles round trip. Discussed [facility] as a [facility] facility she can go to as an outpt, pt states she will not go to [facility]. Pt asks if [facility] is an option, MARY MCFARLAND to check on this. RN BRUNA will send referral to [facility] to see about setting up a teach at bedside should pt need IV atb. Pt does not want a list of other options for infusion as she already uses them. Pt states she was doing her own dressing changes prior to this hospitalization and states she can continue this. Pt is WBAT with no plans of OR during this stay. Pt states no further concerns/needs. CM to follow. Advised pt to ask CM if any further question/concerns/needs arise, voices understanding. Pt Goal: Home Plan: Home pending course of hospitalization, follow for IV atb- pt wants to do on own if need and go into [facility] for picc dressing and labs weekly. Sindhu HERNANDEZ CM
[2024-07-08] MEDS: Furosemide 20 MG Tablet PO (10:39)
[2024-07-08] MEDS: Loratadine 10 MG Tablet PO (10:39)
[2024-07-08] MEDS: Losartan Potassium 100 MG Tablet PO (10:39)
[2024-07-08] MEDS: Fluticasone 0.05% 1 SPRAY NASAL.SRY 2 SPRAY NASAL ×2 (10:40→23:26)
[2024-07-08] MEDS: Atorvastatin Calcium 20 MG Tablet PO (10:40)
[2024-07-08] MEDS: Enoxaparin 40 MG/0.4 ML Syringe SC ×2 (10:40→23:27)
[2024-07-08] MEDS: Arthritis Pain Compound 60 CLICK TUBE TOPICAL (10:41)
[2024-07-08] MEDS: Insulin Lispro 100 UNIT/ML INSULN.PEN SC ×2 (10:59→23:33)
[2024-07-08 11:20] LABS: Bedside Glucose 156 mg/dL (74-106)
--- NOTE | 2024-07-08 13:02 | CHAPLAIN ---
Type of Pastoral Visit _x__ Initial Visit ___ Follow-up Visit ___ On-call Visit ___ General Patient Visit ___ Spiritual Assessment ___ Family Conference ___ Bereavement ___ Rapid Response ___ Code Blue ___ Other (describe below) Pastoral Care Referral From _x__ Patient ___ Family ___ Nurse ___ Physician ___ General Superintendent ___ Statistics Tutor ___ Other (describe below) Sacrament/Intervention _x__ Active listening ___ Anointing ___ Amish _x__ Bereavement ___ Communion _x__ Kalee exploration ___ ___ Life review _x__ Prayer ___ Reconciliation ___ Sacrament of Sick _x__ Supportive presence ___ Wedding ___ Other (describe below) Pastoral Comments patient acknowledges her discouragement and weariness at length of her illness and not seeing better health; pt then admits to feelings of grief and loss as she mentions three family members deaths in recent months as well; pt states that she has not slept well in the hospital and keeps having interruptions; pt is offered compassionate listening and affirmation of her loss and grief feelings; pt is offered support; pt is asked about her coping abilities and what is positive; pt acknowledges that her family and her kalee are what she relies on; pt welcomes prayer and is offered future visits as she desires
--- NOTE | 2024-07-08 13:37 | PCM.PROGNOTE ---
Subjective Subjective Patient seen and examined. She was admitted with complaint of left foot infection due to a nonhealing surgical incision. She was started on Keflex on outpatient basis but developed diarrhea so came in to the ED for IV antibiotics. She still complains of nausea and diarrhea. She denies any fever or chills. Review of systems is otherwise negative. Objective Data Objective Data Vital Signs: Vital Signs Temp Pulse Resp BP Pulse Ox O2 Del Method 98.4 F 89 15 164/71 H 96 Room Air 07/08/24 10:35 07/08/24 10:35 07/08/24 10:35 07/08/24 10:35 07/08/24 10:35 07/08/24 10:35 Oxygen Delivery Method Room Air Weight: 226 lb 6.4 oz Body Mass Index (BMI) 41.3 Intake & Output: Intake and Output for Last 24 Hours 07/06/24 07/07/24 07/08/24 23:59 23:59 23:59 Intake Total 940 / 940 640 / 640 Balance 940 / 940 640 / 640 Lab / Micro Data 07/08/24 06:45 07/08/24 06:45 Labs: Laboratory Results - last 24 hr 07/07/24 13:50: WBC 8.8, RBC 4.76, Hgb 13.2, Hct 41.1, MCV 86.3, MCH 27.7, MCHC 32.1, RDW Std Deviation 41.1, RDW Coeff of Terra 13.1, Plt Count 277, MPV 11.5, Immature Gran % (Auto) 0.300, Neut % (Auto) 59.3, Lymph % (Auto) 31.7, [place]anan % (Auto) 6.7, Eos % (Auto) 1.5, Baso % (Auto) 0.5, Absolute Neuts (auto) 5.2, Absolute Lymphs (auto) 2.79, Nucleated RBC % 0 07/07/24 15:20: Sodium 137, Potassium 4.0, Chloride 108 H, Carbon Dioxide 26.0, Anion Gap 4 L, BUN 11, Creatinine 0.80, Estim Creat Clear Calc 89.98, Est GFR (MDRD) Af Amer 97, Est GFR (MDRD) Non-Af 80, BUN/Creatinine Ratio 13.8, Glucose 194 H, Calcium 8.9 07/07/24 17:30: POC Glucose 113 H 07/07/24 22:29: POC Glucose 172 H 07/08/24 06:29: POC Glucose 96 07/08/24 06:45: WBC 7.0, RBC 4.37, Hgb 12.3, Hct 37.9, MCV 86.7, MCH 28.1, MCHC 32.5, RDW Std Deviation 41.1, RDW Coeff of Terra 13.0, Plt Count 226, MPV 10.5, Immature Gran % (Auto) 0.300, Neut % (Auto) 39.3 L, Lymph % (Auto) 47.4 H, Buchanan % (Auto) 9.3, Eos % (Auto) 3.0, Baso % (Auto) 0.7, Absolute Neuts (auto) 2.7, Absolute Lymphs (auto) 3.30, Nucleated RBC % 0, Sodium 140, Potassium 4.0, Chloride 109 H, Carbon Dioxide 27.0, Anion Gap 4 L, BUN 12, Creatinine 0.83, Estim Creat Clear Calc 87.02, Est GFR (MDRD) Af Amer 91, Est GFR (MDRD) Non-Af 76, BUN/Creatinine Ratio 14.4, Glucose 98, Calcium 8.8 07/08/24 10:58: POC Glucose 156 H Micro: Microbiology 07/07/24 15:20 Blood Culture (Wb) - Anticubital Right Blood Culture - Preliminary No growth in 48 hours. 07/07/24 15:20 Blood Culture (Wb) - Anticubital Left Blood Culture - Preliminary No growth in 48 hours. 07/07/24 22:42 Stool Enteric Bacteriology - Final 07/07/24 22:42 Stool C. difficile GDH Antigen & Toxins - Final 07/07/24 22:42 Stool Clostridioides difficile (PCR) - Final Radiography Diagnostic Testing: Radiology Impression Shoulder X-Ray 07/07/24 15:45 IMPRESSION: No acute osseous abnormalities. There are degenerative changes with narrowing of the acromioclavicular joint. Electronically Signed: Haroldo Nichols MD at 17:30 EST , Foot X-Ray 07/07/24 19:39 IMPRESSION: Degenerative changes with joint space narrowing at the tibiotalar joint. There are orthopedic screws in the first and third metatarsals. There are no acute osseous abnormalities. Electronically Signed: Haroldo Nichols MD at 21:16 EST , Physical Exam Const alert, oriented x3, no apparent distress and well nourished General Appearance: cooperative and well developed HEENT normocephalic, head/scalp atraumatic, EAC's normal and TM's normal bilaterally Eyes PERRL and EOMs intact bilaterally Neck no lymphadenopathy and supple Lymph Lymphatic: no lymphadenopathy noted and no lymphedema noted Resp normal respiratory effort, normal air movement and clear to auscultation bilaterally Cardio regular rate, regular rhythm, S1 normal heart sound, S2 normal heart sound and no murmurs Peripheral Pulses: pulses 2+ throughout GI normal to inspection, nondistended, normoactive bowel sounds, soft to palpation, non-tender and non-distended Extremity Extremity Narrative: left foot wrapped in bandage. Skin Skin Narrative: as under extremities Neuro CN's II-XII intact bilaterally, no focal motor deficits and no sensory deficits noted Motor Exam: general weakness Psych thought process normal, cooperative and affect normal Appearance: appropriate Assessment & Plan Assessment/Plan (1) Cellulitis of left ankle: PLAN: Plan #Left foot surgical site infection with nonhealing wound Patient had surgery on her foot in early May 2024. Wound has however not been healing. She was placed on Keflex on outpatient basis but started having diarrhea so came into the ED. Wound cultures ordered. Podiatry consulted. ID also on board. Had bedside debridement done by podiatry this morning. On IV vancomycin and Zosyn. Likely need long-term antibiotics show PICC line ordered per ID. #Diarrhea Patient started having diarrhea after starting to take Keflex. She does have a history of ulcerative colitis. C. difficile positive for the antigen but negative for the toxin. In light of her continued diarrhea will start on p.o. vancomycin for 10-day course. #Right shoulder pain Says she fell and landed on her right shoulder. She complains of a bump over her right shoulder which is tender. X-ray however showed no acute pathology. PT OT on board. Fall precautions. P.o. Tylenol p.o. oxycodone for pain #Type 2 diabetes mellitus: On Lantus.; Usually on Lantus 44 units daily but this was cut down to 20 units daily on admission due to hypoglycemia. Insulin sliding scale. Accuchecks ACHS. #Hypertension: On losartan. IV hydralazine as needed. #History of ulcerative colitis #Morbid obesity: BMI is 41.4. Complicates acute care, expected recovery and prognosis #DVT prophylaxis: Lovenox twice daily Charges/Coding Visit Charges Inpatient E&M: 26276 Subs Hosp L3
[2024-07-08 16:30] VITALS: BP 143/90; PULSE 88; RESP 14; TEMP 36.5; O2SAT 96
[2024-07-08] MEDS: Vancomycin 125 MG/5 ML Susp PO.SYRINGE PO (16:53)
[2024-07-08 17:22] LABS: Bedside Glucose 98 mg/dL (74-106)
[2024-07-08 20:27] VITALS: BP 143/82; PULSE 82; RESP 15; TEMP 36.8; O2SAT 97
[2024-07-08] MEDS: Insulin Glargine-YFGN 100 UNIT/ML Pen 20 UNIT SC (23:34)
[2024-07-09 00:28] LABS: Bedside Glucose 183 mg/dL (74-106)
[2024-07-09 04:51] LABS: Vancomycin, Trough Level 22.2 ug/mL (5.0-15.0)
--- NOTE | 2024-07-09 05:16 | PCM.RX.CS ---
Consult Antibiotic Management Pharmacy has been consulted to manage selected antibiotic: Vancomycin Type of Intervention Type of Consult: Follow-up Labs Labs: Sodium 140 mmol/L (136-145) 07/08/24 06:45 Potassium 4.0 mmol/L (3.5-5.1) 07/08/24 06:45 Chloride 109 mmol/L (98-107) H 07/08/24 06:45 Carbon Dioxide 27.0 mmol/L (21.0-32.0) 07/08/24 06:45 Anion Gap 4 (5-15) L 07/08/24 06:45 BUN 12 mg/dL (7-18) 07/08/24 06:45 Creatinine 0.83 mg/dL (0.55-1.02) 07/08/24 06:45 Est GFR (MDRD) Af Amer 91 mL/min (>60) 07/08/24 06:45 Est GFR (MDRD) Non-Af 76 mL/min (>60) 07/08/24 06:45 BUN/Creatinine Ratio 14.4 RATIO (10-20) 07/08/24 06:45 Glucose 98 mg/dL (74-106) 07/08/24 06:45 Vancomycin Trough 22.2 ug/mL (5.0-15.0) H 07/09/24 03:57 Microbiology Microbiology: Microbiology 07/07/24 20:20 Wound - Left Foot Gram Stain - Final 07/07/24 15:20 Blood Culture (Wb) - Anticubital Right Blood Culture - Preliminary No growth in 48 hours. 07/07/24 15:20 Blood Culture (Wb) - Anticubital Left Blood Culture - Preliminary No growth in 48 hours. 07/07/24 22:42 Stool Enteric Bacteriology - Final 07/07/24 22:42 Stool C. difficile GDH Antigen & Toxins - Final 07/07/24 22:42 Stool Clostridioides difficile (PCR) - Final Goal Trough Goal Trough: 15-20 mcg/mL Pharmacy Plan for Drug Dosing Pharmacy Plan for Drug Dosing: Pharmacy Service will continue to monitor and adjust dosing as required. TROUGH 22.2 @ 11 HOURS. HOLD DOSE AND DRAW RANDOM LEVEL IN 8 HOURS. Follow-Up Labs Follow-Up Labs: Trough: Vancomycin Date/Time Labs Ordered Labs to be done on [date and time ordered]: 07/09 @ 1130
[2024-07-09 06:00] VITALS: BP 156/92; PULSE 87; RESP 15; TEMP 36.4; O2SAT 94
[2024-07-09] MEDS: Acetaminophen 500 MG Tablet 1000 MG PO ×3 (06:30→21:23)
[2024-07-09] MEDS: cycloBENZAPRine HCl 10 MG Tablet PO ×3 (06:30→21:23)
[2024-07-09] MEDS: Piperacil/Tazobactam 3.375 GM in 0.9% Normal Saline (50mL MB+) 50 ML IV ×3 (06:31→21:22)
[2024-07-09] MEDS: oxyCODONE 5 MG Tablet PO ×3 (06:40→20:38)
[2024-07-09 07:57] LABS: Bedside Glucose 120 mg/dL (74-106)
[2024-07-09 08:35] LABS: Absolute Lymphocyte Count 2.26 X10^3/uL (0.83-4.51); Absolute Neutrophil Count 3.8 X10^3/uL (2.0-7.7); Basophil# 0.04 X10^3/uL; Basophil% 0.6 % (0-1); Eosinophil# 0.25 X10^3/uL; Eosinophils% 3.6 % (0-5); Hematocrit 40.4 % (37-47); Hemoglobin 13.3 g/dL (12.0-15.0); Lymphocyte # 2.26 X10^3/ul (0.83-4.51); Lymphocyte % 32.6 % (19-41); Mean Corp Hgb Conc 32.9 g/dL (32-36); Mean Corpuscular Hgb 28.1 pg (27.0-32.0); Mean Corpuscular Volume 85.4 fL (81-99); Monocyte# 0.62 X10^3/uL; Monocyte% 8.9 % (0-10); NRBC Flagged by Analyzer 0 % (0-5); Neutrophil # 3.75 X10^3/uL (2.7-7.7); Platelet Count 230 K/mm3 (150-450); RBC Distribution Width CV 12.8 % (11.6-14.6); RBC Distribution Width SD 39.2 fl (35.1-43.9); Red Blood Count 4.73 M/mm3 (4.2-5.4); White Blood Count 6.9 K/mm3 (4.4-11.0)
[2024-07-09 09:02] LABS: Anion Gap 3 (5-15); BUN 16 mg/dL (7-18); BUN/Creat Ratio 18.1 RATIO (10-20); Calcium,Total 9.1 mg/dL (8.5-10.1); Chloride 106 mmol/L (98-107); Creatinine, Serum 0.88 mg/dL (0.55-1.02); EST Glomerular Filtration Rate 71 mL/min (>60); Est Glom Filt Rate - Afr Amer 85 mL/min (>60); Estimated Creatinine Clearance 82.07 ml/min; Glucose 118 mg/dL (74-106); Sodium Level 139 mmol/L (136-145)
[2024-07-09] MEDS: Furosemide 20 MG Tablet PO (09:51)
[2024-07-09] MEDS: Loratadine 10 MG Tablet PO (09:51)
[2024-07-09] MEDS: Fluticasone 0.05% 1 SPRAY NASAL.SRY 2 SPRAY NASAL ×2 (09:51→21:23)
[2024-07-09] MEDS: Atorvastatin Calcium 20 MG Tablet PO (09:51)
[2024-07-09] MEDS: Arthritis Pain Compound 60 CLICK TUBE TOPICAL ×2 (09:52→21:23)
[2024-07-09] MEDS: Enoxaparin 40 MG/0.4 ML Syringe SC ×2 (09:59→21:23)
[2024-07-09 10:00] VITALS: BP 153/93; PULSE 84; RESP 12; TEMP 36.8; O2SAT 96
--- NOTE | 2024-07-09 12:01 | PN_ITS ---
Subjective Subjective Patient seen and examined. She had no active complaints. Review of systems is otherwise negative. She has remained hemodynamically stable. Objective Data Objective Data Vital Signs: Vital Signs Temp Pulse Resp BP Pulse Ox O2 Del Method 97.5 F L 87 15 156/92 H 94 Room Air 07/09/24 06:00 07/09/24 06:00 07/09/24 06:00 07/09/24 06:00 07/09/24 06:00 07/09/24 06:00 Oxygen Delivery Method Room Air Weight: 226 lb 6.4 oz Body Mass Index (BMI) 41.3 Intake & Output: Intake and Output for Last 24 Hours 07/07/24 07/08/24 07/09/24 23:59 23:59 23:59 Intake Total 940 / 940 1330 / 1330 100 / 100 Balance 940 / 940 1330 / 1330 100 / 100 Lab / Micro Data 07/09/24 08:05 07/09/24 08:05 Labs: Laboratory Results - last 24 hr 07/08/24 16:52: POC Glucose 98 07/08/24 23:32: POC Glucose 183 H 07/09/24 03:57: Vancomycin Trough 22.2 H 07/09/24 06:27: POC Glucose 120 H 07/09/24 08:05: WBC 6.9, RBC 4.73, Hgb 13.3, Hct 40.4, MCV 85.4, MCH 28.1, MCHC 32.9, RDW Std Deviation 39.2, RDW Coeff of Terra 12.8, Plt Count 230, MPV 11.0, Immature Gran % (Auto) 0.300, Neut % (Auto) 54.0, Lymph % (Auto) 32.6, Ross % (Auto) 8.9, Eos % (Auto) 3.6, Baso % (Auto) 0.6, Absolute Neuts (auto) 3.8, Absolute Lymphs (auto) 2.26, Nucleated RBC % 0, Sodium 139, Potassium 4.0, Chloride 106, Carbon Dioxide 30.0, Anion Gap 3 L, BUN 16, Creatinine 0.88, Estim Creat Clear Calc 82.07, Est GFR (MDRD) Af Amer 85, Est GFR (MDRD) Non-Af 71, BUN/Creatinine Ratio 18.1, Glucose 118 H, Calcium 9.1 Micro: Microbiology 07/07/24 20:20 Wound - Left Foot Gram Stain - Final 07/07/24 20:20 Wound - Left Foot Wound Culture - Preliminary Mixed Gram Positive Organisms 07/07/24 15:20 Blood Culture (Wb) - Anticubital Right Blood Culture - Preliminary No growth in 48 hours. 07/07/24 15:20 Blood Culture (Wb) - Anticubital Left Blood Culture - Preliminary No growth in 48 hours. 07/07/24 22:42 Stool Enteric Bacteriology - Final 07/07/24 22:42 Stool C. difficile GDH Antigen & Toxins - Final 07/07/24 22:42 Stool Clostridioides difficile (PCR) - Final Physical Exam Const alert, oriented x3, no apparent distress and well nourished General Appearance: cooperative and well developed HEENT normocephalic, head/scalp atraumatic, EAC's normal and TM's normal bilaterally Eyes PERRL and EOMs intact bilaterally Neck no lymphadenopathy and supple Lymph Lymphatic: no lymphadenopathy noted and no lymphedema noted Resp normal respiratory effort, normal air movement and clear to auscultation bilaterally Cardio regular rate, regular rhythm, S1 normal heart sound, S2 normal heart sound and no murmurs Peripheral Pulses: pulses 2+ throughout GI normal to inspection, nondistended, normoactive bowel sounds, soft to palpation, non-tender and non-distended Extremity Extremity Narrative: left foot wrapped in bandage. Skin Skin Narrative: as under extremities Neuro CN's II-XII intact bilaterally, no focal motor deficits and no sensory deficits noted Motor Exam: general weakness Psych thought process normal, cooperative and affect normal Appearance: appropriate Assessment & Plan Assessment/Plan (1) Cellulitis of left ankle: PLAN: Plan #Left foot surgical site infection with nonhealing wound * Patient had surgery on her foot in early May 2024. Wound has however not been healing. * She was placed on Keflex on outpatient basis but started having diarrhea so came into the ED. * Wound cultures ordered. Podiatry consulted. ID also on board. * Had bedside debridement done by podiatry. On IV vancomycin and Zosyn. * ID on board. * PICC line inserted for snf antibiotics. * wound cultures pending. * * #Diarrhea * Patient started having diarrhea after starting to take Keflex. She does have a history of ulcerative colitis. * diarrhea has stopped. C. difficile positive for the antigen but negative for the toxin. * oral vancomycin dc'd as she has a history of C diff which is likely accounting for hte positive antigen; she is however not having any more diarrhea. * #Right shoulder pain * Says she fell and landed on her right shoulder. X-ray however showed no acute pathology. * PT OT on board. Fall precautions. P.o. Tylenol p.o. oxycodone for pain #Type 2 diabetes mellitus: * On Lantus.; Usually on Lantus 44 units daily but this was cut down to 20 units daily on admission due to hypoglycemia. Insulin sliding scale. Accuchecks ACHS. #Hypertension: On losartan. IV hydralazine as needed. #History of ulcerative colitis #Morbid obesity: BMI is 41.4. Complicates acute care, expected recovery and prognosis #DVT prophylaxis: Lovenox twice daily Charges/Coding Visit Charges Inpatient E&M: 18028 Subs Hosp L2
[2024-07-09] MEDS: Losartan Potassium 100 MG Tablet PO (12:05)
[2024-07-09] MEDS: Insulin Lispro 100 UNIT/ML INSULN.PEN SC ×3 (12:06→21:27)
--- NOTE | 2024-07-09 12:09 | CASEMGMT ---
Addendum entered by Myriam Geronimo 07/09/24 15:57: MARY MCFARLAND into pt room to make aware that once the IV atb is determined, [facility] will do a bedside teach for her to do her atb at home. She is aware that she can go to [facility] for her picc dressing and labs weekly. She is aware the cardiac rehab nurse will do this and this will be set up for her. Pt is aware that [facility] will provide the IV medication but it is a different entity then where she gets her remicade. Pt denies any questions and verbalizes understanding. Handoff given to Jennifer Garrett RN, CM. Addendum entered by Myriam Geronimo 07/09/24 12:23: Picc insertion information sent to [facility] via [employer]. Original Note: TC to [facility], spoke to cardiac rehab nurse Francheska who states they are able to do a picc dressing change and labs weekly. She states that an order is needed and faxed to [phone]. The nurses will be available to schedule until Sunday at approx 1-1:30pm. There is availability on Sunday to be scheduled. Francheska is aware that a final rx has not been given yet as cultures are pending.
[2024-07-09 12:13] LABS: Bedside Glucose 167 mg/dL (74-106)
[2024-07-09 12:53] LABS: Vancomycin, Random Level 14.9 ug/mL (0.0-15.0)
--- NOTE | 2024-07-09 13:23 | WOUNDNOTE ---
wound photo: left foot
--- NOTE | 2024-07-09 13:49 | PHA.PHARE_ITS ---
Consult Antibiotic Management Pharmacy has been consulted to manage selected antibiotic: Vancomycin Type of Intervention Type of Consult: Follow-up Suspected Infection Suspected Infection: Skin/Soft tissue Prior Doses of Antibiotics Prior Doses of Antibiotics Received/Current Regimen: the patient was on vanc 2000mg IV q12h until it was held early today due to a hi gh trough Labs Labs: Sodium 139 mmol/L (136-145) 07/09/24 08:05 Potassium 4.0 mmol/L (3.5-5.1) 07/09/24 08:05 Chloride 106 mmol/L (98-107) 07/09/24 08:05 Carbon Dioxide 30.0 mmol/L (21.0-32.0) 07/09/24 08:05 Anion Gap 3 (5-15) L 07/09/24 08:05 BUN 16 mg/dL (7-18) 07/09/24 08:05 Creatinine 0.88 mg/dL (0.55-1.02) 07/09/24 08:05 Est GFR (MDRD) Af Amer 85 mL/min (>60) 07/09/24 08:05 Est GFR (MDRD) Non-Af 71 mL/min (>60) 07/09/24 08:05 BUN/Creatinine Ratio 18.1 RATIO (10-20) 07/09/24 08:05 Glucose 118 mg/dL (74-106) H 07/09/24 08:05 Vancomycin Trough 22.2 ug/mL (5.0-15.0) H 07/09/24 03:57 Random Vancomycin 14.9 ug/mL (0.0-15.0) 07/09/24 12:00 Microbiology Microbiology: Microbiology 07/07/24 20:20 Wound - Left Foot Gram Stain - Final 07/07/24 20:20 Wound - Left Foot Wound Culture - Preliminary Mixed Gram Positive Organisms 07/07/24 15:20 Blood Culture (Wb) - Anticubital Right Blood Culture - Preliminary No growth in 48 hours. 07/07/24 15:20 Blood Culture (Wb) - Anticubital Left Blood Culture - Preliminary No growth in 48 hours. 07/07/24 22:42 Stool Enteric Bacteriology - Final 07/07/24 22:42 Stool C. difficile GDH Antigen & Toxins - Final 07/07/24 22:42 Stool Clostridioides difficile (PCR) - Final Dosing Weight Weight used for dosin kg Estimated Creatinine Clearance Estimated Creatinine Clearance: 82 ml/min Goal Trough Goal Trough: 15-20 mcg/mL Pharmacy Plan for Drug Dosing Pharmacy Plan for Drug Dosing: The vanc random level drawn at 12:00 today was 14.9. This is back below 20 so will restart at a newly calculated dose of 1500mg IV q12h. Will check a trough before the 4th dose. Pharmacy Service will continue to monitor and adjust dosing as required. Follow-Up Labs Follow-Up Labs: Trough: Vancomycin Date/Time Labs Ordered Labs to be done on [date and time ordered]: 07/11/24 01:30
--- NOTE | 2024-07-09 13:58 | PCM.PN.ID ---
Physical Exam Narrative Feeling better, foot improved, no fever, no n/v/d. Const alert and no apparent distress General Appearance: cooperative Resp normal air movement and clear to auscultation bilaterally Cardio regular rate and regular rhythm GI soft to palpation, non-tender and non-distended Skin Skin Narrative: foot wrapped ID ID: Route of nutrition/ use of supplements: [] Nutritional Intake: [] IV Site: [] Raines Catheter: [] Assessment & Plan Assessment/Plan (1) Left foot infection: PLAN: infected wound of L foot after extensive surgery 05/23/[address] Gtz with hardware placement. Bedside I&D this AM by Dr. Gtz, cx pending, cont vanc/zosyn. Picc in place. Will follow (2) Ulcerative colitis: (3) Diabetes:
[2024-07-09 14:00] VITALS: BP 151/100; PULSE 96; RESP 14; TEMP 36.6; O2SAT 95
[2024-07-09] MEDS: Vancomycin HCl 1,500 MG in 0.9% Normal Saline (500mL Bag) 500 ML 250 MG IV (14:36)
[2024-07-09] MEDS: 0.9% Saline Lock 10 ML Syringe IV (14:41)
[2024-07-09] MEDS: 0.9% Normal Saline (100mL Bag) 100 ML 15 ML IV (14:42)
[2024-07-09 17:16] LABS: Bedside Glucose 221 mg/dL (74-106)
[2024-07-09 21:21] VITALS: BP 115/63; PULSE 87; RESP 16; TEMP 36.5; O2SAT 94
[2024-07-09] MEDS: Insulin Glargine-YFGN 100 UNIT/ML Pen 20 UNIT SC (21:27)
[2024-07-09 21:54] LABS: Bedside Glucose 199 mg/dL (74-106)
[2024-07-10 02:52] VITALS: BP 144/72; PULSE 81; RESP 16; TEMP 36.6; O2SAT 95
[2024-07-10] MEDS: Vancomycin HCl 1,500 MG in 0.9% Normal Saline (500mL Bag) 500 ML 250 MG IV ×2 (02:52→13:43)
[2024-07-10] MEDS: Acetaminophen 500 MG Tablet 1000 MG PO ×3 (05:50→21:16)
[2024-07-10] MEDS: cycloBENZAPRine HCl 10 MG Tablet PO ×2 (05:50→21:18)
[2024-07-10] MEDS: Piperacil/Tazobactam 3.375 GM in 0.9% Normal Saline (50mL MB+) 50 ML IV ×3 (05:51→21:12)
[2024-07-10 06:44] LABS: Bedside Glucose 132 mg/dL (74-106)
[2024-07-10 09:30] VITALS: BP 125/65; PULSE 86; RESP 18; TEMP 36.6; O2SAT 95
[2024-07-10] MEDS: Fluticasone 0.05% 1 SPRAY NASAL.SRY 2 SPRAY NASAL ×2 (09:37→21:15)
[2024-07-10] MEDS: Furosemide 20 MG Tablet PO (09:37)
[2024-07-10] MEDS: Loratadine 10 MG Tablet PO (09:37)
[2024-07-10] MEDS: Enoxaparin 40 MG/0.4 ML Syringe SC ×2 (09:37→21:16)
[2024-07-10] MEDS: Losartan Potassium 100 MG Tablet PO (09:37)
[2024-07-10] MEDS: Atorvastatin Calcium 20 MG Tablet PO (09:38)
[2024-07-10] MEDS: oxyCODONE 5 MG Tablet PO ×2 (09:46→19:22)
--- NOTE | 2024-07-10 10:09 | PCM.PN.ID ---
Physical Exam Narrative Feeling ok, no fever, pain in foot improved Const alert and no apparent distress Resp normal air movement and clear to auscultation bilaterally Cardio regular rate and regular rhythm GI soft to palpation, non-tender and non-distended Skin Skin Narrative: no new rash, foot wrapped ID ID: Route of nutrition/ use of supplements: [] Nutritional Intake: [] IV Site: [] Raines Catheter: [] Assessment & Plan Assessment/Plan (1) Left foot infection: PLAN: infected wound of L foot after extensive surgery 05/23/[address] Gtz with hardware placement. Bedside I&D done by Dr. Gtz, cx with GNR and gram pos so far, cont vanc/zosyn. Picc in place. Plan on 6 weeks iv abx then long course po suppression. Will follow, d/w outpatient case manager (2) Ulcerative colitis: (3) Diabetes:
--- NOTE | 2024-07-10 11:37 | PN_ITS ---
Subjective Subjective Mrs. Wolfe is a 53-year-old diabetic female seen at bedside today for evaluation of left foot incision infection. Patient denies any pain to the left foot at this time. She does have her PICC line placed. No acute events overnight. Denies trauma. Denies constitutional symptoms. No other pedal complaints at this time. Objective Data Objective Data Vital Signs: Vital Signs Temp Pulse Resp BP Pulse Ox O2 Del Method 98 F 86 18 125/65 H 95 Room Air 07/10/24 09:30 07/10/24 09:30 07/10/24 09:30 07/10/24 09:30 07/10/24 09:30 07/10/24 09:30 Oxygen Delivery Method Room Air Weight: 102.693 kg Body Mass Index (BMI) 41.3 Intake & Output: Intake and Output for Last 24 Hours 07/08/24 07/09/24 07/10/24 23:59 23:59 23:59 Intake Total 1330 / 1330 780 / 980 1030 / 1030 Balance 1330 / 1330 780 / 980 1030 / 1030 Lab / Micro Data 07/09/24 08:05 07/09/24 08:05 Labs: Laboratory Results - last 24 hr 07/09/24 11:49: POC Glucose 167 H 07/09/24 12:00: Random Vancomycin 14.9 07/09/24 16:46: POC Glucose 221 H 07/09/24 21:26: POC Glucose 199 H 07/10/24 06:22: POC Glucose 132 H Micro: Microbiology 07/08/24 07:30 Wound - Left Foot Gram Stain - Final 07/08/24 07:30 Wound - Left Foot Wound Culture - Preliminary Cedecea davisae Gram positive organism 07/08/24 07:30 Wound - Left Foot Anaerobic Culture - Preliminary 07/07/24 20:20 Wound - Left Foot Gram Stain - Final 07/07/24 20:20 Wound - Left Foot Wound Culture - Final Coag Negative Staph Gram positive jose 07/07/24 15:20 Blood Culture (Wb) - Anticubital Right Blood Culture - Preliminary No growth in 48 hours. 07/07/24 15:20 Blood Culture (Wb) - Anticubital Left Blood Culture - Preliminary No growth in 48 hours. 07/07/24 22:42 Stool Enteric Bacteriology - Final 07/07/24 22:42 Stool C. difficile GDH Antigen & Toxins - Final 07/07/24 22:42 Stool Clostridioides difficile (PCR) - Final Physical Exam Narrative Vascular: DP and PT pulses are palpable to left lower extremity. CFT is brisk. Skin temp great is warm to warm from proximal ankles to distal digits to left lower extremity. Skin temperature and turgor is within normal limits. Nonpitting edema appreciated to the left lower extremity. Neurological: Light touch intact. Patient does respond to painful stimuli. Neurological: Full-thickness ulceration to the left anterior medial ankle measuring 1.5 x 1.0 x 1.0 cm. Wound base is fibrogranular nature. Positive probe to muscle. No malodor. No drainage. Musculoskeletal: Mild palpatory tenderness appreciated to the full-thickness wound to the left lower extremity. No pain with calf pressure. 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 All findings were discussed with the patient. All questions were answered to the patient satisfaction. Patient wound is stable at this time. Will continue Betadine soaked gauze dry sterile dressing and single-layer Souza compression bandage with surgical shoe to the left foot with physician assistant primary care of crutches to be partial weightbearing. Educated the patient continue strict blood sugar control. Left foot wound cultures: Aysha brandt Gm(+) organism Medicine: On board, medical management Infectious disease: On board, PICC line placed, continue Vanco/Zosyn. Plan for 6-week IV antibiotics and long course p.o. suppression Patient is cleared from a podiatry perspective to discharge home when cleared by medicine and infectious disease team. Patient will follow-up at wound care center for evaluation and treatment. Podiatry will continue to follow but at a distance. Please reach out to Dr. Gtz for any questions or concerns. (2) Cellulitis of left ankle: (3) Acute painful diabetic polyneuropathy: (4) Other specified peripheral vascular diseases:
[2024-07-10 12:06] LABS: Bedside Glucose 113 mg/dL (74-106)
--- NOTE | 2024-07-10 13:15 | CASEMGMT ---
MARY MCFARLAND received order for PICC dressing change and lab work. Sent to [facility]. Informed they are not able to accept patient. Notified Pt of this. Pt wanted MARY MCFARLAND to contact [facility] in [place]. Called and spoke with the facility, they do not handle dressing changes, only lab work. Pt agreeable to [facility], requested to have it be on the same day as Wound Center appointment. Pt states she does not have gas money to make several trips to [place]. Called Infusion center, schedule appointment for Pt at 9:30 am, before 10 am appointment at the wound center. Notified Pt. Pt crying, concerned about finances. Asked Pt if ok to have SW come and speak with her about resources. Pt agreeable. Notified SW.
--- NOTE | 2024-07-10 13:42 | CASEMGMT ---
Social Work- SW met with pt to offer support and provide community resources, as pt mentioned to RNCM that she was concerned about finances for gas to appointments. SW provided emotional support via active, empathetic listening. SW provided printed materials for [employer], food assistance/pantries/hot meals, SNAP, transportation including [employer] transportation, financial assistance, and disability. Pt declined mental health resources. Pt reports that she has seven siblings and three children that she has for support. Pt currently uses a denominational for food and lives with a relative. Pt is working with a automobile parker for disability. Pt is still legally . Pt reports that she has $126 to her name. Pt states no other needs at this time. CHRISTIANNE Camp
--- NOTE | 2024-07-10 13:57 | PN_ITS ---
Subjective Subjective Patient seen and examined. She had no active complaints and had an uneventful night. Review of systems is otherwise negative. She has remained hemodynamically stable. Objective Data Objective Data Vital Signs: Vital Signs Temp Pulse Resp BP Pulse Ox O2 Del Method 98 F 86 18 125/65 H 95 Room Air 07/10/24 09:30 07/10/24 09:30 07/10/24 09:30 07/10/24 09:30 07/10/24 09:30 07/10/24 09:30 Oxygen Delivery Method Room Air Weight: 226 lb 6.4 oz Body Mass Index (BMI) 41.3 Intake & Output: Intake and Output for Last 24 Hours 07/08/24 07/09/24 07/10/24 23:59 23:59 23:59 Intake Total 1330 / 1330 780 / 980 1030 / 1030 Balance 1330 / 1330 780 / 980 1030 / 1030 Lab / Micro Data 07/09/24 08:05 07/09/24 08:05 Labs: Laboratory Results - last 24 hr 07/09/24 16:46: POC Glucose 221 H 07/09/24 21:26: POC Glucose 199 H 07/10/24 06:22: POC Glucose 132 H 07/10/24 11:48: POC Glucose 113 H Micro: Microbiology 07/08/24 07:30 Wound - Left Foot Gram Stain - Final 07/08/24 07:30 Wound - Left Foot Wound Culture - Preliminary Cedecea davisae Gram positive organism 07/08/24 07:30 Wound - Left Foot Anaerobic Culture - Preliminary 07/07/24 20:20 Wound - Left Foot Gram Stain - Final 07/07/24 20:20 Wound - Left Foot Wound Culture - Final Coag Negative Staph Gram positive jose 07/07/24 15:20 Blood Culture (Wb) - Anticubital Right Blood Culture - Preliminary No growth in 48 hours. 07/07/24 15:20 Blood Culture (Wb) - Anticubital Left Blood Culture - Preliminary No growth in 48 hours. 07/07/24 22:42 Stool Enteric Bacteriology - Final 07/07/24 22:42 Stool C. difficile GDH Antigen & Toxins - Final 07/07/24 22:42 Stool Clostridioides difficile (PCR) - Final Physical Exam Const alert, oriented x3, no apparent distress and well nourished General Appearance: cooperative and well developed HEENT normocephalic, head/scalp atraumatic, EAC's normal and TM's normal bilaterally Eyes PERRL and EOMs intact bilaterally Neck no lymphadenopathy and supple Lymph Lymphatic: no lymphadenopathy noted and no lymphedema noted Resp normal respiratory effort, normal air movement and clear to auscultation bilaterally Cardio regular rate, regular rhythm, S1 normal heart sound, S2 normal heart sound and no murmurs Peripheral Pulses: pulses 2+ throughout GI normal to inspection, nondistended, normoactive bowel sounds, soft to palpation, non-tender and non-distended Extremity Extremity Narrative: left foot wrapped in bandage. Skin Skin Narrative: as under extremities Neuro CN's II-XII intact bilaterally, no focal motor deficits and no sensory deficits noted Motor Exam: general weakness Psych thought process normal, cooperative and affect normal Appearance: appropriate Assessment & Plan Assessment/Plan (1) Cellulitis of left ankle: PLAN: Plan #Left foot surgical site infection with nonhealing wound * Patient had surgery on her foot in early May 2024. Wound has however not been healing. * She was placed on Keflex on outpatient basis but started having diarrhea so came into the ED. * Wound cultures ordered. Podiatry consulted. ID also on board. * Had bedside debridement done by podiatry. On IV vancomycin and Zosyn. * ID on board. * PICC line inserted for halfway antibiotics. * wound cultures growing Cedecea davisae and gram postive organism and anerobic culture * * #Diarrhea * Patient started having diarrhea after starting to take Keflex. She does have a history of ulcerative colitis. * diarrhea has resolved. * C. difficile positive for the antigen but negative for the toxin. * oral vancomycin dc'd as she has a history of C diff which is likely accounting for the positive antigen; she is however not having any more diarrhea. * #Right shoulder pain * Says she fell and landed on her right shoulder. X-ray however showed no acute pathology. * PT OT on board. Fall precautions. P.o. Tylenol p.o. oxycodone for pain #Type 2 diabetes mellitus: * On Lantus.; Usually on Lantus 44 units daily but this was cut down to 20 units daily on admission due to hypoglycemia. * Insulin sliding scale. Accuchecks ACHS. #Hypertension: On losartan. IV hydralazine as needed. #History of ulcerative colitis #Morbid obesity: BMI is 41.4. Complicates acute care, expected recovery and prognosis #DVT prophylaxis: Lovenox twice daily Charges/Coding Visit Charges Inpatient E&M: 14583 Subs Hosp L2
[2024-07-10 14:13] VITALS: BP 126/69; PULSE 95; RESP 18; TEMP 36.1; O2SAT 94
[2024-07-10] MEDS: Insulin Lispro 100 UNIT/ML INSULN.PEN SC ×2 (17:08→21:16)
[2024-07-10 17:21] LABS: Bedside Glucose 183 mg/dL (74-106)
--- NOTE | 2024-07-10 20:23 | NURSING ---
Pt would like to leave by noon on jul 11 because after noon she won't have a ride until evening. pt states if she has to she will walk out tomorrow.
[2024-07-10 20:45] LABS: Bedside Glucose 189 mg/dL (74-106)
[2024-07-10 21:09] VITALS: BP 141/93; PULSE 83; RESP 18; TEMP 36.6; O2SAT 98
[2024-07-10] MEDS: 0.9% Normal Saline (100mL Bag) 100 ML 15 ML IV (21:14)
[2024-07-10] MEDS: Arthritis Pain Compound 60 CLICK TUBE TOPICAL (21:15)
[2024-07-10] MEDS: Insulin Glargine-YFGN 100 UNIT/ML Pen 20 UNIT SC (21:18)
[2024-07-11 02:36] LABS: Vancomycin, Trough Level 19.8 ug/mL (5.0-15.0)
[2024-07-11 02:44] VITALS: BP 133/69; PULSE 90; RESP 15; TEMP 36.8; O2SAT 96
[2024-07-11] MEDS: Vancomycin HCl 1,500 MG in 0.9% Normal Saline (500mL Bag) 500 ML 250 MG IV (02:46)
--- NOTE | 2024-07-11 02:49 | PCM.RX.CS ---
Consult Antibiotic Management Pharmacy has been consulted to manage selected antibiotic: Vancomycin Type of Intervention Type of Consult: Follow-up Labs Labs: Sodium 139 mmol/L (136-145) 07/09/24 08:05 Potassium 4.0 mmol/L (3.5-5.1) 07/09/24 08:05 Chloride 106 mmol/L (98-107) 07/09/24 08:05 Carbon Dioxide 30.0 mmol/L (21.0-32.0) 07/09/24 08:05 Anion Gap 3 (5-15) L 07/09/24 08:05 BUN 16 mg/dL (7-18) 07/09/24 08:05 Creatinine 0.88 mg/dL (0.55-1.02) 07/09/24 08:05 Est GFR (MDRD) Af Amer 85 mL/min (>60) 07/09/24 08:05 Est GFR (MDRD) Non-Af 71 mL/min (>60) 07/09/24 08:05 BUN/Creatinine Ratio 18.1 RATIO (10-20) 07/09/24 08:05 Glucose 118 mg/dL (74-106) H 07/09/24 08:05 Vancomycin Trough 19.8 ug/mL (5.0-15.0) H 07/11/24 01:46 Random Vancomycin 14.9 ug/mL (0.0-15.0) 07/09/24 12:00 Microbiology Microbiology: Microbiology 07/08/24 07:30 Wound - Left Foot Gram Stain - Final 07/08/24 07:30 Wound - Left Foot Wound Culture - Preliminary Cedecea davisae Gram positive jose Gram Positive Cocci 07/07/24 20:20 Wound - Left Foot Gram Stain - Final 07/07/24 20:20 Wound - Left Foot Wound Culture - Final Coag Negative Staph Gram positive jose 07/07/24 15:20 Blood Culture (Wb) - Anticubital Right Blood Culture - Preliminary No growth in 48 hours. 07/07/24 15:20 Blood Culture (Wb) - Anticubital Left Blood Culture - Preliminary No growth in 48 hours. 07/07/24 22:42 Stool Enteric Bacteriology - Final 07/07/24 22:42 Stool C. difficile GDH Antigen & Toxins - Final 07/07/24 22:42 Stool Clostridioides difficile (PCR) - Final Dosing Weight Weight used for dosin kg Estimated Creatinine Clearance Estimated Creatinine Clearance: 82 Goal Trough Goal Trough: 15-20 mcg/mL Pharmacy Plan for Drug Dosing Pharmacy Plan for Drug Dosing: Vancomycin trough level of 19.8, drawn 12hrs post-dose, was within the target range of 15-20. Will continue dosing at 1500mg q12h, and will draw another trough level in two days. Pharmacy Service will continue to monitor and adjust dosing as required. Follow-Up Labs Follow-Up Labs: Trough: Vancomycin Date/Time Labs Ordered Labs to be done on [date and time ordered]: 07/13/24 @0130
[2024-07-11] MEDS: cycloBENZAPRine HCl 10 MG Tablet PO (06:12)
[2024-07-11] MEDS: Acetaminophen 500 MG Tablet 1000 MG PO (06:12)
[2024-07-11] MEDS: Piperacil/Tazobactam 3.375 GM in 0.9% Normal Saline (50mL MB+) 50 ML IV (06:16)
[2024-07-11 06:52] LABS: Bedside Glucose 136 mg/dL (74-106)
[2024-07-11 09:09] VITALS: BP 130/64; PULSE 85; RESP 16; TEMP 36.3; O2SAT 92
[2024-07-11] MEDS: Arthritis Pain Compound 60 CLICK TUBE TOPICAL (09:21)
[2024-07-11] MEDS: Fluticasone 0.05% 1 SPRAY NASAL.SRY 2 SPRAY NASAL (09:22)
[2024-07-11] MEDS: Furosemide 20 MG Tablet PO (09:22)
[2024-07-11] MEDS: Losartan Potassium 100 MG Tablet PO (09:23)
[2024-07-11] MEDS: Loratadine 10 MG Tablet PO (09:23)
[2024-07-11] MEDS: Atorvastatin Calcium 20 MG Tablet PO (09:23)
[2024-07-11] MEDS: Enoxaparin 40 MG/0.4 ML Syringe SC (09:24)
[2024-07-11] MEDS: oxyCODONE 5 MG Tablet PO (09:30)
--- NOTE | 2024-07-11 10:12 | PCM.PN.ID ---
Physical Exam Narrative Feeling ok, pain controlled, no fever Const alert and no apparent distress General Appearance: cooperative Resp normal air movement and clear to auscultation bilaterally Cardio regular rate and regular rhythm GI soft to palpation, non-tender and non-distended Skin Skin Narrative: foot wrapped ID ID: Route of nutrition/ use of supplements: [] Nutritional Intake: [] IV Site: [] Raines Catheter: [] Assessment & Plan Assessment/Plan (1) Left foot infection: PLAN: infected wound of L foot after extensive surgery 05/23/[address] Gtz with hardware placement. Bedside I&D done by Dr. Gtz, cx with kerry GONZALEZ, and padmaja. Picc in place. Plan on 6 weeks iv vanc/ceftriaxone and po flagyl then long course po suppression if she is able to tolerate. ID followup in 3 weeks. Wrote rx. Will follow, d/w family service caseworker (2) Ulcerative colitis: (3) Diabetes:
[2024-07-11] MEDS: Ceftriaxone 2 GM in 0.9% Normal Saline (50mL MB+) 50 ML IV (10:30)
--- NOTE | 2024-07-11 10:31 | CASEMGMT ---
Ricardo from [facility] called MARY MCFARLAND, notified they will be here at 11:15 to do pt education. MARY MCFARLAND into pt room and notified Pt. Pt states would like medications to go to [facility] pharmacy. Denies any questions or concerns.
--- NOTE | 2024-07-11 11:46 | CASEMGMT ---
Addendum entered by Stacey Garrett 07/11/24 12:05: MARY MCFARLAND called pharmacy, will deliver medication to Pt room. Pt states [facility] informed her they will call with a delivery time for antibiotics. Pt denies questions or concerns at this time. DC Instructions sent to [facility]. Original Note: Henry from [facility] notified MARY MCFARLAND pt training went well. [facility] to deliver medication later today to Pt home. MARY MCFARLAND will send DC instructions once they are in. Pt requesting MARY MCFARLAND, into pt room. Pt sitting in chair in no distress. Pt asking to DC. MARY MCFARLAND notified hospitalist of Pt training and asking if she can go home.
--- NOTE | 2024-07-11 11:48 | DS.PCM_ITS ---
Providers Date of Admission: 07/07/24 Date of Discharge: 07/11/24 Primary Care Physician: Dr. Raheem Garcia, Consultations 07/07/24 19:25 Consult: Infectious Disease Routine Consulting Provider: Raheem Potter Reason for Consult: postop wound infection in a diabetic patien EMERGENT Consult: No MD Notified: Yes Date Notified: 07/08/24 Time Notified: 08:12 Method of Notification: Text Consult: Onc/Wound/jukebox coin collector Routine Comment: Consult: Onc/Wound/jukebox coin collector Routine Comment: Reason for Consult:: Left foot infection Consult: Podiatry Routine Consulting Provider: Hector Gtz Reason for Consult: Pt sent to ED for IV abx and admission EMERGENT Consult: No Notified: Yes Date Notified: 07/08/24 Time Notified: 07:15 Method of Notification: Verbal
--- NOTE | 2024-07-11 11:48 | PCM.DC.SUM ---
Providers Date of Admission: 07/07/24 Date of Discharge: 07/11/24 Primary Care Physician: Dr. Raheem Garcia, Consultations 07/07/24 19:25 Consult: Infectious Disease Routine Consulting Provider: Raheem Potter Reason for Consult: postop wound infection in a diabetic patien EMERGENT Consult: No MD Notified: Yes Date Notified: 07/08/24 Time Notified: 08:12 Method of Notification: Text Consult: Onc/Wound/speech assistant Routine Comment: Consult: Onc/Wound/speech assistant Routine Comment: Reason for Consult:: Left foot infection Consult: Podiatry Routine Consulting Provider: Hector Gtz Reason for Consult: Pt sent to ED for IV abx and admission EMERGENT Consult: No MD Notified: Yes Date Notified: 07/08/24 Time Notified: 07:15 Method of Notification: Verbal Reason For Visit: CELLULITIS OF FOOT Diagnosis Discharge Diagnosis (1) Left foot infection: Status: Acute Code(s): L08.9 - Local infection of the skin and subcutaneous tissue, unspecified (2) Ulcerative colitis: Status: Acute Code(s): K51.90 - Ulcerative colitis, unspecified, without complications (3) Diabetes: Status: Acute Code(s): E11.9 - Type 2 diabetes mellitus without complications Plan #Left foot surgical site infection with nonhealing wound Patient had surgery on her foot in early May 2024. Wound has however not been healing. She was placed on Keflex on outpatient basis but started having diarrhea so came into the ED. Wound cultures ordered. Podiatry consulted. ID also on board. Had bedside debridement done by podiatry. On IV vancomycin and Zosyn. ID on board. PICC line inserted for termite exterminator antibiotics. wound cultures growing Cedecea davisae and gram postive organism and anerobic culture #Diarrhea Patient started having diarrhea after starting to take Keflex. She does have a history of ulcerative colitis. diarrhea has resolved. C. difficile positive for the antigen but negative for the toxin. oral vancomycin dc'd as she has a history of C diff which is likely accounting for the positive antigen; she is however not having any more diarrhea. #Right shoulder pain Says she fell and landed on her right shoulder. X-ray however showed no acute pathology. PT OT on board. Fall precautions. P.o. Tylenol p.o. oxycodone for pain #Type 2 diabetes mellitus: On Lantus.; Usually on Lantus 44 units daily but this was cut down to 20 units daily on admission due to hypoglycemia. Insulin sliding scale. Accuchecks ACHS. #Hypertension: On losartan. IV hydralazine as needed. #History of ulcerative colitis #Morbid obesity: BMI is 41.4. Complicates acute care, expected recovery and prognosis #DVT prophylaxis: Lovenox twice daily Medications at Discharge Home Medications albuterol sulfate 90 mcg/actuation aerosol inhaler (ProAir HFA) 2 puff inhalation Q6H PRN Wheezing 04/07/22 cetirizine 10 mg tablet 10 mg PO DAILY allergies 04/07/22 cholecalciferol (vitamin D3) 100 mcg (4,000 unit) tablet 4,000 unit PO DAILY vitamin 04/07/22 fluticasone propionate 50 mcg/actuation nasal spray,suspension 2 spray intranasal BID allergies 04/07/22 glipizide 2.5 mg tablet, extended release 24 hr 5 mg PO DAILY diabetes 04/07/22 olopatadine 0.2 % eye drops 1 drp EACH EYE PRN PRN Allergy Symptoms 06/13/22 losartan 100 mg tablet 100 mg PO DAILY 30 days #30 tabs 06/16/22 atorvastatin 20 mg tablet 20 mg PO DAILY 07/10/22 glucometer #1 ea 11/12/22 insulin glargine 100 unit/mL (3 mL) subcutaneous pen (Lantus Solostar U-100 Insulin) 44 unit subcut QHS 06/22/23 insulin lispro 100 unit/mL subcutaneous half-unit pen (Humalog Erik GinaPen (U-100)) 1 sliding scale dose subcut TID 01/19/24 dicyclomine 20 mg tablet 20 mg PO TID PRN abdominal pain #90 tabs 01/21/24 multivitamin with minerals-folic acid 120 mcg chewable tablet (Centrum Adult 50 Plus Fresh-Fruity) 1 tab PO BID 01/21/24 omega-3 fatty acids-fish oil 300 mg-1,000 mg capsule 1 cap PO DAILY 01/21/24 infliximab 100 mg intravenous solution See Rx Instructions .Route .COMPLEX #1 vial 01/29/24 ascorbic acid (vitamin C) 1,000 mg tablet (Vitamin C) 1 g PO DAILY 90 days #90 tabs 05/23/24 cyclobenzaprine 10 mg tablet 10 mg PO TID muscle spasm 7 days #21 tabs 05/23/24 oxycodone-acetaminophen 5 mg-325 mg tablet (Percocet) 1 tab PO Q6H pain 5 days #20 tabs 05/23/24 oxycodone-acetaminophen 5 mg-325 mg tablet (Percocet) 1 tab PO Q6H PRN pain 7 days #28 tabs 05/27/24 furosemide 20 mg tablet 20 mg PO DAILY 07/07/24 hydroxyzine HCl 25 mg tablet 25 mg PO Q8 07/07/24 lidocaine 5 % topical patch 3 patch topical Q12.TCU 07/07/24 nystatin 100,000 unit/gram topical cream topical BID PRN PRN ABD FOLDS 07/07/24 ceftriaxone 2 gram intravenous solution 2 g IV DAILY 39 days 07/11/24 metronidazole 500 mg tablet 500 mg PO TID 39 days #117 tabs 07/11/24 vancomycin 1.5 gram intravenous solution 1.5 g IV Q12H 39 days 07/11/24 Hospital Course Operations None Procedures None Summary of Care Provided Minutes Spent on Discharge: 45 Hospital Course: Patient is a 53 y/o female with a PMH as outlined who was admitted via the ED on 07/07/2024 with a complaint of left foot infection, and had extensive left foot surgery on 05/23/[address] Gtz. Subsequently, she was started on PO keflex by podiatry for surgical site infection. However she only took 2 days of the antibiotic and subsequently developed diarrhea. She therefore called her truck car and bus cleaner and was told to come into the ED. She was admitted and managed for left foot surgical site infection. Wound cultures were taken and podiatry was consulted. ID was also consulted. Due to her diarrhea C. difficile was tested for and she was positive for antigen but negative for the toxin. She did have a history of C. 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 Diarrhea subsequently resolved. She was started on IV vancomycin and Zosyn. Wound cultures grew MRSA, Corynebacterium and Cedecea davisae. She was discharged home on IV vancomycin and IV ceftriaxone as well as p.o. Flagyl for 6 weeks and then she is to continue with long course p.o. suppression if she is able to tolerate. She was discharged on 07/11/2024. PICC line was inserted and patient was taught how to administer the antibiotics. She is follow-up with her primary care doctor and with podiatry as well as with ID within 1 to 2 weeks. Patient seen and examined prior to discharge. She had no active complaints. Review of systems otherwise negative. Labs and vitals reviewed. Medication reviewed and reconciled. Physical Exam Const alert, oriented x3, no apparent distress and well nourished General Appearance: cooperative, comfortable and well developed HEENT normocephalic, head/scalp atraumatic, hearing grossly normal bilaterally, EAC's normal and TM's normal bilaterally Mouth: oral and palatal mucosa normal Eyes PERRL and EOMs intact bilaterally Neck no lymphadenopathy and supple Lymph Lymphatic: no lymphadenopathy noted and no lymphedema noted Resp normal respiratory effort, normal air movement and clear to auscultation bilaterally Cardio regular rate, regular rhythm, S1 normal heart sound, S2 normal heart sound and no murmurs Peripheral Pulses: pulses 2+ throughout GI normal to inspection, nondistended, normoactive bowel sounds, soft to palpation, non-tender and non-distended Extremity Extremity Narrative: left foot wrapped in bandage. Skin Skin Narrative: as under extremities Neuro oriented x3, CN's II-XII intact bilaterally, moves all extremities, no focal motor deficits and no sensory deficits noted Sensorium / Orientation: awake and alert Motor Exam: strength 5/5 throughout and general weakness Psych thought process normal, cooperative and affect normal Appearance: appropriate Weight / BMI Weight Weight: 226 lb 6.4 oz Body Mass Index (BMI) 41.3 ABG / Lab / Microbiology Data 07/09/24 08:05 07/09/24 08:05 Laboratory: Laboratory Results - last 24 hr 07/10/24 16:51: POC Glucose 183 H 07/10/24 20:13: POC Glucose 189 H 07/11/24 01:46: Vancomycin Trough 19.8 H 07/11/24 06:15: POC Glucose 136 H Microbiology: Microbiology 07/08/24 07:30 Wound - Left Foot Gram Stain - Final 07/08/24 07:30 Wound - Left Foot Wound Culture - Final Cedecea davisae Corynebacterium amycolatum Staphylococcus epidermidis 07/08/24 07:30 Wound - Left Foot Anaerobic Culture - Final Anaerobic cocci 07/07/24 20:20 Wound - Left Foot Gram Stain - Final 07/07/24 20:20 Wound - Left Foot Wound Culture - Final Coag Negative Staph Gram positive jose 07/07/24 15:20 Blood Culture (Wb) - Anticubital Right Blood Culture - Preliminary No growth in 48 hours. 07/07/24 15:20 Blood Culture (Wb) - Anticubital Left Blood Culture - Preliminary No growth in 48 hours. 07/07/24 22:42 Stool Enteric Bacteriology - Final 07/07/24 22:42 Stool C. difficile GDH Antigen & Toxins - Final 07/07/24 22:42 Stool Clostridioides difficile (PCR) - Final D/C Instructions Discharge Diet: Low fat / Low cholesterol Discharge Activity: Return to Normal Activity Weight Bearing Status: Weight bearing as tolerated Call your doctor if you observe: Fever of 101 or Higher, Shortness of breath, Dizziness, Swelling in the ankles, Chest pain and Uncontrolled pain DC O2, CPAP, BIPAP Needs Home O2 Discharge instructions: No Meaningful Use Info Meaningful Use Meaningful Use Diagnoses (Choose all that apply): None applicable Ischemic Stroke Statin Dosing Therapy Reference: STATIN DOSE THERAPY REFERENCE: * Patients > 75 years receive moderate or high dose statin therapy. * Patients 75 years or YOUNGER should receive HIGH intensity statin dose unless contraindicated. You will be required to document reason for non-treatment if statin daily dose does not meet guidelines. HIGH DOSE STATIN THERAPY DAILY Atorvastatin > than or = to 40 mg Rosuvastatin > than or = to 20 mg Amlodipine + Atorvastatin > than or = to 2.5/40 mg Ezetimibe + Simvastatin 10/80 mg Simvastatin 80mg Discharge Plan Admission Admit Date/Time: 07/07/24 18:33 Primary Reason for Your Visit: left foot surgical site infection Attending Provider: Tran Major Primary Care Provider: Raheem Garcia Consulting Providers: Barb Hanson; Hector Gtz; Raheem Potter Discharge Orders/Prescriptions Prescriptions: New ceftriaxone 2 gram recon soln 2 g IV DAILY 39 Days Rx Instructions: stop date 08/19/24. Dx: foot osteomyelitis. Weekly bmp, cbc, vanc trough, and esr. Fax to [phone]. Routine picc care per protocol. metronidazole 500 mg Tablet 500 mg PO TID 39 Days Qty: 117 0RF vancomycin 1.5 gram recon soln 1.5 g IV Q12H 39 Days Rx Instructions: stop date 08/19/24. Dx: foot osteomyelitis. Weekly bmp, cbc, vanc trough, and esr. Fax to [phone]. Routine picc care per protocol. Continued albuterol sulfate [ProAir HFA] 90 mcg/actuation HFA aerosol inhaler 2 puff inhalation Q6H PRN (Reason: Wheezing) cetirizine 10 mg tablet 10 mg PO DAILY cholecalciferol (vitamin D3) 100 mcg (4,000 unit) tablet 4,000 unit PO DAILY fluticasone propionate 50 mcg/actuation spray,suspension 2 spray intranasal BID Rx Instructions: administer into each nostril glipizide 2.5 mg tablet extended release 24hr 5 mg PO DAILY omega-3 fatty acids-fish oil 300-1,000 mg capsule 1 cap PO DAILY dicyclomine 20 mg tablet 20 mg PO TID PRN (Reason: abdominal pain) Qty: 90 2RF atorvastatin 20 mg Tablet 20 mg PO DAILY multivit with min-folic acid [Centrum Adult 50 Fresh-Fruity] 120 mcg tablet,chewable 1 tab PO BID olopatadine 0.2 % Drops 1 drp EACH EYE PRN PRN (Reason: Allergy Symptoms) losartan 100 mg Tablet 100 mg PO DAILY 30 Days Qty: 30 0RF (DME) glucometer See Rx Instructions .Route .MEDSUPPLY Qty: 1 0RF Rx Instructions: One Touch Glucometer and test strips insulin glargine [Lantus Solostar U-100 Insulin] 100 unit/mL (3 mL) insulin pen 44 unit SUBCUT QHS Patient Comments: inject 12 units subcutaneously twice a day TITRATE UP 2 TO 3 UNIT... (REFER TO PRESCRIPTION NOTES). insulin lispro [Humalog Erik KwikPen U-100] 100 unit/mL insulin pen, half-unit 1 sliding scale dose subcut TID nystatin 100,000 unit/gram cream topical BID PRN PRN (Reason: ABD FOLDS) lidocaine 5 % adhesive patch,medicated 3 patch topical Q12.TCU hydroxyzine HCl 25 mg tablet 25 mg PO Q8 furosemide 20 mg tablet 20 mg PO DAILY oxycodone-acetaminophen [Percocet] 5-325 mg tablet 1 tab PO Q6H 5 Days Qty: 20 0RF cyclobenzaprine 10 mg tablet 10 mg PO TID 7 Days Qty: 21 0RF ascorbic acid (vitamin C) [Vitamin C] 1,000 mg tablet 1 g PO DAILY 90 Days Qty: 90 0RF oxycodone-acetaminophen [Percocet] 5-325 mg tablet 1 tab PO Q6H PRN (Reason: pain) 7 Days Qty: 28 0RF infliximab 100 mg recon soln See Rx Instructions .ROUTE .COMPLEX Qty: 1 0RF Rx Instructions: Infuse 5mg/kg at week 0, 2, 6 then every 8 weeks for Ulcerative Colitis; CPT: J1745, ICD-10: K51.90 Referrals / Follow Up: Raheem Potter MD [Med Staff - Active Staff] - Within 2 Weeks Raheem Garcia DO [Primary Care Provider] - Within 1 Week [facility] [Non-Staff] - 07/15/24 10:00 am Disposition Disposition (needs filled in before D/C Order can be placed): Home, Self Care Charges/Coding Visit Charges Inpatient E&M: 53627 Disch Hosp >30min
--- NOTE | 2024-07-11 16:42 | CASEMGMT ---
RN CM called patient to see if [facility] called with time of delivery. Caroline stated they called and said tonight but didn't give time. RN CM called [facility] to confirm medication was run through insurance, [facility] stated it was and their is no cost of medication to Patient. Patient notified. Delivery of Meds is 10PM, Pt informed.
== END 2024-07-11 12:35 | disposition home or self-care (01) | DRG 711 ==
LOC: ED 15:37 → MS3 18:34
PROVIDERS: Admitting Provider Internal Medicine; Emergency Provider Surgery; PCP Preventive Medicine Occupational Medicine; Visit Provider Student in an Organized Health Care Education/Training Program
DX: T81.41XA Infection following a procedure, superficial incisional surgical site, initial encounter (principal); L97.325 Non-pressure chronic ulcer of left ankle with muscle involvement without evidence of necrosis; E11.622 Type 2 diabetes mellitus with other skin ulcer; K51.90 Ulcerative colitis, unspecified, without complications; E66.01 Morbid (severe) obesity due to excess calories; Z68.41 Body mass index [BMI] 40.0-44.9, adult; E11.42 Type 2 diabetes mellitus with diabetic polyneuropathy; E11.628 Type 2 diabetes mellitus with other skin complications; Z79.4 Long term (current) use of insulin; E11.51 Type 2 diabetes mellitus with diabetic peripheral angiopathy without gangrene; L03.116 Cellulitis of left lower limb; B95.62 Methicillin resistant Staphylococcus aureus infection as the cause of diseases classified elsewhere; B96.89 Other specified bacterial agents as the cause of diseases classified elsewhere; I10 Essential (primary) hypertension; M25.511 Pain in right shoulder; E78.00 Pure hypercholesterolemia, unspecified; F17.210 Nicotine dependence, cigarettes, uncomplicated; W18.30XA Fall on same level, unspecified, initial encounter; R29.6 Repeated falls; Z79.84 Long term (current) use of oral hypoglycemic drugs; Z79.899 Other long term (current) drug therapy; Z86.19 Personal history of other infectious and parasitic diseases; Z86.718 Personal history of other venous thrombosis and embolism
CPT/HCPCS: 11043; 36415; 36569; 73030; 73630; 80048; 80202; 82962; 85025; 87040; 87070; 87075; 87077; 87186; 87205; 87493; 87506; 96365; 96366; 96367; 96368; 96372; 97161; 97166; 99221; 99284; A4216; G0378; J0696

== ENCOUNTER 2024-07-15 09:09 | Outpatient (CLI) | payer MEDICAID, SELFPAY ==
[2024-07-15 10:02] LABS: Hematocrit 35.1 % (37-47); Hemoglobin 11.3 g/dL (12.0-15.0); Mean Corp Hgb Conc 32.2 g/dL (32-36); Mean Corpuscular Volume 86.9 fL (81-99); Mean Platelet Vol. 11.9 fl (6.2-12.0); Platelet Count 191 K/mm3 (150-450); RBC Distribution Width CV 13.3 % (11.6-14.6); RBC Distribution Width SD 42.5 fl (35.1-43.9); Red Blood Count 4.04 M/mm3 (4.2-5.4); White Blood Count 8.7 K/mm3 (4.4-11.0)
[2024-07-15 10:05] LABS: Erythrocyte Sedimentation Rate 35 mm/hr (0-30)
[2024-07-15 10:15] LABS: Anion Gap 4 (5-15); BUN 23 mg/dL (7-18); BUN/Creat Ratio 21.7 RATIO (10-20); Calcium,Total 9.4 mg/dL (8.5-10.1); Chloride 110 mmol/L (98-107); Creatinine, Serum 1.06 mg/dL (0.55-1.02); EST Glomerular Filtration Rate 57 mL/min (>60); Est Glom Filt Rate - Afr Amer 69 mL/min (>60); Glucose 172 mg/dL (74-106); Potassium 3.8 mmol/L (3.5-5.1); Sodium Level 139 mmol/L (136-145)
[2024-07-15 10:18] LABS: Vancomycin, Trough Level 22.1 ug/mL (5.0-15.0)
== END 2024-07-15 23:59 | disposition home or self-care (01) ==
LOC: MEDOUTP 09:10
PROVIDERS: PCP Preventive Medicine Occupational Medicine; Referring Provider Internal Medicine Infectious Disease; Visit Provider Internal Medicine Infectious Disease
DX: M86.9 Osteomyelitis, unspecified (principal)
CPT/HCPCS: 36592; 80048; 80202; 85027; 85652; A4216

== ENCOUNTER 2024-07-22 08:18 | Outpatient (CLI) | payer MEDICAID, SELFPAY ==
[2024-07-22 09:02] LABS: Erythrocyte Sedimentation Rate 51 mm/hr (0-30)
[2024-07-22 09:03] LABS: Hematocrit 33.1 % (37-47); Hemoglobin 10.6 g/dL (12.0-15.0); Mean Corpuscular Hgb 27.5 pg (27.0-32.0); Mean Corpuscular Volume 85.8 fL (81-99); Mean Platelet Vol. 11.1 fl (6.2-12.0); Platelet Count 204 K/mm3 (150-450); RBC Distribution Width CV 13.1 % (11.6-14.6); RBC Distribution Width SD 40.7 fl (35.1-43.9); Red Blood Count 3.86 M/mm3 (4.2-5.4); White Blood Count 8.5 K/mm3 (4.4-11.0)
[2024-07-22 09:18] LABS: Anion Gap 7 (5-15); BUN 18 mg/dL (7-18); BUN/Creat Ratio 16.2 RATIO (10-20); Chloride 106 mmol/L (98-107); Creatinine, Serum 1.11 mg/dL (0.55-1.02); EST Glomerular Filtration Rate 54 mL/min (>60); Est Glom Filt Rate - Afr Amer 66 mL/min (>60); Glucose 156 mg/dL (74-106); Potassium 3.6 mmol/L (3.5-5.1); Sodium Level 138 mmol/L (136-145)
== END 2024-07-22 23:59 | disposition home or self-care (01) ==
PROVIDERS: PCP Preventive Medicine Occupational Medicine; Referring Provider Internal Medicine Infectious Disease; Visit Provider Internal Medicine Infectious Disease
DX: M86.9 Osteomyelitis, unspecified (principal)
CPT/HCPCS: 36415; 80048; 80202; 85027; 85652

== ENCOUNTER 2024-07-22 09:45 | Outpatient (RCR) | payer MEDICAID, SELFPAY ==
[2024-07-15 10:15] VITALS: BP 143/78; PULSE 101; RESP 20; TEMP 37.6; BMI 41.3
--- NOTE | 2024-07-15 10:15 | PCM.WC.HP ---
History of Present Illness Date of Service: 07/15/24 Chief Complaint: Left foot wound History of Wound: Left foot surgical wound Progress of Wound: Mrs. Wolfe is a 53-year-old diabetic female presented wound care center today for follow-up evaluation of full-thickness wound to the dorsal aspect of the left foot. Patient was seen in the hospital after being admitted secondary to colitis from oral antibiotics. Patient has history of gastrointestinal issues and is seeing GI for treatment. Reason for hospital admission was worsening infection to the left foot status post surgery by Dr. Gtz who is her foot surgeon. Patient failed oral antibiotics and was needed to be seen by infectious disease for PICC line and IV antibiotics to help heal her infected foot wound secondary to pressure issues causing breakdown of skin and eventually wound to the dorsal aspect of one of her incisions. While in the hospital she was seen by the medicine team, GI and infectious disease as well as podiatry. She was discharged home and is presenting today for continued evaluation and treatment. She denies any trauma. Denies constitutional symptoms. Other pedal complaints at this time. [facility] Medical History (Updated 07/15/24 @ 10:[address] Hector Gtz, DPM) Diabetes Kidney stones Kidney disease GI bleed DVT (deep venous thrombosis) Restless legs Back pain Ulcerative colitis History of pain when walking History of echocardiogram Insulin dependent diabetes mellitus Ambulates with cane Bladder disease High cholesterol Injury of head and neck Dietary restriction History of GI bleed History of diverticulitis Smoker History of edema Anxiety Asthma Irregular heart beat Vitamin D deficiency Type 2 diabetes mellitus Right shoulder pain Radiculitis, brachial Neuropathy of left foot Hypertension Lower leg edema Depression Colon polyp Chronic pain in left foot Arthritis ADHD Blood in stool Abdominal pain Home Medications ?Medication ?Instructions ?Recorded ?Last Taken ?Type albuterol sulfate 90 mcg/actuation 2 puff inhalation Q6H PRN Wheezing 04/07/22 Unknown History aerosol inhaler (ProAir HFA) cetirizine 10 mg tablet 10 mg PO DAILY allergies 04/07/22 06/25/23 History cholecalciferol (vitamin D3) 100 4,000 unit PO DAILY vitamin 04/07/22 06/25/23 History mcg (4,000 unit) tablet fluticasone propionate 50 2 spray intranasal BID allergies 04/07/22 06/25/23 History mcg/actuation nasal spray,suspension glipizide 2.5 mg tablet, extended 5 mg PO DAILY diabetes 04/07/22 06/25/23 History release 24 hr olopatadine 0.2 % eye drops 1 drp EACH EYE PRN PRN Allergy 06/13/22 06/25/23 History Symptoms losartan 100 mg tablet 100 mg PO DAILY 30 days #30 tabs 06/16/22 06/27/24 Rx atorvastatin 20 mg tablet 20 mg PO DAILY 07/10/22 06/25/23 History glucometer #1 ea 11/12/22 Unknown Rx insulin glargine 100 unit/mL (3 44 unit subcut QHS 06/22/23 05/22/24 History mL) subcutaneous pen (Lantus Solostar U-100 Insulin) insulin lispro 100 unit/mL 1 sliding scale dose subcut TID 01/19/24 Unknown History subcutaneous half-unit pen (Humalog Erik KwikPen (U-100)) dicyclomine 20 mg tablet 20 mg PO TID PRN abdominal pain 01/21/24 Unknown Rx #90 tabs multivitamin with minerals-folic 1 tab PO BID 01/21/24 Unknown History acid 120 mcg chewable tablet (Centrum Adult 50 Plus Fresh-Fruity) omega-3 fatty acids-fish oil 300 1 cap PO DAILY 01/21/24 Unknown History mg-1,000 mg capsule infliximab 100 mg intravenous See Rx Instructions .Route 01/29/24 Unknown Rx solution .COMPLEX #1 vial ascorbic acid (vitamin C) 1,000 mg 1 g PO DAILY 90 days #90 tabs 05/23/24 Unknown Rx tablet (Vitamin C) cyclobenzaprine 10 mg tablet 10 mg PO TID muscle spasm 7 days 05/23/24 Unknown Rx #21 tabs oxycodone-acetaminophen 5 mg-325 1 tab PO Q6H pain 5 days #20 tabs 05/23/24 06/27/24 03:30 Rx mg tablet (Percocet) furosemide 20 mg tablet 20 mg PO DAILY 07/07/24 Unknown History hydroxyzine HCl 25 mg tablet 25 mg PO Q8 07/07/24 Unknown History lidocaine 5 % topical patch 3 patch topical Q12.TCU 07/07/24 Unknown History ceftriaxone 2 gram intravenous 2 g IV DAILY 39 days 07/11/24 Unknown Rx solution vancomycin 1.5 gram intravenous 1.5 g IV Q12H 39 days 07/11/24 Unknown Rx solution oxycodone-acetaminophen 5 mg-325 1 tab PO Q6H PRN pain 7 days #28 07/12/24 Unknown Rx mg tablet (Percocet) tabs oxycodone-acetaminophen 5 mg-325 1 tab PO Q6H PRN pain 7 days #28 07/12/24 Unknown Rx mg tablet (Percocet) tabs Allergy/AdvReac Type Severity Reaction Status Date / Time ciprofloxacin Allergy Severe Laryngospasms, Verified 07/15/24 10:24 itching morphine AdvReac Intermediate Nausea/Vom/ Verified 07/15/24 10:24 Diarrhea tramadol AdvReac Intermediate Nausea Verified 07/15/24 10:24 metformin (From Glucophage) AdvReac Abd Verified 07/15/24 10:24 cramps/diarrhea Family History Father Arthritis Diabetes Epilepsy Hypertension Heart disease Liver cancer Mother Hypertension Brother Diabetes Colon cancer Grandmother Colon cancer Stomach cancer Surgical History History of ankle surgery Hx of colonoscopy Previous section H/O: hysterectomy History of bunionectomy Social History Smoking Status: Current every day smoker tobacco type: cigarettes alcohol intake: current Physical Exam Narrative Vascular: DP and PT pulses are palpable to left lower extremity. CFT is brisk. Skin temp great is warm to warm from proximal ankles to distal digits to left lower extremity. Skin temperature and turgor is within normal limits. Nonpitting edema appreciated to the left lower extremity. Blanchable erythema appreciated to the periwound and lesser digits left foot. Neurological: Light touch intact. Patient does respond to painful stimuli. Neurological: Full-thickness ulceration to the left anterior medial ankle measuring 2.7 x 1.1 x 0.7 cm. Wound does not probe to bone. Wound probes to muscle. No malodor associated. No active drainage. Periwound erythema is noticeable but blanchable. No proximal streaking. Excisional debridement down to including subcutaneous tissue, fascia and muscle with a number 3 mm dermal curette left dorsal medial incision of the left foot. Predebridement measurement was 2.5 x 0.9 x 0.4 cm. Postdebridement measurement is 2.7 x 1.1 x 0.7 cm. Musculoskeletal: Mild to moderate palpatory tenderness appreciated to the full-thickness wound to the left lower extremity. No pain with calf pressure. Debridement Note Debridement Note Debridement Free Text: Excisional debridement down to including subcutaneous tissue, fascia and muscle with a number 3 mm dermal curette left dorsal medial incision of the left foot. Predebridement measurement was 2.5 x 0.9 x 0.4 cm. Postdebridement measurement is 2.7 x 1.1 x 0.7 cm. 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 All findings were discussed with the patient. All questions were answered to the patient's satisfaction. Excisional debridement down to including subcutaneous tissue, fascia and muscle with a number 3 mm dermal curette left dorsal medial incision of the left foot. Predebridement measurement was 2.5 x 0.9 x 0.4 cm. Postdebridement measurement is 2.7 x 1.1 x 0.7 cm. Left lower extremity was wiped clean and patted dry. The full-thickness wound was dressed with silver alginate dry sterile dressing and Chris wrap for compression. Will begin authorization for amniotic skin graft substitutes to the left lower extremity full-thickness ulcerations to distal aid of speeding up healing. Patient will continue her PICC line antibiotics per infectious disease recommendation. Patient will continue strict blood sugar control. Follow-up at the wound care center with Dr. Gtz in 1 week. (2) Other specified peripheral vascular diseases: CODE(S): I73.89 - Other specified peripheral vascular diseases (3) Chronic painful diabetic polyneuropathy: CODE(S): E11.42 - Type 2 diabetes mellitus with diabetic polyneuropathy
--- NOTE | 2024-07-17 09:23 | WC ---
PHOTO 07/15/24 LEFT ANTERIOR ANKLE
[2024-07-22 10:15] VITALS: BP 155/91; PULSE 94; RESP 18; TEMP 36.1; BMI 41.3
--- NOTE | 2024-07-22 12:32 | PCM.WC.PN ---
History of Present Illness Date of Service: 07/22/24 Chief Complaint: Left foot wound History of Wound: Left foot surgical wound Progress of Wound: Mrs. Wolfe is a 53-year-old diabetic female presented wound care center today for follow-up evaluation of full-thickness wound to the dorsal aspect of the left foot. Patient was seen in the hospital after being admitted secondary to colitis from oral antibiotics. Patient has history of gastrointestinal issues and is seeing GI for treatment. Reason for hospital admission was worsening infection to the left foot status post surgery by Dr. Gtz who is her foot surgeon. Patient failed oral antibiotics and was needed to be seen by infectious disease for PICC line and IV antibiotics to help heal her infected foot wound secondary to pressure issues causing breakdown of skin and eventually wound to the dorsal aspect of one of her incisions. While in the hospital she was seen by the medicine team, GI and infectious disease as well as podiatry. She was discharged home and is presenting today for continued evaluation and treatment. She denies any trauma. Denies constitutional symptoms. Other pedal complaints at this time. Subjective Subjective Mrs. Wolfe is a 53-year-old diabetic female presenting to the wound care center today for follow-up evaluation to full-thickness wound to the left foot. She has been compliant with dressing changes and been changing her dressing as ordered. She admits to some pain with dressing changes. She like a refill on her pain meds. She states that her PICC line got infected and is waiting for a new PICC line to be placed today. Her blood sugars well-controlled. She denies trauma. Denies constitutional symptoms. No other pedal complaints at this time. Objective Data Objective Data Vital Signs: Vital Signs Temp Pulse Resp BP O2 Del Method 96.9 F L 94 18 155/91 H Room Air 07/22/24 10:15 07/22/24 10:15 07/22/24 10:15 07/22/24 10:15 07/22/24 10:15 Oxygen Delivery Method Room Air Weight: 102.623 kg Body Mass Index (BMI) 41.3 Physical Exam Narrative Vascular: DP and PT pulses are palpable to left lower extremity. CFT is brisk. Skin temp great is warm to warm from proximal ankles to distal digits to left lower extremity. Skin temperature and turgor is within normal limits. Nonpitting edema appreciated to the left lower extremity. Blanchable erythema appreciated to the periwound and lesser digits left foot. Neurological: Light touch intact. Patient does respond to painful stimuli. Neurological: Full-thickness ulceration to the left anterior medial ankle measuring 2.0 x 1.0 x 0.4 cm. Wound does not probe to bone. Wound probes to muscle. No malodor associated. No active drainage. Periwound erythema is noticeable but blanchable. No proximal streaking. Excisional debridement down to including subcutaneous tissue, fascia and muscle with a number 3 mm dermal curette left dorsal medial incision of the left foot. Predebridement measurement was 1.8 x 0.9 x 0.2 cm. Postdebridement measurement is 2.0 x 1.0 x 0.4 cm. Musculoskeletal: Mild to moderate palpatory tenderness appreciated to the full-thickness wound to the left lower extremity. No pain with calf pressure. Debridement Note Debridement Note Debridement Free Text: Excisional debridement down to including subcutaneous tissue, fascia and muscle with a number 3 mm dermal curette left dorsal medial incision of the left foot. Predebridement measurement was 1.8 x 0.9 x 0.2 cm. Postdebridement measurement is 2.0 x 1.0 x 0.4 cm. 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 ) Arrival Mode Ambulatory, Ambulatory, Crutches Crutches Transfer Assistance None Patient Identification Verified (Name & Yes Yes ) Patient Requires Transmission-Based No Precautions Height and Weight Height 5 ft 2 in Weight 102.623 kg Weight in Pounds 226.2 lbs Body Mass Index (BMI) 41.3 41.3 BMI Classification Obese Obese BSA - Marjorie 2.01 Vital Signs Temperature (97.8 F-99.1 F) 99.7 F H 96.9 F L Temperature Source Temporal Temporal Pulse Rate (60-100) 101 H 94 Pulse Location Monitor Monitor Respiratory Rate (12-18) 20 H 18 Respiratory rate source Observation Oxygen Delivery Method Room Air Blood Pressure (90/60-120/80) 143/78 H 155/91 H Blood Pressure Mean (mm Hg) 99 112 Source Monitor Monitor Position Semi-Fowlers Blood Pressure Location Left Arm History Since Last Visit- (Skip if this is Patient's initial visit) Have you changed medications since your No last visit? Any new allergies or adverse reactions No Had a fall/change in ADL's that may No increase risk of falls Signs or symptoms of abuse and/or No neglect since last visit Have you been in the hospital since your No last visit? Has dressing in place as prescribed Yes Has compression in place as prescribed Yes Has offloadiing in place as prescribed Yes Experienced any changes in pain level or No management Left Footwear Surgical Shoe Removable Cast with pressure Walker/Walking relief insole Boot Right Footwear Regular Shoe Pain Scale: 0-10 Numeric Is Patient Pain Free? Yes No LT FOOT -Description Throbbing, Aching -Intensity 8 -Alleviating Factors/Interventions Medication, Inactivity/ Resting Communication Assessment Preferred language Pashto Able to Read Yes Able to Write Yes Right Hearing Abillity Normal Left Hearing Abillity Normal Visual Assistive Devices None Teaching: Wound Center Dressing Your Wound -Person Taught Patient *Welcome to the Wound Center -Person Taught Patient WC - Nurse 1 - General Ulcer Measurement Start: 07/15/24 10:13 Freq: Status: Active Protocol: Activity Type Activity Date Activity User E-sign Co-sign Detail Recorded Client Recorded Date Recorded By Document 07/15/24 10:15 DL [id number] 07/15/24 10:24 DL Document 07/22/24 10:15 KW [id number] 07/22/24 10:21 KW 07/15/24 07/22/24 10:15 10:15 Wound Center Nurse 1 #1 L Ant Ankle Cluster -Current Size (cm) - Length 5.2 5 -Current Size (cm) - Width 0.9 1 -Current Size (cm) - Depth 0.3 0.3 -Total Square Cm 4.68 5 -Photo Taken Yes -Classification - Thickness Full Thickness without Exposed Support Structure -Exudate Amt Medium Small -Exudate Type Serosanguineous Serosanguineous -Wound Margin Distinct, Distinct, Outline Outline Attached Attached -Granulation Amt None Present (0 Medium (34-66%) %) -Granulation Quality Red -Necrosis Amt Large (67-100%) Medium (34-66%) -Necrotic Tissue Type Adherent Slough Adherent Slough -Structure Exposed N/A -Texture (Viki-wound Skin Appearance) Localized Edema Assessed, ,Scarring Localized Edema -Moisture (Viki-wound Skin Appearance) Dry/Scaly Assessed -Color (Viki-wound Skin Appearance) No Abnormality Assessed, Erythema -Temperature (Viki-wound Skin No Abnormality No Abnormality Appearance) (Pt Warm) (Pt Warm) -Tenderness on Palpation (Viki-wound No No Skin Appearance) -Ulcer Cleansing Soap and Water Rinsed/ Irrigated with Saline -Foul Odor after Cleansing No No -Anesthetic Used 5% Lidocaine 5% Lidocaine Gel Gel Left Calf (cm) 41 Left Ankle (cm) 27.4 WC - Nurse 2 - General Ulcer CM Notes Start: 07/15/24 10:13 Freq: Status: Active Protocol: Activity Type Activity Date Activity User E-sign Co-sign Detail Recorded Client Recorded Date Recorded By Document 07/15/24 10:32 [id number] 07/15/24 10:37 Document 07/22/24 10:36 [id number] 07/22/24 10:38 07/15/24 07/22/24 10:32 10:36 Wound Center Nurse 2 #1 L Ant Ankle Cluster -Time 10:34 10:36 -Correct Patient Yes Yes -Correct Side, Site, Position Yes Yes -Correct Procedure Yes Yes -Procedure Performed Yes Yes -Type of Procedure Debridement Debridement -Clinical Debridement Muscle / Fascia Subcutaneous -Tissue Removed Muscle Subcutaneous -Post Debridement (cm) - Length 2.7 2.0 -Post Debridement (cm) - Width 1.1 1.0 -Post Debridement (cm) - Depth 0.7 0.4 -Total Square (Post) (cm) 2.97 2.00 -Area of Debridement (cm) - Length 2.7 2.0 -Area of Debridement (cm) - Width 1.1 1.0 -Total Square (Area) (cm) 2.97 2.00 -Tunneling No No -Undermining/Tunneling No No -Circular Undermining No No -Wound/Ulcer Outcome Not Healed Not Healed -Ulcer Cleansing Rinsed/ Rinsed/ Irrigated with Irrigated with Saline Saline -Foul Odor after Cleansing No No -Bioengineered Tissue No No -Bleeding Controlled with Pressure Pressure -Treatment Response Procedure Procedure Tolerated Well Tolerated Well -Offloading Yes Yes -Type of Offloading Surgical Shoe Surgical Shoe -Debridement - Subq, 1st 20sq cm Yes -Debridement - Muscle / Fascia, 1st Yes 20sq cm Pain Scale: 0-10 Numeric Is Patient Pain Free? Yes Yes - Nurse 3 - General Ulcer D/C NN Start: 07/15/24 10:13 Freq: Status: Active Protocol: Activity Type Activity Date Activity User E-sign Co-sign Detail Recorded Client Recorded Date Recorded By Document 07/15/24 10:54 DL [id number] 07/15/24 10:56 DL Document 07/22/24 10:49 [facility] [id number] 07/22/24 10:50 BM 07/15/24 07/22/24 10:54 10:49 Wound Care Center Nurse 3 #1 L Ant Ankle Cluster -Ulcer Cleansing Rinsed/ Rinsed/ Irrigated with Irrigated with Saline Saline -Foul Odor after Cleansing No No -Primary Dressing Applied Aquacel AG 4x4, Aquacel AG 2x2, Mepilex Border Mepilex Border -Primary Dressing Covered/Secured with Dry Gauze & Dry Gauze Roll Gauze, Secured with Tape -Other Covering chris -Aquacel AG 2x2 1 -Aquacel AG 4x4 1 -Mepilex Border 1 1 -Wound Comment(s) Dressing applied per Johnson ponce Left -Compression Wrap Chris Wrap Treatment Response Procedure Procedure Tolerated Well Tolerated Well Pain Scale: 0-10 Numeric Is Patient Pain Free? 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 All findings were discussed with the patient. All questions were answered to the patient's satisfaction. Excisional debridement down to including subcutaneous tissue, fascia and muscle with a number 3 mm dermal curette left dorsal medial incision of the left foot. Predebridement measurement was 1.8 x 0.9 x 0.2 cm. Postdebridement measurement is 2.0 x 1.0 x 0.4 cm. Left lower extremity was wiped clean and patted dry. The full-thickness wound was dressed with silver alginate dry sterile dressing and Chris wrap for compression. Patient will be getting a new PICC line in the upcoming days to continue home antibiotic treatment. Educated the patient about smoking sensation. Patient will continue strict blood sugar control. Follow-up at the wound care center with Dr. Gtz in 1 week. (2) Other specified peripheral vascular diseases: CODE(S): I73.89 - Other specified peripheral vascular diseases (3) Chronic painful diabetic polyneuropathy: CODE(S): E11.42 - Type 2 diabetes mellitus with diabetic polyneuropathy
== END 2024-07-22 23:59 | disposition home or self-care (01) ==
LOC: WC 09:45
PROVIDERS: PCP Preventive Medicine Occupational Medicine; Referring Provider Podiatrist Foot & Ankle Surgery; Visit Provider Podiatrist Foot & Ankle Surgery
DX: E11.622 Type 2 diabetes mellitus with other skin ulcer (principal); L97.325 Non-pressure chronic ulcer of left ankle with muscle involvement without evidence of necrosis; E11.42 Type 2 diabetes mellitus with diabetic polyneuropathy; Z79.4 Long term (current) use of insulin; E11.51 Type 2 diabetes mellitus with diabetic peripheral angiopathy without gangrene; T81.89XA Other complications of procedures, not elsewhere classified, initial encounter; G89.29 Other chronic pain; K52.9 Noninfective gastroenteritis and colitis, unspecified; I10 Essential (primary) hypertension; E78.00 Pure hypercholesterolemia, unspecified; F17.210 Nicotine dependence, cigarettes, uncomplicated; Z79.84 Long term (current) use of oral hypoglycemic drugs; Z79.899 Other long term (current) drug therapy
CPT/HCPCS: 11042; 11043; 36592; 80048; 80202; 85027; 85652; 99214; A4216; G0463

== ENCOUNTER 2024-07-30 09:22 | Outpatient (CLI) | payer MEDICAID, SELFPAY ==
[2024-07-30 10:20] LABS: Hematocrit 34.3 % (37-47); Hemoglobin 11.5 g/dL (12.0-15.0); Mean Corp Hgb Conc 33.5 g/dL (32-36); Mean Corpuscular Hgb 27.6 pg (27.0-32.0); Mean Corpuscular Volume 82.5 fL (81-99); Mean Platelet Vol. 11.1 fl (6.2-12.0); Platelet Count 231 K/mm3 (150-450); RBC Distribution Width CV 13.2 % (11.6-14.6); RBC Distribution Width SD 39.5 fl (35.1-43.9); Red Blood Count 4.16 M/mm3 (4.2-5.4); White Blood Count 8.9 K/mm3 (4.4-11.0)
[2024-07-30 10:27] LABS: Erythrocyte Sedimentation Rate 54 mm/hr (0-30)
[2024-07-30 10:32] LABS: Anion Gap 4 (5-15); BUN 20 mg/dL (7-18); BUN/Creat Ratio 18.2 RATIO (10-20); Calcium,Total 9.3 mg/dL (8.5-10.1); Chloride 109 mmol/L (98-107); EST Glomerular Filtration Rate 55 mL/min (>60); Est Glom Filt Rate - Afr Amer 66 mL/min (>60); Glucose 157 mg/dL (74-106); Potassium 4.1 mmol/L (3.5-5.1); Sodium Level 139 mmol/L (136-145)
[2024-07-30 10:48] LABS: Vancomycin, Trough Level 30.5 ug/mL (5.0-15.0)
== END 2024-07-30 23:59 | disposition home or self-care (01) ==
LOC: MEDOUTP 09:23
PROVIDERS: PCP Preventive Medicine Occupational Medicine; Referring Provider Internal Medicine Infectious Disease; Visit Provider Internal Medicine Infectious Disease
DX: M86.8X7 Other osteomyelitis, ankle and foot (principal)
CPT/HCPCS: 36592; 80048; 80202; 85027; 85652; A4216

== ENCOUNTER 2024-08-06 08:32 | Outpatient (CLI) | payer MEDICAID, SELFPAY ==
[2024-08-06 09:35] LABS: Hematocrit 34.4 % (37-47); Hemoglobin 11.5 g/dL (12.0-15.0); Mean Corp Hgb Conc 33.4 g/dL (32-36); Mean Corpuscular Hgb 28.1 pg (27.0-32.0); Mean Corpuscular Volume 84.1 fL (81-99); Mean Platelet Vol. 10.5 fl (6.2-12.0); Platelet Count 265 K/mm3 (150-450); RBC Distribution Width CV 13.1 % (11.6-14.6); RBC Distribution Width SD 39.9 fl (35.1-43.9); Red Blood Count 4.09 M/mm3 (4.2-5.4); White Blood Count 9.1 K/mm3 (4.4-11.0)
[2024-08-06 09:38] LABS: Erythrocyte Sedimentation Rate 47 mm/hr (0-30)
[2024-08-06 09:39] LABS: Anion Gap 4 (5-15); BUN 20 mg/dL (7-18); BUN/Creat Ratio 19.8 RATIO (10-20); Calcium,Total 9.3 mg/dL (8.5-10.1); Chloride 105 mmol/L (98-107); Creatinine, Serum 1.01 mg/dL (0.55-1.02); EST Glomerular Filtration Rate 61 mL/min (>60); Est Glom Filt Rate - Afr Amer 73 mL/min (>60); Glucose 155 mg/dL (74-106); Potassium 4.1 mmol/L (3.5-5.1); Sodium Level 139 mmol/L (136-145)
[2024-08-06 09:56] LABS: Vancomycin, Trough Level 36.4 ug/mL (5.0-15.0)
== END 2024-08-06 23:59 | disposition home or self-care (01) ==
LOC: MEDOUTP 08:34
PROVIDERS: PCP Preventive Medicine Occupational Medicine; Referring Provider Internal Medicine Infectious Disease; Visit Provider Internal Medicine Infectious Disease
DX: M86.9 Osteomyelitis, unspecified (principal)
CPT/HCPCS: 36415; 80048; 80202; 85027; 85652; 96523; A4216

== ENCOUNTER 2024-08-15 08:41 | Outpatient (CLI) | payer MEDICAID, SELFPAY ==
[2024-08-15 09:44] LABS: Erythrocyte Sedimentation Rate 34 mm/hr (0-30)
[2024-08-15 09:46] LABS: Hematocrit 38.2 % (37-47); Hemoglobin 12.5 g/dL (12.0-15.0); Mean Corp Hgb Conc 32.7 g/dL (32-36); Mean Corpuscular Hgb 27.1 pg (27.0-32.0); Mean Corpuscular Volume 82.9 fL (81-99); Mean Platelet Vol. 10.5 fl (6.2-12.0); Platelet Count 211 K/mm3 (150-450); RBC Distribution Width CV 13.2 % (11.6-14.6); RBC Distribution Width SD 39.7 fl (35.1-43.9); Red Blood Count 4.61 M/mm3 (4.2-5.4); White Blood Count 6.6 K/mm3 (4.4-11.0)
[2024-08-15 10:03] LABS: Anion Gap 7 (5-15); BUN 40 mg/dL (7-18); BUN/Creat Ratio 22.2 RATIO (10-20); Calcium,Total 9.5 mg/dL (8.5-10.1); Chloride 105 mmol/L (98-107); EST Glomerular Filtration Rate 31 mL/min (>60); Est Glom Filt Rate - Afr Amer 38 mL/min (>60); Glucose 181 mg/dL (74-106); Potassium 3.5 mmol/L (3.5-5.1); Sodium Level 137 mmol/L (136-145)
[2024-08-15 10:06] LABS: Vancomycin, Trough Level 28.2 ug/mL (5.0-15.0)
== END 2024-08-15 23:59 | disposition home or self-care (01) ==
LOC: MEDOUTP 08:41
PROVIDERS: PCP Preventive Medicine Occupational Medicine; Referring Provider Internal Medicine Infectious Disease; Visit Provider Internal Medicine Infectious Disease
DX: M86.9 Osteomyelitis, unspecified (principal)
CPT/HCPCS: 80048; 80202; 85027; 85652

== ENCOUNTER 2024-08-20 10:50 | Outpatient (CLI) | payer MEDICAID, SELFPAY | END 2024-08-20 23:59 | disposition home or self-care (01) | LOC: MEDOUTP 10:50 | PROVIDERS: PCP Preventive Medicine Occupational Medicine; Referring Provider Internal Medicine Infectious Disease; Visit Provider Internal Medicine Infectious Disease | DX: Z45.2 Encounter for adjustment and management of vascular access device (principal) ==

== ENCOUNTER 2024-08-20 11:30 | Outpatient (RCR) | payer MEDICAID, SELFPAY ==
[2024-07-23 00:30] VITALS: BP 155/91; PULSE 94; RESP 18; TEMP 36.1; BMI 41.3
[2024-08-06 10:38] VITALS: BP 157/93; PULSE 102; RESP 18; TEMP 36.4; BMI 41.3
--- NOTE | 2024-08-06 12:17 | PCM.WC.PN ---
History of Present Illness Date of Service: 07/22/24 Chief Complaint: Left foot wound History of Wound: Left foot surgical wound Progress of Wound: Mrs. Wolfe is a 53-year-old diabetic female presented wound care center today for follow-up evaluation of full-thickness wound to the dorsal aspect of the left foot. Patient was seen in the hospital after being admitted secondary to colitis from oral antibiotics. Patient has history of gastrointestinal issues and is seeing GI for treatment. Reason for hospital admission was worsening infection to the left foot status post surgery by Dr. Gtz who is her foot surgeon. Patient failed oral antibiotics and was needed to be seen by infectious disease for PICC line and IV antibiotics to help heal her infected foot wound secondary to pressure issues causing breakdown of skin and eventually wound to the dorsal aspect of one of her incisions. While in the hospital she was seen by the medicine team, GI and infectious disease as well as podiatry. She was discharged home and is presenting today for continued evaluation and treatment. She denies any trauma. Denies constitutional symptoms. Other pedal complaints at this time. Subjective Subjective Mrs. Wolfe is a 53-year-old diabetic female presenting to the wound care center today for follow-up evaluation to full-thickness wound to the left foot. Patient states that she has C. difficile from the IV antibiotics. She does admit to improved pain to the left foot but will begin physical therapy and will need a refill on her pain meds due to increased pain with prolonged standing and ambulation due to physical therapy. She is doing dressing changes as prescribed. Treatment improvement to her wound. Part of the wound has already healed. Blood sugar well-controlled. Denies trauma. Denies constitutional symptoms. Other pedal complaints at this time. Objective Data Objective Data Vital Signs: Vital Signs Temp Pulse Resp BP 97.5 F L 102 H 18 157/93 H 08/06/24 10:38 08/06/24 10:38 08/06/24 10:38 08/06/24 10:38 Weight: 102.623 kg Body Mass Index (BMI) 41.3 Physical Exam Narrative Vascular: DP and PT pulses are palpable to left lower extremity. CFT is brisk. Skin temp great is warm to warm from proximal ankles to distal digits to left lower extremity. Skin temperature and turgor is within normal limits. Nonpitting edema appreciated to the left lower extremity. Blanchable erythema appreciated to the periwound and lesser digits left foot. Neurological: Light touch intact. Patient does respond to painful stimuli. Neurological: Full-thickness ulceration to the left anterior medial ankle measuring 1.3 x 0.8 x 0.6 cm. Wound does not probe to bone. Wound probes to muscle. No malodor associated. No active drainage. Periwound erythema is noticeable but blanchable. No proximal streaking. Excisional debridement down to including subcutaneous tissue, fascia and muscle with a number 3 mm dermal curette left dorsal medial incision of the left foot. Predebridement measurement was 1.2 x 0.5 x 0.4 cm. Postdebridement measurement is 1.3 x 0.8 x 0.6 cm. Musculoskeletal: Mild to moderate palpatory tenderness appreciated to the full-thickness wound to the left lower extremity. No pain with calf pressure. Debridement Note Debridement Note Debridement Free Text: Excisional debridement down to including subcutaneous tissue, fascia and muscle with a number 3 mm dermal curette left dorsal medial incision of the left foot. Predebridement measurement was 1.2 x 0.5 x 0.4 cm. Postdebridement measurement is 1.3 x 0.8 x 0.6 cm. 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 ) Arrival Mode Ambulatory Transfer Assistance None Patient Identification Verified (Name & Yes ) Patient Requires Transmission-Based No Precautions Height and Weight Body Mass Index (BMI) 41.3 BMI Classification Obese Vital Signs Temperature (97.8 F-99.1 F) 97.5 F L Temperature Source Temporal Pulse Rate (60-100) 102 H Pulse Location Monitor Respiratory Rate (12-18) 18 Respiratory rate source Observation Blood Pressure (90/60-120/80) 157/93 H Blood Pressure Mean (mm Hg) 114 Source Monitor History Since Last Visit- (Skip if this is Patient's initial visit) Have you changed medications since your No last visit? Any new allergies or adverse reactions No Had a fall/change in ADL's that may No increase risk of falls Signs or symptoms of abuse and/or No neglect since last visit Have you been in the hospital since your No last visit? Has dressing in place as prescribed Yes Has compression in place as prescribed Yes Has offloadiing in place as prescribed N/A Experienced any changes in pain level or No management Pain Scale: 0-10 Numeric Is Patient Pain Free? Yes WC - Nurse 1 - General Ulcer Measurement Start: 08/06/24 10:38 Freq: Status: Active Protocol: Activity Type Activity Date Activity User E-sign Co-sign Detail Recorded Client Recorded Date Recorded By Document 08/06/24 10:38 [id number] [id number] 08/06/24 10:48 DL 08/06/24 10:38 Wound Center Nurse 1 #1 L Ant Ankle Cluster -Current Size (cm) - Length 4.6 -Current Size (cm) - Width 0.5 -Current Size (cm) - Depth 0.5 -Total Square Cm 2.30 -Exudate Amt Medium -Wound Margin Distinct, Outline Attached -Granulation Amt Small (1-33%) -Granulation Quality [place] -Necrosis Amt Large (67-100%) -Necrotic Tissue Type Adherent Slough -Structure Exposed N/A -Texture (Viki-wound Skin Appearance) Localized Edema ,Scarring -Moisture (Viki-wound Skin Appearance) No Abnormality -Color (Viki-wound Skin Appearance) No Abnormality -Temperature (Viki-wound Skin No Abnormality Appearance) (Pt Warm) -Tenderness on Palpation (Viki-wound No Skin Appearance) -Ulcer Cleansing Soap and Water -Foul Odor after Cleansing No -Anesthetic Used 5% Lidocaine Gel Left Calf (cm) 39.5 Left Ankle (cm) 26 - Nurse 2 - General Ulcer CM Notes Start: 08/06/24 10:38 Freq: Status: Active Protocol: Activity Type Activity Date Activity User E-sign Co-sign Detail Recorded Client Recorded Date Recorded By Document 08/06/24 11:05 JF [id number] 08/06/24 11:08 JOSE 08/06/24 11:05 Wound Center Nurse 2 #1 L Ant Ankle Cluster -Time 11:06 -Correct Patient Yes -Correct Side, Site, Position Yes -Correct Procedure Yes -Procedure Performed Yes -Type of Procedure Debridement -Clinical Debridement Muscle / Fascia -Tissue Removed Muscle -Post Debridement (cm) - Length 1.3 -Post Debridement (cm) - Width 0.8 -Post Debridement (cm) - Depth 0.6 -Total Square (Post) (cm) 1.04 -Area of Debridement (cm) - Length 1.3 -Area of Debridement (cm) - Width 0.8 -Total Square (Area) (cm) 1.04 -Tunneling No -Undermining/Tunneling No -Circular Undermining No -Wound/Ulcer Outcome Not Healed -Ulcer Cleansing Rinsed/ Irrigated with Saline -Foul Odor after Cleansing No -Bioengineered Tissue No -Bleeding Controlled with Pressure -Treatment Response Procedure Tolerated Well -Offloading Yes -Type of Offloading Surgical Shoe -Debridement - Muscle / Fascia, 1st Yes 20sq cm Pain Scale: 0-10 Numeric Is Patient Pain Free? Yes - Nurse 3 - General Ulcer D/C NN Start: 08/06/24 10:38 Freq: Status: Active Protocol: Activity Type Activity Date Activity User E-sign Co-sign Detail Recorded Client Recorded Date Recorded By Document 08/06/24 11:19 [id number] 08/06/24 11:20 08/06/24 11:19 Wound Care Center Nurse 3 #1 L Ant Ankle Cluster -Ulcer Cleansing Not Cleansed -Foul Odor after Cleansing No -Negative Pressure Wound Therapy N/A -Primary Dressing Applied Aquacel AG 2x2 -Primary Dressing Covered/Secured with Dry Gauze, Secured with Tape Pain Scale: 0-10 Numeric Is Patient Pain Free? 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 All findings were discussed with the patient. All questions were answered to the patient's satisfaction. Excisional debridement down to including subcutaneous tissue, fascia and muscle with a number 3 mm dermal curette left dorsal medial incision of the left foot. Predebridement measurement was 1.2 x 0.5 x 0.4 cm. Postdebridement measurement is 1.3 x 0.8 x 0.6 cm.Left lower extremity was wiped clean and patted dry. The full-thickness wound was dressed with silver alginate dry sterile dressing and Chris wrap for compression. Patient will continue IV antibiotics through her PICC line. Educated the patient on smoking sensation. Patient will be given 1 last prescription for pain medication is to be begins and continues physical therapy with no additional refills. Patient will continue strict blood sugar control. Follow-up at the wound care center with Dr. Gtz in 1 week. (2) Other specified peripheral vascular diseases: CODE(S): I73.89 - Other specified peripheral vascular diseases (3) Chronic painful diabetic polyneuropathy: CODE(S): E11.42 - Type 2 diabetes mellitus with diabetic polyneuropathy
[2024-08-20 11:37] VITALS: BP 132/87; PULSE 101; RESP 18; BMI 41.3
--- NOTE | 2024-08-20 13:09 | PCM.WC.PN ---
History of Present Illness Date of Service: 08/20/24 Chief Complaint: Left foot wound History of Wound: Left foot surgical wound Progress of Wound: Mrs. Wolfe is a 53-year-old diabetic female presented wound care center today for follow-up evaluation of full-thickness wound to the dorsal aspect of the left foot. Patient was seen in the hospital after being admitted secondary to colitis from oral antibiotics. Patient has history of gastrointestinal issues and is seeing GI for treatment. Reason for hospital admission was worsening infection to the left foot status post surgery by Dr. Gtz who is her foot surgeon. Patient failed oral antibiotics and was needed to be seen by infectious disease for PICC line and IV antibiotics to help heal her infected foot wound secondary to pressure issues causing breakdown of skin and eventually wound to the dorsal aspect of one of her incisions. While in the hospital she was seen by the medicine team, GI and infectious disease as well as podiatry. She was discharged home and is presenting today for continued evaluation and treatment. She denies any trauma. Denies constitutional symptoms. Other pedal complaints at this time. Subjective Subjective Mrs Wolfe is a 53-year-old diabetic female present wound care center today for follow-up and evaluation of full-thickness wound to the left foot. Patient has been compliant with dressing changes. Her blood sugars well-controlled. She is weightbearing as tolerated. She denies any trauma. Denies constitutional symptoms. No other pain complaints at this time. Objective Data Objective Data Vital Signs: Vital Signs Temp Pulse Resp BP O2 Del Method 97.5 F L 101 H 18 132/87 H Room Air 08/06/24 10:38 08/20/24 11:37 08/20/24 11:37 08/20/24 11:37 08/20/24 11:37 Oxygen Delivery Method Room Air Weight: 102.623 kg Body Mass Index (BMI) 41.3 Physical Exam Narrative Vascular: DP and PT pulses are palpable to left lower extremity. CFT is brisk. Skin temp great is warm to warm from proximal ankles to distal digits to left lower extremity. Skin temperature and turgor is within normal limits. Nonpitting edema appreciated to the left lower extremity. Blanchable erythema appreciated to the periwound and lesser digits left foot. Neurological: Light touch intact. Patient does respond to painful stimuli. Dermatological: Full-thickness ankle wound is now healed. Evidence of full-thickness wound to the left foot measuring 1.0 x 1.1 x 0.3 cm. Wound base is granular nature. No sign of infection. Excisional debridement down to including subcutaneous tissue, fascia and muscle with a number 3 mm dermal curette left dorsal medial incision of the left foot. Predebridement measurement was 0.8 x 0.9 x 0.1 cm. Postdebridement measurement is 1.0 x 1.1 x 0.3 cm. EpiFix 2.0 x 2.0 cm graft was applied to the left foot full-thickness ulceration with 100% use. First application. The graft site was free and clear of any infection. The wound/skin graft substitute was dressed with nonadherent bandage secured in place with Steri-Strips followed by dry sterile dressing and a Tubigrip for compression control. Musculoskeletal: Mild palpatory tenderness appreciated to the full-thickness wound to the left foot. No pain with calf pressure. Debridement Note Debridement Note Debridement Free Text: Excisional debridement down to including subcutaneous tissue, fascia and muscle with a number 3 mm dermal curette left dorsal medial incision of the left foot. Predebridement measurement was 0.8 x 0.9 x 0.1 cm. Postdebridement measurement is 1.0 x 1.1 x 0.3 cm. EpiFix 2.0 x 2.0 cm graft was applied to the left foot full-thickness ulceration with 100% use. First application. The graft site was free and clear of any infection. The wound/skin graft substitute was dressed with nonadherent bandage secured in place with Steri-Strips followed by dry sterile dressing and a Tubigrip for compression control. Post-Debridement Measurements and Additional Note: Post-Debridement Measurements/Treatment - Nurse 1 - General Ulcer Assessment Start: 08/06/24 10:38 Freq: Status: Active Protocol: MATILDA Activity Type Activity Date Activity User E-sign Co-sign Detail Recorded Client Recorded Date Recorded By Document 08/06/24 10:38 DL [id number] 08/06/24 10:48 DL Document 08/20/24 11:37 KW [id number] 08/20/24 11:43 KW 08/06/24 08/20/24 10:38 11:37 - Today's Visit Information Type of service Follow-up Visit Follow-up Visit (Physician/[facility] (Physician/[facility] ) ) Arrival Mode Ambulatory Ambulatory,Cane Transfer Assistance None Patient Identification Verified (Name & Yes Yes ) Patient Requires Transmission-Based No Precautions Height and Weight Body Mass Index (BMI) 41.3 41.3 BMI Classification Obese Obese Vital Signs Temperature (97.8 F-99.1 F) 97.5 F L Temperature Source Temporal Pulse Rate (60-100) 102 H 101 H Pulse Location Monitor Monitor Respiratory Rate (12-18) 18 18 Respiratory rate source Observation Observation Oxygen Delivery Method Room Air Blood Pressure (90/60-120/80) 157/93 H 132/87 H Blood Pressure Mean (mm Hg) 114 102 Source Monitor Monitor Position Semi-Fowlers Blood Pressure Location Left Arm History Since Last Visit- (Skip if this is Patient's initial visit) Have you changed medications since your No No last visit? Any new allergies or adverse reactions No No Had a fall/change in ADL's that may No No increase risk of falls Signs or symptoms of abuse and/or No No neglect since last visit Have you been in the hospital since your No No last visit? Has dressing in place as prescribed Yes Yes Has compression in place as prescribed Yes N/A Has offloadiing in place as prescribed N/A N/A Experienced any changes in pain level or No No management Left Footwear Regular Shoe Right Footwear Regular Shoe Pain Scale: 0-10 Numeric Is Patient Pain Free? Yes Yes WC - Nurse 1 - General Ulcer Measurement Start: 08/06/24 10:38 Freq: Status: Active Protocol: Activity Type Activity Date Activity User E-sign Co-sign Detail Recorded Client Recorded Date Recorded By Document 08/06/24 10:38 DL [id number] 08/06/24 10:48 DL Document 08/20/24 11:37 KW [id number] 08/20/24 11:43 KW 08/06/24 08/20/24 10:38 11:37 Wound Center Nurse 1 #1 L Ant Ankle Cluster -Current Size (cm) - Length 4.6 1 -Current Size (cm) - Width 0.5 1 -Current Size (cm) - Depth 0.5 0.6 -Total Square Cm 2.30 1 -Exudate Amt Medium Small -Exudate Type Serosanguineous -Wound Margin Distinct, Distinct, Outline Outline Attached Attached -Granulation Amt Small (1-33%) Small (1-33%) -Granulation Quality [place] -Necrosis Amt Large (67-100%) Large (67-100%) -Necrotic Tissue Type Adherent Slough Adherent Slough -Structure Exposed N/A -Texture (Viki-wound Skin Appearance) Localized Edema Assessed ,Scarring -Moisture (Viki-wound Skin Appearance) No Abnormality Assessed -Color (Viki-wound Skin Appearance) No Abnormality Assessed -Temperature (Viki-wound Skin No Abnormality No Abnormality Appearance) (Pt Warm) (Pt Warm) -Tenderness on Palpation (Viki-wound No No Skin Appearance) -Ulcer Cleansing Soap and Water Rinsed/ Irrigated with Saline -Foul Odor after Cleansing No No -Anesthetic Used 5% Lidocaine 5% Lidocaine Gel Gel Left Calf (cm) 39.5 Left Ankle (cm) 26 WC - Nurse 2 - General Ulcer CM Notes Start: 08/06/24 10:38 Freq: Status: Active Protocol: Activity Type Activity Date Activity User E-sign Co-sign Detail Recorded Client Recorded Date Recorded By Document 08/06/24 11:05 [id number] 08/06/24 11:08 Document 08/20/24 11:48 [id number] 08/20/24 11:53 08/06/24 08/20/24 11:05 11:48 Wound Center Nurse 2 #1 L Ant Ankle Cluster -Time 11:06 11:48 -Correct Patient Yes Yes -Correct Side, Site, Position Yes Yes -Correct Procedure Yes Yes -Procedure Performed Yes Yes -Type of Procedure Debridement Debridement -Clinical Debridement Muscle / Fascia Subcutaneous -Tissue Removed Muscle Subcutaneous -Post Debridement (cm) - Length 1.3 1 -Post Debridement (cm) - Width 0.8 1 -Post Debridement (cm) - Depth 0.6 0.3 -Total Square (Post) (cm) 1.04 1 -Area of Debridement (cm) - Length 1.3 1 -Area of Debridement (cm) - Width 0.8 1 -Total Square (Area) (cm) 1.04 1 -Tunneling No No -Undermining/Tunneling No No -Circular Undermining No No -Wound/Ulcer Outcome Not Healed Not Healed -Ulcer Cleansing Rinsed/ Rinsed/ Irrigated with Irrigated with Saline Saline -Foul Odor after Cleansing No No -Bioengineered Tissue No Yes -Type of Bioengineered Tissue Epifix -Expiration Date 03/23/29 -Product Lot Number [id number] -Percent Used 100 -Lot number of Saline Used [id number] -Bleeding Controlled with Pressure Pressure -Treatment Response Procedure Procedure Tolerated Well Tolerated Well -Offloading Yes No -Type of Offloading Surgical Shoe -Debridement - Subq, 1st 20sq cm No -Debridement - Muscle / Fascia, 1st Yes 20sq cm -Apply Skin Sub - 1st 25 sq cm - Feet 1 -Epifix (per sq cm) 4 Pain Scale: 0-10 Numeric Is Patient Pain Free? Yes Yes - Nurse 3 - General Ulcer D/C NN Start: 08/06/24 10:38 Freq: Status: Active Protocol: Activity Type Activity Date Activity User E-sign Co-sign Detail Recorded Client Recorded Date Recorded By Document 08/06/24 11:19 GM [id number] 08/06/24 11:20 GM Document 08/20/24 12:01 DL [id number] 08/20/24 12:02 DL 08/06/24 08/20/24 11:19 12:01 Wound Care Center Nurse 3 #1 L Ant Ankle Cluster -Ulcer Cleansing Not Cleansed -Foul Odor after Cleansing No No -Negative Pressure Wound Therapy N/A -Primary Dressing Applied Aquacel AG 2x2 -Other Dressing Epifix -Primary Dressing Covered/Secured with Dry Gauze, Dry Gauze, Secured with Secured with Tape Tape Left -Tubular Bandage Single Layer -Size of Tubigrip Used Size F -Size F ($) 1 Treatment Response Procedure Tolerated Well Pain Scale: 0-10 Numeric Is Patient Pain Free? Yes Yes - Visit Discharge Discharge Condition Stable Stable Ambulatory Status Ambulatory Ambulatory Transportation Private Auto Private Auto Facility Type Home Health Orders Sent Yes Assessment/Plan Assessment/Plan (1) Non-pressure chronic ulcer of left ankle with muscle involvement without evidence of necrosis: CODE(S): L97.325 - Non-pressure chronic ulcer of left ankle with muscle involvement without evidence of necrosis PLAN: Patient was examined and evaluated. All findings were discussed with the patient. All questions were answered to the patient's satisfaction. Excisional debridement down to including subcutaneous tissue, fascia and muscle with a number 3 mm dermal curette left dorsal medial incision of the left foot. Predebridement measurement was 0.8 x 0.9 x 0.1 cm. Postdebridement measurement is 1.0 x 1.1 x 0.3 cm. EpiFix 2.0 x 2.0 cm graft was applied to the left foot full-thickness ulceration with 100% use. First application. The graft site was free and clear of any infection. The wound/skin graft substitute was dressed with nonadherent bandage secured in place with Steri-Strips followed by dry sterile dressing and a Tubigrip for compression control. Patient will continue strict blood sugar control. Follow-up at the wound care center with Dr. Gtz in 1 week. (2) Other specified peripheral vascular diseases: CODE(S): I73.89 - Other specified peripheral vascular diseases (3) Chronic painful diabetic polyneuropathy: CODE(S): E11.42 - Type 2 diabetes mellitus with diabetic polyneuropathy
== END 2024-08-22 23:59 | disposition home or self-care (01) ==
LOC: WC 11:30
PROVIDERS: PCP Preventive Medicine Occupational Medicine; Referring Provider Podiatrist Foot & Ankle Surgery; Visit Provider Podiatrist Foot & Ankle Surgery
DX: L97.325 Non-pressure chronic ulcer of left ankle with muscle involvement without evidence of necrosis (principal); E11.51 Type 2 diabetes mellitus with diabetic peripheral angiopathy without gangrene; E11.42 Type 2 diabetes mellitus with diabetic polyneuropathy; A04.72 Enterocolitis due to Clostridium difficile, not specified as recurrent; R60.0 Localized edema; Z79.84 Long term (current) use of oral hypoglycemic drugs; Z79.899 Other long term (current) drug therapy
CPT/HCPCS: 11043; 15275; 36415; 80048; 80202; 85027; 85652; 96523; Q4186; A4216

== ENCOUNTER 2024-09-03 11:46 | Outpatient (RCR) | payer MEDICAID, SELFPAY ==
[2024-08-23 02:00] VITALS: BP 132/87; PULSE 101; RESP 18; TEMP 36.4; BMI 41.3
[2024-09-03 11:49] VITALS: BP 151/85; PULSE 100; RESP 14; TEMP 36.2; BMI 41.3
--- NOTE | 2024-09-03 14:45 | PN.PCM_ITS ---
History of Present Illness Date of Service: 09/03/24 Chief Complaint: Left foot wound History of Wound: Left foot surgical wound Progress of Wound: Stable left ankle wound. No sign of infection. Subjective Subjective Mrs. Wolfe is a 53-year-old female presenting the wound care center today for follow-up evaluation of full-thickness wound to left ankle. She has left her dressing clean dry and intact. She is doing well. She states that her blood sugar is well-controlled. She is ambulating in a cam boot and admits to having pain ranging from 6?8 out of 10 on the pain scale. She is noticing great improvement to her wound. She does use a cane to ambulate. She denies trauma. Denies constitutional symptoms. No other pedal complaints at this time. Objective Data Objective Data Vital Signs: Vital Signs Temp Pulse Resp BP 97.1 F L 100 14 151/85 H 09/03/24 11:49 09/03/24 11:49 09/03/24 11:49 09/03/24 11:49 Weight: 102.623 kg Body Mass Index (BMI) 41.3 Physical Exam Narrative Vascular: DP and PT pulses are palpable to left lower extremity. CFT is brisk. Skin temp great is warm to warm from proximal ankles to distal digits to left lower extremity. Skin temperature and turgor is within normal limits. Nonpitting edema appreciated to the left lower extremity. Blanchable erythema appreciated to the periwound and lesser digits left foot. Neurological: Light touch intact. Patient does respond to painful stimuli. Dermatological: Full-thickness ankle wound is now healed. Evidence of full- thickness wound to the left ankle measuring 0.9 x 0.5 x 0.1 cm. Wound base is granular nature. No sign of infection. Excisional debridement down to including subcutaneous tissue with a number 3 mm dermal curette left dorsal medial incision of the left ankle. Predebridement measurement was 0.8 x 0.3 x 0.1 cm. Postdebridement measurement is 0.9 x 0.5 x 0.1 cm. EpiFix 18 mm disc graft was applied to the left foot full-thickness ulceration with 100% use. Second application. The graft site was free and clear of any infection. The wound/skin graft substitute was dressed with nonadherent bandage secured in place with Steri-Strips followed by dry sterile dressing and a Tubigrip for compression control. Musculoskeletal: Mild palpatory tenderness appreciated to the full-thickness wound to the left foot. No pain with calf pressure. Debridement Note Debridement Note Debridement Free Text: Excisional debridement down to including subcutaneous tissue with a number 3 mm dermal curette left dorsal medial incision of the left ankle. Predebridement measurement was 0.8 x 0.3 x 0.1 cm. Postdebridement measurement is 0.9 x 0.5 x 0.1 cm. EpiFix 18 mm disc graft was applied to the left foot full-thickness ulceration with 100% use. Second application. The graft site was free and clear of any infection. The wound/skin graft substitute was dressed with nonadherent bandage secured in place with Steri-Strips followed by dry sterile dressing and a Tubigrip for compression control. Post-Debridement Measurements and Additional Note: Post-Debridement Measurements/Treatment - Nurse 1 - General Ulcer Assessment Start: 09/03/24 11:49 Freq: Status: Active Protocol: MATILDA Activity Type Activity Date Activity User E-sign Co-sign Detail Recorded Client Recorded Date Recorded By Document 09/03/24 11:49 ML [id number] 09/03/24 11:51 ML Edit Result 09/03/24 11:49 ML (1) [id number] 09/03/24 12:43 ML (1) Left Footwear => Removable Cast => Walker/Walking => Boot Is Patient Pain Free? Yes => No 09/03/24 11:49 - Today's Visit Information Type of service Follow-up Visit (Physician/VACCINE SPECIALIST ) Arrival Mode Ambulatory Transfer Assistance None Patient Identification Verified (Name & Yes ) Patient Requires Transmission-Based No Precautions Height and Weight Body Mass Index (BMI) 41.3 BMI Classification Obese Vital Signs Temperature (97.8 F-99.1 F) 97.1 F L Temperature Source Temporal Pulse Rate (60-100) 100 Pulse Location Monitor Respiratory Rate (12-18) 14 Respiratory rate source Observation Blood Pressure (90/60-120/80) 151/85 H Blood Pressure Mean (mm Hg) 107 Source Monitor Position Sitting Blood Pressure Location Right Arm History Since Last Visit- (Skip if this is Patient's initial visit) Have you changed medications since your No last visit? Any new allergies or adverse reactions No Had a fall/change in ADL's that may No increase risk of falls Signs or symptoms of abuse and/or No neglect since last visit Have you been in the hospital since your No last visit? Has dressing in place as prescribed Yes Has compression in place as prescribed N/A Has offloadiing in place as prescribed N/A Experienced any changes in pain level or No management Left Footwear Removable Cast Walker/Walking Boot Pain Scale: 0-10 Numeric Is Patient Pain Free? No WC - Nurse 1 - General Ulcer Measurement Start: 09/03/24 11:49 Freq: Status: Active Protocol: Activity Type Activity Date Activity User E-sign Co-sign Detail Recorded Client Recorded Date Recorded By Document 09/03/24 11:49 [id number] 09/03/24 11:51 ML 09/03/24 11:49 Wound Center Nurse 1 #1 L Ant Ankle Cluster -Current Size (cm) - Length 1 -Current Size (cm) - Width 1 -Current Size (cm) - Depth 0.2 -Total Square Cm 1 -Exudate Amt Medium -Wound Margin Distinct, Outline Attached -Granulation Amt None Present (0 %) -Slough/Fibrin Yes -Necrosis Amt Medium (34-66%) -Necrotic Tissue Type Adherent Slough -Texture (Viki-wound Skin Appearance) Assessed -Moisture (Viki-wound Skin Appearance) Assessed -Color (Viki-wound Skin Appearance) Assessed -Temperature (Viki-wound Skin No Abnormality Appearance) (Pt Warm) -Tenderness on Palpation (Viki-wound No Skin Appearance) -Ulcer Cleansing Rinsed/ Irrigated with Saline -Foul Odor after Cleansing No -Anesthetic Used 5% Lidocaine Gel - Nurse 2 - General Ulcer CM Notes Start: 09/03/24 11:49 Freq: Status: Active Protocol: Activity Type Activity Date Activity User E-sign Co-sign Detail Recorded Client Recorded Date Recorded By Document 09/03/24 12:10 [facility] [id number] 09/03/24 12:16 [facility] 09/03/24 12:10 Wound Center Nurse 2 -Time 12:11 -Correct Patient Yes -Correct Side, Site, Position Yes -Correct Procedure Yes -Procedure Performed Yes -Type of Procedure Debridement -Clinical Debridement Subcutaneous -Tissue Removed Subcutaneous -Post Debridement (cm) - Length 0.9 -Post Debridement (cm) - Width 0.5 -Post Debridement (cm) - Depth 0.1 -Total Square (Post) (cm) 0.45 -Area of Debridement (cm) - Length 0.9 -Area of Debridement (cm) - Width 0.5 -Total Square (Area) (cm) 0.45 -Tunneling No -Undermining/Tunneling No -Circular Undermining No -Wound/Ulcer Outcome Not Healed -Ulcer Cleansing Rinsed/ Irrigated with Saline -Foul Odor after Cleansing No -Bioengineered Tissue Yes -Type of Bioengineered Tissue Epifix 18mm Disc -Expiration Date 03/23/29 -Product Lot Number [id number] -Percent Used 100 -Lot number of Saline Used [id number] -Bleeding Controlled with Pressure -Treatment Response Procedure Tolerated Well -Debridement - Subq, 1st 20sq cm No -Apply Skin Sub - 1st 25 sq cm - Feet 1 -Epifix 18mm Disc 3 Pain Scale: 0-10 Numeric Is Patient Pain Free? Yes - Nurse 3 - General Ulcer D/C NN Start: 09/03/24 11:49 Freq: Status: Active Protocol: Activity Type Activity Date Activity User E-sign Co-sign Detail Recorded Client Recorded Date Recorded By Document 09/03/24 12:26 [facility] [id number] 09/03/24 12:32 [facility] 09/03/24 12:26 Wound Care Center Nurse 3 #1 L Ant Ankle Cluster -Primary Dressing Applied Silicone Border Foam 4x4 -Other Dressing epifix -Silicone Border Foam 4x4 1 Left -Compression Wrap Chris Wrap Treatment Response Procedure Tolerated Well Pain Scale: 0-10 Numeric Is Patient Pain Free? No LT FOOT/ankle -Description Sharp,Burning -Intensity 8 -Duration (hours) Chronic -Pain Behavior Guarding, Irritability, Rubbing Site, Facial Grimacing -Pain Aggravating Factors ADL's,Changing Position, Standing, Walking, Debridement -Alleviating Factors/Interventions Medication, Turning/ Repositioning, Distraction, Will continue to monitor, Patient denies need for intervention -Comments otc pain meds - Visit Discharge Discharge Condition Stable Ambulatory Status Ambulatory,Cane Transportation Private Auto Assessment/Plan Assessment/Plan (1) Non-pressure chronic ulcer of left ankle with muscle involvement without evidence of necrosis: CODE(S): L97.325 - Non-pressure chronic ulcer of left ankle with muscle involvement without evidence of necrosis PLAN: Patient was examined and evaluated. All findings were discussed with the patient. All questions were answered to the patient's satisfaction. Excisional debridement down to including subcutaneous tissue with a number 3 mm dermal curette left dorsal medial incision of the left ankle. Predebridement measurement was 0.8 x 0.3 x 0.1 cm. Postdebridement measurement is 0.9 x 0.5 x 0.1 cm. EpiFix 18 mm disc graft was applied to the left foot full-thickness ulceration with 100% use. Second application. The graft site was free and clear of any infection. The wound/skin graft substitute was dressed with nonadherent bandage secured in place with Steri-Strips followed by dry sterile dressing and a Tubigrip for compression control. The patient's cam boot was donned to the left lower extremity. She is to ambulate as tolerated with assistance of a cane. I educated the patient that due to her osseous deformity as well as chronic pain secondary to her neuropathy the likelihood of the patient being pain-free even though she has a great prognosis is determined on her recovery and physical ability to rehab. The patient was understanding of this. Due to the patient having some discomfort she will be given a small prescription for Flexeril 3 times daily for 7 days as it helps with the cramping and spasming as well as pain to the left lower extremity. Follow-up at the wound care center with Dr. Gtz in 2 week. (2) Pain, foot, right, chronic: CODE(S): M79.671 - Pain in right foot; G89.29 - Other chronic pain
== END 2024-09-19 11:07 | disposition home or self-care (01) ==
LOC: WC 11:46
PROVIDERS: PCP Preventive Medicine Occupational Medicine; Referring Provider Podiatrist Foot & Ankle Surgery; Visit Provider Podiatrist Foot & Ankle Surgery
DX: T81.89XA Other complications of procedures, not elsewhere classified, initial encounter (principal); L97.523 Non-pressure chronic ulcer of other part of left foot with necrosis of muscle; Z79.4 Long term (current) use of insulin; M79.671 Pain in right foot; Z79.84 Long term (current) use of oral hypoglycemic drugs; Z79.899 Other long term (current) drug therapy
CPT/HCPCS: 15275; Q4186

== ENCOUNTER 2024-09-10 05:09 | Day surgery (SDC) | payer MEDICAID, SELFPAY ==
[2024-09-10] VITALS (7 sets, daily range): BP systolic 107–145; BP diastolic 76–84; PULSE 84–92; RESP 16; TEMP 36.3–36.4; O2SAT 97–99; BMI 40.7
--- NOTE | 2024-09-10 06:16 | PCM.PRE.AN2 ---
ASA Classification* ASA Classification ASA Classification: 3 Assessment & Plan Anesthesia* Anesthesia Assessment Anesthesia Assessment: Discussed sedation and/or anesthesia options, risks, benefits, and alternatives with patient/parents/legal guardian/POA. Questions invited. The patient/parents/legal guardian/POA seems to understand and agrees to proceed with anesthesia plan. Reviewed the physical assessment, medical history, allergy history and patient home medications list prior to surgery/procedure/anesthetic and documented any changes. Performed airway and anesthesia risk assessments. Anesthesia Type Anesthesia Type: MAC History Source History Obtained from:: Patient and Chart Anesthesia Focused Assessment* Temperature: 97.6 F Pulse Rate: 92 Blood Pressure: 145/77 Respiratory Rate: 16 Pulse Ox: 97 Oxygen Delivery Method: Room Air Airway Assessment Mouth opens: >3 cm Mallampati Score: IV Teeth Condition: Intact Neck Range of motion (ROM): Full ROM Focused Labs Anesthesia Preop lab: CBC WBC 6.6 K/mm3 (4.4-11.0) 08/15/24 09:08/15/24 RBC 4.61 M/mm3 (4.2-5.4) 08/15/24 09:27 08/15/24 Hgb 12.5 g/dL (12.0-15.0) 08/15/24 09:08/15/24 Hct 38.2 % (37-47) 08/15/24 09:27 08/15/24 Plt Count 211 K/mm3 (150-450) 08/15/24 09:27 08/15/24 CHEMISTRY Potassium 3.5 mmol/L (3.5-5.1) 08/15/24 09:08/15/24 Sodium 137 mmol/L (136-145) 08/15/24 09:27 08/15/24 Magnesium 2.1 mg/dL (1.6-2.6) 06/12/22 06:10 06/12/22 Phosphorus 4.1 mg/dL (2.5-4.9) 06/12/22 06:10 06/12/22 BUN 40 mg/dL (7-18) H 08/15/24 09:27 08/15/24 Creatinine 1.80 mg/dL (0.55-1.02) H 08/15/24 09:27 08/15/24 Glucose 181 mg/dL (74-106) H 08/15/24 09:27 08/15/24 POC Glucose 136 mg/dL (74-106) H 07/11/24 06:15 07/11/24 TSH 0.57 uIU/mL (0.358-3.74) 06/12/22 06:10 06/12/22 COAG PT 12.7 SECONDS (11.7-14.9) 11/12/22 13:33 11/12/22 Pre-Assessment Diagnosis/Proposed Procedure Planned Operative Procedure(s): EGD CSCOPE Anesthesia History Anesthesia History - net fisher: Anesthesia History - net fisher Hx Hospitalization Yes: 06/2024 [facility] INFECTION 09/04/24 14:48 Any Problems With Anesthesia No 09/04/24 14:48 Cholinesterase deficiency No 09/04/24 14:48 You/Your Family Experience No 09/04/24 14:48 fever (hyperthermia) with Relationship Recent Exposure to Contagious No 09/10/24 05:52 Disease Does patient have nerve No 09/04/24 14:48 stimulator Patient instructed to have device shut off --Does patient have Pacemaker No 09/10/24 05:52 or ICD? When Was Last Pacemaker Check QUESTION #4 FULL TEXT: You/Your Family Experience fever (hyperthermia) with Anesthesia Last Oral Intake Last Oral intake: Last Oral Intake NPO since 03:00 09/10/24 05:52 Meds taken in AM with sips of No 09/10/24 05:52 water? Meds patient instructed to take am of surgery Any additional information?: Yes NPO since: 03:00 (Patient finished prep at 3 AM.) PONV PONV - net fisher: PONV - net fisher Female Yes 09/04/24 14:48 HX of Motion Sickness No 09/04/24 14:48 HX of N/V After Surgery No 09/04/24 14:48 Non-Smoker Yes 09/04/24 14:48 Duration of Surgery greater No 09/04/24 14:48 than 60 minutes Number of Risk Factors 2 09/04/24 14:48 PONV Score Moderate Risk 09/04/24 14:48 Height & Weight Height & Weight: Anesthesia: Height & Weight Height 5 ft 2 in 09/10/24 05:52 Weight: 101 kg 09/10/24 05:52 Body Mass Index (BMI) 40.7 09/10/24 05:52 Respiratory Assessment Respiratory Assessment - net fisher: Respiratory Tract Infection Hx - net fisher Hx Respiratory Tract Infection No 09/04/24 14:48 STOP Sleep Apnea STOP Sleep Apnea - net fisher: STOP Sleep Apnea - net fisher Hx Hypertension Yes: CONTROLLED WITH MED 09/04/24 14:48 Hx Sleep Apnea No 09/04/24 14:48 CPAP BIPAP Do you snore loudly (louder Yes 09/04/24 14:48 than talking or can be heard Do you often feel tired/ Yes 09/04/24 14:48 fatigued/ sleepy during daytime? Has anyone observed you stop No 09/04/24 14:48 breathing during sleep? STOP Results Positive 09/04/24 14:48 QUESTION #5 FULL TEXT : Do you snore loudly (louder than talking or can be heard through closed doors)? 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 Specify any problems Hx of Preganancy in last 3 No 09/04/24 14:48 Months Nurse Filling Out Transfusion DSCHRIBER 09/04/24 14:48 & Questions: Date: 09/04/24 09/04/24 14:48 Time: 14:50 09/04/24 14:48 Patient unable to answer at this time (ie. 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 without evidence of necrosis Diabetes Kidney disease GI bleed Left foot infection DVT (deep venous thrombosis) Restless legs Back pain Ulcerative colitis History of pain when walking History of echocardiogram Ambulates with cane Bladder disease High cholesterol Injury of head and neck Dietary restriction History of GI bleed History of diverticulitis Smoker History of edema Anxiety Asthma Irregular heart beat Vitamin D deficiency Right shoulder pain Radiculitis, brachial Neuropathy of left foot Hypertension Depression Colon polyp Chronic pain in left foot Arthritis ADHD Blood in stool Abdominal pain Home Medications ?Medication ?Instructions ?Recorded ?Last Taken ?Type albuterol sulfate 90 mcg/actuation 2 puff inhalation Q6H PRN Wheezing 04/07/22 Unknown History aerosol inhaler (ProAir HFA) cetirizine 10 mg tablet 10 mg PO DAILY allergies 04/07/22 06/25/23 History cholecalciferol (vitamin D3) 100 4,000 unit PO DAILY vitamin 04/07/22 06/25/23 History mcg (4,000 unit) tablet fluticasone propionate 50 2 spray intranasal BID allergies 04/07/22 06/25/23 History mcg/actuation nasal spray,suspension glipizide 2.5 mg tablet, extended 5 mg PO DAILY diabetes 04/07/22 06/25/23 History release 24 hr olopatadine 0.2 % eye drops 1 drp EACH EYE PRN PRN Allergy 06/13/22 06/25/23 History Symptoms losartan 100 mg tablet 100 mg PO DAILY 30 days #30 tabs 06/16/22 06/27/24 Rx atorvastatin 20 mg tablet 20 mg PO DAILY 07/10/22 06/25/23 History glucometer #1 ea 11/12/22 Unknown Rx insulin glargine 100 unit/mL (3 46 unit subcut QHS 06/22/23 05/22/24 History mL) subcutaneous pen (Lantus Solostar U-100 Insulin) insulin lispro 100 unit/mL 1 sliding scale dose subcut TID 01/19/24 Unknown History subcutaneous half-unit pen (Humalog Erik KwikPen (U-100)) dicyclomine 20 mg tablet 20 mg PO TID PRN abdominal pain 01/21/24 Unknown Rx #90 tabs multivitamin with minerals-folic 1 tab PO BID 01/21/24 Unknown History acid 120 mcg chewable tablet (Centrum Adult 50 Plus Fresh-Fruity) omega-3 fatty acids-fish oil 300 1 cap PO DAILY 01/21/24 Unknown History mg-1,000 mg capsule infliximab 100 mg intravenous See Rx Instructions .Route 01/29/24 Unknown Rx solution .COMPLEX #1 vial Held on 09/04/24. Instructions: MD Ordered ascorbic acid (vitamin C) 1,000 mg 1 g PO DAILY 90 days #90 tabs 05/23/24 Unknown Rx tablet (Vitamin C) furosemide 20 mg tablet 20 mg PO DAILY PRN edema 07/07/24 Unknown History hydroxyzine HCl 25 mg tablet 25 mg PO Q8 PRN nausea and vomiting 07/07/24 Unknown History lidocaine 5 % topical patch 3 patch topical Q24H PRN pain 07/07/24 Unknown History cyclobenzaprine 10 mg tablet 10 mg PO QHS muscle spasm 09/04/24 Unknown History oxycodone 5 mg tablet 5 mg PO Q4H PRN pain 09/04/24 Unknown History Allergy/AdvReac Type Severity Reaction Status Date / Time ciprofloxacin Allergy Severe Laryngospasms, Verified 09/10/24 05:50 itching morphine AdvReac Intermediate Nausea/Vom/ Verified 09/10/24 05:50 Diarrhea tramadol AdvReac Intermediate Nausea Verified 09/10/24 05:50 metformin (From Glucophage) AdvReac Abd Verified 09/10/24 05:50 cramps/diarrhea Family History Father Arthritis Diabetes Epilepsy Hypertension Heart disease Liver cancer Mother Hypertension Brother Diabetes Colon cancer Grandmother Colon cancer Stomach cancer Surgical History Hx of foot surgery History of ankle surgery Hx of colonoscopy Previous section H/O: hysterectomy History of bunionectomy Social History Smoking Status: Current every day smoker tobacco type: cigarettes alcohol intake: current Review of Systems (Anesthesia) ROS Narrative System reviewed and no additional complaints, except as documented.
[2024-09-10 06:25] LABS: Bedside Glucose 102 mg/dL (74-106)
--- NOTE | 2024-09-10 06:30 | EGD_PTH ---
PATIENT: MOUNIKA DUBON LOC: EN U#:[id number] AGE/SX: 53/F ROOM: RE09/10/[address]: Dr. Francesco Walls DO : 1970 BED: DIS: 09/10/2024 SPEC #: [id number] RECD: 09/10/24 11:04 STATUS: YOAN ZARAGOZABarbara #: [id number] CHOCO: 09/10/24 06:[address]: Francesco Walls DEPT: SURGICAL PATHOLOGY RECD BY: Jasmyne West ENTERED: 09/10/24 12:06 SP TYPE: EGD BIOPSY OT DR: Dr. Raheem Garcia DO Tissues: A - Duodenum, NOS B - Esophagus, NOS C - Right colon D - Left colon E - Rectum, NOS Procedures: Special Stain Group I Surgery Specimen Level IV Alcian Blue/PAS (control) HEADER OPERATION: Colonoscopy with biopsy, EGD with biopsy PRE-OP DIAGNOSIS: Colitis, abdominal pain TISSUE SUBMITTED: A- Duodenum biopsy, B- Distal esophagus biopsy, C- Right side of colon biopsy, D- Left side of colon biopsy, E- Rectum biopsy MICROSCOPIC DIAGNOSIS A. Duodenum, biopsy: A fragment of duodenal mucosa, no pathologic diagnosis. B. Distal esophagus, biopsy: Fragments of gastroesophageal mucosa with chronic inflammation. Intestinal metaplasia (goblet cell metaplasia) not identified. See comment. C. Right side of colon, biopsy: Fragments of colonic mucosa with glandular distortion and mild chronic inflammation. Negative for active inflammation. D. Left side of colon, biopsy: Chronic active colitis. See microscopic description and comment. E. Rectum, biopsy: Fragments of colonic mucosa with glandular distortion and mild chronic inflammation. Negative for active inflammation. 09/11/2024 COMMENT B. Alcian blue/PAS stain with matched control is used in the evaluation of the specimen. Correlation with clinical, endoscopic findings and appropriate follow up are necessary. MICROSCOPIC DESCRIPTION Slides are reviewed. D. The specimen shows fragments of colonic mucosa with focal ulceration, acute and chronic inflammatory cell infiltrates in the lamina propria, cryptitis, crypt abscesses, and glandular distortion. Granulomas are not seen. No evidence of dysplasia. GROSS DESCRIPTION A. Received in fixative is one container labeled with the patient's name and designated Duodenum biopsy. The specimen consists of one irregular fragment of light carrillo soft tissue that measures 0.5 x 0.3 x 0.1 cm. The specimen is totally submitted in one cassette. B. Received in fixative is one container labeled with the patient's name and designated Distal esophagus biopsy. The specimen consists of multiple irregular fragments of light carrillo soft tissue that in aggregate measure 0.6 x 0.2 x 0.1 cm. The specimen is totally submitted in one cassette. C. Received in fixative is one container labeled with the patient's name and designated Right side of colon biopsy. The specimen consists of multiple irregular fragments of light carrillo soft tissue that in aggregate measure 1.5 x 0.4 x 0.1 cm. The specimen is totally submitted in one cassette. D. Received in fixative is one container labeled with the patient's name and designated Left side of colon biopsy. The specimen consists of multiple irregular fragments of light carrillo soft tissue that in aggregate measure 2 x 0.6 x 0.1 cm. The specimen is totally submitted in one cassette. E. Received in fixative is one container labeled with the patient's name and designated Rectum biopsy. The specimen consists of two irregular fragments of light carrillo soft tissue that in aggregate measure 0.8 x 0.4 x 0.1 cm. The specimen is totally submitted in one cassette. SJ 09/10/2024 TC:2 CPT:02022k8,37894
--- NOTE | 2024-09-10 06:49 | PCM.HP.STD ---
[facility] - General General Date of Admission: 09/10/24 Date of Service: 09/10/24 Chief Complaint: abdominal pain and diarrhea [facility] Narrative CAROLINE DUBON, is a 53 F who presents for an egd and colonoscopy for the evaluation of continue abdominal pain and continued diarrhea. Caroline established with this clinic 05.04.22 with referral from PCP. Since she has been having 10-20 loose BM/day with blood, bloating, flatulence, abdominal pain and postprandial nausea, sweating and abdominal cramping. PCP attempted augment without effect. Biochemical workup ordered at clinic presentation was not drawn to include CBC, CMP, ESR, CRP, LDH, ROBERTA comp, AFP, ANCA, celiac, GAME, VJ, IBD profile, coagulation, AMA, ASM, hepatitis, CEA, CA19-9. Stool studies O/P, C.Difficile, EP WNL. Lactoferrin +, Calprotectin H984 CT abd/pel 05.04.22 sigmoid wall thickening possible incomplete distention versus colitis; moderate stool burden. No obvious inflammation. [facility] ED presentation 06.11.22 with same symptoms as noted at clinic presentation and she was admitted for management of diverticulitis of the sigmoid colon. Treated with IVF and antibiotics. Discharged 06.16.22. Biochemical workup CBC, CMP, TSH without pertinent abnormality. ESR H87 trending to H35; CRP H94.30 trending to H6.86 Stool studies 06.11.22 EP WNL Occult + CT abd/pel 06.11.22 noting retained stool in majority of the colon; diverticulosis; distal descending colon through sigmoid and rectum with submucosal thickening consistent with colitis; pericolonic inflammatory stranding distal descending colon and proximal sigmoid colon consistent with diverticulitis. Biochemical workup 06.16.22 CMP. CBC notes neutrophilic leukocytosis with L shift. ESR H35, CRP H6.86, albumin L2.4. ? Blood workup from 05.04.22 not performed. Contact 07.03.22 with report of red and coffee ground stool. Biochemical workup offered and declined. Also declined ED presentation. Proceed with colonoscopy as currently scheduled. EGD and colonoscopy 07.13.22. EGD found LA Grade B erosive esophagitis; granular gastric mucosa; gastritis; medium hiatal hernia; duodenitis. H.Pylori negative. Colonoscopy found three 1-2mm TA and hyperplastic polyps at splenic flexure; diffuse, acute colitis with inflammation from rectum to hepatic flexure, moderate. Protonix 40mg BID taper Stool studies 07.13.22 EP WNL. C.Difficile + A/B antigen and toxin Vancomycin 07.13.22 Reports that her symptoms are much improved. Vancomycin continues without adverse effect. EGD and Colonoscopy 06.26.23 EGD LA Grade B reflux esophagitis with no bleeding. Biopsied. Erythematous mucosa in the gastric body. Biopsied. Erythematous duodenopathy. Biopsied. Colonoscopy Preparation of the colon was fair. Stool in the entire examined colon. Diffuse moderate mucosal changes were found in the entire examined colon secondary to colitis. Biopsied. Contact 01.14.24 Pt LM stating she has been having loose stools with blood for last several months. Has follow up appt 01/20 [facility] ED 6 pt presents with abdominal pain and diarrhea with blood OV 7.1.24 pt reports continued symptoms of 20+ diarrhea / liquid bm per day; endorses blood in the stool. pt reports a loss of 27lbs in the past month. OV 1.6.25 pt reports continued diarrhea 8-10 times a day since jul 03 after starting antibiotics for foot. pt reports for the last few months, about a week after her Remicade infusion she develops severe joint swelling and pain. 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 without evidence of necrosis Diabetes Kidney disease GI bleed Left foot infection DVT (deep venous thrombosis) Restless legs Back pain Ulcerative colitis History of pain when walking History of echocardiogram Ambulates with cane Bladder disease High cholesterol Injury of head and neck Dietary restriction History of GI bleed History of diverticulitis Smoker History of edema Anxiety Asthma Irregular heart beat Vitamin D deficiency Right shoulder pain Radiculitis, brachial Neuropathy of left foot Hypertension Depression Colon polyp Chronic pain in left foot Arthritis ADHD Blood in stool Abdominal pain Home Medications ?Medication ?Instructions ?Recorded ?Last Taken ?Type albuterol sulfate 90 mcg/actuation 2 puff inhalation Q6H PRN Wheezing 04/07/22 Unknown History aerosol inhaler (ProAir HFA) cetirizine 10 mg tablet 10 mg PO DAILY allergies 04/07/22 06/25/23 History cholecalciferol (vitamin D3) 100 4,000 unit PO DAILY vitamin 04/07/22 06/25/23 History mcg (4,000 unit) tablet fluticasone propionate 50 2 spray intranasal BID allergies 04/07/22 06/25/23 History mcg/actuation nasal spray,suspension glipizide 2.5 mg tablet, extended 5 mg PO DAILY diabetes 04/07/22 06/25/23 History release 24 hr olopatadine 0.2 % eye drops 1 drp EACH EYE PRN PRN Allergy 06/13/22 06/25/23 History Symptoms losartan 100 mg tablet 100 mg PO DAILY 30 days #30 tabs 06/16/22 06/27/24 Rx atorvastatin 20 mg tablet 20 mg PO DAILY 07/10/22 06/25/23 History glucometer #1 ea 11/12/22 Unknown Rx insulin glargine 100 unit/mL (3 46 unit subcut QHS 06/22/23 05/22/24 History mL) subcutaneous pen (Lantus Solostar U-100 Insulin) insulin lispro 100 unit/mL 1 sliding scale dose subcut TID 01/19/24 Unknown History subcutaneous half-unit pen (Humalog Erik KwikPen (U-100)) dicyclomine 20 mg tablet 20 mg PO TID PRN abdominal pain 01/21/24 Unknown Rx #90 tabs multivitamin with minerals-folic 1 tab PO BID 01/21/24 Unknown History acid 120 mcg chewable tablet (Centrum Adult 50 Plus Fresh-Fruity) omega-3 fatty acids-fish oil 300 1 cap PO DAILY 01/21/24 Unknown History mg-1,000 mg capsule infliximab 100 mg intravenous See Rx Instructions .Route 01/29/24 Unknown Rx solution .COMPLEX #1 vial Held on 09/04/24. Instructions: Ordered ascorbic acid (vitamin C) 1,000 mg 1 g PO DAILY 90 days #90 tabs 05/23/24 Unknown Rx tablet (Vitamin C) furosemide 20 mg tablet 20 mg PO DAILY PRN edema 07/07/24 Unknown History hydroxyzine HCl 25 mg tablet 25 mg PO Q8 PRN nausea and vomiting 07/07/24 Unknown History lidocaine 5 % topical patch 3 patch topical Q24H PRN pain 07/07/24 Unknown History cyclobenzaprine 10 mg tablet 10 mg PO QHS muscle spasm 09/04/24 Unknown History oxycodone 5 mg tablet 5 mg PO Q4H PRN pain 09/04/24 Unknown History Allergy/AdvReac Type Severity Reaction Status Date / Time ciprofloxacin Allergy Severe Laryngospasms, Verified 09/10/24 05:50 itching morphine AdvReac Intermediate Nausea/Vom/ Verified 09/10/24 05:50 Diarrhea tramadol AdvReac Intermediate Nausea Verified 09/10/24 05:50 metformin (From Glucophage) AdvReac Abd Verified 09/10/24 05:50 cramps/diarrhea Family History Father Arthritis Diabetes Epilepsy Hypertension Heart disease Liver cancer Mother Hypertension Brother Diabetes Colon cancer Grandmother Colon cancer Stomach cancer Surgical History Hx of foot surgery History of ankle surgery Hx of colonoscopy Previous section H/O: hysterectomy History of bunionectomy Social History Smoking Status: Current every day smoker (Patient smoked today.) tobacco type: cigarettes alcohol intake: current ROS Constitutional Constitutional: Denies fatigue, fever(s), poor appetite, weight gain or weight loss Gastrointestinal Gastrointestinal: Denies belching, bloating, change in bowel habits, change in stool character, chewing difficulty, coffee ground emesis, constipation, cramping, diarrhea, dyspepsia, dysphagia, early satiety, excessive flatus, fecal incontinence, heartburn, hematemesis, hematochezia, hemorrhoids, loose stools, melena, nausea, odynophagia, rectal bleeding, tenesmus, vomiting or weight changes Vital Signs Vital Signs Vital Signs: 09/10/24 05:52 09/10/24 05:52 09/10/24 06:24 Temperature 97.6 F L 97.6 F L Temperature Source Temporal Pulse Rate 92 92 Respiratory Rate 16 16 Respiratory Pattern Normal Blood Pressure 145/77 H 145/77 H Blood Pressure Mean 99 Blood Pressure Source Monitor Blood Pressure Position Sitting Blood Pressure Location Left Arm Pulse Ox 97 97 Oxygen Delivery Method Room Air Room Air Weight Weight: 222 lb 10.67 oz Body Mass Index (BMI) 40.7 Physical Exam Const alert, oriented x3, no apparent distress and healthy appearing General Appearance: cooperative GI normal to inspection, nondistended, normoactive bowel sounds, soft to palpation, non-tender and non-distended Percussion: normal to percussion Rectal Exam: deferred Results Lab / Micro Data Labs: Laboratory Results - last 24 hr 09/10/24 05:39: POC Glucose 102 Assessment & Plan Assessment/Plan (1) Colitis: (2) Abdominal pain: PLAN: Assessment and Plan Assessment and Plan (1) Clostridioides difficile infection: Status: Chronic Plan: h/o C. difficile infection on Remicaide and recently in steroids. I will start vancomycin 125 mg every 6 hours (2) Elevated fecal calprotectin: Status: Chronic Plan: Fecal calprotectin could be secondary to her flair of ulcerative colitis. However when she was previously tested for enteric pathogens and C. difficile her fecal calprotectin was still elevated. She is going to get blood work for inflammatory bowel disease including ESR, CRP, IBD SGI, LDH, ANCA antibodies. (3) Ulcerative colitis: Status: Inactive Plan: She is currently having a flare of ulcerative colitis. Her imaging shows that she does have inflammation in the rectum and throughout the colon. Her ESR was 65 and her CRP was 70. She is having 10 to 15 pounds a day. We will put her on prednisone 60 mg/day and 100 mg hydrocortisone enemas. We will get her instituted with Remicade also. She is Medications: New vancomycin (Vancocin) 125 mg PO Q6H 4 weeks 112 caps 0RF vancomycin (Vancocin) 125 mg PO Q6H 112 caps 0RF 4 weeks
--- NOTE | 2024-09-10 07:53 | OP.EGD_ITS ---
Patient Name: Caroline Wolfe Procedure Date: 09/10/2024 7:29 AM Date of : 1970 Age: 53 Procedure: Upper GI endoscopy Indications: Epigastric abdominal pain, Heartburn Providers: Francesco Walls DO Referring MD: Raheem Garcia Medicines: Monitored Anesthesia Care Patient Profile: This is a 53 year old female. Refer to note in patient chart for documentation of history and physical. Patient has symptoms of chronic epigastric abdominal pain. Complications: No immediate complications. Procedure: Pre-Anesthesia Assessment: - Prior to the procedure, a History and Physical was performed, and patient medications and allergies were reviewed. The patient is competent. The risks and benefits of the procedure and the sedation options and risks were discussed with the patient. All questions were answered and informed consent was obtained. Patient identification and proposed procedure were verified by the physician in the pre-procedure area. Mental Status Examination: alert and oriented. Airway Examination: normal oropharyngeal airway and neck mobility. Respiratory Examination: clear to auscultation. CV Examination: normal. Prophylactic Antibiotics: The patient does not require prophylactic antibiotics. Prior Anticoagulants: The patient has taken no anticoagulant or antiplatelet agents except for NSAID medication. ASA Grade Assessment: II - A patient with mild systemic disease. After reviewing the risks and benefits, the patient was deemed in satisfactory condition to undergo the procedure. The anesthesia plan was to use monitored anesthesia care (MAC). Immediately prior to administration of medications, the patient was re-assessed for adequacy to receive sedatives. The heart rate, respiratory rate, oxygen saturations, blood pressure, adequacy of pulmonary ventilation, and response to care were monitored throughout the procedure. The physical status of the patient was re-assessed after the procedure. After obtaining informed consent, the endoscope was passed under direct vision. Throughout the procedure, the patient's blood pressure, pulse, and oxygen saturations were monitored continuously. The Colonoscope was introduced through the mouth, and advanced to the second part of duodenum. The upper GI endoscopy was accomplished without difficulty. The patient tolerated the procedure well. Scope In: 7:34:55 AM Scope Out: 7:37:54 AM Total Procedure Duration Time 0 hours 2 minutes 59 seconds Findings: LA Grade A (one or more mucosal breaks less than 5 mm, not extending between tops of 2 mucosal folds) esophagitis with no bleeding was found 36 to 40 cm from the incisors. Biopsies were taken with a cold forceps for histology. Verification of patient identification for the specimen was done. Estimated blood loss was minimal. No gross lesions were noted in the entire examined stomach. A small hiatal hernia was present. Patchy mild inflammation characterized by erythema and friability was found in the duodenal bulb, in the first portion of the duodenum and in the second portion of the duodenum. Biopsies were taken with a cold forceps for histology. Verification of patient identification for the specimen was done. Estimated blood loss was minimal. Impression: - LA Grade A reflux esophagitis with no bleeding. Biopsied. - No gross lesions in the entire stomach. - Small hiatal hernia. - Duodenitis. Biopsied. Recommendation: - Discharge patient to home. - Resume previous diet. - Continue present medications. - Await pathology results. Procedure Code(s): --- Professional --- 83264, Esophagogastroduodenoscopy, flexible, transoral; with biopsy, single or multiple CPT copyright 2021 [employer]. All rights reserved. The codes documented in this report are preliminary and upon supervisor roller printing review may be revised to meet current compliance requirements. Francesco Walls DO 09/10/2024 7:53:19 AM This report has been signed electronically. Number of Addenda: 0 Note Initiated On: 09/10/2024 7:29 AM
--- NOTE | 2024-09-10 07:53 | OP.CCLET_ITS ---
09/10/2024 Raheem Garcia [address] [place] [address] Re : Upper GI endoscopy procedure for Caroline Yaneth Dear Dr. Garcia This procedure was performed on Tuesday, September 10, 2024. My impressions and recommendations are as follows: Impressions : - LA Grade A reflux esophagitis with no bleeding. Biopsied. - No gross lesions in the entire stomach. - Small hiatal hernia. - Duodenitis. Biopsied. Recommendations : - Discharge patient to home. - Resume previous diet. - Continue present medications. - Await pathology results. My findings are described in the full procedure note, which is enclosed. If I can be of further assistance, please feel free to contact me at . Sincerely, Francesco Walls, 09/10/2024 7:53:19 AM This report has been signed electronically.
--- NOTE | 2024-09-10 07:56 | OP.CCLET_ITS ---
09/10/2024 Raheem Garcia [address] [place] [address] Re : Colonoscopy procedure for Caroline Jimenezer Dear Dr. Garcia This procedure was performed on Tuesday, September 10, 2024. My impressions and recommendations are as follows: Impressions : - Preparation of the colon was fair. - Mild (Jeffries Score 1) ulcerative colitis, unchanged since the last examination. Biopsied. - Diverticulosis in the recto-sigmoid colon and in the sigmoid colon. - Stool in the recto-sigmoid colon, in the sigmoid colon, in the descending colon, at the splenic flexure and in the cecum. Recommendations : - Discharge patient to home. - Resume previous diet. - Continue present medications. - Await pathology results. - Repeat colonoscopy in 1 year for surveillance. My findings are described in the full procedure note, which is enclosed. If I can be of further assistance, please feel free to contact me at . Sincerely, Francesco Walls, 09/10/2024 7:56:16 AM This report has been signed electronically.
--- NOTE | 2024-09-10 07:56 | OP.COLON_ITS ---
Patient Name: Caroline Wolfe Procedure Date: 09/10/2024 7:38 AM Date of : 1970 Age: 53 Procedure: Colonoscopy Indications: Follow-up of chronic ulcerative pancolitis, Disease activity assessment of chronic ulcerative pancolitis Providers: Francesco Walls DO Referring MD: Raheem Garcia Medicines: Monitored Anesthesia Care Patient Profile: This is a 53 year old female. Refer to note in patient chart for documentation of history and physical. Patient has symptoms of chronic epigastric abdominal pain. Last Colonoscopy: within the past 3 years. Complications: No immediate complications. Procedure: Pre-Anesthesia Assessment: - Prior to the procedure, a History and Physical was performed, and patient medications and allergies were reviewed. The patient is competent. The risks and benefits of the procedure and the sedation options and risks were discussed with the patient. All questions were answered and informed consent was obtained. Patient identification and proposed procedure were verified by the physician in the pre-procedure area. Mental Status Examination: alert and oriented. Airway Examination: normal oropharyngeal airway and neck mobility. Respiratory Examination: clear to auscultation. CV Examination: normal. Prophylactic Antibiotics: The patient does not require prophylactic antibiotics. Prior Anticoagulants: The patient has taken no anticoagulant or antiplatelet agents except for NSAID medication. ASA Grade Assessment: II - A patient with mild systemic disease. After reviewing the risks and benefits, the patient was deemed in satisfactory condition to undergo the procedure. The anesthesia plan was to use monitored anesthesia care (MAC). Immediately prior to administration of medications, the patient was re-assessed for adequacy to receive sedatives. The heart rate, respiratory rate, oxygen saturations, blood pressure, adequacy of pulmonary ventilation, and response to care were monitored throughout the procedure. The physical status of the patient was re-assessed after the procedure. After I obtained informed consent, the scope was passed under direct vision. Throughout the procedure, the patient's blood pressure, pulse, and oxygen saturations were monitored continuously. The Colonoscope was introduced through the anus and advanced to the cecum, identified by appendiceal orifice and ileocecal valve. The colonoscopy was performed without difficulty. The patient tolerated the procedure well. The quality of the bowel preparation was fair. The ileocecal valve, appendiceal orifice, and rectum were photographed. Scope In: 7:39:35 AM Scope Withdrawal Time 0 hours 7 minutes 18 seconds Scope Out: 7:49:06 AM Total Procedure Duration Time 0 hours 9 minutes 31 seconds Findings: Inflammation was found in a continuous and circumferential pattern from the rectum to the splenic flexure and as small patches surrounded by normal mucosa in the transverse colon and in the ascending colon. This was graded as Jeffries Score 1 (mild, with erythema, decreased vascular pattern, mild friability), and when compared to the previous examination, the findings are unchanged. Biopsies were taken with a cold forceps for histology. Verification of patient identification for the specimen was done. Estimated blood loss was minimal. A few small-mouthed diverticula were found in the recto-sigmoid colon and sigmoid colon. Stool was found in the recto-sigmoid colon, in the sigmoid colon, in the descending colon, at the splenic flexure and in the cecum. Impression: - Preparation of the colon was fair. - Mild (Jeffries Score 1) ulcerative colitis, unchanged since the last examination. Biopsied. - Diverticulosis in the recto-sigmoid colon and in the sigmoid colon. - Stool in the recto-sigmoid colon, in the sigmoid colon, in the descending colon, at the splenic flexure and in the cecum. Recommendation: - Discharge patient to home. - Resume previous diet. - Continue present medications. - Await pathology results. - Repeat colonoscopy in 1 year for surveillance. Procedure Code(s): --- Professional --- 62674, Colonoscopy, flexible; with biopsy, single or multiple CPT copyright 2021 [employer]. All rights reserved. The codes documented in this report are preliminary and upon wastewater superintendent review may be revised to meet current compliance requirements. Francesco Walls DO 09/10/2024 7:56:16 AM This report has been signed electronically. Number of Addenda: 0 Note Initiated On: 09/10/2024 7:38 AM
--- NOTE | 2024-09-10 07:58 | PCM.POST.ANE ---
Anesthesia: Postop Eval I Current Vital Signs Temperature: 97.3 F Pulse Rate: 84 Blood Pressure: 107/77 Respiratory Rate: 16 Pulse Ox: 99 Oxygen Delivery Method: Room Air Assessment Airway patent: Yes Spontaneous unlabored respirations: Yes Mental status: Awake and Calm nausea: No Vomiting: No Anesthesia Complication: No Fluid Hydration Crystalloid volume administer (ml): 50 Total IV fluid infused: 50 Progress Note Anesthesia document: Postop Eval 1 completed: Yes
--- NOTE | 2024-09-10 08:13 | PCM.POSTANE2 ---
Anesthesia Postop Eval I Sum Postop Eval Completion status Anesthesia document: Postop Eval 1 completed: Yes Anesthesia Postop Eval I Summary Anesthesia Postop Eval I Summary: Anesthesia Postop Eval I: Assessment Summary Airway patent Yes 09/10/24 07:59 [email or web address] Spontaneous unlabored Yes 09/10/24 07:59 [email or web address] respirations Mental status Awake,Calm 09/10/24 07:59 [email or web address] nausea No 09/10/24 07:59 [email or web address] Vomiting No 09/10/24 07:59 [email or web address] Anesthesia Postop Eval I: Fluid Summary Crystalloid volume administer 50 09/10/24 07:59 [email or web address] (ml) Colloids volume administered ( ml) Blood Product volume administered (ml) Total IV fluid infused 50 09/10/24 07:59 [email or web address] Anesthesia Postop Eval I: Summary Notes Anesthesia Complication No 09/10/24 07:59 [email or web address] Anesthesia Complication Comment: Post-operative progress note Anesthesia: Postop Eval II Evaluation Mental status: Awake and Calm Pain Level: 0 nausea: No Vomiting: No Complications Anesthesia Complication: No
== END 2024-09-10 08:26 | disposition home or self-care (01) ==
LOC: EN 05:12 → AC 05:13
PROVIDERS: PCP Preventive Medicine Occupational Medicine; Referring Provider Preventive Medicine Occupational Medicine; Visit Provider Internal Medicine Gastroenterology
PROC: 0DJD8ZZ Inspection of Lower Intestinal Tract, Via Natural or Artificial Opening Endoscopic (ICD-10-PCS; CPT 45378; principal; 2024-09-10 06:25)
DX: K21.00 Gastro-esophageal reflux disease with esophagitis, without bleeding (principal); K51.00 Ulcerative (chronic) pancolitis without complications; E11.42 Type 2 diabetes mellitus with diabetic polyneuropathy; Z79.4 Long term (current) use of insulin; K29.80 Duodenitis without bleeding; K44.9 Diaphragmatic hernia without obstruction or gangrene; I10 Essential (primary) hypertension; K57.30 Diverticulosis of large intestine without perforation or abscess without bleeding; E78.00 Pure hypercholesterolemia, unspecified; F17.210 Nicotine dependence, cigarettes, uncomplicated; Z79.84 Long term (current) use of oral hypoglycemic drugs; Z79.899 Other long term (current) drug therapy; Z86.0102 Personal history of hyperplastic colon polyps; Z86.19 Personal history of other infectious and parasitic diseases; Z80.0 Family history of malignant neoplasm of digestive organs
CPT/HCPCS: 43239; 45380; 82962; 88305; 88312; J2405

== ENCOUNTER → 2024-09-26 | Outpatient (CLI) | payer MEDICAID, SELFPAY ==
[2024-06-27 06:12] VITALS: BP 123/81; PULSE 89; RESP 16; TEMP 36.3; O2SAT 95; BMI 42.0
[2024-06-27 06:38] LABS: Bedside Glucose 105 mg/dL (74-106)
--- NOTE | 2024-06-27 06:42 | PCM.PRE.AN2 ---
ASA Classification* ASA Classification ASA Classification: 3 Assessment & Plan Anesthesia* Anesthesia Assessment Anesthesia Assessment: Discussed sedation and/or anesthesia options, risks, benefits, and alternatives with patient/parents/legal guardian/POA. Questions invited. The patient/parents/legal guardian/POA seems to understand and agrees to proceed with anesthesia plan. Reviewed the physical assessment, medical history, allergy history and patient home medications list prior to surgery/procedure/anesthetic and documented any changes. Performed airway and anesthesia risk assessments. Anesthesia Type Anesthesia Type: MAC Anesthesia Focused Assessment* Temperature: 97.4 F Pulse Rate: 89 Blood Pressure: 123/81 Respiratory Rate: 16 Pulse Ox: 95 Airway Assessment Mouth opens: >3 cm Mallampati Score: II Focused Labs Anesthesia Preop lab: CBC WBC 8.0 K/mm3 (4.4-11.0) 01/19/24 08:14 RBC 4.05 M/mm3 (4.2-5.4) L 01/19/24 08:14 Hgb 10.8 g/dL (12.0-15.0) L 01/19/24 08:14 Hct 33.7 % (37-47) L 01/19/24 08:14 Plt Count 363 K/mm3 (150-450) 01/19/24 08:14 CHEMISTRY Potassium 3.6 mmol/L (3.5-5.1) 01/19/24 08:14 Sodium 134 mmol/L (136-145) L 01/19/24 08:14 Magnesium 2.1 mg/dL (1.6-2.6) 06/12/22 06:10 Phosphorus 4.1 mg/dL (2.5-4.9) 06/12/22 06:10 BUN 9 mg/dL (7-18) 01/19/24 08:14 Creatinine 1.00 mg/dL (0.55-1.02) 01/19/24 08:14 Glucose 162 mg/dL (74-106) H 01/19/24 08:14 POC Glucose 105 mg/dL (74-106) 06/27/24 06:03 TSH 0.57 uIU/mL (0.358-3.74) 06/12/22 06:10 COAG PT 12.7 SECONDS (11.7-14.9) 11/12/22 13:33 Pre-Assessment Diagnosis/Proposed Procedure Planned Operative Procedure(s): COLONOSCOPY Anesthesia History Anesthesia History - guest 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 When Was Last Pacemaker Check QUESTION #4 FULL TEXT: You/Your Family Experience fever (hyperthermia) with Anesthesia Last Oral Intake Last Oral intake: Last Oral Intake NPO since 03:30 06/27/24 06:12 Meds taken in AM with sips of Yes 06/27/24 06:12 water? Meds patient instructed to losartan, percocet 06/27/24 06:12 take am of surgery PONV PONV - guest laundry attendant: PONV - guest laundry attendant Female Yes 06/25/24 11:55 HX of Motion Sickness No 06/25/24 11:55 HX of N/V After Surgery No 06/25/24 11:55 Non-Smoker No 06/25/24 11:55 Duration of Surgery greater No 06/25/24 11:55 than 60 minutes Number of Risk Factors 1 06/25/24 11:55 PONV Score Low Risk 06/25/24 11:55 Height & Weight Height & Weight: Anesthesia: Height & Weight Height 5 ft 2 in 06/27/24 06:12 Weight: 104.2 kg 06/27/24 06:12 Body Mass Index (BMI) 42.0 06/27/24 06:12 Respiratory Assessment Respiratory Assessment - guest laundry attendant: Respiratory Tract Infection Hx - guest laundry attendant Hx Respiratory Tract Infection No 06/25/24 11:55 STOP Sleep Apnea STOP Sleep Apnea - guest laundry attendant: STOP Sleep Apnea - guest laundry attendant Hx Hypertension Yes: CONTROLLED WITH MED 06/25/24 11:55 Hx Sleep Apnea No 06/25/24 11:55 CPAP BIPAP Do you snore loudly (louder No 06/25/24 11:55 than talking or can be heard Do you often feel tired/ No 06/25/24 11:55 fatigued/ sleepy during daytime? Has anyone observed you stop No 06/25/24 11:55 breathing during sleep? STOP Results Negative 06/25/24 11:55 QUESTION #5 FULL TEXT : Do you snore loudly (louder than talking or can be heard through closed doors)? 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 Specify any problems Hx of Preganancy in last 3 No 06/25/24 11:55 Months Nurse Filling Out Transfusion VCHRISTIN 06/25/24 11:55 & Questions: Date: 06/25/24 06/25/24 11:55 Time: 11:56 06/25/24 11:55 Patient unable to answer at this time (ie. confused, unrespo /Reproduction History /Reproductive History - guest laundry attendant: /Reproductive Hx- guest laundry attendant Hx Now Gestational Age (in weeks): EDC: Hx Hx Para Hx Section SAB No 06/25/24 11:55 PFSH Medical History DVT (deep venous thrombosis) Restless legs Back pain Ulcerative colitis History of pain when walking History of echocardiogram Insulin dependent diabetes mellitus Ambulates with cane Bladder disease High cholesterol Injury of head and neck Dietary restriction History of GI bleed History of diverticulitis Smoker History of edema Anxiety Asthma Irregular heart beat Vitamin D deficiency Type 2 diabetes mellitus Right shoulder pain Radiculitis, brachial Neuropathy of left foot Hypertension Lower leg edema Depression Colon polyp Chronic pain in left foot Arthritis ADHD Blood in stool Abdominal pain Home Medications ?Medication ?Instructions ?Recorded ?Last Taken ?Type albuterol sulfate 90 mcg/actuation 2 puff inhalation Q6H PRN Wheezing 04/07/22 Unknown History aerosol inhaler (ProAir HFA) cetirizine 10 mg tablet 10 mg PO DAILY allergies 04/07/22 06/25/23 History cholecalciferol (vitamin D3) 100 8,000 unit PO DAILY vitamin 04/07/22 06/25/23 History mcg (4,000 unit) tablet fluticasone propionate 50 2 spray intranasal BID allergies 04/07/22 06/25/23 History mcg/actuation nasal spray,suspension glipizide 2.5 mg tablet, extended 5 mg PO DAILY diabetes 04/07/22 06/25/23 History release 24 hr olopatadine 0.2 % eye drops 1 drp EACH EYE PRN PRN Allergy 06/13/22 06/25/23 History Symptoms losartan 100 mg tablet 100 mg PO DAILY 30 days #30 tabs 06/16/22 06/27/24 Rx atorvastatin 20 mg tablet 20 mg PO DAILY 07/10/22 06/25/23 History glucometer #1 ea 11/12/22 Unknown Rx insulin glargine 100 unit/mL (3 44 unit subcut QHS 06/22/23 05/22/24 History mL) subcutaneous pen (Lantus Solostar U-100 Insulin) insulin lispro 100 unit/mL 1 sliding scale dose subcut TID 01/19/24 Unknown History subcutaneous half-unit pen (Humalog Erik KwikPen (U-100)) dicyclomine 20 mg tablet 20 mg PO TID PRN abdominal pain 01/21/24 Unknown Rx #90 tabs multivitamin with minerals-folic 1 tab PO BID 01/21/24 Unknown History acid 120 mcg chewable tablet (Centrum Adult 50 Plus Fresh-Fruity) omega-3 fatty acids-fish oil 300 1 cap PO DAILY 01/21/24 Unknown History mg-1,000 mg capsule infliximab 100 mg intravenous See Rx Instructions .Route 01/29/24 Unknown Rx solution .COMPLEX #1 vial ascorbic acid (vitamin C) 1,000 mg 1 g PO DAILY 90 days #90 tabs 05/23/24 Unknown Rx tablet (Vitamin C) calcium 500 mg (as 1 tab PO DAILY 90 days #90 tabs 05/23/24 Unknown Rx carbonate)-vitamin D3 15 mcg (600 unit) tablet (Os-Elias 500 + D3) cyclobenzaprine 10 mg tablet 10 mg PO TID muscle spasm 7 days 05/23/24 Unknown Rx #21 tabs docusate sodium 100 mg capsule 100 mg PO DAILY 10 days #10 caps 05/23/24 Unknown Rx (Colace) oxycodone-acetaminophen 5 mg-325 1 tab PO Q6H pain 5 days #20 tabs 05/23/24 06/27/24 03:30 Rx mg tablet (Percocet) oxycodone-acetaminophen 5 mg-325 1 tab PO Q6H PRN pain 7 days #28 05/27/24 Unknown Rx mg tablet (Percocet) tabs oxycodone-acetaminophen 5 mg-325 1 tab PO Q6H PRN pain 7 days #28 06/03/24 Unknown Rx mg tablet (Percocet) tabs oxycodone-acetaminophen 5 mg-325 1 tab PO Q6H PRN pain 7 days #28 06/13/24 Unknown Rx mg tablet (Percocet) tabs Allergy/AdvReac Type Severity Reaction Status Date / Time ciprofloxacin Allergy Severe Laryngospasms, Verified 06/27/24 06:04 itching morphine AdvReac Intermediate Nausea/Vom/ Verified 06/27/24 06:04 Diarrhea tramadol AdvReac Intermediate Nausea Verified 06/27/24 06:04 metformin (From Glucophage) AdvReac Abd Verified 06/27/24 06:04 cramps/diarrhea Family History Father Arthritis Diabetes Epilepsy Hypertension Heart disease Liver cancer Mother Hypertension Brother Diabetes Colon cancer Grandmother Colon cancer Stomach cancer Surgical History History of ankle surgery Hx of colonoscopy Previous section H/O: hysterectomy History of bunionectomy Social History Smoking Status: Light Smoker (<10/day) alcohol intake: current Review of Systems (Anesthesia) ROS Narrative System reviewed and no additional complaints, except as documented.
[2024-06-27 06:43] VITALS: BP 123/81; PULSE 89; RESP 16; TEMP 36.3; O2SAT 95
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
== END | disposition home or self-care (01) ==
LOC: PAT 13:08
PROVIDERS: PCP Preventive Medicine Occupational Medicine; Referring Provider Preventive Medicine Occupational Medicine; Visit Provider Internal Medicine Gastroenterology
DX: Z01.818 Encounter for other preprocedural examination (principal); E11.42 Type 2 diabetes mellitus with diabetic polyneuropathy; Z79.4 Long term (current) use of insulin; Z79.84 Long term (current) use of oral hypoglycemic drugs
CPT/HCPCS: J2405; 82962; A4216